=== PATIENT | female | born 1960 | race Caucasian/White ===

== ENCOUNTER → 2017-09-29 12:50 | Outpatient (CLI) | payer OTHER, SELFPAY ==
--- NOTE | 2017-09-29 12:57 | VDLE_ITS ---
Reason For Study: LEG SWELLING RIGHT LEFT GSV is normal. CFV is compressible, spontaneous, phasic, CFV is compressible, spontaneous, phasic, competent, and demonstrates normal competent and demonstrates normal augmentation. augmentation. FV is compressible, spontaneous, phasic, competent and demonstrates normal augmentation. POP V is compressible, spontaneous, phasic, competent and demonstrates normal augmentation. T/P Trunk is compressible. PTV is compressible. RT PerV is compressible. Procedure Exam performed in department. A preliminary report was called and/or faxed to Dr. Tavares. Interpretation Summary Deep veins of the right lower extremity are patent and compressible segmentally. There is no evidence of right lower extremity deep vein thrombosis. Valvular competence appears intact within the proximal deep venous system on the right . The right greater saphenous vein appears patent and compressible segmentally. Ordering Physician: Amish Tavares Referring Physician: Amish Tavares Performed By: Toña Curry RVT
== END ==
PROVIDERS: Family Provider Family Medicine; PCP Family Medicine; Visit Provider Family Medicine
DX: M79.89 Other specified soft tissue disorders (principal)
CPT/HCPCS: 93971

== ENCOUNTER 2017-12-13 11:35 | Emergency (ER) | payer OTHER, SELFPAY ==
[2017-12-13 11:36] VITALS: BP 159/93; PULSE 96; RESP 14; TEMP 36.6; O2SAT 100; BMI 26.1
[2017-12-13 11:39] VITALS: PULSE 88
--- NOTE | 2017-12-13 11:46 | EKG12_ITS ---
Test Reason : CP Blood Pressure : / mmHG Vent. Rate : 088 BPM Atrial Rate : 088 BPM P-R Int : 166 ms QRS Dur : 068 ms QT Int : 360 ms P-R-T Axes : 041 033 063 degrees QTc Int : 435 ms Normal sinus rhythm Septal infarct , age undetermined Abnormal ECG Confirmed by MARTHA MANN, GENEVA ([id number]), subeditor NIMCO العراقي ([id number]) on 12/15/2017 9:24:24 AM Referred By: Confirmed By:GENEVA THOMAS MD
--- NOTE | 2017-12-13 11:46 | RAD_ITS ---
STUDY: X-RAY CHEST REASON FOR EXAM: Female, 57 years old. Left-sided chest pain. TECHNIQUE: Single AP portable view of the chest. COMPARISON: None. FINDINGS: EKG electrodes are seen. Hyperinflation. The lungs are clear. There is no demonstrated pleural abnormality. Normal size heart. Normal mediastinum and chela. Normal visualized pulmonary arteries. Normal visualized aortic arch and descending thoracic aorta. Normal visualized thoracic spine. Normal visualized ribs, clavicles, and shoulders. There is no demonstrated abnormality of the visualized soft tissue structures of the upper abdomen. RAD/Chest 1 View (Portable) IMPRESSION: Hyperinflation. Electronically Signed: Tomas Navarro MD at 12:40 EDT Tel [phone], Service support ,
[2017-12-13] MEDS: Aspirin 81 MG TAB.CHEW 324 MG PO (11:51)
[2017-12-13 12:21] LABS: Absolute Lymphocyte Count 1.68 X10^3/ul (0.83-4.51); Absolute Neutrophil Count 5.3 X10^3/uL (2.0-7.7); Basophil# 0.04 X10^3/uL; Basophil% 0.5 % (0-1); Eosinophil# 0.17 X10^3/uL; Eosinophils% 2.2 % (0-5); Hemoglobin 13.8 g/dl (12.0-15.0); Lymphocyte # 1.68 X10^3/ul (4.0); Lymphocyte % 21.4 % (19-41); Mean Corp Hgb Conc 32.9 g/gl (32-36); Mean Corpuscular Hgb 29.5 pg (27.0-32.0); Mean Corpuscular Volume 89.7 fL (81-99); Monocyte# 0.66 X10^3/uL; Monocyte% 8.4 % (0-10); Neutrophil # 5.28 X10^3/uL (2.7-7.7); Neutrophil % 67.4 % (47-70); Platelet Count 222 K/mm3 (150-450); RBC Distribution Width CV 12.8 % (11.6-14.6); RBC Distribution Width SD 41.6 fl (35.1-43.9); Red Blood Count 4.68 M/mm3 (4.2-5.4); White Blood Count 7.8 K/mm3 (4.4-11.0)
[2017-12-13 12:23] LABS: POSITIVE COUNT NO; POSITIVE DIFFERENTIAL NO; POSITIVE MORPHOLOGY NO
[2017-12-13 12:30] LABS: D-Dimer Quantitative (DVT/PE) 0.41 FEU/ug/m (0.27-0.49)
[2017-12-13] MEDS: 0.9% Normal Saline 1,000 ML 1000 ML IV (12:39)
[2017-12-13 12:44] LABS: Anion Gap 4 (5-15); BUN 18 mg/dL (7-18); BUN/Creat Ratio 20.6 RATIO (10-20); Calcium,Total 9.4 mg/dL (8.5-10.1); Chloride 104 mmol/L (98-107); Creatinine, Serum 0.87 mg/dL (0.55-1.02); EST Glomerular Filtration Rate 71 mL/min (>60); Est Glom Filt Rate - Afr Amer 86 mL/min (>60); Estimated Creatinine Clearance 85.94 ml/min; Glucose 112 mg/dL (74-106); Potassium 4.8 mmol/L (3.5-5.1); Sodium Level 138 mmol/L (136-145)
--- NOTE | 2017-12-13 13:07 | EKG12_ITS ---
Test Reason : REPEAT CP Blood Pressure : / mmHG Vent. Rate : 074 BPM Atrial Rate : 074 BPM P-R Int : 198 ms QRS Dur : 066 ms QT Int : 400 ms P-R-T Axes : 066 046 062 degrees QTc Int : 444 ms Normal sinus rhythm Septal infarct , age undetermined Abnormal ECG Confirmed by MARTHA MANN, GENEVA ([id number]), graphic editor NIMCO العراقي ([id number]) on 12/15/2017 9:24:37 AM Referred By: TIERRA Confirmed By:GENEVA THOMAS MD
[2017-12-13] MEDS: Ketorolac 30 MG/ML Syringe IV (13:39)
[2017-12-13 13:49] VITALS: BP 136/87; PULSE 66; RESP 14; O2SAT 100
[2017-12-13 15:00] VITALS: BP 126/70; PULSE 59; RESP 16
--- NOTE | 2017-12-13 15:39 | ED.DCSUM_ITS ---
- ER Visit Summary Date of Service: 12/13/17 Chief Complaint: Chest pain History of Present Illness: The patient is a [address] Amish Patel. She proceeded approximately 1 hour ago she bent over a bathtub to clean it and the onset of a left-sided chest pain. It is a continuous sharp pain that is 2 out of 10 constantly and 10 out of 10 if she breathes or coughs. It is relieved by nothing. Is made her nauseated. No vomiting, diaphoresis, or shortness of breath with this. Patient denies any chest pain or change in dyspnea exertion in the past month. Physical Examination: Vitals: Stable. Afebrile. General: Well-nourished and well-developed. Head: Normocephalic atraumatic. Neck: Supple, no lymphadenopathy. No JVD. Nontender. Cardiovascular: Regular rate and rhythm. No murmurs. Respiratory: No respiratory distress. Clear to auscultation bilaterally. Chest is nontender. Abdominal: Soft, nontender, nondistended, normal bowel sounds. No guarding, rebound, or peritoneal signs. Back: Nontender. Extremities: Nontender, no edema. Skin: Normal color, no rash. Neurologic: Alert and oriented ?3. Cranial nerves II through XII are intact. Normal strength and sensation. Psych: Normal affect. Test Results: EKG is sinus at 88 and unchanged from 2014. Repeat EKG is unchanged. Cardiac enzymes are negative. Repeat enzymes are negative. D- dimer is negative. Chem-7 is more for glucose of 112. CBC is normal. Chest x- ray shows no acute disease. Emergency Department Course and Treatment: Patient had an IV placed. She was given Toradol IV and is resting comfortably. Treatment Plan: At this time I do not have an explanation for the patient's pain. It is pleuritic in nature. I do not believe this is cardiac in etiology. She will be discharged naproxen. Instructed to follow-up with Dr. Amish Patel in 3-5 days if not improving. Return to the emergency department for any worsening symptoms. Disposition: To home in improved and stable condition. Impression: 1. Pleuritic chest pain. This note was generated with Access Medi[employer] software. It may contain incorrect words, spelling, and punctuation that were not noted in review of the chart prior to signing ED Disposition - Plan for ED Patient: Disposition: Home or Assisted Living Chief Complaint: Chest Pain Instructions: ED Chest Pain Atypical Unkn Cause Prescriptions: Naproxen [Naprosyn] 500 mg PO BID #14 tablet Referrals: Amish Tavares MD [Primary Care Provider] - 3-5 Days if not improving
[2017-12-13 15:40] VITALS: BP 126/70; PULSE 72; RESP 16; O2SAT 98
== END 2017-12-13 15:47 | disposition home or self-care (01) ==
PROVIDERS: Emergency Provider Emergency Medicine; Family Provider Family Medicine; PCP Family Medicine
DX: R07.81 Pleurodynia (principal); R11.0 Nausea
CPT/HCPCS: 71045; 80048; 84484; 85025; 85379; 93005; 96361; 96374; 99285; J7030; A4216

== ENCOUNTER → 2018-01-06 11:47 | Outpatient (CLI) | payer OTHER, SELFPAY ==
--- NOTE | 2018-01-06 11:52 | RAD_ITS ---
STUDY: X-RAY - RIGHT KNEE REASON FOR EXAM: Female, 57 years old. Pain x2 months TECHNIQUE: Or view(s) of the knee. # of Images: 4 COMPARISON: 01/18/2017 FINDINGS: Normal visualized distal femur. Normal visualized proximal tibia and fibula. Normal proximal tibiofibular articulation. There is mild degenerative arthrosis of the medial femorotibial compartment. Normal lateral femorotibial compartment. There is mild degenerative arthrosis of the patellofemoral articulation. The soft tissue structures are unremarkable. RAD/Knee 4 or More Views IMPRESSION: Mild arthrosis, no demonstrated fracture or suspicious osseous lesion. Electronically Signed: Valentin Coto MD at 14:03 EDT , Service support ,
== END ==
PROVIDERS: Family Provider Family Medicine; PCP Family Medicine; Referring Provider Anesthesiology Pain Medicine; Visit Provider Anesthesiology Pain Medicine
DX: M25.561 Pain in right knee (principal)
CPT/HCPCS: 73564

== ENCOUNTER → 2018-01-17 07:42 | Outpatient (CLI) | payer OTHER, SELFPAY ==
--- NOTE | 2018-01-17 07:45 | BI_ITS ---
MAMMOGRAPHY - BILATERAL SCREENING REASON FOR EXAM: Female, 57 years old. Routine annual screening examination. PERTINENT HISTORY: Aunt with breast cancer. TECHNIQUE: Digital bilateral breast rimma (3D mammographic acquisition) in the CC and MLO projections. 2-D mediolateral oblique (MLO) and craniocaudad (CC) views of both breasts were obtained. CAD: Full Field Digital Mammography with Computer Added Detection was performed. COMPARISON: Comparison is made with prior examination dated November 12, 2016 and November 12, 2015. FINDINGS: Breast Composition: The breasts are heterogeneously dense, which may obscure small masses. There are no dominant masses or suspicious calcifications. Stable small bilateral axillary lymph nodes. No other significant abnormalities are identified. There has been no significant change since the prior study. BI/SCREENING MAMM (CAD), BILAT IMPRESSION: Stable bilateral screening mammogram. Yearly follow-up mammogram recommended. (A) ASSESSMENT CATEGORY: BIRADS Category 2: Benign. A letter regarding these results will be sent to the patient by the facility within 30 days. Approximately 10% of breast cancers are not detected by mammography. A normal mammogram should not delay biopsy of a clinically suspicious abnormality. [id number] Electronically Signed: Tomas Navarro MD at 9:07 EDT Tel [phone], Service support ,
== END ==
PROVIDERS: Family Provider Family Medicine; PCP Family Medicine; Visit Provider Family Medicine
DX: Z12.31 Encounter for screening mammogram for malignant neoplasm of breast (principal)
CPT/HCPCS: 77063; 77067

== ENCOUNTER → 2018-02-01 20:56 | Outpatient (CLI) | payer OTHER, SELFPAY | PROVIDERS: Family Provider Family Medicine; PCP Family Medicine; Visit Provider Family Medicine | DX: G47.10 Hypersomnia, unspecified (principal); G47.30 Sleep apnea, unspecified | CPT/HCPCS: 95810 ==

== ENCOUNTER 2018-02-25 15:30 | Outpatient (RCR) | payer OTHER, SELFPAY ==
--- NOTE | 2018-03-16 08:48 | HP.PTEVAL_ITS ---
Patient's Visit Information MAIA VALENCIA is a 57 year old F referred to Physical Therapy by Amish Tavares MD with a diagnosis of R knee pain, need for orthotics. Date of Evaluation: 01/20/18 Physical Therapist: Sam Arias DPT - Visit Plan Frequency: 1x/Week Duration: 2 Weeks Plan: Pt. to be fit for orthotics to create a better alignment of foot/knee in order to reduce R knee stress with all ambulation and work related activities. - Subjective Findings: Pt. is here today for her initial evaluation with diagnosis of R knee and pes planus with need for orthotics. Pt. reports wearing orthotics over the years, but her recent once has worn down resulting in increased pes planus positioning. 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 Pt. reports increased knee and foot pain as she stand and walks for longer periods of time. Pt. reports no pain at rest. Pt. has pain upto 3/10 in R knee with these activities. Pt. is hopeful to be fit for orthotics in order to have better positioning of her foot in order to reduce knee pain. - Pain B feet Pain Intensity (Out of 10): 2 Pain Intensity Range: 0, 3 R knee Pain Intensity (Out of 10): 2 Pain Intensity Range: 1, 4 - Objective POSTURE: Pt. has increase pes planus in stance bilaterally. Increased R knee valgus during stance phase, worse without shoes on. PALPATION: Pt. has increased pain at longitudinal arches and R medial knee. No pain on R knee. NEURO: normal sensation and DTR bilaterally. Pt. is able to rise on heels and toes without issues. ROM: Pt. has normal ROM of B feet and ankles, slight reduced R knee ext lacking 3 deg. Normal hip ROM bilat. MMT: Pt. has 5/5 strength thruoghout bilateral LEs. Pt. has slight reduction in B foot intrinsic strength. GAIT: pt. has increased bilateral pes planus with over prontation during stance phase. Pt. has increased R knee valgus during stance phase. All deviations exagerated with out shoes on. STAIRS: inncreased R knee valgus with descending. - Goals Goal 1:: Pt. to be fit for orthotics. Goal Time Frame: 2-4 Weeks Goal 2:: Pt. to have proper fitting of orthotics and be edcated in proper wearing progression. Goal Time Frame: 2-4 Weeks - Rehabilitation Potential Physical Therapy Diagnosis: Pt. has signs and symptoms consistent with R knee pain and B foot pain with signs of pes planus and over pronation. I think this puts a greater stress on her R knee, greater valgus postioning as she has had a menisectomy on this knee as well in past. I agree orthotics for better foot positioning would help stabilize her B feet apply less stress to her R knee with all walking and daily activities. Rehabilitation Potential: Excellent - Anticipated Interventions Patient/Client Instruction: Educate patient on: Condition, Plan of Care, Risk Factors, Benefits of Fitness Program For the Purpose of:: To facilitate caregiver knowledge, To improve self management, To prevent re-injury, To improve ability to perform tasks related to life management, To improve tolerance to ADL's Orthotics: Shoe insert For the Purpose of:: To decrease pain, To increase ROM, To improve nutrient delivery to tissue Thank you for the opportunity to evaluate your patient. For Medicare and Medicare HMO plans, please review the plan of care and approve it. It will need to be FAXED BACK to us at [phone] for Medicare purposes. For Medicare only, by signing this I certify the plan of care. Please let me know if there are questions or concerns regarding this plan of care. Physician Signature: Date:
--- NOTE | 2018-03-16 08:54 | HP.PTDCSUM ---
HP - PT D/C Summary It has been my pleasure to treat MAIA VALENCIA under orders from Amish Tavares MD, for the diagnosis of R knee pain, need for orthotics for a total of 7 visit(s). Discharge Date: 02/25/18 Please see the following information for a summary of their discharge status. - Subjective Subjective: Pt. reprots no change in symptoms currently. Pt. reports continued knee pain and looking forward to new orthotics. - Pain B feet Pain Intensity (Out of 10): 2 R knee Pain Intensity (Out of 10): 2 - Overall Improvement % Improvement: 25 - Objective Objective/Function: Pt. to wear in progression of x1 hour daily. Pt. consents. Pt. reports good fit with walking and tolerance. - Goals Goal 1:: Pt. to be fit for orthotics. Goal Progress: Goal Met Goal 2:: Pt. to have proper fitting of orthotics and be edcated in proper wearing progression. Goal Progress: Goal Met - Plan Plan: Pt. to be fit for orthotics to create a better alignment of foot/knee in order to reduce R knee stress with all ambulation and work related activities. - D/C Information Discharge Comments: Pt. was fit for orthotics and educated in proper wearing progression. Pt. is to contact PT if having any issues. I am hopeful that by having better foot placment we can reduce R knee valgus with all walking, standing and job activities. Pt. will be DC from PT at this point in time. If there are questions or concerns regarding this patient's physical therapy, please feel free to call me at [phone]. Thank you for the referral of this patient. Sincerely, Sam Arias DPT
== END 2018-02-25 19:00 | disposition home or self-care (01) ==
LOC: PT 15:30
PROVIDERS: Family Provider Family Medicine; PCP Family Medicine; Referring Provider Family Medicine; Visit Provider Family Medicine
DX: M25.561 Pain in right knee (principal)
CPT/HCPCS: 97161; 97760; 97763

== ENCOUNTER → 2018-05-09 09:56 | Outpatient (CLI) | payer OTHER, SELFPAY ==
[2018-05-09 21:41] LABS: Chlamydia Trachomatis by PCR Negative (Negative); Neisserai gonorrhoeae by PCR Negative (Negative); Probe Check PASS; Sample Adequacy Control PASS; Specimen Processing Control PASS; Trichomonas Vag DNA by PCR Negative (Negative)
[2018-05-13 12:43] LABS: HPV APTIMA, High Risk Negative (Negative)
== END ==
PROVIDERS: Family Provider Family Medicine; PCP Family Medicine; Visit Provider Obstetrics & Gynecology
DX: Z12.4 Encounter for screening for malignant neoplasm of cervix (principal); Z01.419 Encounter for gynecological examination (general) (routine) without abnormal findings; Z11.3 Encounter for screening for infections with a predominantly sexual mode of transmission
CPT/HCPCS: 87491; 87591; 87624; 87661; 88175; G0145

== ENCOUNTER → 2018-07-13 10:12 | Outpatient (CLI) | payer OTHER, SELFPAY ==
[2018-05-26 08:30] VITALS: BMI 24.4
--- NOTE | 2018-07-13 10:17 | MRI_ITS ---
STUDY: MRI RIGHT KNEE REASON FOR EXAM: Mechanical pain at the lateral and anterior aspects of the right knee, surgery in December 2009. TECHNIQUE: Standardized fat and water weighted pulse sequences were obtained in all 3 orthogonal planes. COMPARISON: MRI images 09/17/2010 and radiographs 01/06/2018. FINDINGS: Normal medial meniscus. Normal hyaline cartilage of the medial femorotibial compartment. Normal medial collateral ligamentous complex (MCL). Normal distal semimembranosus, gracilis and semitendinosus tendons. There is a partial lateral meniscectomy with a meniscal flap of the posterior horn of the lateral meniscal remnant (T2 sagittal image 6; T2 sagittal image 11), a suspected recurrent lateral meniscal tear. There is arthrosis of the lateral femorotibial compartment with marginal osteophytes and chondral loss (T2 sagittal image 8) and slight subchondral bone edema. Normal proximal tibiofibular articulation. Normal lateral collateral (fibular) ligament. Normal popliteus tendon. Normal biceps femoris tendon. Normal anterior cruciate ligament (ACL). Normal posterior cruciate ligament (PCL). Normal congruent patellofemoral articulation. There is arthrosis of the patellofemoral compartment with partial-thickness chondral loss (T2 sagittal image 16). Normal medial and lateral patellar retinaculum. Normal visualized quadriceps tendon. Normal patellar tendon. There is postoperative scarring in Hoffa's fat pad. There is a small joint effusion. The soft tissues are unremarkable. There is bone edema/cystic change in the proximal tibia at the insertion sites of the cruciate ligaments and mild bone edema in the medial femoral condyle near the intercondylar notch. MRI/Lower Ext Joint Only (Routine) IMPRESSION: Partial lateral meniscectomy with suspected recurrent lateral meniscal tear. Arthrosis of the lateral femorotibial and patellofemoral compartments. Small joint effusion. Electronically Signed: Shashank Chicas MD at 11:39 EDT Tel , Service support ,
== END ==
PROVIDERS: Family Provider Family Medicine; PCP Family Medicine; Referring Provider Orthopaedic Surgery; Visit Provider Orthopaedic Surgery
DX: M17.11 Unilateral primary osteoarthritis, right knee (principal); M25.561 Pain in right knee
CPT/HCPCS: 73721

== ENCOUNTER 2018-07-27 10:30 | Outpatient (RCR) | payer OTHER, SELFPAY ==
[2018-05-26 08:30] VITALS: BMI 24.4
--- NOTE | 2018-06-16 09:57 | HP.PTEVAL ---
Patient's Visit Information MAIA VALENCIA is a 57 year old F referred to Physical Therapy by Nnamdi Morales DO with a diagnosis of Biceps femoris tendonitis, medial knee OA. Date of Evaluation: 06/09/18 Physical Therapist: Sam Arias DPT - Visit Plan Frequency: 1-2x /Week Duration: 4-6 Weeks Plan: Start with stretching/PROM of R knee into extension. DFM/DN/graston to HS muscle belly and distal insertion. Progress HEP as tolerated. - Subjective Findings: Pt. is there today for her initial evaluation with diagnosis of R knee quadriceps femoris tendonitis, medial knee OA. Pt. reports having pain for a number of years and has had a previous menisectomy. Pt. reports doing okay for a bit after surgery, but was never fully better. Pt. has had injections without positive effects. She reports having increased pain with all Wbing positions, but not consistently. 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 Pt. reports increased pain with all of these activities. Pt. never did regain of all her extension in her knee after her last surgery. Pt. reprots pain at medial aspect of knee, lateral aspect of her knee and medial popliteal fossa. Pt. denies N/T, but always has some symptoms. Pt. is hopeful to reduce her symptoms in order to get back to work and skiing without limitations or pain. - Pain R knee Pain Intensity (Out of 10): 2 Pain Intensity Range: 1, 5 - Objective POSTURE: Pt. has increased vlagus positoning and slight lack of TKE in stance. Pt. has normal wt. shift in stance. Normal hip positoning. PALPATION: Pt. has increased pain with palpation at medial and lateral joint line. Greatest pain at lateral aspect of knee and popliteal region both medial and laterally. NEURO: Pt. has normal sensation throughout bilateral LEs. Pt. has normal DTR of bilateral LEs. Pt. is able to rise on heels and toes without issues. ROM: L knee- 0-0-128deg. R knee 0-5-126deg increased pain with end range extension. MMT: Pt. has full strength throughout bilateral LEs, except 4/5 hip abduction. Pt. did have increased pain at biceps femoris insertion and distal tendon with HS contraction. GAIT: Pt. lacks TKE on RLE during stance phase. Pt. has decreased wt. shift to R side with reports of increased pain. STAIRS: acending without much increase in symptoms. Pt. increased pain with controlled eccentric lowering on R side. - Special Tests R Knee Disco Test - Meniscus: Negative R Knee Anterior Drawer - ACL: Negative R Knee Valgus - MCL: Negative R Knee Varus - LCL: Negative - Goals Goal 1:: Pt. to be I with HEP. Goal Time Frame: 4-6 Weeks Goal 2:: Pt. to have increased ROM to full extension of R knee allowing for normal gait mechanics. Goal Time Frame: 4-6 Weeks Goal 3:: Pt. to to complete all work and recreational activities without increase in symptoms. Goal Time Frame: 4-6 Weeks Goal 4:: Pt. to to have decreased R knee pain to 0-2/10 with all resting and walking. Goal Time Frame: 4-6 Weeks - Rehabilitation Potential Physical Therapy Diagnosis: Pt. has signs and symptoms consistent with bicep femoris tendonitis and medial knee OA. Pt. is lacking TKE and is very tender along distal biceps femoris insertion. Pt. would benefit from PT to increase ROM, decrease pain and improve functional mobility in order to get back to all recreational activities without limitations. Rehabilitation Potential: Fair - Anticipated Interventions Patient/Client Instruction: Educate patient on: Condition, Plan of Care, Risk Factors, Benefits of Fitness Program For the Purpose of:: To foster healthy habits, To improve decision making, To facilitate caregiver knowledge, To improve self management, To prevent re-injury, To improve ability to perform tasks related to life management, To improve tolerance to ADL's Therapeutic Exercise to Include: Strength training, Power training, Flexibilty training, Passive ROM, Active ROM For the Purpose of:: To decrease pain, To decrease swelling/inflammation, To increase ROM, To improve muscle performance and motor function, To improve health of tissue, To decrease soft tissue restriction, To increase flexibility/ROM Manual Therapy Techniques to Include: Mobilization, Passive ROM, Functional dry needling, Soft tissue mobilization For the Purpose of:: To decrease pain, To decrease swelling/inflammation, To increase ROM, To improve nutrient delivery to tissue Cryotherapy (ice pack, ice massage): Yes Thermo therapy (hot pack): Yes For the Purpose of:: To decrease pain, To decrease swelling/inflammation, To increase ROM Thank you for the opportunity to evaluate your patient. For Medicare and Medicare HMO plans, please review the plan of care and approve it. It will need to be FAXED BACK to us at [phone] for Medicare purposes. For Medicare only, by signing this I certify the plan of care. Please let me know if there are questions or concerns regarding this plan of care. Physician Signature: Date:
--- NOTE | 2018-11-23 10:15 | HP.PTDCNRP_ITS ---
HP - Discharge Summary (1) - Patient Information MAIA DAVIES was seen in my office for initial evaluation on 06/09/18. The following Plan of Care was established for this patient: Initial Frequency: 1-2x /Week Initial Duration: 4-6 Weeks - Anticipated Interventions Patient/Client Instruction: Educate patient on: Condition, Plan of Care, Risk Factors, Benefits of Fitness Program For the Purpose of:: To foster healthy habits, To improve decision making, To facilitate caregiver knowledge, To improve self management, To prevent re- injury, To improve ability to perform tasks related to life management, To imp rove tolerance to ADL's Therapeutic Exercise to Include: Strength training, Power training, Flexibilty training, Passive ROM, Active ROM For the Purpose of:: To decrease pain, To decrease swelling/inflammation, To increase ROM, To improve muscle performance and motor function, To improve health of tissue, To decrease soft tissue restriction, To increase flexibility/ROM Manual Therapy Techniques to Include: Mobilization, Passive ROM, Functional dry needling, Soft tissue mobilization For the Purpose of:: To decrease pain, To decrease swelling/inflammation, To increase ROM, To improve nutrient delivery to tissue Cryotherapy (ice pack, ice massage): Yes Thermo therapy (hot pack): Yes For the Purpose of:: To decrease pain, To decrease swelling/inflammation, To increase ROM This patient was last seen in our office 07/27/18. Pertinent comments regarding their Physical therapy will appear below: Pt. was seen for her biceps femoris tendonitis. Pt. was seen for 5 visits, but did not attend her last visit. Pt. has not been seen in several months and will be DC from PT at this point intime. At this point I will be discontinuing this patient from physical therapy. I would be happy to see this patient again in the future if found appropriate by the physician. Thank you! Sam Arias, GISELA
== END 2018-07-27 19:00 | disposition home or self-care (01) ==
LOC: PT 10:30
PROVIDERS: Family Provider Family Medicine; PCP Family Medicine; Referring Provider Orthopaedic Surgery; Visit Provider Orthopaedic Surgery
DX: S76.312D Strain of muscle, fascia and tendon of the posterior muscle group at thigh level, left thigh, subsequent encounter (principal); M17.11 Unilateral primary osteoarthritis, right knee
CPT/HCPCS: 97110; 97161; 97760

== ENCOUNTER 2018-11-24 03:10 | Emergency (ER) | payer OTHER, SELFPAY ==
[2018-05-26 08:30] VITALS: BMI 24.4
[2018-11-24 03:11] VITALS: BP 115/75; PULSE 66; RESP 14; TEMP 36.5; O2SAT 99; BMI 23.7
--- NOTE | 2018-11-24 03:20 | ED.VIS.GEN ---
History of Present Illness Chief Complaint: Laceration Narrative: Patient is a 58-year-old female who presents with an abrasion. 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 She scraped her left forearm against a toilet paper ang. As this occurred at work she was told by the charge nurse that she needed to be checked because it was bleeding. Past Medical History - Allergies and Home Meds Allergies/Adverse Reactions: Allergies magnesium Allergy (Verified 11/24/18 03:11) Other Primary Care Physician: Amish Tavares MD [Primary Care Provider] - Past Medical History: - - Denies Smoking Status: Never smoker Review of Systems All systems negative except as indicated Physical Exam Vital Signs/Narrative: Vital Signs Temp Pulse Resp BP Pulse Ox 11/24/18 03:11 97.7 F L 66 14 115/75 99 Inital Vital Signs reviewed: Yes General: Well nourished ENT: Moist mucous membranes Cardiovascular: Regular rate Respiratory: No distress Extremities: - - Patient has a small abrasion on the left forearm Neurological: Alert Psychological: Normal affect Diagnostic/Tx/Re-eval - Medical Decision Making The patient was cleansed with water and a Band-Aid placed. Patient discharged ED Disposition - Plan for ED Patient: Disposition: Home or Assisted Living Diagnosis: Abrasion Instructions: Abrasion Referrals: Amish Tavares MD [Primary Care Provider] -
[2018-11-24 03:45] VITALS: RESP 14
== END 2018-11-24 03:46 | disposition home or self-care (01) ==
LOC: ED 03:29
PROVIDERS: Emergency Provider Emergency Medicine; Family Provider Family Medicine; PCP Family Medicine
DX: S50.812A Abrasion of left forearm, initial encounter (principal); X58.XXXA Exposure to other specified factors, initial encounter; Y93.89 Activity, other specified; Y92.239 Unspecified place in hospital as the place of occurrence of the external cause; Y99.0 Civilian activity done for income or pay
CPT/HCPCS: 99282

== ENCOUNTER 2019-03-09 10:15 | Outpatient (RCR) | payer OTHER, SELFPAY ==
[2018-05-26 08:30] VITALS: BMI 24.4
--- NOTE | 2019-02-08 15:44 | MASS.EVAL ---
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 She was seen for a massotherapy evaluation with a diagnosis of arthritic pain. She presents today with mostly neck pain radiating into arms. She further explains that she hurts all over most of the time. On a pain scale of 1-10 she states her pain in a 6-7 today. She does not list any medications. She states that her health is very good with no limits in daily activities. Her goals of treatment are to feel better. OBJECTIVE: Upon examination and palpation I found she had point tenderness throughout her suboccipitals. Her head, neck and shoulders were tight. Her levators,scalenes were right and ropey left greater than right. There was some tenderness over her right arm extensors at the elbow. Her gastroc/soleus muscles were tight as well as the right peroneals were tight and tender. Stephanie's first treatment consisted of MFR, muscle stripping, and a heat pack to loosen muscles. ASSESSMENT: Using various techniques I was able to achieve moderate releases overall. The patient tolerated deep pressure well and relaxed easily PLAN: I plan to see this patient on an as-needed basis for a total of 10 visits in the year 2019. Elida Wilkins LMT
--- NOTE | 2019-03-09 13:00 | MASS.DISCH ---
Massage Therapy Discharge Summary: Discharge Date: 03/09/2019 Stephanie was seen for a massotherapy evaluation on 12/23/2018 with the diagnosis of arthritic pain. She was treated with four sessions of massage therapy consisting of moderate to deep pressure soft tissue techniques, myofascial release and trigger point compression to her cervical, thoracic, lower back, upper extremities, hips and lower extremities. Stephanie responded well to the therapy by reporting decreased tension and pain throughout her head, neck, shoulders, lower back and hips. Her goals for therapy were met throughout the treatment sessions. At this time this patient is being discharged from our care at [facility] [place] facility.
== END 2019-03-09 19:00 | disposition home or self-care (01) ==
LOC: MASS 10:15
PROVIDERS: Family Provider Family Medicine; PCP Family Medicine; Referring Provider Family Medicine; Visit Provider Family Medicine
DX: M25.50 Pain in unspecified joint (principal)
CPT/HCPCS: 97124

== ENCOUNTER → 2019-04-07 08:42 | Outpatient (CLI) | payer OTHER, SELFPAY ==
--- NOTE | 2019-04-07 08:57 | BI_ITS ---
MAMMOGRAPHY - BILATERAL DIAGNOSTIC REASON FOR EXAM: Female, 58 years old. Left lateral breast pain. PERTINENT HISTORY: Aunt with breast cancer. TECHNIQUE: Digital bilateral breast rimma (3D mammographic acquisition) in the CC and MLO projections. 2-D mediolateral oblique (MLO) and craniocaudad (CC) views of both breasts were obtained. CAD: Full Field Digital Mammography with Computer Added Detection was performed. COMPARISON: Comparison is made with prior study dated January 17, 2018 and November 12, 2016. FINDINGS: Breast Composition: The breasts are heterogeneously dense, which may obscure small masses. There are no dominant masses or suspicious calcifications. No other significant abnormalities are identified. There has been no significant change since the prior study. BI/DIAG MAMM W/CAD, BILAT IMPRESSION: Stable bilateral diagnostic mammogram. With the patient''s history of left lateral breast pain, correlation with ultrasound is recommended. ASSESSMENT CATEGORY: BIRADS Category 0: Incomplete. Need additional imaging evaluation. A letter regarding these results will be sent to the patient by the facility within 30 days. Approximately 10% of breast cancers are not detected by mammography. A normal mammogram should not delay biopsy of a clinically suspicious abnormality. Electronically Signed: Tomas Navarro, at 10:22 EST , Service support ,
--- NOTE | 2019-04-07 08:57 | US_ITS ---
STUDY: ULTRASOUND BREAST - LEFT REASON FOR EXAM: Female, 58 years old. Pain in the left breast. TECHNIQUE: Axial and longitudinal images of the LEFT breast were performed with a high resolution ultrasound transducer. # OF IMAGES: 62 COMPARISON: Comparison is made with prior mammogram dated April 07, 2019. FINDINGS: LEFT Breast: The lateral half of the left breast was examined by ultrasound. There is homogeneous fibroglandular tissue. No solid or cystic mass lesion. US/Breast Complete Unilateral IMPRESSION: Unremarkable sonographic examination. ASSESSMENT CATEGORY: BIRADS Category 1: Negative. A letter regarding these results will be sent to the patient by the facility within 30 days. Electronically Signed: Tomas Navarro, at 8:57 EST , Service support ,
== END ==
PROVIDERS: Family Provider Family Medicine; PCP Family Medicine; Referring Provider Obstetrics & Gynecology; Visit Provider Obstetrics & Gynecology
DX: Z12.31 Encounter for screening mammogram for malignant neoplasm of breast (principal); N64.4 Mastodynia
CPT/HCPCS: 76641; 77063; 77066

== ENCOUNTER 2020-01-24 08:15 | Outpatient (RCR) | payer OTHER, SELFPAY ==
--- NOTE | 2020-02-29 09:08 | MASS.DISCH ---
Massage Therapy Discharge Summary: Initial Evaluation Date: 01/24/2020 Diagnosis: CERVICALGIA No. of Visits: ONE Date of last visit: 01/24/2020 This patient is being discharged from our care at the [facility] Facility. Thank you, Linda Hernández LMT
== END 2020-01-24 19:00 | disposition home or self-care (01) ==
LOC: MASS 08:15
PROVIDERS: PCP Family Medicine; Referring Provider Family Medicine; Visit Provider Family Medicine
DX: M54.2 Cervicalgia (principal)
CPT/HCPCS: 97124

== ENCOUNTER → 2020-01-31 09:10 | Outpatient (CLI) | payer OTHER, SELFPAY ==
[2020-01-31 09:04] VITALS: BMI 24.6
--- NOTE | 2020-01-31 09:12 | RAD_ITS ---
STUDY: X-RAY - RIGHT KNEE REASON FOR EXAM: Female, 59 years old. Pain in right knee TECHNIQUE: 4 view(s) of the knee. COMPARISON: Comparison is made with prior examination dated 01/07/2008. FINDINGS: Normal visualized distal femur. Normal visualized proximal tibia and fibula. Normal proximal tibiofibular articulation. Normal medial femorotibial compartment. There is moderate degenerative arthrosis of the lateral femorotibial compartment with moderate joint space narrowing. Normal patellofemoral articulation. The soft tissue structures are unremarkable. RAD/Knee 4 or More Views IMPRESSION: Degenerative arthrosis. This has progressed as compared to prior study. Electronically Signed: Tomas Navarro, at 15:51 EST , Service support ,
== END ==
PROVIDERS: PCP Family Medicine; Referring Provider Orthopaedic Surgery; Visit Provider Orthopaedic Surgery
DX: M25.561 Pain in right knee (principal)
CPT/HCPCS: 73564

== ENCOUNTER 2020-02-19 10:55 | Outpatient (RCR) | payer OTHER, SELFPAY ==
[2020-01-31 09:04] VITALS: BMI 24.6
== END 2020-02-19 23:59 ==
LOC: EMPH 10:55
PROVIDERS: PCP Family Medicine; Visit Provider Family Medicine Geriatric Medicine
DX: Z03.818 Encounter for observation for suspected exposure to other biological agents ruled out (principal)
CPT/HCPCS: 87426

== ENCOUNTER → 2020-02-19 16:55 | Outpatient (CLI) | payer OTHER, SELFPAY ==
[2020-01-31 09:04] VITALS: BMI 24.6
--- NOTE | 2020-02-19 17:40 | CT_ITS ---
STUDY: RIGHT LOWER EXTREMITY CT SCAN REASON FOR EXAM: Female, 59 years old. RT FAROOQ KNEE. HAVING RIGHT KNEE REPLACMENT MAR 05 RADIATION DOSAGE (If Supplied By Facility): CTDIvol = ( 18.76 ) mGy, DLP = ( 1199.65 ) mGycm. Individualized dose optimization techniques were used for this CT.? TECHNIQUE: Axial multidetector CT scan of the right lower extremity. Coronal and sagittal reformatted images. FAROOQ technique. COMPARISON: X-ray dated 01/31/2020. FINDINGS: No acute fracture line. No acute dislocation. No acute bone destruction. Mild right hip osteoarthritis. Mild right knee medial compartment joint space narrowing. Moderate right knee lateral compartment joint space narrowing. Mild right knee patellofemoral joint space narrowing. Mild right ankle talonavicular joint arthrosis. Tubal ligation clips. Remainder of the visualized intra-abdominal/pelvic contents within normal limits. No focal muscle atrophy. Moderate volume right knee joint effusion. Mild soft tissue swelling at the right knee. CT/Extremity Lower without Contra IMPRESSION: Moderate right knee osteoarthritis predominantly laterally Mild right hip and ankle osteoarthritis Moderate volume right knee joint effusion with mild soft tissue swelling Electronically Signed: Jass Rodriguez DO at 11:22 EST Tel , Service support ,
== END ==
PROVIDERS: PCP Family Medicine; Referring Provider Orthopaedic Surgery; Visit Provider Orthopaedic Surgery
DX: M17.11 Unilateral primary osteoarthritis, right knee (principal)
CPT/HCPCS: 73700

== ENCOUNTER 2020-03-05 09:33 | Observation (INO) | payer OTHER, SELFPAY ==
[2020-01-31 09:04] VITALS: BMI 24.6
--- NOTE | 2020-02-23 11:14 | EKG12_ITS ---
Test Reason : PREOP Blood Pressure : / mmHG Vent. Rate : 072 BPM Atrial Rate : 072 BPM P-R Int : 184 ms QRS Dur : 074 ms QT Int : 384 ms P-R-T Axes : 071 065 070 degrees QTc Int : 420 ms Normal sinus rhythm Low voltage QRS Setal MS, age undetermined, cannot be excluded Borderline ECG Confirmed by JACKSON MANN, CLIFFORD ([id number]), primer expeditor and drier NIMCO العراقي ([id number]) on 02/27/2020 4:18:27 PM Referred By: Nnamdi Morales Confirmed By:CLIFFORD PAZ MD
[2020-02-23 12:36] LABS: Absolute Neutrophil Count 3.5 X10^3/uL (2.0-7.7); Basophil# 0.06 X10^3/uL; Eosinophil# 0.17 X10^3/uL; Eosinophils% 2.9 % (0-5); Hematocrit 43.5 % (37-47); Hemoglobin 14.4 g/dL (12.0-15.0); Mean Corp Hgb Conc 33.1 g/dL (32-36); Mean Corpuscular Hgb 30.6 pg (27.0-32.0); Mean Corpuscular Volume 92.4 fL (81-99); Mean Platelet Vol. 8.8 fl (6.2-12.0); Monocyte# 0.55 X10^3/uL; Monocyte% 9.5 % (0-10); NRBC Flagged by Analyzer 0 % (0-5); Neutrophil # 3.48 X10^3/uL (2.7-7.7); Neutrophil % 60.4 % (47-70); Platelet Count 267 K/mm3 (150-450); RBC Distribution Width CV 12.4 % (11.6-14.6); RBC Distribution Width SD 42.2 fl (35.1-43.9); Red Blood Count 4.71 M/mm3 (4.2-5.4); White Blood Count 5.8 K/mm3 (4.4-11.0)
[2020-02-23 12:57] LABS: Anion Gap 2 (5-15); BUN 15 mg/dL (7-18); BUN/Creat Ratio 16.9 RATIO (10-20); Calcium,Total 9.2 mg/dL (8.5-10.1); Chloride 108 mmol/L (98-107); Creatinine, Serum 0.88 mg/dL (0.55-1.02); EST Glomerular Filtration Rate 70 mL/min (>60); Est Glom Filt Rate - Afr Amer 84 mL/min (>60); Glucose 72 mg/dL (74-106); Sodium Level 142 mmol/L (136-145)
[2020-02-23 12:59] LABS: Magnesium 2.3 mg/dL (1.6-2.6)
[2020-02-23 13:09] LABS: International Normalized Ratio 1.1; Partial Thromboplast Time 28.8 Seconds (24.1-36.2); Prothrombin Time (Protime)PT. 13.2 SECONDS (11.7-14.9)
[2020-03-05] VITALS (12 sets, daily range): BP systolic 111–126; BP diastolic 65–89; PULSE 54–108; RESP 14–20; TEMP 36.2–37.3; O2SAT 96–100; BMI 24.7
[2020-03-05] MEDS: Scopolamine 1mg/72hr Patch 1 PATCH TD (06:15)
[2020-03-05] MEDS: Gabapentin 600 MG Tablet PO (06:15)
[2020-03-05] MEDS: Acetaminophen 500 MG Tablet 1000 MG PO ×3 (06:15→20:52)
[2020-03-05] MEDS: Lactated Ringers 1,000 ML 999 ML IV (06:23)
[2020-03-05 06:25] LABS: Bedside Glucose 82 mg/dL (70-110)
--- NOTE | 2020-03-05 07:07 | PCM.HP.BLA ---
History and Physical Date of Admission: 03/05/20 Intake Intake Visit Reasons: right knee Is patient in pain?: Yes Allergies magnesium Allergy (Verified 02/20/20 14:04) Other celecoxib [From Celebrex] Adverse Reaction (Verified 02/20/20 14:14) Shortness of breath Medications Calcium Carbonate/Vitamin D3 [Calcium 600 + Vit D Caplet] 1 ea PO DAILY 02/20/20 [History Confirmed 02/23/20] Is last menstrual period known: No Post menopausal: Yes Patient : No PFSH Medical History (Updated 01/31/20 @ 09:36 by Essie Kc) Hx of ovarian cyst (Acute) Raynauds syndrome (Acute) Surgical History (Updated 01/31/20 @ 09:06 by Essie Kc) Hx of arthroscopy of right knee (Acute) Hx of section (Acute) Social History (Updated 02/23/20 @ 16:43 by Esa CEE, PA) Smoking Status: Never smoker HPI right knee: Details: Parts of this documentation were recorded by a scribe, this documentation accurately reflects the service provided and the decisions made by Esa friedman PA 02/23/20 1308. MAIA DAVIES is a 59 year old F here today for right knee IOVERA treatment. Patient is scheduled to undergo a right TKA on 03/05/2020. She continues to have right knee pain and pain with her daily activities like hiking and kayaking. Denies numbness, tingling or other associated symptoms. ROS Musc Reports joint pain, Reports joint swelling, Reports limited joint movement, Denies numbness, Denies stiffness Skin/Breast Denies redness, Denies lesions, Denies itching, Denies rash, Denies skin pain Neuro No numbness Ortho Exam Right Knee Skin/Wound: No erythema, No ecchymosis, Yes swelling Homans Sign: No Knee ROM: No ROM-Extension -20 to 0 (lacking 15), No ROM-Flexion 0-140 (120) Examination: Yes Med jt line tenderness, Yes Lat jt line tenderness, No Pain with flexion, Yes Pain with extention Patella Grind: Yes KNEE: Inspection of the right knee shows no acute abnormalities. She has no ecchymosis/bruising, erythema, or other skin changes to indicate acute infections/inflammation. She does have some minor swelling compared to the left side. She does lack some extension today and does have an evident valgus deformity. She does have some pain with extension today. pain with extension Office Procedures Iovera Details:: Preoperative diagnosis : right knee pain Postoperative diagnosis: Same Procedure: Cryotherapy with Iovera device to anterior femoral cutaneous nerve and 2 branches of the infrapatellar saphenous nerve III nerves in total Description of procedure: Patient was brought back to the procedure room the operative extremity was identified by both patient and physician. The PIP flexion crease was measured to the midpoint of the patella and this distance was divided in 3 resulting in 13.5 cm location proximal to the midpoint of the patella. This line was extended medial and lateral to the extent of the edges of the patella. This was our treatment line for the anterior femoral cutaneous nerve. A second treatment line was made 5 cm medial to the inferior pole of the patella and 5 cm distally. The leg was prepped with alcohol and Betadine. Lidocaine with epi was used along the treatment lines. Using the Iovera device treatment lines were treated with 1 minute cycles. Reproduction of paresthesias was monitored in the area of nerve distribution. Once all 3 nerves were treated across the 2 treatment lines patient was cleaned and a light dressing with 4 x 4 and Tony wrap was applied. Patient tolerated the procedure without complication. Assessment & Plan Problems 1. Chronic pain of right knee M25.561; G89.29 Plan Patient presents the office today to proceed with Iovera treatment of the right knee preoperatively prior to right total knee arthroplasty. We did discuss the procedure in detail as well as the risks and benefits. All her questions were answered to her satisfaction and consent was signed in office today. Follow up 2 weeks post op or sooner if pain, swelling, numbness or associated symptoms, or concerns develop. All questions answered. Patient in agreement of plan. 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 There are no clinical changes since date of exam
[2020-03-05] MEDS: Cefazolin 2 GM in 0.9% Normal Saline 100 ML IV (07:40)
[2020-03-05] MEDS: Lactated Ringers 1,000 ML 125 ML IV ×2 (07:45→15:45)
[2020-03-05] MEDS: dexAMETHasone 10 MG/ML Vial IV (08:13)
[2020-03-05] MEDS: Epinephrine (1 mg/ml) 1 MG/ML VIAL (08:59)
[2020-03-05] MEDS: Betamethasone/Betamethasone 30 MG/5 ML Vial (08:59)
[2020-03-05] MEDS: Bupivacaine 0.5% PF 10 ML VIAL (08:59)
[2020-03-05] MEDS: 0.9% Normal Saline (Pres. free 10 ML Vial (08:59)
--- NOTE | 2020-03-05 09:37 | OP.PCM_ITS ---
Report of Operation Date of Procedure: 03/05/20 Description of Surgical Findings:: Preoperative diagnosis: Right knee DJD Postoperative diagnosis: Same Procedure: Right total knee arthroplasty CT guided Robotic Assisted Implant: Patricio triathlon press fit femoral component size5, press-fit tibial baseplate size 5, press fit asymmetric patella size 35, polyethylene X3 size 9 CS Anesthesia: Spinal with adductor canal block Tourniquet time: 29 minutes at 300 mmHg Complications: None Condition: Stable to PACU Estimated blood loss: 125 cc Indication for procedure: This is a 59-year-old female with long standing degenerative joint disease of the knee who has failed conservative treatment and wished to proceed with elective total knee arthroplasty. Risk benefits and alternatives were reviewed including; risk of bleeding, infection, nerve artery and tissue damage, continued pain, postoperative stiffness, venous thromboembolism, need for postoperative rehabilitation, mechanical feel to the knee, and expected postoperative course. The operative CT and templating was performed with component sizing Procedure: The patient was met in the preoperative holding area. The operative extremity was identified by both patient and physician and was marked. Patient was met by anesthesia. An adductor canal block was placed by anesthesia postoperatively the patient was brought back to the operating room on a wheeled cart and transferred to the operating table in the supine position. Anesthesia was started. A well-padded tourniquet was placed on the operative extremity. The patient was prepped and draped in the usual sterile fashion. A timeout was called to ensure the proper patient procedure and extremity were being contemplated. An Esmarch was used to exsanguinate the extremity. The tourniquet was inflated. A 10 blade scalpel was used to make a midline incision down through the skin and subcutaneous tissue. Skin retractors placed. Bovie was used to perform meticulous hemostasis. full-thickness flaps were elevated medial and lateral along the joint capsule. A deep blade scalpel was used to perform a medial parapatellar arthrotomy. The knee was brought to full extension. A Bovie was used to release the soft tissues off the most proximal aspect of the medial tibial plateau, a three-quarter inch curved osteotome was also used for this process. The infrapatellar fat pad was excised. The superior fat pad was excised partially anteriorolateraly and portion the anterioromedial pad was elevated from the femur. At this point our intra- articular femoral array was placed of a 45 degree angle proximal and posterior to the medial epicondyle. Our tibial array was placed greater than 1 hands breath below the incision at a 20 degree angle stab incisions were used for this case were attached and checked with the robotic software. Tourniquet was let down. At this point registration alvarez were taken throughout the knee as well as checkpoints placed in the femur and tibia once the knee was registered then tensioned the medial and lateral ligaments in extension and 90 degrees of flexion. We then used these numbers to adjust our components within parameters to balance the knee in both flexion and extension once this was done on our monitor we then proceeded with using the robotic arm to make our tibial plateau cut and anterior posterior and chamfer cuts and distal on the femur we then trialed and achieved the desired plan with a well-balanced knee. Lug holes were drilled in the femur the tibia preparation was completed with a fin punch and the patella was prepared by first using a caliper to ensure sufficient bone stock and a patellar reamer to remove the desired amount of bone locals were drilled for an asymmetric poly-. We then brought the knee through range of motion with excellent patellar tracking. We thoroughly irrigated the knee with a trial components were removed a posterior capsular injection with her standard cocktail was performed the aqua Mantis was also used to aid in hemostasis. Betadine rinse was allowed to sit and washed out components were press-fit into place. Aricept rinse was then used followed by several more rate liters of irrigation after it was allowed to sit. Joint capsule was closed with #1 Ethibond [id number]'s followed by Vicryl in the subcutaneous tissues staple in the skin arrays and checkpoints were removed prior to closure all counts were correct stab incisions were closed with a stable standard dressing in the form of Mepilex for the main incision Xeroform 4 x 4 and Tegaderm over pin site holes. Thigh-high SHAHIDA hose applied over top of dressing. Patient tolerated the procedure well and was directed to PACU in stable condition no intraoperative complications
--- NOTE | 2020-03-05 09:50 | RAD_ITS ---
STUDY: X-RAY - RIGHT KNEE REASON FOR EXAM: Female, 59 years old. POST OP TECHNIQUE: 2 view(s) of the knee. COMPARISON: Comparison is made with prior study dated 01/31/2020. FINDINGS: The patient is status post total knee replacement. There is good alignment. Postoperative soft tissue changes. RAD/Knee 1 or 2 Views IMPRESSION: Status post total knee replacement. There is good alignment. Postoperative soft tissue changes. Electronically Signed: Tomas Navarro, at 11:06 EST , Service support ,
[2020-03-05] MEDS: Cefazolin 1 GM/50 ML BAG IV ×2 (10:29→19:44)
[2020-03-05] MEDS: HYDROmorphone 0.5 MG/0.5 ML SYRINGE IV (12:10)
[2020-03-05] MEDS: NIFEdipine 30 MG Tablet PO (13:47)
[2020-03-05] MEDS: oxyCODONE 5 MG Tablet PO ×3 (15:44→23:45)
[2020-03-05] MEDS: Senna/Docusate Sodium 1 Tablet 2 TABLET PO (20:52)
[2020-03-06 01:49] VITALS: BP 122/67; PULSE 96; RESP 18; TEMP 37.1; O2SAT 98
[2020-03-06] MEDS: 0.9% Saline Lock 10 ML Syringe IV ×2 (01:52→03:58)
[2020-03-06] MEDS: HYDROmorphone 0.5 MG/0.5 ML SYRINGE IV (01:52)
[2020-03-06] MEDS: Cefazolin 1 GM/50 ML BAG IV (02:16)
[2020-03-06] MEDS: oxyCODONE 5 MG Tablet PO (03:57)
[2020-03-06] MEDS: Acetaminophen 500 MG Tablet 1000 MG PO ×3 (05:36→22:16)
[2020-03-06] MEDS: APIXABAN 2.5 MG TABLET PO ×2 (06:33→22:16)
[2020-03-06 06:34] VITALS: BP 130/53; PULSE 103; RESP 18; TEMP 37.3; O2SAT 97
--- NOTE | 2020-03-06 08:12 | PCM.DC.ORTHO ---
Discharge Diet: No Restrictions Weight Bearing Status: Weight bearing as tolerated Call your doctor if you observe: Shortness of breath, Chest pain Additional Instructions: Ice and elevate one week while not ambulating. Ambulation is encouraged. Weightbearing as tolerated. Use assistive devise for stability. Encourage FULL knee extension and flexion 1 time EVERY time you get up and down and MULTIPLE times per day. No showering 72 hours after surgery. Begin showering postop day #3. Remove the dressing prior to shower and gently wash with warm water and antibacterial soap then pat dry and place abdominal pad (or plain gauze) and SHAHIDA hose over top. This is to be done daily. Do not submerge for 3 weeks. If not showering daily after the initial 72 hours then you must clean incision and change dressing daily. Do not allow animals near the incision area. Keep clean. Follow anticoagulation recommendations as prescribed. Do not take any NSAIDs while on blood thinner. Do not take any additional narcotic pain medication other than what was prescribed on you surgery day without discussing with physician. Start physical therapy. If you are not currently scheduled for physical therapy or you are unsure of appointment time please call office JOSE to arrange. Call Dr. Morales with any concerns. Allergies/Adverse Reactions: Allergies celecoxib [From Celebrex] Allergy (Intermediate, Verified 03/05/20 06:05) Shortness of breath magnesium Allergy (Verified 03/05/20 06:05) Other Medications to take at Discharge Calcium Carbonate/Vitamin D3 [Calcium 600 + Vit D Caplet] 1 ea PO DAILY 02/20/20 Nifedipine [Procardia Xl] 30 mg PO DAILY 03/05/20 Acetaminophen [Tylenol Extra Strength] 1,000 mg PO Q6H PRN #100 tab 03/06/20 Apixaban [Eliquis] 2.5 mg PO BID #30 tab 03/06/20 Oxycodone [Oxyir] 5 mg PO Q4H PRN PRN #60 tablet 03/06/20 The following prescriptions were given: Apixaban [Eliquis] 2.5 mg PO BID #30 tab Transmission Status: Pending to [facility] Oxycodone [Oxyir] 5 mg PO Q4H PRN PRN #60 tablet PRN Reason: Pain Score 6-10 Transmission Status: Sent to [facility] Acetaminophen [Tylenol Extra Strength] 1,000 mg PO Q6H PRN #100 tab Transmission Status: Pending to [facility] Primary Care Physician: Amish Tavares MD [Primary Care Provider] - Test Results: Test results from this visit will be discussed in further detail at your follow-up appointment, if applicable. Please Follow Up With: Nnamdi Morales DO When: 2 weeks
--- NOTE | 2020-03-06 08:13 | PN.ORTHO_ITS ---
Subjective: Seen this morning in recliner. Patient complains of pain overnight. Feels she needs increased pain medication. Denies any other concern fevers chills nausea vomiting - Physical Exam Vitals/I&O's: Vital Signs Temp Pulse Resp BP Pulse Ox 99.2 F H 103 H 18 130/53 H 97 03/06/20 06:34 03/06/20 06:34 03/06/20 06:34 03/06/20 06:34 03/06/20 06:34 Oxygen Flow Rate (L/min) 6 Oxygen Delivery Method Room Air Weight: 187 lb 2.759 oz Body Mass Index (BMI) 24.7 Intake and Output for Last 24 Hours 03/04/20 03/05/20 03/06/20 23:59 23:59 23:59 Intake Total 3775.83 / 3775.83 504.17 / 504.17 Balance 3775.83 / 3775.83 504.17 / 504.17 General: Alert, Oriented x3, Cooperative, No apparent distress Extremities: - - Incision dressings are clean and dry compartments are soft neurovascular intact Microbiology Past 72 Hours 03/04/20 09:00 Interface Orders SARS-CoV-2 Antigen (Rapid) - Final Current Medications Acetaminophen (Acetaminophen 500 Mg Tablet) 1,000 mg PO Q8 [facility] Last Admin: 03/06/20 05:36 Dose: 1,000 mg Documented by: Apixaban (Apixaban 2.5 Mg Tablet) 2.5 mg PO BID [facility] Last Admin: 03/06/20 06:33 Dose: 2.5 mg Documented by: Hydromorphone HCl (Hydromorphone 0.5 Mg/0.5 Ml Syringe) 0.5 mg IV Q2H PRN PRN PRN Reason: Pain Score 6-10 Last Admin: 03/06/20 01:52 Dose: 0.5 mg Documented by: Nifedipine (Nifedipine 30 Mg Tablet) 30 mg PO DAILY [facility] Last Admin: 03/05/20 13:47 Dose: 30 mg Documented by: Ondansetron HCl (Ondansetron 4 Mg/2 Ml Vial) 4 mg IV Q6H PRN PRN PRN Reason: NAUSEA Oxycodone HCl (Oxycodone 5 Mg Tablet) 5 - 10 mg PO Q4H PRN PRN PRN Reason: Pain Score 4-10 Last Admin: 03/06/20 03:57 Dose: 10 mg Documented by: Oxycodone HCl (Oxycodone 5 Mg Tablet) 15 mg PO Q4H PRN PRN PRN Reason: Pain Score 6-10 Senna/Docusate Sodium (Senna/Docusate Sodium 1 Tablet) 2 tablet PO BID [facility]IN Last Admin: 03/05/20 20:52 Dose: 2 tablet Documented by: Sodium Chloride (0.9% Saline Lock 10 Ml Syringe) 10 - 40 ml IV UD PRN PRN Reason: SALINE FLUSH Last Admin: 03/06/20 03:58 Dose: 10 ml Documented by: Medical Necessity - Tobacco Use Smoking Status: Never smoker Tobacco Use: Non-smoker Assessment/Plan Postop day #1 status post right total knee arthroplasty. DVT prophylaxis SCDs SHAHIDA hose Eliquis 2.5 mg twice daily for 2 weeks Increase pain medication up to 3 tabs of oxycodone 5 mg every 4 hours Physical therapy this a.m. to work on stairs then [place] home follow-up 2 weeks
[2020-03-06 08:38] VITALS: BP 117/65; PULSE 103; RESP 16; TEMP 37; O2SAT 98
[2020-03-06] MEDS: oxyCODONE 5 MG Tablet 15 MG PO ×4 (08:57→22:15)
[2020-03-06] MEDS: NIFEdipine 30 MG Tablet PO (08:58)
[2020-03-06] MEDS: Senna/Docusate Sodium 1 Tablet 2 TABLET PO ×2 (08:59→22:16)
--- NOTE | 2020-03-06 10:19 | NURSING ---
RN CM Assessment Introduced role of RN CM to patient.? Patient is alert, oriented and able?to participate in RN CM Assessment. ?Care providers, pharmacy, and demographics verified. Admit Dx: Rt Total Knee Replacement Barriers/Issues: Patient has nine steps to enter into home with handrail on one side. Patient states concerns with going up and down steps. Already set up with outpatient PT [facility], first appointment this . Patient aware that [facility] has transportation as well as this abstract writer provided her with [facility] transportation information. Patient Dtr and gnddtr living on upper fl of home. States both her dtr and son work. Plans on having friend pick her up on DC and taking her to Outpt PT. This abstract writer provided patient with [facility] card. PCP: Amish Tavares Specialists: Ortho- Dario Beyer- [place] Preferred Pharmacy: [facility] Insurance: [facility] Rx Benefit: Yes? ?LNOK: Farhad Alcantar LW/HPOA: States has both completed and aware not on file at [facility]. HPOA- farhad Alcantar Living Arrangements:?Lives in a 2SH, bedroom on upper level with approx 15-16 steps up. 9 steps to enter home. Dtr and gnddtr are staying with patient. ADL?s: Patient ambulates independently and independent with ADLs prior. Transportation: Patient drives, plans on friends assisting during healing period. DME: Has FWW from Dr Larson's office, BSC, Shower Chair. Denies any other additional need for equipment. HHC: None SNF: None Goal: Home with outpatient PT. Is going to call [facility] to inquire about any additional set up appointments other than this . Denies any other issues, concerns, or DC planning needs at this time. Aware RNCM remains available for any emerging needs. DC PLAN: Plan to DC home today with outpatient PT-[facility] already set up. No additional needs identified at this time. Patient being Dc'd on Home Eliquis x2 weeks. Called [facility] retail pharmacy, s/w Mar and states that she already applied Eliquis coupon and rx is free. SHEILA Deng
[2020-03-06 13:29] VITALS: BP 126/73; PULSE 114; RESP 16; TEMP 37.3; O2SAT 96
[2020-03-06 22:18] VITALS: BP 146/92; PULSE 90; RESP 18; TEMP 36.8; O2SAT 100
[2020-03-07 02:34] VITALS: BP 120/74; PULSE 90; RESP 18; TEMP 37.2; O2SAT 98
[2020-03-07] MEDS: oxyCODONE 5 MG Tablet 15 MG PO ×3 (02:36→10:47)
[2020-03-07] MEDS: Acetaminophen 500 MG Tablet 1000 MG PO (06:43)
[2020-03-07 07:51] VITALS: BP 98/73; PULSE 97; RESP 18; TEMP 37; O2SAT 98
[2020-03-07 10:00] VITALS: RESP 18
[2020-03-07] MEDS: NIFEdipine 30 MG Tablet PO (10:48)
[2020-03-07] MEDS: Senna/Docusate Sodium 1 Tablet 2 TABLET PO (10:48)
[2020-03-07] MEDS: APIXABAN 2.5 MG TABLET PO (10:48)
[2020-03-07 11:00] VITALS: BP 121/69; PULSE 87; RESP 18; TEMP 36.8; O2SAT 98
== END 2020-03-07 11:22 | disposition home or self-care (01) ==
LOC: SDC 09:44 → MS3 09:44
PROVIDERS: Anesthesiology; Admitting Provider Orthopaedic Surgery; PCP Family Medicine; Referring Provider Orthopaedic Surgery; Visit Provider Orthopaedic Surgery
PROC: 0SRC0JZ Replacement of Right Knee Joint with Synthetic Substitute, Open Approach (ICD-10-PCS; CPT 27447; principal; 2020-03-05 07:15)
DX: M17.11 Unilateral primary osteoarthritis, right knee (principal); Z20.828 Contact with and (suspected) exposure to other viral communicable diseases; Z79.899 Other long term (current) drug therapy; I73.00 Raynaud's syndrome without gangrene; G25.81 Restless legs syndrome
CPT/HCPCS: 01400; 27447; 64447; S2900; 36415; 73560; 80048; 82962; 83735; 85025; 85610; 85730; 86850; 86900; 86901; 87081; 87426; 93005; 96361; 96365; 96366; 96375; 96376; 97110; 97116; 97162; 97166; 97530; 97535; 99218; 99251; C1776; C9803; J7120; A4216; G0378; G0379; G0463; J0702; J2405; J3490

== ENCOUNTER → 2020-04-15 10:47 | Outpatient (CLI) | payer OTHER, SELFPAY ==
--- NOTE | 2020-04-15 10:48 | RAD_ITS ---
STUDY: X-RAY - RIGHT KNEE REASON FOR EXAM: Female, 59 years old. Total knee replacement last month. Follow-up. TECHNIQUE: 4 view(s) of the knee. COMPARISON: None. FINDINGS: Generalized osteopenia. 3. Component total knee arthroplasty in anatomic alignment without complications. Small joint effusion. RAD/Knee 4 or More Views IMPRESSION: Uncomplicated 3 component total knee arthroplasty with small knee effusion. No acute finding. Electronically Signed: John Trujillo MD at 11:25 EST , Service support ,
== END ==
LOC: MTLAB 10:48 → MTRAD 10:49
PROVIDERS: PCP Family Medicine; Referring Provider Orthopaedic Surgery; Visit Provider Orthopaedic Surgery
DX: M25.561 Pain in right knee (principal)
CPT/HCPCS: 73564

== ENCOUNTER 2020-05-16 08:00 | Outpatient (RCR) | payer OTHER, SELFPAY ==
[2020-01-31 09:04] VITALS: BMI 24.6
[2020-03-05 11:50] VITALS: BMI 24.7
--- NOTE | 2020-03-18 12:00 | HP.PTEVAL_ITS ---
Patient's Visit Information MAIA DAVIES is a 59 year old F referred to Physical Therapy by Dr. Nnamdi Morales DO with a diagnosis of R TKA. Date of Evaluation: 03/07/20 Physical Therapist: Sam Arias DPT - Visit Plan Frequency: 3x /Week Duration: 4-6 Weeks Plan: Start with R knee ROM, focus on TKE and progressing knee flexion. May use vaso + for edema. Add in gait progression. Once symptoms have started to reduce and ROM and progressing close to full add in strengthening. - Subjective Pt. is here today for her initial evaluaton with diagnosis of R TKA. DOS 03/05/20. Pt. reports continued to pain, but is walking well with walker. Pt. got out of hospital today. Pt. reports 10/10 pain this date. Pt. does live by her self, but is having some family to come in and help out. Pt. reports no N/T. 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 Pt. is hopeful to get back full mobility in order to get back to all recreational activities witout limitations. - Pain R knee Pain Intensity (Out of 10): 7 Pain Intensity Range: 4, 10 - Objective POSTURE: Pt. has good posture in stance. Lacks TKE in stance. PALPATION: Pt. mejía s edema throughout R knee, but non pitting. Bandaged, but no signs of infection. Negative Homans sign. NEURO: normal throughout BLEs. ROM: R Knee 0-10-70deg. Pt. has tightness in HS, Pt. ROM limited secondary to pain. MMT knee ext 0#, flexion 10#, hip abd 8#, hip ext 3#, hip flexion 0#. GAIT: Pt. ambulates with FWW with step to pattern, increasd pain during R stance phase. Lacks TKE during stance phase and has decreaed knee flexion during swing. - Goals Goal 1:: LTG: Pt. to be I with HEP. Goal Time Frame: 4-6 Weeks Goal 2:: STG: pt. to have increased R knee ext to 0deg. Goal Time Frame: 2-4 Weeks Goal 3:: LTG: Pt. to have atleast 0-0-120deg of R knee ROM. Goal Time Frame: 4-6 Weeks Goal 4:: STG: Pt. to complete SLR x10 with RLE with minimal extensor lag. Goal Time Frame: 2-4 Weeks Goal 5:: LTG: Pt. to have increased R knee strength to 4+/5 throughout. Goal Time Frame: 4-6 Weeks Goal 6:: LTG: Pt. to walk unlimited distnaces without AD without increase in symptoms. Goal Time Frame: 4-6 Weeks - Rehabilitation Potential Physical Therapy Diagnosis: PT. has signs and symptoms consistent with R TKA, with subsequent increased pain, increased edema, difficutly walking and LE weakness. Pt. would benefit from PT to address above limitations progressing back to all work related activities. Rehabilitation Potential: Excellent - Anticipated Interventions Patient/Client Instruction: Educate patient on: Condition, Plan of Care, Risk Factors, Benefits of Fitness Program For the Purpose of:: To facilitate caregiver knowledge, To improve self man agement, To prevent re-injury, To improve ability to perform tasks related to life management, To improve tolerance to ADL's Therapeutic Exercise to Include: Strength training, Power training, Endurance training, Balance training, Agility training, Body mechanics, Postural training, Flexibilty training, Gait and locomotor training, Passive ROM, Active ROM For the Purpose of:: To decrease pain, To decrease swelling/inflammation, To increase ROM, To improve nutrient delivery to tissue, To increase oxygenation perfusion, To improve muscle performance and motor function, To increase tolerance to activity/condition/position, To improve performance and independence with ADL's, To improve ability of physical actions for home/community/work/leisure, To improve gait and locomotor functions, To improve health of tissue, To decrease soft tissue restriction, To increase flexibility/ROM IF ES: Yes Cryotherapy (ice pack, ice massage): Yes Vasopneumatic device: Yes For the Purpose of:: To decrease pain, To decrease swelling/inflammation, To increase ROM, To improve nutrient delivery to tissue, To increase oxygenation perfusion, To improve muscle performance and motor function, To improve ability to perform ADL's Thank you for the opportunity to evaluate your patient. For Medicare and Medicare HMO plans, please review the plan of care and approve it. It will need to be FAXED BACK to us at [phone] for Medicare purposes. For Medicare only, by signing this I certify the plan of care. Please let me know if there are questions or concerns regarding this plan of care. Physician Signature: Date:
--- NOTE | 2020-04-08 13:02 | HP.PTREVAL ---
Dr. Nnamdi Morales, DO, It has been my pleasure to treat MAIA DAVIES over the last 13 visits for R TKA. Please see the progress note below for an update on the physical therapy plan of care! Subjective: pt. reprots I am a little bit more sore today. Pt. reports 5/10 pain coming in today. Pt. reports working really hard at home, doing stairs x5 times per day, end range stretching and walking x5 times per day. She has been working on REIL due to R hip and raidiating low RLE pain as well. Objective/Function: ROM: 0-0-128deg. AROM. MMT 4+/5 throughout; except knee ext 4/5, HS 4/5. hip flexion 4/5. GAIT: Pt. ambulates with SPC with good pattern. Pt. has good knee flexion during swing phase and good knee exte during stance phase. STAIRS: pt. is able to complete wih reciprocal pattern, but does have increased R medial knee pain during loading of her RLE. Plan Plan: Overall she is doing well. I recommended to her to continue riding bike at home for ROM and to not over doing with end range stretching, She has great ROM, but I feel like she is irritating her knee by doing too much too soon. Pt. to cut back a slight amount. She is otherwise doing well. Goals Goal 1:: LTG: Pt. to be I with HEP. Goal Time Frame: 4-6 Weeks Goal Progress: Progressing Goal 2:: STG: pt. to have increased R knee ext to 0deg. Goal Time Frame: 2-4 Weeks Goal Progress: Goal Met Goal 3:: LTG: Pt. to have atleast 0-0-120deg of R knee ROM. Goal Time Frame: 4-6 Weeks Goal Progress: Goal Met Goal 4:: STG: Pt. to complete SLR x10 with RLE with minimal extensor lag. Goal Time Frame: 2-4 Weeks Goal Progress: Goal Met Goal 5:: LTG: Pt. to have increased R knee strength to 4+/5 throughout. Goal Time Frame: 4-6 Weeks Goal Progress: Progressing Goal 6:: LTG: Pt. to walk unlimited distnaces without AD without increase in symptoms. Goal Time Frame: 4-6 Weeks Goal Progress: Progressing Anticipated Interventions Patient/Client Instruction: Educate patient on: Condition, Plan of Care, Risk Factors, Benefits of Fitness Program For the Purpose of:: To facilitate caregiver knowledge, To improve self management, To prevent re-injury, To improve ability to perform tasks related to life management, To improve tolerance to ADL's Therapeutic Exercise to Include: Strength training, Power training, Endurance training, Balance training, Agility training, Body mechanics, Postural training, Flexibilty training, Gait and locomotor training, Passive ROM, Active ROM For the Purpose of:: To decrease pain, To decrease swelling/inflammation, To increase ROM, To improve nutrient delivery to tissue, To increase oxygenation perfusion, To improve muscle performance and motor function, To increase tolerance to activity/condition/position, To improve performance and independence with ADL's, To improve ability of physical actions for home/community/work/leisure, To improve gait and locomotor functions, To improve health of tissue, To decrease soft tissue restriction, To increase flexibility/ROM IF ES: Yes Cryotherapy (ice pack, ice massage): Yes Vasopneumatic device: Yes For the Purpose of:: To decrease pain, To decrease swelling/inflammation, To increase ROM, To improve nutrient delivery to tissue, To increase oxygenation perfusion, To improve muscle performance and motor function, To improve ability to perform ADL's Please do not hesitate to contact me at [phone] by phone or if you have questions or concerns regarding this new plan of care! Sincerely, Sam Arias DPT
--- NOTE | 2020-05-16 09:41 | HP.PTDCSUM ---
It has been my pleasure to treat MAIA DAVIES referred by Dr. Nnamdi Morales DO, with the diagnosis of R TKA for a total of 20 visit(s). Discharge Date: 05/16/20 Please see the following information for a summary of their discharge status. Subjective: Pt. reports overall doing well. She has some lateral knee pain with stair negotaition, reduces with stretching. Pt. reports beign 90% better overall. Her only compliant is some lateral knee pain that does reduce wtih stretching. She still has some stiffness after prolonged flexion or extensino, but alleviates with stretching/ROM. R knee Pain Intensity (Out of 10): 1 R hip, posterior thigh Pain Intensity (Out of 10): 0 % Improvement: 90 Objective/Function: ROM 0-0-125deg. MMT 5/5 throughout ankle, knee, hip. GAIT: pt. ambulates well without AD, normal gait pattern noted. STAIRS: reciprocal patttern noted with 1 HR. Initially sore with descending, improved with stretching. TU.3sec without AD. LUMBAR SPINE:pt. had good ROM, slightly tight with extension but has improved. Did help some of her slight leg pain today. Pt. is overall doing well. She is ready to be DC from PT at this point in time. She is independent with HEP withotu issues. SHe is to continue to progress walking routine and work on quad/glute strengthening as well as HS and hip flexor stretching. Goal 1:: LTG: Pt. to be I with HEP. Goal Progress: Goal Met Goal 2:: STG: pt. to have increased R knee ext to 0deg. Goal Progress: Goal Met Goal 3:: LTG: Pt. to have atleast 0-0-120deg of R knee ROM. Goal Progress: Goal Met Goal 4:: STG: Pt. to complete SLR x10 with RLE with minimal extensor lag. Goal Progress: Goal Met Goal 5:: LTG: Pt. to have increased R knee strength to 4+/5 throughout. Goal Progress: Goal Met Goal 6:: LTG: Pt. to walk unlimited distnaces without AD without increase in symptoms. Goal Progress: Goal Met Plan: DC to HEP at this point in time. Discharge Comments: Pt. did well with therapy for her R TKA. She has good ROM and strength and good functional mobility. She did have some radiating LBP which has all but resolved with extension progression. PT. will be DC to HEP as this point in time. If there are questions or concerns regarding this patient's physical therapy, please feel free to call me at [phone]. Thank you for the referral of this patient. Sincerely, YAMINI SanabriaT
== END 2020-05-16 10:37 | disposition home or self-care (01) ==
LOC: PT 08:00
PROVIDERS: PCP Family Medicine; Referring Provider Orthopaedic Surgery; Visit Provider Orthopaedic Surgery
DX: Z47.1 Aftercare following joint replacement surgery (principal); Z96.651 Presence of right artificial knee joint
CPT/HCPCS: 97016; 97110; 97161; 97164

== ENCOUNTER → 2020-06-26 08:39 | Outpatient (CLI) | payer OTHER, SELFPAY ==
--- NOTE | 2020-06-26 08:42 | BI_ITS ---
MAMMOGRAPHY - BILATERAL SCREENING REASON FOR EXAM: Female, 59 years old. Routine annual screening examination. PERTINENT HISTORY: Aunt with breast cancer. TECHNIQUE: Digital bilateral breast gina (3D mammographic acquisition) in the CC and MLO projections. 2-D mediolateral oblique (MLO) and craniocaudad (CC) views of both breasts were obtained. CAD: Full Field Digital Mammography with Computer Added Detection was performed. COMPARISON: Comparison is made with prior examination dated 01/17/2018 and 04/07/2019. FINDINGS: Breast Composition: The breasts are heterogeneously dense, which may obscure small masses. There are no dominant masses or suspicious calcifications. No other significant abnormalities are identified. There has been no significant change since the prior study. BI/SCRN MAMM (CAD)W/GINA BILAT IMPRESSION: Stable bilateral screening mammogram. Yearly follow-up mammogram recommended. (A) ASSESSMENT CATEGORY: BIRADS Category 1: Negative. A letter regarding these results will be sent to the patient by the facility within 30 days. Approximately 10% of breast cancers are not detected by mammography. A normal mammogram should not delay biopsy of a clinically suspicious abnormality. [id number] Electronically Signed: Tomas Navarro MD at 13:48 EDT , Service support ,
== END ==
PROVIDERS: PCP Family Medicine; Referring Provider Obstetrics & Gynecology; Visit Provider Obstetrics & Gynecology
DX: Z12.31 Encounter for screening mammogram for malignant neoplasm of breast (principal)
CPT/HCPCS: 77063; 77067

== ENCOUNTER → 2020-07-29 13:43 | Outpatient (CLI) | payer OTHER, SELFPAY ==
[2020-07-29 13:24] VITALS: BMI 24.7
--- NOTE | 2020-07-29 13:45 | RAD_ITS ---
STUDY: X-RAY - RIGHT KNEE REASON FOR EXAM: Female, 59 years old. pain TECHNIQUE: 4 view(s) of the knee. COMPARISON: 04/15/2020 FINDINGS: Normal visualized distal femur. Normal visualized proximal tibia and fibula. Normal proximal tibiofibular articulation. Knee replacement is in stable alignment. Small joint effusion is stable. The soft tissue structures are unremarkable. RAD/Knee 4 or More Views IMPRESSION: Stable knee replacement. Stable small joint effusion. Electronically Signed: Chandra Valles MD ([place]) at 14:28 EDT , Service support ,
--- NOTE | 2020-07-29 13:45 | RAD_ITS ---
STUDY: X-RAY - PELVIS AND RIGHT HIP REASON FOR EXAM: Female, 59 years old. Pain TECHNIQUE: 3 views of the pelvis and hip. COMPARISON: None. FINDINGS: There is a non-specific bowel gas pattern. Normal visualized soft tissue structures. Moderate bilateral hip joint space narrowing without acute fracture or dislocation. Visualized bony pelvis is intact. Moderate stool burden. Surgical clips in the pelvis. RAD/HIP, UNI W/ Pelvis 2-3 Views IMPRESSION: Normal x-ray examination of the pelvis and hip. Electronically Signed: Trever Centeno MD at 12:35 EDT Tel , Service support ,
== END ==
PROVIDERS: PCP Family Medicine; Referring Provider Orthopaedic Surgery; Visit Provider Orthopaedic Surgery
DX: M25.561 Pain in right knee (principal); M25.551 Pain in right hip
CPT/HCPCS: 73502; 73564

== ENCOUNTER 2020-10-22 13:00 | Outpatient (RCR) | payer OTHER, SELFPAY ==
[2020-07-29 13:24] VITALS: BMI 24.7
--- NOTE | 2020-09-09 08:53 | HP.PTEVAL_ITS ---
Patient's Visit Information MAIA DAVIES is a 59 year old F referred to Physical Therapy by COLEMAN Romo with a diagnosis of Right hip pain and history of right TKA. Date of Evaluation: 08/29/20 Physical Therapist: Sam Arias DPT - Visit Plan Frequency: 1-2x /Week Duration: 4-6 Weeks Plan: Hip abduction and hip extension strengthening, as well as general knee and core strengthening. Modalities for pain relief. - Subjective The pt. is here today for right hip pain that has been occurring since earlier this year. The pt. had a right knee replacement in February 2020, which has also started to cause her pain and discomfort in the lateral aspect of her knee. The pt. reports that she does not take pain medications or ice her knee for pain relief. Her pain gets worse in her knee as she lays down on either of her sides and after she has been sitting for a long period of time. The pt. states that her knee feels that it is . She has been trying to sleep on her back most of the time. The pt. states that if she drives for longer than 20 minutes her right leg feels completely numb and tingly, but goes away after she walks some and stretches it out. The N/T does not go into her right foot. The pts. symptoms are both in the anterior hip and in the lateral aspect of the knee. Stairs and walking do not aggravate her symptoms. She states that her pain is a 6/10 most of the time, but is a 0/10 sitting her today. 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 - Pain R knee Pain Intensity (Out of 10): 3 Pain Intensity Range: 6 Comment: lateral aspect (IT band insertion??) Anterior R hip Pain Intensity (Out of 10): 0 Pain Intensity Range: 6 - Objective Posture: No noticeable rounded shoulders or forward head. Noticeable knee valgus while performing a squat and shifting over to the pts. left side. Pt. favored left side while ambulating as well. The pt. was able to perform a SL stance with both LE for greater than 10seconds. She did not have pain with this. The pt. did have minimal swelling in both the medial and lateral compartments of her right knee. ROM: hip flexion bilat WNL, knee flexion bilat WNL, knee extension bilat WNL, hip IR and ER was very limited due to severe pain she had in her knee. MMT: hip flexor 4/5 R with pain in hip, L 4+/5, hip abduction bilat 3+/5 and painful on R, hip extension 3+/5 bilat, knee flexion 4/5 R and painful, 4+/5 L, knee extension 4/5 R and painful, L 4+/5, dorsiflexion/inversion 5/5 bilat, eversion 5/5 bilat. Sensation: LE all WNL. Palpation: TTP on Gerdys tubercle, R lateral joint line, and IT band insertion. Pt. was also TTP just inferior to the R ASIS and along the R hip flexor. No tenderness noted on R medial joint line, patella, pes anserine, or posterior to the knee. Special Tests: +R femoral nerve tension, L negative, - SLR bilat, -DIOGENES bilat, but caused R knee pain, -FADIR bilat, but caused R knee pain, - Manpreet compression test, - patella apprehension, - John test bilat, -Liz's test bilat - Goals Goal 1:: LTG: The pt. will be independent and compliant with her HEP. Goal Time Frame: 2-4 Weeks Goal 2:: LTG: The pt. will increase both her hip and knee strength bilaterally by 1-2 muscle grades so she can ascend/descend the stairs without limitations. Goal Time Frame: 4-6 Weeks Goal 3:: LTG: The pt. will be able to drive for 30+ minutes without having an increase in knee or hip symptoms. Goal Time Frame: 4-6 Weeks Goal 4:: LTG: The pt. will be able to lay on her right side with pain less than a 2/10. Goal Time Frame: 4-6 Weeks - Rehabilitation Potential Physical Therapy Diagnosis: The pt. is a 59 yo female who presents to the clinic today with anterior right hip pain and reoccurring lateral knee pain. The pt. is exhibiting weakness in both her hip and knee musculature as well as decreased activity due to pain and apprehension to movement. The pt. reports having numbness and tingling into the right LE, but did not show signs of this today. She is needing PT to address her decreased strength and pain, so the pt. can perform all ADL's, sleep, and work without having an increase in her symptoms or pain. Rehabilitation Potential: Good - Anticipated Interventions Patient/Client Instruction: Educate patient on: Condition, Plan of Care For the Purpose of:: To decrease pain, To increase ROM, To improve muscle performance and motor function, To improve ability to perform ADL's, To increase tolerance to activity/condition/position, To improve performance and indepen dence with ADL's, To increase flexibility/ROM, To improve endurance, To improve tolerance to ADL's Therapeutic Exercise to Include: Strength training, Endurance training, Balance training, Flexibilty training, Gait and locomotor training, Passive ROM, Active ROM For the Purpose of:: To decrease pain, To increase ROM, To improve muscle performance and motor function, To improve ability to perform ADL's, To increase tolerance to activity/condition/position, To improve performance and independence with ADL's, To increase flexibility/ROM, To improve endurance, To improve balance, To improve tolerance to ADL's Manual Therapy Techniques to Include: Trigger point massage, Mobilization, Passive ROM, Functional dry needling, Soft tissue mobilization For the Purpose of:: To decrease pain, To increase ROM, To improve muscle performance and motor function, To increase tolerance to activity/condition /position, To improve health of tissue, To increase flexibility/ROM, To improve tolerance to ADL's Functional electric stimulation: Yes TENS: Yes Cryotherapy (ice pack, ice massage): Yes Thermo therapy (hot pack): Yes For the Purpose of:: To decrease pain, To decrease swelling/inflammation, To increase ROM, To increase tolerance to activity/condition/position, To improve health of tissue, To increase flexibility/ROM, To improve tolerance to ADL's Thank you for the opportunity to evaluate your patient. For Medicare and Medicare HMO plans, please review the plan of care and approve it. It will need to be FAXED BACK to us at [phone] for Medicare purposes. For Medicare only, by signing this I certify the plan of care. Please let me know if there are questions or concerns regarding this plan of care. Physician Signature: Date:
--- NOTE | 2021-02-21 14:39 | HP.PT.NRP ---
MAIA DAVIES was seen in my office for initial evaluation on 08/29/20. The following Plan of Care was established for this patient: Initial Frequency: 1-2x /Week Initial Duration: 4-6 Weeks Patient/Client Instruction: Educate patient on: Condition, Plan of Care For the Purpose of:: To decrease pain, To increase ROM, To improve muscle performance and motor function, To improve ability to perform ADL's, To increase tolerance to activity/condition/position, To improve performance and independence with ADL's, To increase flexibility/ROM, To improve endurance, To improve tolerance to ADL's Therapeutic Exercise to Include: Strength training, Endurance training, Balance training, Flexibilty training, Gait and locomotor training, Passive ROM, Active ROM For the Purpose of:: To decrease pain, To increase ROM, To improve muscle performance and motor function, To improve ability to perform ADL's, To increase tolerance to activity/condition/position, To improve performance and independence with ADL's, To increase flexibility/ROM, To improve endurance, To improve balance, To improve tolerance to ADL's Manual Therapy Techniques to Include: Trigger point massage, Mobilization, Passive ROM, Functional dry needling, Soft tissue mobilization For the Purpose of:: To decrease pain, To increase ROM, To improve muscle performance and motor function, To increase tolerance to activity/condition/position, To improve health of tissue, To increase flexibility/ROM, To improve tolerance to ADL's Functional electric stimulation: Yes TENS: Yes Cryotherapy (ice pack, ice massage): Yes Thermo therapy (hot pack): Yes For the Purpose of:: To decrease pain, To decrease swelling/inflammation, To increase ROM, To increase tolerance to activity/condition/position, To improve health of tissue, To increase flexibility/ROM, To improve tolerance to ADL's This patient was last seen in our office 10/22/20. Pertinent comments regarding their Physical therapy will appear below: Pt. has seen for her R hip and IT band pain. She has not been seen in several months and will be DC from PT at this point in time. At this point I will be discontinuing this patient from physical therapy. I would be happy to see this patient again in the future if found appropriate by the physician. Thank you! Sam Arias, DPT Balance/Gait/Functional tests - Balance/Special Test Scores Lower Extremity Functional Score: 42
== END 2020-10-22 19:00 | disposition home or self-care (01) ==
LOC: PT 13:00
PROVIDERS: PCP Family Medicine; Referring Provider Physician Assistant; Visit Provider Physician Assistant
DX: Z47.1 Aftercare following joint replacement surgery (principal); Z96.641 Presence of right artificial hip joint
CPT/HCPCS: 97035; 97110; 97161

== ENCOUNTER 2021-02-18 09:54 | Outpatient (RCR) | payer OTHER, SELFPAY | END 2021-02-18 19:00 | disposition home or self-care (01) | LOC: MASS 09:54 | PROVIDERS: PCP Family Medicine; Referring Provider Family Medicine; Visit Provider Family Medicine | DX: M54.2 Cervicalgia (principal) | CPT/HCPCS: 97124 ==

== ENCOUNTER → 2021-02-26 18:19 | Outpatient (CLI) | payer OTHER, SELFPAY | PROVIDERS: PCP Family Medicine; Referring Provider Family Medicine; Visit Provider Family Medicine | DX: J06.9 Acute upper respiratory infection, unspecified (principal) | CPT/HCPCS: 87633; 87635; U0005; U0003 ==

== ENCOUNTER 2021-05-16 09:51 | Outpatient (CLI) | payer OTHER, SELFPAY ==
--- NOTE | 2021-05-16 09:56 | US_ITS ---
STUDY: ABDOMINAL ULTRASOUND - RIGHT UPPER QUADRANT REASON FOR VISIT: Female, 60 years old RUQ ABD PAIN TECHNIQUE: Ultrasound evaluation of the right upper quadrant was performed with real-time and static almeida-scale imaging. TECHNICAL QUALITY: Adequate. COMPARISON: None. FINDINGS: Liver: The liver measures 14.3 cm. There is normal echogenicity of the liver. The bile ducts are within normal limits. There is hepatic color flow. The direction of portal flow is hepatopetal. There is no demonstrated mass lesion. Gallbladder: Normal distended gallbladder. The gallbladder wall measures 1.6 mm. There is a negative sonographic Sandhu''s sign. There is no pericholecystic fluid. There are no gallstones. Common Bile Duct (C.B.D.): The common bile duct measures 3.6 mm. Pancreas: Normal size of the head, body and tail of the pancreas. There is normal echogenicity of the pancreas. There is no demonstrated pancreatic mass or cyst. Right Kidney: Normal size of the right kidney. The right kidney measures 10.6 cm x 5.6 cm x 3.5 cm. Normal renal cortex. The right cortex measures 1.2 cm. There is no demonstrated renal mass or cyst. There is no right hydronephrosis. US/Abdomen Limited IMPRESSION: Normal right upper quadrant ultrasound examination. Electronically Signed: Tomas Navarro MD at 11:08 EST ,
== END 2021-05-16 23:59 | disposition home or self-care (01) ==
LOC: US 09:53
PROVIDERS: PCP Family Medicine; Referring Provider Family Medicine; Visit Provider Family Medicine
DX: R10.11 Right upper quadrant pain (principal)
CPT/HCPCS: 76705

== ENCOUNTER 2021-06-20 09:28 | Outpatient (CLI) | payer OTHER, SELFPAY ==
--- NOTE | 2021-06-20 09:31 | NM_ITS ---
CLINICAL: 60-year-old female with reported history of right upper quadrant abdominal pain. RADIONUCLIDE HEPATOBILIARY SCINTIGRAPHY COMPARISON: Abdominal ultrasound report 05/16/2021 FINDINGS: Following the intravenous administration of 5.3 mCi of 99m Tc Mebrofenin, hepatobiliary images reveal: 1. Relatively prompt and homogeneous radiopharmaceutical concentration is noted by a normal sized liver. No parenchymal defects are identified. 2. Gallbladder activity is identified at 10 minutes post radiopharmaceutical administration. 3. Small intestinal tract is observed at 45 minutes following tracer injection. 4. Washout of the radiopharmaceutical by the hepatic parenchyma appears qualitatively normal. The patient was administered a fatty meal (8 ounces BOOST-30 grams fat). The post fatty meal consumption gallbladder ejection fraction calculated at 30 minutes was noted to be 49.0 % (normal greater than 30%). FL/Hepatobilliary Img w/Pharm Int IMPRESSION: 1. NORMAL 99m Tc Mebrofenin hepatobiliary imaging examination with fatty meal ingestion. A. A gallbladder ejection fraction calculated to be greater than 30% following the administration of a consumed fatty meal makes the probability of functional hepatobiliary disease (gallbladder and/or sphincter of Oddi dyskinesia) and/or organic hepatobiliary disease (chronic acalculous cholecystitis and/or cystic duct syndrome) to be low. (Jose and Alfredo, J Nucl Med 43: 1603, 2002). Electronically Signed: Moe Linares DO at 7:51 EDT ,
== END 2021-06-20 23:59 | disposition home or self-care (01) ==
LOC: NM 09:29
PROVIDERS: PCP Family Medicine; Referring Provider Family Medicine; Visit Provider Family Medicine
DX: R10.11 Right upper quadrant pain (principal)
CPT/HCPCS: 78227; A9537

== ENCOUNTER 2021-07-04 08:29 | Outpatient (CLI) | payer OTHER, SELFPAY ==
--- NOTE | 2021-07-04 08:32 | BI_ITS ---
MAMMOGRAPHY - BILATERAL SCREENING REASON FOR EXAM: Female, 60 years old. Routine annual screening examination. PERTINENT HISTORY: Aunt with breast cancer. TECHNIQUE: Digital bilateral breast gina (3D mammographic acquisition) in the CC and MLO projections. 2-D mediolateral oblique (MLO) and craniocaudad (CC) views of both breasts were obtained. CAD: Full Field Digital Mammography with Computer Added Detection was performed. COMPARISON: Comparison is made with prior study of 06/26/2020 and 04/07/2019. FINDINGS: Breast Composition: The breasts are heterogeneously dense, which may obscure small masses. There are no dominant masses or suspicious calcifications. No other significant abnormalities are identified. There has been no significant change since the prior study. BI/SCRN MAMM (CAD)W/GINA BILAT IMPRESSION: Stable bilateral screening mammogram. Yearly follow-up mammogram recommended. (A) ASSESSMENT CATEGORY: BIRADS Category 1: Negative. A letter regarding these results will be sent to the patient by the facility within 30 days. Approximately 10% of breast cancers are not detected by mammography. A normal mammogram should not delay biopsy of a clinically suspicious abnormality. [id number] Electronically Signed: Tomas Navarro MD at 10:38 EDT ,
== END 2021-07-04 23:59 | disposition home or self-care (01) ==
LOC: OPBI 08:30
PROVIDERS: PCP Family Medicine; Referring Provider Obstetrics & Gynecology; Visit Provider Obstetrics & Gynecology
DX: Z12.31 Encounter for screening mammogram for malignant neoplasm of breast (principal)
CPT/HCPCS: 77063; 77067

== ENCOUNTER → 2021-08-06 | Outpatient (CLI) | payer OTHER, SELFPAY ==
[2021-08-06 08:59] LABS: Erythrocyte Sedimentation Rate 17 mm/hr (0-30)
[2021-08-06 09:00] LABS: Absolute Lymphocyte Count 1.78 X10^3/uL (0.83-4.51); Absolute Neutrophil Count 5.2 X10^3/uL (2.0-7.7); Basophil# 0.06 X10^3/uL; Basophil% 0.8 % (0-1); Eosinophil# 0.23 X10^3/uL; Eosinophils% 2.9 % (0-5); Hematocrit 41.1 % (37-47); Hemoglobin 13.4 g/dL (12.0-15.0); Lymphocyte # 1.78 X10^3/ul (0.83-4.51); Lymphocyte % 22.3 % (19-41); Mean Corp Hgb Conc 32.6 g/dL (32-36); Mean Corpuscular Hgb 29.7 pg (27.0-32.0); Mean Corpuscular Volume 91.1 fL (81-99); Monocyte# 0.71 X10^3/uL; Monocyte% 8.9 % (0-10); NRBC Flagged by Analyzer 0 % (0-5); Neutrophil # 5.16 X10^3/uL (2.7-7.7); Neutrophil % 64.7 % (47-70); Platelet Count 283 K/mm3 (150-450); RBC Distribution Width CV 12.6 % (11.6-14.6); RBC Distribution Width SD 41.7 fl (35.1-43.9); Red Blood Count 4.51 M/mm3 (4.2-5.4)
[2021-08-06 09:01] LABS: ALB/GLOB Ratio 0.9 RATIO (0.9-2.4); AST(SGOT) 21 U/L (15-37); Alanine Aminotransfer ALT/SGPT 23 U/L (13-56); Albumin, Serum 3.7 g/dL (3.2-5.0); Alkaline Phosphatase 58 U/L (45-117); Anion Gap 4 (5-15); BUN 19 mg/dL (7-18); BUN/Creat Ratio 22.2 RATIO (10-20); CRP 6.91 mg/L (0.0-3.0); Calcium,Total 9.5 mg/dL (8.5-10.1); Chloride 103 mmol/L (98-107); Creatinine, Serum 0.86 mg/dL (0.55-1.02); EST Glomerular Filtration Rate 72 mL/min (>60); Est Glom Filt Rate - Afr Amer 87 mL/min (>60); Globulin 4.3 g/dL (2.2-4.2); Glucose 101 mg/dL (74-106); Sodium Level 138 mmol/L (136-145)
[2021-08-07 16:09] LABS: Endomysial Antibody IgA Negative (Negative)
[2021-08-07 17:16] LABS: Immunoglobulin A 283 mg/dL (87-352); t-Transglutaminase IgA 3 U/mL (0-3)
== END | disposition home or self-care (01) ==
LOC: LAB 07:38
PROVIDERS: PCP Family Medicine; Referring Provider Nurse Practitioner Adult Health; Visit Provider Nurse Practitioner Adult Health
DX: R10.9 Unspecified abdominal pain (principal); K21.9 Gastro-esophageal reflux disease without esophagitis; R68.81 Early satiety
CPT/HCPCS: 36415; 80053; 82784; 83516; 85025; 85652; 86140; 86255

== ENCOUNTER → 2021-08-08 | Outpatient (CLI) | payer OTHER, SELFPAY ==
--- NOTE | 2021-08-08 07:21 | CT_ITS ---
STUDY: CT ABDOMEN AND PELVIS WITH CONTRAST REASON FOR EXAM: Female, 60 years old. abd pain, nausea, reflux -- oral and IV RADIATION DOSAGE (If Supplied By Facility): CTDIvol = ( 14.46 ) mGy, DLP = ( 871.46 ) mGycm TECHNIQUE: Transaxial images were obtained from the dome of the diaphragm to the symphysis pubis with oral contrast. Oral and amp; IV Readi-CAT and amp; 100mL Isovue-300 was administered. Sagittal and coronal images were reconstructed. Individualized dose optimization techniques were used for this CT. COMPARISON: None. FINDINGS: The visualized lung bases are unremarkable. The visualized portions of the heart are within normal limits. Normal liver. Normal gallbladder and extrahepatic biliary system. Normal spleen. Normal pancreas. Normal bilateral adrenal glands. Normal right kidney. Normal left kidney. Normal visualized stomach. Normal small intestine. Normal colon. The appendix is visualized and appears normal. Normal abdominal aorta. Normal inferior vena cava. Normal retroperitoneum. Normal urinary bladder. Status post bilateral tubal ligation. Normal abdominal wall. Normal osseous structures. CT/Abdomen/Pelvis WITH Contrast IMPRESSION: Normal enhanced CT of the abdomen and pelvis. Electronically Signed: Moe Bernard MD at 14:05 EDT ,
== END | disposition home or self-care (01) ==
LOC: CT 07:19
PROVIDERS: PCP Family Medicine; Visit Provider Nurse Practitioner Adult Health
DX: R10.9 Unspecified abdominal pain (principal); K21.9 Gastro-esophageal reflux disease without esophagitis; R68.81 Early satiety
CPT/HCPCS: 74177; Q9967

== ENCOUNTER 2021-11-06 08:25 | Day surgery (SDC) | payer OTHER, SELFPAY ==
[2021-11-06] VITALS (7 sets, daily range): BP systolic 96–108; BP diastolic 68–81; PULSE 65–94; RESP 16; TEMP 36–36.6; O2SAT 95–100; BMI 24.7
--- NOTE | 2021-11-06 | IMM_PTH ---
PATIENT: MAIA DAVIES LOC: EN U#:[id number] AGE/SX: 61/F ROOM: RE11/06/[address]: Dr. Yaakov Ambriz DO : 1960 BED: DIS: 11/06/2021 SPEC #: [id number] RECD: 11/07/21 11:32 STATUS: JAJA REQ #: [id number] GERMANIA: 11/06/21 00:[address]: Yaakov Ambriz DEPT: IMMUNOHISTOCHEMISTRY RECD BY: Niru Chang ENTERED: 11/07/21 11:33 SP TYPE: IMMUNO OTHR DR: Dr. Amish Tavares MD Tissues: Gastrointestinal mucous membrane, NOS Procedures: CD138 (add) CD20 (add) CD45 (add) CD5 (add) CD79A (add) CD3 (initial) Comments: @ Specimen number changed from [id number] to [id number] @ on 11/07/21 at 1138 by SANGITA. PHYSICIAN & [address] [address] SPECIMEN INFORMATION: Tissue Source: B. Distal esophagus Clinical Info: Abdominal pain, acid reflux, early satiety, chronic constipation, dysphagia Specimen Number: [id number] CPT code: 60785, 58355 x5 METHODOLOGY: Deparaffinized sections of prefer/formalin-fixed tissue or PAP/DQ stained slides are incubated with monoclonal/polyclonal antibodies/oligonucleotide probes. Localization is made via biotin free immunoperoxidase method. Appropriate controls are performed and reacted as expected. Results on target cell population are indicated in the following table: RESULTS: ANTIBODY / CLONE RESULT Block B CD3 (PS1) positive CD5 (SP10) positive CD45 (RP2/18) positive CD79a (11E3) positive CD20 (L26) positive CD138 (B-A38) negative These tests were developed and their performance characteristics determined by [facility]. They may not have been cleared or approved by the U.S. Food and Drug Administration. The FDA has determined that such clearance or approval is not necessary. The above immunohistochemical/dualISH markers are ordered and reviewed by the Pathologist. INTERPRETATION: Distal esophagus, biopsy: Benign (polytypic) lymphoid aggregate. AM:vicente 11/10/2021
--- NOTE | 2021-11-06 08:45 | PCM.HP.BLA ---
History and Physical Date of Admission: 11/06/21 MAIA DAVIES, is a 60 F who presents to the office today for GI symptoms that began in March 2021. She reported intermittent pain RUQ, got US and HIDA which were normal. Then pain moved to LUQ. Treated herself for constipation when she had LUQ pain, that helped a lot. Reports lifelong constipation. Has BM approx every 3 days. Small hard pieces of stool, doesn't strain. No melena or hematochezia. Doesn't use anything regularly to manage constipation. Never diarrhea. Nausea when lies down, feels liquid or food refluxing. Sometimes has to pause because it feels like food is stuck in esophagus. No vomiting or emesis. Doesn't get heartburn. Early satiety. Stomach feels bloated. Hx of lots of burping. No weight change. Appetite normal. 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 She has 3 children and grandchildren. Her 13 yrs ago. She had colonoscopy age 51. No prior EGD. Very healthy in general. Comorbidities: vitamin B deficiency, OA ROS Const Constitutional: No fatigue, fever(s), headache(s), weight change, sleep problems, abnormal sleep pattern or change in appetite ENT ENT: No headache(s), difficulty swallowing, hoarseness or sore throat Resp Respiratory: No cough, hemoptysis or shortness of breath Cardio Cardiology: No chest pain at rest or generalized swelling Gastro GI: No abdominal pain, belching, bloating, change in bowel habits, change in stool character, coffee ground emesis, constipation, cramping, diarrhea, heartburn, difficulty swallowing, feeling full early, excessive flatus, incontinent of stools, Vomiting blood/hematemesis, Blood in stool, loose stools, Black,tarry stools, nausea/dyspepsia, pain with swallowing or vomiting Musc Musculoskeletal: Positive for joint pain; No back pain, joint swelling, numbness or tingling Skin Skin: No itchy eyes or rash Neuro Neurology: No behavioral changes, confusion, headache(s), numbness or tingling Psych Psychiatric: No abnormal sleep pattern, No anxiety, No behavioral changes, No change in appetite, No confusion and No depression Endo Endocrine: No cold intolerance, fatigue, heat intolerance, increased thirst/drinking or weight change Aller/Imm Allergy/Immunologic: No food intolerance or itchy eyes Oscar/Lymp Hematologic/Lymphatic: No easy bleeding, easy bruising or enlarged lymph nodes Exam Const General: cooperative, healthy appearing, well developed and well groomed Eyes General: appearance normal, both eyes and all related structures Conjunctivae: conjunctivae normal Sclera: sclerae normal Neck Neck: normal visual inspection Resp Effort & Inspection: normal respiratory effort GI Inspection: normal to inspection Palpation: soft, no hepatosplenomegaly, no guarding, no masses and tender in the RLQ, in the RUQ and periumbilically Skin General: no rashes or lesions noted Neuro Gait: normal gait Extrem General: no pedal edema Psych Mood: anxious mood (slightly) Affect: normal affect Quality Reporting Tobacco Screening ([facility] 138) Smoking Status: Never smoker Assessment and Plan Assessment and Plan (1) Abdominal pain: ?Status:?Acute (2) Acid reflux: ?Status:?Acute (3) Early satiety: ?Status:?Acute (4) Chronic constipation: ?Status:?Chronic (5) Dysphagia: ?Status:?Inactive ? ? ? Orders:?Orders: ? Abdomen/Pelvis WITH Contrast Today R10.9, K21.9, R68.81 ? ? Gastric Emptying Study Today R10.9, K21.9, R68.81 ? ? Comprehensive Metabolic Profil Today R10.9, K21.9, R68.81 ? ? CRP Today R10.9, K21.9, R68.81 ? ? CBC W/Diff, Automated Today R10.9, K21.9, R68.81 ? ? Erythrocyte Sed Rate Today R10.9, K21.9, R68.81 ? ? Celiac Disease Profile Today R10.9, K21.9, R68.81 ?Plan: 60 yr old female with chronic constipation and new GI symptoms of early satiety, acid reflux/regurgitation, bloating, abdominal pain. For early dysphagia/satiety/reflux/bloating the DDx includes esophageal stricture, esophagitis, Blount's, gastritis, peptic ulcer, malignancy, gastroparesis. For abdominal pain/bloating the DDx includes gas pains due to constipation, SIBO, SCAD. CT abd pel w/ oral and IV contrast Gastric emptying study Labs today Start pantoprazole 40 mg daily Miralax daily plus kiwi supplement for the chronic constipation EsoGuard August 20 F/u 6 wks EGD and Colonoscopy Nov 06/u with Dr Ambriz 2 wks after to review biopsy results. Consider adding Mc pH to EGD. Plan Details Other Medications: ?New: ? pantoprazole 40 mg? PO DAILY 30 tabs 2RF ? ? I have re-examined the patient. There are no clinical changes since date of exam.
[2021-11-06] MEDS: Lactated Ringers 1,000 ML 15 ML IV (09:00)
--- NOTE | 2021-11-06 09:30 | EGD_PTH ---
PATIENT: MAIA DAVIES LOC: EN U#:[id number] AGE/SX: 61/F ROOM: RE11/06/[address]: Dr. Yaakov Ambriz DO : 1960 BED: DIS: 11/06/2021 SPEC #: [id number] RECD: 11/06/21 10:25 STATUS: JAJA SHIRA #: [id number] GERMANIA: 11/06/21 09:[address]: Yaakov Ambriz DEPT: SURGICAL PATHOLOGY RECD BY: Kaity Smith ENTERED: 11/06/21 12:09 SP TYPE: EGD BIOPSY OT DR: Dr. Amish Tavares MD Tissues: A - Duodenum, NOS B - Esophagus, NOS C - Sigmoid colon biopsy Procedures: Special Stain Group II Surgery Specimen Level IV Alcian Blue/PAS (control) HEADER OPERATION: Colonoscopy, EGD [place] [place] with biopsies PRE-OP DIAGNOSIS: Abdominal pain, acid reflux, early satiety, chronic constipation, dysphagia TISSUE SUBMITTED: A. Duodenum biopsy, B. Distal esophagus, C. Sigmoid polyp MICROSCOPIC DIAGNOSIS A. Duodenum, biopsy: No pathologic change. B. Distal esophagus, biopsy: Benign lymphoid aggregate. Gastro-esophageal junctional mucosa with focal goblet cell metaplasia. No evidence of dysplasia. Focal change of reflux See Comment. C. Sigmoid polyp, biopsy: Fragments of benign colonic mucosa. AM 11/10/2021 AM:vicente 11/20/2021 COMMENT B. Alcian blue/PAS stain with matched control is used in the evaluation of the specimen. Immunohistochemistry ([id number]) supports the diagnosis. MICROSCOPIC DESCRIPTION Slides are reviewed. GROSS DESCRIPTION A. Received is one container labeled with the patient name and designated duodenum. The specimen consists of two irregular fragments of light cedeño soft tissue that in aggregate measure 0.6 x 0.3 x 0.1 cm. The specimen is totally submitted in one cassette. B. Received is one container labeled with the patient name and designated distal esophagus. The specimen consists of multiple irregular fragments of light cedeño soft tissue that in aggregate measure 1.0 x 0.3 x 0.1 cm. The specimen is totally submitted in one cassette. C. Received is one container labeled with the patient name and designated sigmoid. The specimen consists of one fragment of cedeño soft tissue the measures 0.5 x 0.3 x 0.1 cm. The specimen is totally submitted in one cassette. /JEAN:cc 11/06/21 TC:3 CPT: 12532m5, 63005
--- NOTE | 2021-11-06 09:30 | EGD_PTH ---
PATIENT: MAIA DAVIES LOC: EN U#:[id number] AGE/SX: 61/F ROOM: RE11/06/[address]: Dr. Yaakov Ambriz DO : 1960 BED: DIS: 11/06/2021 SPEC #: [id number] RECD: 11/06/21 10:25 STATUS: JAJA REJatin #: [id number] GERMANIA: 11/06/21 09:[address]: Yaakov Ambriz DEPT: SURGICAL PATHOLOGY RECD BY: Kaity Smith ENTERED: 11/06/21 12:09 SP TYPE: EGD BIOPSY OT DR: Dr. Amish Tavares MD Tissues: A - Duodenum, NOS B - Esophagus, NOS C - Sigmoid colon biopsy Procedures: Surgery Specimen Level IV HEADER OPERATION: Colonoscopy, EGD ([facility] [place]) with biopsies PRE-OP DIAGNOSIS: Abdominal pain, acid reflux, early satiety, chronic constipation, dysphagia TISSUE SUBMITTED: A. Duodenum biopsy, B. Distal esophagus, C. Sigmoid polyp MICROSCOPIC DIAGNOSIS A. Duodenum, biopsy: No pathologic change. B. Distal esophagus, biopsy: Benign lymphoid aggregate. Gastro-esophageal junctional mucosa with focal goblet cell metaplasia. No evidence of dysplasia. Focal change of reflux See Comment. C. Sigmoid polyp, biopsy: COMMENT B. Alcian blue/PAS stain with matched control is used in the evaluation of the specimen. Immunohistochemistry ([id number]) supports the diagnosis. MICROSCOPIC DESCRIPTION Slides are reviewed. GROSS DESCRIPTION A. Received is one container labeled with the patient name and designated duodenum. The specimen consists of two irregular fragments of light cedeño soft tissue that in aggregate measure 0.6 x 0.3 x 0.1 cm. The specimen is totally submitted in one cassette. B. Received is one container labeled with the patient name and designated distal esohagus. The specimen consists of multiple irregular fragments of light cedeño soft tissue that in aggregate measure 1.0 x 0.3 x 0.1 cm. The specimen is totally submitted in one cassette. C. Received is one container labeled with the patient name and designated sigmoid. The specimen consists of one fragment of cedeño soft tissue the measures 0.5 x 0.3 x 0.1 cm. The specimen is totally submitted in one cassette. /JEAN:renetta 11/06/21 TC:3 CPT: 39379m6, 98609
--- NOTE | 2021-11-06 10:16 | OP.EGD_ITS ---
Patient Name: Stephanie Alcantar Procedure Date: 11/06/2021 9:38 AM Date of : 1960 Age: 61 Procedure: Upper GI endoscopy Indications: Epigastric abdominal pain, Functional Dyspepsia, Heartburn, Suspected esophageal reflux Providers: Yaakov Ambriz DO Medicines: Monitored Anesthesia Care Patient Profile: This is a 61 year old female. Refer to note in patient chart for documentation of history and physical. Patient has symptoms of chronic epigastric abdominal pain, chronic dyspepsia, chronic heartburn and chronic nausea. Complications: No immediate complications. Procedure: Pre-Anesthesia Assessment: - Prior to the procedure, a History and Physical was performed, and patient medications and allergies were reviewed. The risks and benefits of the procedure and the sedation options and risks were discussed with the patient. All questions were answered and informed consent was obtained. Patient identification and proposed procedure were verified by the physician in the pre-procedure area. Mental Status Examination: alert and oriented. Airway Examination: normal oropharyngeal airway and neck mobility. Respiratory Examination: clear to auscultation. CV Examination: normal. Prophylactic Antibiotics: The patient does not require prophylactic antibiotics. Prior Anticoagulants: The patient has taken no previous anticoagulant or antiplatelet agents. ASA Grade Assessment: II - A patient with mild systemic disease. After reviewing the risks and benefits, the patient was deemed in satisfactory condition to undergo the procedure. The anesthesia plan was to use moderate sedation / analgesia (conscious sedation). Immediately prior to administration of medications, the patient was re-assessed for adequacy to receive sedatives. The heart rate, respiratory rate, oxygen saturations, blood pressure, adequacy of pulmonary ventilation, and response to care were monitored throughout the procedure. The physical status of the patient was re-assessed after the procedure. After obtaining informed consent, the endoscope was passed under direct vision. Throughout the procedure, the patient's blood pressure, pulse, and oxygen saturations were monitored continuously. The pediatric colonoscope was introduced through the mouth, and advanced to the second part of duodenum. The upper GI endoscopy was accomplished without difficulty. The patient tolerated the procedure well. Scope In: 9:44:10 AM Scope Out: 9:49:28 AM Total Procedure Duration Time 0 hours 5 minutes 18 seconds Findings: A mild Schatzki ring was found in the lower third of the esophagus. The Z-line was irregular and was found 39 cm from the incisors. Biopsies were taken with a cold forceps for histology. Verification of patient identification for the specimen was done. Estimated blood loss was minimal. A medium-sized hiatal hernia was present. No gross lesions were noted in the second portion of the duodenum. Biopsies were taken with a cold forceps for histology. Verification of patient identification for the specimen was done. Estimated blood loss was minimal. Impression: - Mild Schatzki ring. - Z-line irregular, 39 cm from the incisors. Biopsied. - Medium-sized hiatal hernia. - No gross lesions in the second portion of the duodenum. Biopsied. Recommendation: - Discharge patient to home. - Resume previous diet. - Continue present medications. - Await pathology results. Procedure Code(s): --- Professional --- 30411, Esophagogastroduodenoscopy, flexible, transoral; with biopsy, single or multiple CPT copyright 2017 [employer]. All rights reserved. The codes documented in this report are preliminary and upon cnc lathe programmer review may be revised to meet current compliance requirements. Yaakov Ambriz DO 11/06/2021 10:15:59 AM This report has been signed electronically. Number of Addenda: 1 Note Initiated On: 11/06/2021 9:38 AM Addendum Number: 1 Addendum Date: 12/25/2021 6:13:02 AM MAC was used as sedation for this procedure. Yaakov Ambriz DO 12/25/2021 6:13:06 AM This report has been signed electronically.
--- NOTE | 2021-11-06 10:17 | OP.CCLET_ITS ---
12/25/2021 Amish Tavares MD [address] [id number] Re : Upper GI endoscopy procedure for Stephanie Alcantar Dear Dr. Tavares This procedure was performed on October. My impressions and recommendations are as follows: Impressions : - Mild Schatzki ring. - Z-line irregular, 39 cm from the incisors. Biopsied. - Medium-sized hiatal hernia. - No gross lesions in the second portion of the duodenum. Biopsied. Recommendations : - Discharge patient to home. - Resume previous diet. - Continue present medications. - Await pathology results. My findings are described in the full procedure note, which is enclosed. If I can be of further assistance, please feel free to contact me at . Sincerely, Yaakov Ambriz, 11/06/2021 10:15:59 AM This report has been signed electronically.
--- NOTE | 2021-11-06 10:22 | OP.COLON_ITS ---
Patient Name: Stephanie Alcantar Procedure Date: 11/06/2021 9:49 AM Date of : 1960 Age: 61 Procedure: Colonoscopy Indications: Screening for colorectal malignant neoplasm Providers: Yaakov Ambriz DO Medicines: Monitored Anesthesia Care Patient Profile: This is a 61 year old female. Refer to note in patient chart for documentation of history and physical. Patient has symptoms of chronic epigastric abdominal pain, chronic dyspepsia, chronic heartburn and chronic nausea. Last Colonoscopy: more than 3 years ago. Complications: No immediate complications. Procedure: Pre-Anesthesia Assessment: - Prior to the procedure, a History and Physical was performed, and patient medications and allergies were reviewed. The risks and benefits of the procedure and the sedation options and risks were discussed with the patient. All questions were answered and informed consent was obtained. Patient identification and proposed procedure were verified by the physician in the pre-procedure area. Mental Status Examination: alert and oriented. Airway Examination: normal oropharyngeal airway and neck mobility. Respiratory Examination: clear to auscultation. CV Examination: normal. Prophylactic Antibiotics: The patient does not require prophylactic antibiotics. Prior Anticoagulants: The patient has taken no previous anticoagulant or antiplatelet agents. ASA Grade Assessment: II - A patient with mild systemic disease. After reviewing the risks and benefits, the patient was deemed in satisfactory condition to undergo the procedure. The anesthesia plan was to use moderate sedation / analgesia (conscious sedation). Immediately prior to administration of medications, the patient was re-assessed for adequacy to receive sedatives. The heart rate, respiratory rate, oxygen saturations, blood pressure, adequacy of pulmonary ventilation, and response to care were monitored throughout the procedure. The physical status of the patient was re-assessed after the procedure. After I obtained informed consent, the scope was passed under direct vision. Throughout the procedure, the patient's blood pressure, pulse, and oxygen saturations were monitored continuously. The adult colonoscope was introduced through the anus and advanced to the terminal ileum. The colonoscopy was performed without difficulty. The patient tolerated the procedure well. The quality of the bowel preparation was good. Moderate Sedation: Moderate (conscious) sedation was personally administered by an anesthesia professional. The following parameters were monitored: oxygen saturation, heart rate, blood pressure, and response to care. Scope In: 9:51:41 AM Scope Withdrawal Time 0 hours 10 minutes 4 seconds Scope Out: 10:09:02 AM Total Procedure Duration Time 0 hours 17 minutes 21 seconds Findings: The perianal and digital rectal examinations were normal. An area of mildly congested mucosa was found in the sigmoid colon. Biopsies were taken with a cold forceps for histology. Verification of patient identification for the specimen was done. Estimated blood loss was minimal. A few medium-mouthed diverticula were found in the sigmoid colon and descending colon. The terminal ileum appeared normal. Impression: - Congested mucosa in the sigmoid colon. Biopsied. - Diverticulosis in the sigmoid colon and in the descending colon. - The examined portion of the ileum was normal. Recommendation: - Discharge patient to home. - Resume previous diet. - Continue present medications. - Await pathology results. - Repeat colonoscopy in 5 years for surveillance. - Return to GI office in 1 week. Procedure Code(s): --- Professional --- 41064, Colonoscopy, flexible; with biopsy, single or multiple CPT copyright 2017 [employer]. All rights reserved. The codes documented in this report are preliminary and upon needle loom operator helper review may be revised to meet current compliance requirements. Yaakov Ambriz DO 11/06/2021 10:21:54 AM This report has been signed electronically. Number of Addenda: 1 Note Initiated On: 11/06/2021 9:49 AM Addendum Number: 1 Addendum Date: 12/25/2021 6:13:13 AM MAC was used as sedation for this procedure. Yaakov Ambriz DO 12/25/2021 6:13:19 AM This report has been signed electronically.
--- NOTE | 2021-11-06 10:23 | OP.CCLET_ITS ---
12/25/2021 Amish Tavares MD [address] [id number] Re : Colonoscopy procedure for Stephanie Alcantar Dear Dr. Tavares This procedure was performed on October. My impressions and recommendations are as follows: Impressions : - Congested mucosa in the sigmoid colon. Biopsied. - Diverticulosis in the sigmoid colon and in the descending colon. - The examined portion of the ileum was normal. Recommendations : - Discharge patient to home. - Resume previous diet. - Continue present medications. - Await pathology results. - Repeat colonoscopy in 5 years for surveillance. - Return to GI office in 1 week. My findings are described in the full procedure note, which is enclosed. If I can be of further assistance, please feel free to contact me at . Sincerely, Yaakov Ambriz, 11/06/2021 10:21:54 AM This report has been signed electronically.
== END 2021-11-06 11:48 | disposition home or self-care (01) ==
LOC: EN 08:27 → AC 08:36
PROVIDERS: PCP Family Medicine; Referring Provider Family Medicine; Visit Provider Internal Medicine Gastroenterology
PROC: 0DJD8ZZ Inspection of Lower Intestinal Tract, Via Natural or Artificial Opening Endoscopic (ICD-10-PCS; CPT 45378; principal; 2021-11-06 09:25)
DX: Z12.11 Encounter for screening for malignant neoplasm of colon (principal); K57.30 Diverticulosis of large intestine without perforation or abscess without bleeding; K59.09 Other constipation; K22.2 Esophageal obstruction; K44.9 Diaphragmatic hernia without obstruction or gangrene; K21.9 Gastro-esophageal reflux disease without esophagitis; K30 Functional dyspepsia; R68.81 Early satiety
CPT/HCPCS: 45380; 43239; 88305; 88313; 88341; 88342; J7120; J2405

== ENCOUNTER → 2021-11-11 | Outpatient (CLI) | payer OTHER, SELFPAY ==
--- NOTE | 2021-11-11 12:33 | NM_ITS ---
CLINICAL: 61-year-old female with history of early satiety, abdominal bloating and gastroesophageal reflux. SEMI-SOLID PHASE 99m Tc SULFUR COLLOID GASTRIC EMPTYING STUDY COMPARISON: CT of the abdomen-pelvis report 08/08/2021 FINDINGS: The patient was administered 1.0 mCi of 99m Tc sulfur colloid mixed with oatmeal and consumed per os. Image acquisitions in the anterior and posterior projections were obtained for 60 minutes. There is prompt visualization of the stomach. There is no gastroesophageal reflux identified. The T ? emptying was calculated to be 49.08 minutes, (Normal: 12-56 minutes). NM/Gastric Emptying Study IMPRESSION: 1. NORMAL 99m Tc sulfur colloid semi-solid phase (oatmeal) gastric emptying imaging examination. A. There is normal and preserved semi-solid phase gastric emptying compared to normal controls. (Ebonie et al, J Nucl Med Tech 38: 186, 2010). Electronically Signed: Moe Linares, at 14:52 EDT ,
== END | disposition home or self-care (01) ==
LOC: NM 12:32
PROVIDERS: PCP Family Medicine; Referring Provider Nurse Practitioner Adult Health; Visit Provider Nurse Practitioner Adult Health
DX: R68.81 Early satiety (principal); R10.9 Unspecified abdominal pain; K21.9 Gastro-esophageal reflux disease without esophagitis
CPT/HCPCS: 78264; A9541

== ENCOUNTER 2022-03-02 10:00 | Outpatient (RCR) | payer OTHER, SELFPAY ==
--- NOTE | 2022-02-02 08:51 | HP.PTEVAL_ITS ---
Patient's Visit Information MAIA DAVIES is a 61 year old F referred to Physical Therapy by COLEMAN Dowd with a diagnosis of acute lumbar myofascial strain. Date of Evaluation: 01/30/22 Physical Therapist: Sam Arias DPT - Visit Plan Frequency: 3x /Week Duration: 4 Weeks Plan: Start with modalities, IFC and US in prone to calm symptoms. Progress extension as tolerated. Focus on slowly increase in ROM as tolerated. Reinforce no bending/twist/lifting. Also focus on how this will get better. - Subjective Pt. is here today for her initial evaluation with diagnosis of acute lumbar myofascial strain. Pt. reports hurting her back while at work. 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 Pt. was working with an individual who was heavier and felt her back hurt after assisting with transfers and bed mobility. Injury o ccurred on 01/28/22. Pt. denies pain going down her leg, but has intense pain in the middle of her back. She denies N/T in either LE and no sudden weakness in either LE. Pt. has not been able to do much since her injury. She can only sit for short periods of time, she can not stand up straight due to intense pain as well. No xrays at this point in time. Pt. is taking muscle relaxers with some relief. She has been put on 4 hour light duty at this point in time. Pt. can only lie on L side, but has a lot of pain with attempting to get up and down. Pt. enjoys kayaking, and other recreational sports as well outside of work. Pt. is hopeful to reduce symptoms in order to get back to all work and recreational activities without limitations. - Pain Lumbar spine Pain Intensity (Out of 10): 9 Pain Intensity Range: 6, 10 - Objective POSTURE: Pt. has flexed posture in stance, unable to get full upright posture due to pain., No lateral shift noted. PALPATION: Pt. has tenderness along lumbar spine. Very tight B erector spinae, muscle spasm noted bilaterally. NEURO: Pt. has normal sensation in BLEs, patient has normal DTR of B Achilles and Patellar. Pt. is able to rise on heels and toes without issues. ROM: LUMBAR SPINE: flexion: max loss increase NW, ext: max loss increase NW, SB max loss increase NW bilat, rotation max loss bilat increase NW. No cause in radicular symptoms. MMT: No myotomal weakness noted in BLEs. did not test hip or core fully due to inability to get into position. GAIT: Pt. has very guarded posture, no arm swing, slight flexed posture. Pt. has decreased step length bilat. - Special Tests L/S Slump test left side: Negative L/S Slump test right side: Negative Lumbar Standing: Flexion - Mechanical Response: No effect Lumbar Standing: Flexion - Symptoms During Testing: Increases Lumbar Standing: Flexion - Symptoms After Testing: Worse Lumbar Standing: Extension - Mechanical Response: No effect Lumbar Standing: Extension - Symptoms During Testing: Increases Lumbar Standing: Extension - Symptoms After Testing: Worse Lumbar Standing: Right Side Glides - Mechanical Response: No effect Lumbar Standing: Right Side Eckerman - Symptoms During Testing: Increases Lumbar Standing: Right Side Eckerman - Symptoms After Testing: Worse Lumbar Standing: Left Side Eckerman - Mechanical Response: No effect Lumbar Standing: Left Side Eckerman - Symptoms During Testing: Increases Lumbar Standing: Left Side Eckerman - Symptoms After Testing: Worse Comments:: unable to lie prone Lumbar Static: Slouched Sit - Mechanical Response: No effect Lumbar Static: Slouched Sit - Symptoms During Testing: Increases Lumbar Static: Slouched Sit - Symptoms After Testing: Worse Lumbar Static: Sitting Erect - Mechanical Response: No effect Lumbar Static: Sitting Erect - Symptoms During Testing: Increases Lumbar Static: Sitting Erect - Symptoms After Testing: Worse Comments:: Pt. unable to lie prone - Balance/Special Test Scores Oswestry Low Back Score: 39 - Goals Goal 1:: LTG: Pt. to be I with HEP for stretching and lumbar ROM. Goal Time Frame: 4-6 Weeks Goal 2:: STG: Pt. to be able to sleep throughout the night without increase in symptoms. Goal Time Frame: 2 Weeks Goal 3:: STG: Pt. to have restored lumbar ROM to at least 50% of motion without increase in symptoms. Goal Time Frame: 2 Weeks Goal 4:: LTG: Pt. to have full ROM of lumbar spine without increase in symptoms. Goal Time Frame: 4-6 Weeks Goal 5:: LTG: pt. to be able to complete all work duties without increase in symptoms. Goal Time Frame: 4-6 Weeks Goal 6:: LTG: Pt. to walk without increase in symptoms. Goal Time Frame: 4-6 Weeks - Rehabilitation Potential Physical Therapy Diagnosis: Pt. has signs and symptoms consistent with acute lumbar myofascial strain. Pt. most likely has a disc derangement due to lifting in awkward position. She did not have any radicular symptoms today, but has in a high amount of pain. She would benefit from PT to work on slowly extending in order to apply pressure to her disc to reduce pressure and calm her symptoms, progressing back to work activities. Rehabilitation Potential: Excellent - Anticipated Interventions Patient/Client Instruction: Educate patient on: Condition, Plan of Care, Risk Factors, Benefits of Fitness Program For the Purpose of:: To improve decision making, To facilitate caregiver knowledge, To improve self management, To prevent re-injury, To improve ability to perform tasks related to life management, To improve tolerance to ADL's Therapeutic Exercise to Include: Strength training, Passive ROM, Active ROM, Dynamic Lumbar Stabilization, Berny Exercises For the Purpose of:: To decrease pain, To decrease swelling/inflammation, To increase ROM, To improve nutrient delivery to tissue, To increase oxygenation perfusion, To improve muscle performance and motor function, To improve health of tissue, To decrease soft tissue restriction, To increase flexibility/ROM Manual Therapy Techniques to Include: Mobilization, Passive ROM For the Purpose of:: To decrease pain, To decrease swelling/inflammation, To increase ROM, To improve nutrient delivery to tissue IF ES: Yes Thermo therapy (hot pack): Yes Ultrasound (thermal/non thermal): Yes For the Purpose of:: To decrease pain, To decrease swelling/inflammation, To increase ROM, To improve nutrient delivery to tissue, To increase oxygenation perfusion Thank you for the opportunity to evaluate your patient. For Medicare and Medicare HMO plans, please review the plan of care and approve it. It will need to be FAXED BACK to us at [phone] for Medicare purposes. For Medicare only, by signing this I certify the plan of care. Please let me know if there are questions or concerns regarding this plan of care. Physician Signature: Date:
--- NOTE | 2022-02-04 12:38 | HP.PTREVAL_ITS ---
COLEMAN Dowd, It has been my pleasure to treat MAIA DAVIES over the last 3 visits for acute lumbar myofascial strain. Please see the progress note below for an update on the physical therapy plan of care! Subjective: Pt. reports I am improving, I am walking better, but still having pain with any lifting, reaching and bending. Pt. reports being HEP compliant. Objective/Function: Pt. did well with PT this date. She is progressing with extension and her overall tolerance to mobility is improving. She still has a very guarded posture and guarded mobility. She still has pain with any lifting. Overall improvement, but would continue to benefit from PT to work on reduction of symptoms. She is doing her extension x5 times per day. She tolerated increased manual mobs this date as well. Plan Plan: Start with modalities, IFC and US in prone to calm symptoms. Progress exte nsion as tolerated. Focus on slowly increase in ROM as tolerated. Reinforce no bending/twist/lifting. Also focus on how this will get better. Balance/Gait/Functional tests - Balance/Special Test Scores Oswestry Low Back Score: 39 Goals Goal 1:: LTG: Pt. to be I with HEP for stretching and lumbar ROM. Goal Time Frame: 4-6 Weeks Goal 2:: STG: Pt. to be able to sleep throughout the night without increase in symptoms. Goal Time Frame: 2 Weeks Goal 3:: STG: Pt. to have restored lumbar ROM to at least 50% of motion without increase in symptoms. Goal Time Frame: 2 Weeks Goal 4:: LTG: Pt. to have full ROM of lumbar spine without increase in symptoms. Goal Time Frame: 4-6 Weeks Goal 5:: LTG: pt. to be able to complete all work duties without increase in symptoms. Goal Time Frame: 4-6 Weeks Goal 6:: LTG: Pt. to walk without increase in symptoms. Goal Time Frame: 4-6 Weeks Anticipated Interventions Patient/Client Instruction: Educate patient on: Condition, Plan of Care, Risk Factors, Benefits of Fitness Program For the Purpose of:: To improve decision making, To facilitate caregiver knowledge, To improve self management, To prevent re-injury, To improve ability to perform tasks related to life management, To improve tolerance to ADL's Therapeutic Exercise to Include: Strength training, Passive ROM, Active ROM, Dynamic Lumbar Stabilization, Berny Exercises For the Purpose of:: To decrease pain, To decrease swelling/inflammation, To increase ROM, To improve nutrient delivery to tissue, To increase oxygenation perfusion, To improve muscle performance and motor function, To improve health of tissue, To decrease soft tissue restriction, To increase flexibility/ROM Manual Therapy Techniques to Include: Mobilization, Passive ROM For the Purpose of:: To decrease pain, To decrease swelling/inflammation, To increase ROM, To improve nutrient delivery to tissue IF ES: Yes Thermo therapy (hot pack): Yes Ultrasound (thermal/non thermal): Yes For the Purpose of:: To decrease pain, To decrease swelling/inflammation, To increase ROM, To improve nutrient delivery to tissue, To increase oxygenation perfusion Please do not hesitate to contact me at [phone] by phone or if you have questions or concerns regarding this new plan of care! Sincerely, YAMINI SanabriaT
--- NOTE | 2022-03-02 10:31 | HP.PTREVAL ---
COLEMAN Dowd, It has been my pleasure to treat MAIA DAVIES over the last 12 visits for acute lumbar myofascial strain. Please see the progress note below for an update on the physical therapy plan of care! Subjective: Pt. reports overall doing well. Pt. reports being back to work and being fully released at this point in time. Objective/Function: ROM: full ROM without increase in symptoms. MMT: Pt. has full strength of BLEs. She does have marked weakness with her lower abdominals which I have educated her to work on this to stabilize with all her work and recreational activities. She has been trained in body mechanics, but also core stability exercises. Pt. is set to resume all work activities tonight. Pt. is to trial work out and call me if she does not continue to progress as expected. I do expect her to continue to progress with her core stability and tolerance to all work activities. Plan Plan: Pt. to go back to work. Resume all work activities. I will leave her case open just in case the week does not go well with work, if I do not hear from her I will DC back to physician. Balance/Gait/Functional tests - Balance/Special Test Scores Oswestry Low Back Score: 8 Goals Goal 1:: LTG: Pt. to be I with HEP for stretching and lumbar ROM. Goal Time Frame: 4-6 Weeks Goal Progress: Goal Met Goal 2:: STG: Pt. to be able to sleep throughout the night without increase in symptoms. Goal Time Frame: 2 Weeks Goal Progress: Goal Met Goal 3:: STG: Pt. to have restored lumbar ROM to at least 50% of motion without increase in symptoms. Goal Time Frame: 2 Weeks Goal 4:: LTG: Pt. to have full ROM of lumbar spine without increase in symptoms. Goal Time Frame: 4-6 Weeks Goal Progress: Goal Met Goal 5:: LTG: pt. to be able to complete all work duties without increase in symptoms. Goal Time Frame: 4-6 Weeks Goal Progress: Progressing Goal 6:: LTG: Pt. to walk without increase in symptoms. Goal Time Frame: 4-6 Weeks Goal Progress: Goal Met Anticipated Interventions Patient/Client Instruction: Educate patient on: Condition, Plan of Care, Risk Factors, Benefits of Fitness Program For the Purpose of:: To improve decision making, To facilitate caregiver knowledge, To improve self management, To prevent re-injury, To improve ability to perform tasks related to life management, To improve tolerance to ADL's Therapeutic Exercise to Include: Strength training, Passive ROM, Active ROM, Dynamic Lumbar Stabilization, Berny Exercises For the Purpose of:: To decrease pain, To decrease swelling/inflammation, To increase ROM, To improve nutrient delivery to tissue, To increase oxygenation perfusion, To improve muscle performance and motor function, To improve health of tissue, To decrease soft tissue restriction, To increase flexibility/ROM Manual Therapy Techniques to Include: Mobilization, Passive ROM For the Purpose of:: To decrease pain, To decrease swelling/inflammation, To increase ROM, To improve nutrient delivery to tissue IF ES: Yes Thermo therapy (hot pack): Yes Ultrasound (thermal/non thermal): Yes For the Purpose of:: To decrease pain, To decrease swelling/inflammation, To increase ROM, To improve nutrient delivery to tissue, To increase oxygenation perfusion Please do not hesitate to contact me at [phone] by phone or if you have questions or concerns regarding this new plan of care! Sincerely, Sam Arias DPT
== END 2022-03-02 19:00 | disposition home or self-care (01) ==
LOC: PT 10:00
PROVIDERS: PCP Family Medicine; Referring Provider Physician Assistant; Visit Provider Physician Assistant
DX: S39.012D Strain of muscle, fascia and tendon of lower back, subsequent encounter (principal)
CPT/HCPCS: 97014; 97110; 97161; 97164; G0283

== ENCOUNTER → 2022-07-06 | Outpatient (CLI) | payer OTHER, SELFPAY ==
--- NOTE | 2022-07-06 09:19 | BI_ITS ---
MAMMOGRAPHY - BILATERAL SCREENING REASON FOR EXAM: Female, 61 years old. Routine annual screening examination. PERTINENT HISTORY: Mother with breast cancer. Aunt with breast cancer. TECHNIQUE: Digital bilateral breast gina (3D mammographic acquisition) in the CC and MLO projections. 2-D mediolateral oblique (MLO) and craniocaudad (CC) views of both breasts were obtained. CAD: Full Field Digital Mammography with Computer Added Detection was performed. COMPARISON: Comparison is made with prior examination dated July 04, 2021 and June 26, 2020. FINDINGS: Breast Composition: The breasts are heterogeneously dense, which may obscure small masses. There are no dominant masses or suspicious calcifications. No other significant abnormalities are identified. There has been no significant change since the prior study. BI/SCRN MAMM (CAD)W/GINA BILAT IMPRESSION: Stable bilateral screening mammogram. Yearly follow-up mammogram recommended. (A) ASSESSMENT CATEGORY: BIRADS Category 1: Negative. A letter regarding these results will be sent to the patient by the facility within 30 days. Approximately 10% of breast cancers are not detected by mammography. A normal mammogram should not delay biopsy of a clinically suspicious abnormality. [id number] Electronically Signed: Tomas Navarro MD at 10:11 EDT ,
== END | disposition home or self-care (01) ==
LOC: OPBI 09:16
PROVIDERS: PCP Family Medicine; Visit Provider Family Medicine
DX: Z12.31 Encounter for screening mammogram for malignant neoplasm of breast (principal); Z80.3 Family history of malignant neoplasm of breast
CPT/HCPCS: 77063; 77067

== ENCOUNTER → 2022-09-07 | Outpatient (CLI) | payer OTHER, SELFPAY ==
--- NOTE | 2022-09-07 14:59 | RAD_ITS ---
ACR Level 3 findings have been noted. An addendum which confirms receipt of the report will follow. INDICATION: back pain EXAMINATION/TECHNIQUE: X-RAY - XR Spine Lumbar Min 4 Views COMPARISON: July 07, 2016 FINDINGS: VERTEBRAE: There is an age-indeterminate compression deformity of the L3 vertebral body. Otherwise preserved vertebral body height. No fracture. No spondylolisthesis. Preservation of the normal lumbar lordosis. No significant facet arthropathy. DISCS: Disc spaces are maintained. INCLUDED ABDOMEN: Included bowel gas pattern is non-obstructive. RAD/L/S Spine Min 4 Views IMPRESSION: Age-indeterminate compression deformity of the L3 vertebral body, not present on the previous study. Electronically Signed: Jose Dodson, at 7:47 EDT ,
== END | disposition home or self-care (01) ==
LOC: MTLAB 14:58 → MTRAD 15:02
PROVIDERS: PCP Family Medicine; Referring Provider Chiropractor; Visit Provider Chiropractor
DX: M54.16 Radiculopathy, lumbar region (principal); M99.03 Segmental and somatic dysfunction of lumbar region
CPT/HCPCS: 72110

== ENCOUNTER → 2022-09-16 | Outpatient (CLI) | payer OTHER, SELFPAY ==
--- NOTE | 2022-09-16 09:15 | MRI_ITS ---
STUDY: MRI LUMBAR SPINE WITHOUT CONTRAST REASON FOR EXAM: Female, 61 years old. Low back pain. TECHNIQUE: Standardized fat and water weighted pulse sequences were obtained in the sagittal and axial planes. COMPARISON: Lumbar spine radiographs 09/07/2022. CT abdomen and pelvis with contrast 08/08/2021. FINDINGS: T11-T12: (Sagittal only). Normal endplates. Normal disc height and morphology. Normal central canal and bilateral intervertebral neural foramina. T12-L1: (Sagittal only). Normal endplates. Normal disc height, hydration and morphology. Normal central canal and bilateral intervertebral neural foramina. Normal lumbar lordosis. There is no substantial scoliosis. Normal conus medullaris that terminates at the T12-L1 disc space level. L1-2: Normal L1 inferior endplate. Mild to moderate central compression fracture with bone marrow edema underneath the L1 superior endplate due to recent fracture. This fracture extends more towards the left side. This accounts for the increased central disc space height. Minimal ventral extradural defect is small posterior bulging annulus. Normal facet joints. Capacious central canal and bilateral lateral recesses. Normal bilateral intervertebral neural foramina. L2-3: Moderate recent compression fracture across the upper L3 vertebral body. Normal L2 endplate. Increased central disc space height due to central compression fracture of the upper L3 vertebral body. Mild ventral extradural defect due to small posterior bulging annulus. Normal facet joints. Normal central canal and bilateral lateral recesses. Normal bilateral intervertebral neural foramina. L3-4: Normal endplates. Normal disc height. Mild ventral extradural defect due to small posterior bulging annulus, greater towards the right side. No significant facet arthropathy. Normal central canal and bilateral lateral recesses. Normal bilateral intervertebral neural foramina. L4-5: Normal endplates. Normal disc height. Mild ventral extradural defect due to posterior bulging annulus. Normal facet joints. Normal central canal and bilateral lateral recesses. Normal bilateral intervertebral neural foramina. L5-S1: Minimal Modic type I degenerative vertebral marrow edema underneath the vertebral endplates. Mild disc space height narrowing. Small posterior bulging annulus with very minimal ventral extradural defect due to presence of ventral epidural fat. Normal facet joints. Normal central canal and bilateral lateral recesses. Mild stenosis of the left intervertebral neural foramen. Normal right intervertebral neural foramen. Normal visualized sacral ala. Normal visualized paraspinous soft tissue structures. MRI/Spine Lumbar (Routine) IMPRESSION: 1. Moderate recent compression fracture across the upper L3 vertebral body and small L2-L3 posterior bulging annulus. This is feasible for kyphoplasty if patient has debilitating back pain. 2. Mild to moderate recent central compression fracture underneath the L1 superior endplate, greater towards the left side. This is feasible for kyphoplasty if patient has debilitating back pain. 3. No MRI evidence of lumbar extruded disc fragment. 4. Minimal L5-S1 intervertebral osteochondritis (Modic type I), small posterior bulging annulus and mild stenosis of the left intervertebral neural foramen. Electronically Signed: Jaylen Oleary MD at 9:49 EDT ,
== END | disposition home or self-care (01) ==
PROVIDERS: PCP Family Medicine; Referring Provider Physician Assistant; Visit Provider Physician Assistant
DX: M54.50 Low back pain, unspecified (principal)
CPT/HCPCS: 72148

== ENCOUNTER → 2022-09-29 | Outpatient (CLI) | payer OTHER, SELFPAY ==
--- NOTE | 2022-09-29 08:41 | BD_ITS ---
STUDY: DUAL ENERGY X-RAY ABSORPTIOMETRY / DXA REASON FOR EXAM: Female, 61 years old. V76.12ScreeningBONE DENSITY REASON FOR EXAM TECHNIQUE: Bone Mineral Density (BMD) measurements of lumbar spine and bilateral hips were obtained. COMPARISON: Comparison is made with prior study dated November 12, 2015. FINDINGS: Lumbar Spine (L1-L4): g/cm2 (0.655) / T-score (-3.5) / Z-score (-2.0) Findings are suggestive of osteoporosis with a high fracture risk. Left Femur Total: g/cm2 (0.702) / T-score (-2.0) / Z-score (-1.0) Left Femoral Neck: g/cm2 (0.648) / T-score (-1.8) / Z-score (-0.5) Right Femur Total: g/cm2 (0.603) / T-score (-2.8) / Z-score (-1.8) Right Femoral Neck: g/cm2 (0.512) / T-score (-3.0) / Z-score (-1.7) The T-Scores on the most recent prior examination were: Lumbar Spine (L1-L4): There has been worsening of bone density since the previous examination. Left Femur Total: which represents an improvement of 2.4%. Right Femur Total: which represents a worsening of 2.9%. BD/Dexa Bone Density Study IMPRESSION: The patient is considered osteoporotic as outlined below according to World [employer] Organization (WHO) criteria with a high fracture risk. There has been worsening of bone density since the previous examination. Reference Information: The T-score is the number of standard deviations above or below the standard which is normal for young adults at their peak bone mineral density. The World Health Organization (WHO) interprets the T-scores as follows: Above -1 Normal bone density Between -1 and -2.5 Osteopenia Equal to / or below -2.5 Osteoporosis As a practical clinical guideline, osteopenia may be graded as follows: Mild -1 through -1.5 Moderate -1.6 through -2.0 Severe -2.1 through -2.4 The Z-score is the number of standard deviations above or below age-matched controls. A Z-score of less than -1.5 would be considered abnormal. References: 1. NIH Osteoporosis and Related Bone Diseases www osteo.org 2. International Society for Clinical Densitometry www iscd.org 3. National Osteoporosis Foundation www nof.org Electronically Signed: Tomas Navarro MD at 14:37 EDT ,
== END | disposition home or self-care (01) ==
LOC: OPBD 08:28
PROVIDERS: PCP Family Medicine; Referring Provider Family Medicine; Visit Provider Family Medicine
DX: N95.9 Unspecified menopausal and perimenopausal disorder (principal)
CPT/HCPCS: 77080

== ENCOUNTER → 2022-10-12 | Outpatient (CLI) | payer OTHER, SELFPAY ==
--- NOTE | 2022-10-12 13:40 | RAD_ITS ---
INDICATION: BACK PAIN EXAMINATION/TECHNIQUE: X-RAY - XR Spine Lumbar: 5V lumbar spine COMPARISON: September 07, 2022. Lumbar spine radiograph FINDINGS: VERTEBRAE: 5 nonrib-bearing lumbar type vertebra with normal general morphology. There has been interval vertebroplasty of L3 vertebral body with chronic appearing anterior vertebral height loss. No fracture or acute vertebral height loss. Mild diffuse endplate degenerative change of the upper to mid lumbar spine. No evidence of pars defect. Cement material extends cephalad from the L3 vertebral body along the L2-3 disc space. DISCS: Disc spaces are maintained. INCLUDED ABDOMEN: Included bowel gas pattern is non-obstructive. Moderate to large colonic stool burden. Nonspecific hyperattenuation layering in the anterior midabdomen, appearing to conform to colon on lateral view. Tubal ligation clips are noted. RAD/L/S Spine Min 4 Views IMPRESSION: Mild lumbar spondylosis. Chronic L3 compression deformity with interval vertebroplasty change. Mild extension of cement cephalad into L2-L3 disc space of unknown significance, commonly seen external to vertebral body in asymptomatic patients. Moderate to large colonic stool burden with nonspecific layering hyperdensity in the soft tissues conforming to bowel, of uncertain etiology Electronically Signed: Esa Aiken MD at 4:23 EDT Reading Location ID and State: formerly [facility] / [place] Tel , Service support ,
== END | disposition home or self-care (01) ==
PROVIDERS: PCP Family Medicine; Referring Provider Family Medicine; Visit Provider Family Medicine
DX: M54.9 Dorsalgia, unspecified (principal)
CPT/HCPCS: 72110

== ENCOUNTER 2022-10-20 13:00 | Outpatient (RCR) | payer OTHER, SELFPAY ==
--- NOTE | 2022-12-11 15:10 | HP.PT.NRP ---
Patient Information Patient Information: MAIA DAVIES was seen in my office for initial evaluation on 08/13/22. The following Plan of Care was established for this patient: POC Established Initial Frequency: 4-5x /Week Anticipated Interventions Patient/Client Instruction: Educate patient on: Condition and Plan of Care For the Purpose of:: To decrease pain, To decrease swelling/inflammation, To increase ROM and To assume or resume ADL's Therapeutic Exercise to Include: Strength training, Body mechanics and Postural training For the Purpose of:: To decrease pain, To decrease swelling/inflammation, To increase ROM and To assume or resume ADL's Last Seen Last Seen: This patient was last seen in our office 09/09/22. Pertinent comments regarding their Physical therapy will appear below: Pt. will be DC from PT at this point in time. She was to follow back up with physician. Pt. has not been seen in PT in several months and will be DC at this point in time. At this point I will be discontinuing this patient from physical therapy. I would be happy to see this patient again in the future if found appropriate by the physician. Thank you! Sam Arias, DPT Balance/Gait/Functional tests Balance/Special Test Scores Oswestry Low Back Score: 29
== END 2022-10-20 19:00 | disposition home or self-care (01) ==
LOC: PT 13:00
PROVIDERS: PCP Family Medicine; Referring Provider Family Medicine; Visit Provider Family Medicine
DX: M54.9 Dorsalgia, unspecified (principal)
CPT/HCPCS: 97012; 97035; 97110; 97140; 97162; 97530

== ENCOUNTER → 2022-10-23 | Outpatient (CLI) | payer OTHER, SELFPAY ==
--- NOTE | 2022-10-23 14:35 | RAD_ITS ---
HISTORY: compression fx. TECHNIQUE: XR Spine Lumbar 2 or 3 Views. COMPARISON: 10/12/2022. FINDINGS: VERTEBRAE: Unchanged height of mild L3 compression fracture with cement material in the vertebral body extending to the L2-3 intervertebral disc space. Chronic minimal compression fracture of L4. Degenerative changes of the posterior elements. ALIGNMENT: No significant anterior or posterior subluxation. INTERVERTEBRAL DISCS: Mild intervertebral disc space narrowing of L5-S1. SOFT TISSUES: Density in the left L4 paraspinal abdominal soft tissues no longer seen. RAD/Lumbar Spine 2 or 3 Views IMPRESSION: Unchanged appearance of L3 compression fracture with vertebroplasty. Degenerative change. Electronically Signed: Laurel Mckeon MD at 13:21 EDT ,
== END | disposition home or self-care (01) ==
LOC: MTRAD 14:29
PROVIDERS: PCP Family Medicine; Referring Provider Orthopaedic Surgery; Visit Provider Orthopaedic Surgery
DX: S32.030A Wedge compression fracture of third lumbar vertebra, initial encounter for closed fracture (principal)
CPT/HCPCS: 72100

== ENCOUNTER → 2022-11-04 | Outpatient (CLI) | payer OTHER, SELFPAY ==
--- NOTE | 2022-11-04 07:45 | MRI_ITS ---
ACR Level 3 findings have been noted. An addendum which confirms receipt of the report will follow. EXAM: MR LUMBAR SPINE WITHOUT INTRAVENOUS CONTRAST CLINICAL INDICATION: LOW BACK PAIN TIFFANY R LEG TECHNIQUE: Multiplanar and multisequence MR images of the lumbar spine without intravenous contrast. COMPARISON: September 16, 2022 MRI and radiographs of the lumbar spine October 23, 2022 with vertebroplasty material in L3. L2 and L3 vertebral body edema compression fractures on recent MRI. FINDINGS: VERTEBRAE: Unremarkable. Vertebral body heights are preserved. Normal vertebral bodies and posterior elements. Normal alignment. No spondylolisthesis. There is preservation of the normal lumbar lordosis. SPINAL CORD: Unremarkable. Normal position and signal intensity of the conus medullaris. SOFT TISSUES: Unremarkable. DISCS/SPINAL CANAL/NEURAL FORAMINA: L1-L2: Mild decreased T2 signal intensity of the disc and slight annular disc bulge. Normal disc height and morphology. Normal spinal canal and lateral recesses. Normal neuroforamina. L2-L3: Decreased bone marrow edema in the upper body of L2, stable height with stable mild decreased height of upper left endplate. Normal disc height, mild decreased T2 signal intensity. Stable mild annular disc bulge and mild neural foraminal stenosis, mild flattening of the ventral thecal sac without erica spinal stenosis is similar. L3-L4: Low signal vertebroplasty material noted in L3. Moderate annular disc bulge. The body of L3 is 2.5 cm in height anteriorly, stable, mildly decreased.. No erica retropulsion. Mild narrowing of the ventral thecal sac. The AP diameter of the midline canal is roughly 1.2 cm. Mild-moderate bilateral neural foraminal stenosis, mildly greater on the right. L4-L5: New compression fracture of the upper body just inferior to the endplate with bone marrow edema and small serpiginous horizontal fracture line. The AP diameter of the body is 2.8 cm compared to 3.2 cm on prior exam. Normal disc height, decreased T2 signal intensity. Mild annular disc bulge, and slight posterior increased T2 signal intensity consistent with annular fissure. Mild right neural foraminal stenosis. No erica spinal stenosis. L5-S1: Normal disc height. Mild annular disc bulge and slight left lateral disc protrusion. Slight increased T2 signal intensity and posterior bulging discs consistent with annular fissure. Mild narrowing of the ventral thecal sac and slight flattening of the left lateral recess. Mild narrowing of the left neural foramen. MRI/Spine Lumbar (Routine) IMPRESSION: New horizontal fracture of the upper L4 body compared to recent prior exam with mild decreased anterior body height. No retropulsed fragment. Postprocedural changes at L3. Degenerative changes as described. No erica spinal stenosis. Multilevel neural foraminal stenosis. Electronically Signed: Dulce Vargas MD at 22:49 EDT ,
== END | disposition home or self-care (01) ==
LOC: MRI 07:33
PROVIDERS: PCP Family Medicine; Referring Provider Orthopaedic Surgery; Visit Provider Orthopaedic Surgery
DX: M54.50 Low back pain, unspecified (principal)
CPT/HCPCS: 72148

== ENCOUNTER → 2022-11-06 | Outpatient (CLI) | payer OTHER, SELFPAY ==
--- NOTE | 2022-11-06 14:17 | RAD_ITS ---
STUDY: X-RAY - RIGHT KNEE REASON FOR EXAM: Female, 62 years old. KNEE PAIN TECHNIQUE: 4 view(s) of the knee. COMPARISON: 07/30/2019 FINDINGS: Normal visualized distal femur. Normal visualized proximal tibia and fibula. Normal proximal tibiofibular articulation. Status post total knee arthroplasty. The prosthesis appears located. No ostial lysis to suggest loosening.. The soft tissue structures are unremarkable. RAD/Knee 4 or More Views IMPRESSION: Normal x-ray examination of the knee after total knee arthroplasty.. Electronically Signed: Moe Bernard MD at 18:46 EDT ,
== END | disposition home or self-care (01) ==
LOC: MTRAD 14:15
PROVIDERS: PCP Family Medicine; Referring Provider Family Medicine; Visit Provider Family Medicine
DX: M25.561 Pain in right knee (principal)
CPT/HCPCS: 73564

== ENCOUNTER → 2022-11-13 | Outpatient (CLI) | payer OTHER, SELFPAY ==
[2022-11-13 09:33] LABS: Absolute Lymphocyte Count 1.53 X10^3/uL (0.83-4.51); Absolute Neutrophil Count 5.8 X10^3/uL (2.0-7.7); Basophil% 1.2 % (0-1); Eosinophil# 0.33 X10^3/uL; Eosinophils% 3.8 % (0-5); Hematocrit 39.1 % (37-47); Hemoglobin 12.3 g/dL (12.0-15.0); Lymphocyte # 1.53 X10^3/ul (0.83-4.51); Lymphocyte % 17.8 % (19-41); Mean Corp Hgb Conc 31.5 g/dL (32-36); Mean Corpuscular Volume 92.2 fL (81-99); Mean Platelet Vol. 8.2 fl (6.2-12.0); Monocyte# 0.84 X10^3/uL; Monocyte% 9.8 % (0-10); NRBC Flagged by Analyzer 0 % (0-5); Neutrophil # 5.77 X10^3/uL (2.7-7.7); Neutrophil % 66.9 % (47-70); Platelet Count 373 K/mm3 (150-450); RBC Distribution Width CV 12.3 % (11.6-14.6); RBC Distribution Width SD 41.8 fl (35.1-43.9); Red Blood Count 4.24 M/mm3 (4.2-5.4); White Blood Count 8.6 K/mm3 (4.4-11.0)
[2022-11-13 09:46] LABS: Erythrocyte Sedimentation Rate 43 mm/hr (0-30)
[2022-11-13 09:54] LABS: Uric Acid 4.3 mg/dL (2.6-6.0)
[2022-11-13 09:57] LABS: Pathologist Comment May follow
[2022-11-13 09:58] LABS: Lactic Acid 0.7 mmol/L (0.4-1.9)
[2022-11-13 10:19] LABS: Synovial Fld Mononuclear WBC # 2.672 10^3/ul
[2022-11-13 10:27] LABS: RBC /Synovial Fluid 0.004 10^6/uL (0)
[2022-11-13 10:28] LABS: AUTO B FLUID DILUENT BKGD CT WBC <0.1 RBC <0.01 (W<.1,R<.01)
[2022-11-13 10:29] LABS: Appearance /Synovial Fluid Turbid (CLEAR); CRYSTALS, BODY FLUID NO CRYSTALS SEEN; Color / Synovial Fluid Yellow (Pale Yellow); Source / Synovial Fluid RT KNEE; Source- Body Fluid SYNOVIAL; Viscosity / Synovial Fluid Mod. Viscous (HIGH)
[2022-11-13 11:10] LABS: Lymph 2 %; Neutrophil 98 % (0-25)
[2022-11-13 11:12] LABS: Body Fluid QC Type(s) BF1Q,BF2Q
[2022-11-14 12:08] LABS: GLUCOSE, SYNOVIAL FLUID 10 mg/dL (.); PROTEIN, SYNOVIAL FLUID 5.2 g/dL (.)
[2022-11-16 08:37] LABS: Pathologist Review Reviewed
== END | disposition home or self-care (01) ==
LOC: MTLAB 08:48 → LAB 09:10
PROVIDERS: PCP Family Medicine; Referring Provider Orthopaedic Surgery; Visit Provider Orthopaedic Surgery
DX: M25.40 Effusion, unspecified joint (principal); Z96.651 Presence of right artificial knee joint
CPT/HCPCS: 36415; 82945; 83605; 84157; 84550; 85025; 85652; 86140; 87070; 87075; 87205; 89050; 89051; 89060

== ENCOUNTER → 2022-12-02 | Outpatient (CLI) | payer OTHER, SELFPAY ==
[2022-12-02 13:00] LABS: Anion Gap 1 (5-15); BUN 18 mg/dL (7-18); BUN/Creat Ratio 20.5 RATIO (10-20); Calcium,Total 9.5 mg/dL (8.5-10.1); Chloride 107 mmol/L (98-107); Cholesterol 124 mg/dL (200); Creatinine, Serum 0.88 mg/dL (0.55-1.02); EST Glomerular Filtration Rate 70 mL/min (>60); Est Glom Filt Rate - Afr Amer 84 mL/min (>60); Glucose 80 mg/dL (74-106); High Density Lipoprotein 51 mg/dL; Potassium 4.4 mmol/L (3.5-5.1); Sodium Level 140 mmol/L (136-145); Triglycerides 50 mg/dL; Very Low Density Lipoprotein 10 mg/dL (5-40)
[2022-12-02 13:01] LABS: Erythrocyte Sedimentation Rate 25 mm/hr (0-30)
[2022-12-03 12:09] LABS: ANTINUCLEAR ANTIBODIES DIRECT Negative (Negative); Anti-dsDNA Ab 1 IU/mL (0-9)
== END | disposition home or self-care (01) ==
PROVIDERS: PCP Family Medicine; Referring Provider Family Medicine; Visit Provider Family Medicine
DX: Z00.00 Encounter for general adult medical examination without abnormal findings (principal); M13.169 Monoarthritis, not elsewhere classified, unspecified knee
CPT/HCPCS: 36415; 80048; 80061; 85652; 86038; 86225; 86431

== ENCOUNTER 2023-01-05 13:02 | Day surgery (SDC) | payer OTHER, SELFPAY ==
--- NOTE | 2023-01-05 | IMM_PTH ---
PATIENT: MAIA DAVIES LOC: EN U#:[id number] AGE/SX: 62/F ROOM: RE01/05/[address]: Dr. Yaakov Ambriz DO : 1960 BED: DIS: 01/05/2023 SPEC #: [id number] RECD: 01/07/23 13:24 STATUS: JAJA REQ #: [id number] GERMANIA: 01/05/23 00:[address]: Yaakov Ambriz DEPT: IMMUNOHISTOCHEMISTRY RECD BY: Cecilia Cook ENTERED: 01/07/23 13:25 SP TYPE: IMMUNO OTHR DR: Dr. Amish Tavares MD Tissues: Esophagus, NOS Procedures: P53 (initial) KI-67 (add) PHYSICIAN & INSTITUTION [place] [id number] SPECIMEN INFORMATION: Tissue Source: Distal esophagus Clinical Info: Blount's esophagus, chronic constipation, acid reflux Specimen Number: [id number] CPT code: 87263, 82943 METHODOLOGY: Deparaffinized sections of prefer/formalin-fixed tissue or PAP/DQ stained slides are incubated with monoclonal/polyclonal antibodies/oligonucleotide probes. Localization is made via biotin free immunoperoxidase method. Appropriate controls are performed and reacted as expected. Results on target cell population are indicated in the following table: RESULTS: ANTIBODY / CLONE RESULT P53 (DO-7) negative (null pattern) Ki-67 (30-9) positive, very low These tests were developed and their performance characteristics determined by [facility]. They may not have been cleared or approved by the U.S. Food and Drug Administration. The FDA has determined that such clearance or approval is not necessary. The above immunohistochemical/dualISH markers are ordered and reviewed by the Pathologist. INTERPRETATION: Distal esophagus, biopsy: Negative for dysplasia. JEAN:vicente 01/08/2023
--- NOTE | 2023-01-05 | ESO_PTH ---
PATIENT: MAIA DAVIES LOC: EN U#:[id number] AGE/SX: 62/F ROOM: RE01/05/[address]: Dr. Yaakov Ambriz DO : 1960 BED: DIS: 01/05/2023 SPEC #: [id number] RECD: 01/05/23 18:13 STATUS: JAJA REJatin #: [id number] GERMANIA: 01/05/23 00:[address]: Yaakov Ambriz DEPT: SURGICAL PATHOLOGY RECD BY: Isaiah Jimenez ENTERED: 01/06/23 09:20 SP TYPE: KISHOR PATEL DR: Dr. Amish Tavares MD Tissues: Esophagus, NOS Procedures: Special Stain Group II Surgery Specimen Level IV Alcian Blue/PAS (control) HEADER OPERATION: EGD, biopsy PRE-OP DIAGNOSIS: Blount's esophagus, chronic constipation, acid reflux TISSUE SUBMITTED: Distal esophagus biopsy MICROSCOPIC DIAGNOSIS Distal esophagus, biopsy: Fragments of gastroesophageal mucosa with focal intestinal metaplasia (goblet cell metaplasia), consistent with Blount's esophagus. Chronic inflammation. Negative for dysplasia. See comment. JEAN:vicente 01/07/2023 COMMENT Alcian blue/PAS stain with matched control is used in the evaluation of the specimen. Immunohistochemistry ([id number]) for P53 and Ki-67 will be performed and results will be reported separately. MICROSCOPIC DESCRIPTION Slides are reviewed. GROSS DESCRIPTION Received in fixative is one container labeled with the patient's name and designated distal esophagus biopsy. The specimen consists of multiple irregular fragments of light cedeño soft tissue that in aggregate measure 1.5 x 0.5 x 0.1 cm. The specimen is totally submitted in one cassette. / JEAN:vicente 01/06/2023 TC:3 CPT: 56611, 11252
[2023-01-05 13:22] VITALS: BP 104/80; PULSE 99; RESP 16; TEMP 37.1; O2SAT 100; BMI 23.8
[2023-01-05] MEDS: Lactated Ringers 1,000 ML 15 ML IV (13:24)
--- NOTE | 2023-01-05 14:09 | HP.PCM_ITS ---
History and Physical Date of Admission: 01/05/23 61 F who presents to the office today for 3 month f/u constipation, GERD, Blount's. She had EGD and colonoscopy in 10/2021. She is doing very well since then on pantoprazole 40 mg bid; used to wake up with acid refluxing to mouth, now her acid reflux is controlled. No longer has nausea. She was discovered to have Blount's esophagus on upper endoscopy. Constipation is now managed with kiwi supplement and dried apricots. Having daily BM without difficulty. Hasn't needed miralax. Only rarely has bloating. No longer has abdominal pain, used to have LUQ pain. Work-up included CT abdomen and pelvis which was normal, gastric emptying study which was normal. US and HIDA were normal. ROS Const Constitutional: No fatigue ENT ENT: Positive for difficulty swallowing Gastro GI: Positive for bloating, heartburn, difficulty swallowing and excessive flatus; No abdominal pain, belching, change in bowel habits, change in stool character, coffee ground emesis, constipation, cramping, diarrhea, feeling full early, incontinent of stools, Vomiting blood/hematemesis, Blood in stool, loose stools, Black,tarry stools, nausea/dyspepsia, pain with swallowing, vomiting or other Musc Musculoskeletal: Positive for back pain; No joint pain Skin Skin: No yellowing of the eye or itchy eyes Psych Psychiatric: No anxiety and No depression Endo Endocrine: No fatigue Aller/Imm Allergy/Immunologic: No itchy eyes Oscar/Lymp Hematologic/Lymphatic: No easy bleeding or easy bruising Exam Const General: cooperative, healthy appearing and comfortable Nutritional Appearance: average body habitus Orientation: alert, awake and oriented x3 Quality Reporting Tobacco Screening ([facility] 138) Smoking Status: Never smoker Assessment and Plan Assessment and Plan (1) Barretts esophagus: Status: Acute Plan: Continue PPI therapy. Can decrease pantoprazole from 40 mg bid to QAM. Repeat EGD in 10/2021. No longer has nausea, acid reflux. (2) Chronic constipation: Status: Chronic Plan: Continue with kiwi supplement and dried apricots. No longer has abd pain, bloating. (3) Acid reflux: Status: Acute Plan: as above Medications: Changed (4) Blount's esophagus - she will undergo an upper endoscopy to evaluate her Blount's esophagus. She was explained alternatives, risk, benefits including not withstanding bleeding, infection, sepsis, perforation, need for emergent surgery . She have an ASA of 2. I have examined the patient and the H&P has been reviewed. There are no clinical changes since date of exam. From pantoprazole 40 mg PO BID 180 tabs 0RF To pantoprazole 40 mg PO QAM 90 tabs 3RF
[2023-01-05 14:30] VITALS: BP 104/80; BP 114/88; PULSE 88; RESP 16; TEMP 36.1; O2SAT 99
--- NOTE | 2023-01-05 14:30 | OP.CCLET_ITS ---
01/05/2023 Amish Tavares MD [address] [id number] Re : Upper GI endoscopy procedure for Stephanie Alcantar Dear Dr. Tavares This procedure was performed on Thursday, January 05, 2023. My impressions and recommendations are as follows: Impressions : - Esophageal mucosal changes secondary to established Blount's disease. Biopsied. - Medium-sized hiatal hernia. - Normal first portion of the duodenum. Recommendations : - Discharge patient to home. - Resume previous diet. - Continue present medications. - Await pathology results. - Repeat upper endoscopy in 1.5 years for surveillance. My findings are described in the full procedure note, which is enclosed. If I can be of further assistance, please feel free to contact me at . Sincerely, Yaakov Ambriz, 01/05/2023 2:29:31 PM This report has been signed electronically.
--- NOTE | 2023-01-05 14:30 | OP.EGD_ITS ---
Patient Name: Stephanie Alcantar Procedure Date: 01/05/2023 2:12 PM Date of : 1960 Age: 62 Procedure: Upper GI endoscopy Indications: Follow-up of Blount's esophagus Providers: Yaakov Ambriz DO Referring MD: Amish Tavares MD Medicines: Monitored Anesthesia Care Patient Profile: This is a 62 year old female. Refer to note in patient chart for documentation of history and physical. Patient has symptoms of chronic heartburn. Complications: No immediate complications. Procedure: Pre-Anesthesia Assessment: - Prior to the procedure, a History and Physical was performed, and patient medications and allergies were reviewed. The patient is competent. The risks and benefits of the procedure and the sedation options and risks were discussed with the patient. All questions were answered and informed consent was obtained. Patient identification and proposed procedure were verified by the physician in the pre-procedure area. Mental Status Examination: alert and oriented. Airway Examination: normal oropharyngeal airway and neck mobility. Respiratory Examination: clear to auscultation. CV Examination: normal. Prophylactic Antibiotics: The patient does not require prophylactic antibiotics. Prior Anticoagulants: The patient has taken no anticoagulant or antiplatelet agents. ASA Grade Assessment: II - A patient with mild systemic disease. After reviewing the risks and benefits, the patient was deemed in satisfactory condition to undergo the procedure. The anesthesia plan was to use monitored anesthesia care (MAC). Immediately prior to administration of medications, the patient was re-assessed for adequacy to receive sedatives. The heart rate, respiratory rate, oxygen saturations, blood pressure, adequacy of pulmonary ventilation, and response to care were monitored throughout the procedure. The physical status of the patient was re-assessed after the procedure. After obtaining informed consent, the endoscope was passed under direct vision. Throughout the procedure, the patient's blood pressure, pulse, and oxygen saturations were monitored continuously. The Endoscope was introduced through the mouth, and advanced to the fourth part of duodenum. The upper GI endoscopy was accomplished without difficulty. The patient tolerated the procedure well. Scope In: 2:20:30 PM Scope Out: 2:24:16 PM Total Procedure Duration Time 0 hours 3 minutes 46 seconds Findings: There were esophageal mucosal changes secondary to established Blount's disease present in the lower third of the esophagus. The maximum longitudinal extent of these mucosal changes was 2 cm in length. Mucosa was biopsied with a cold forceps for histology in a targeted manner at intervals of 1 cm in the lower third of the esophagus. One specimen bottle was sent to pathology. Verification of patient identification for the specimen was done. Estimated blood loss was minimal. A medium-sized hiatal hernia was present. No other significant abnormalities were identified in a careful examination of the stomach. The first portion of the duodenum was normal. Impression: - Esophageal mucosal changes secondary to established Blount's disease. Biopsied. - Medium-sized hiatal hernia. - Normal first portion of the duodenum. Recommendation: - Discharge patient to home. - Resume previous diet. - Continue present medications. - Await pathology results. - Repeat upper endoscopy in 1.5 years for surveillance. Procedure Code(s): --- Professional --- 46042, Esophagogastroduodenoscopy, flexible, transoral; with biopsy, single or multiple CPT copyright 2021 [employer]. All rights reserved. The codes documented in this report are preliminary and upon resident inspector review may be revised to meet current compliance requirements. Yaakov Ambriz DO 01/05/2023 2:29:31 PM This report has been signed electronically. Number of Addenda: 0 Note Initiated On: 01/05/2023 2:12 PM
[2023-01-05 14:35] VITALS: BP 104/80; BP 119/79; PULSE 79; RESP 16; O2SAT 98
[2023-01-05 14:40] VITALS: BP 104/80; BP 126/77; PULSE 85; RESP 16; O2SAT 100
[2023-01-05 14:45] VITALS: BP 104/80; BP 111/76; PULSE 85; RESP 16; TEMP 36.4; O2SAT 100
[2023-01-05 15:15] VITALS: BP 104/80
== END 2023-01-05 15:35 | disposition home or self-care (01) ==
LOC: EN 13:02 → AC 13:06
PROVIDERS: PCP Family Medicine; Referring Provider Family Medicine; Visit Provider Internal Medicine Gastroenterology
PROC: 0DJ08ZZ Inspection of Upper Intestinal Tract, Via Natural or Artificial Opening Endoscopic (ICD-10-PCS; CPT 43235; principal; 2023-01-05 13:55)
DX: K22.70 Barrett's esophagus without dysplasia (principal); K44.9 Diaphragmatic hernia without obstruction or gangrene; K59.09 Other constipation; Z79.899 Other long term (current) drug therapy
CPT/HCPCS: 43239; 88305; 88313; 88341; 88342; J2405

== ENCOUNTER → 2023-01-22 | Outpatient (CLI) | payer OTHER, SELFPAY ==
[2023-01-22 15:41] LABS: Absolute Lymphocyte Count 1.88 X10^3/uL (0.83-4.51); Absolute Neutrophil Count 5.8 X10^3/uL (2.0-7.7); Basophil# 0.09 X10^3/uL; Eosinophil# 0.16 X10^3/uL; Eosinophils% 1.9 % (0-5); Hemoglobin 13.3 g/dL (12.0-15.0); Lymphocyte # 1.88 X10^3/ul (0.83-4.51); Lymphocyte % 21.8 % (19-41); Mean Corp Hgb Conc 31.7 g/dL (32-36); Mean Corpuscular Hgb 28.4 pg (27.0-32.0); Mean Corpuscular Volume 89.6 fL (81-99); Mean Platelet Vol. 8.4 fl (6.2-12.0); Monocyte# 0.74 X10^3/uL; Monocyte% 8.6 % (0-10); NRBC Flagged by Analyzer 0 % (0-5); Neutrophil # 5.75 X10^3/uL (2.7-7.7); Neutrophil % 66.6 % (47-70); Platelet Count 322 K/mm3 (150-450); RBC Distribution Width CV 13.5 % (11.6-14.6); RBC Distribution Width SD 44.3 fl (35.1-43.9); Red Blood Count 4.69 M/mm3 (4.2-5.4); White Blood Count 8.6 K/mm3 (4.4-11.0)
[2023-01-22 16:13] LABS: Anisocytosis 8.6; Erythrocyte Sedimentation Rate 34 mm/hr (0-30)
[2023-01-22 16:18] LABS: ALB/GLOB Ratio 0.8 RATIO (0.9-2.4); AST(SGOT) 22 U/L (15-37); Alanine Aminotransfer ALT/SGPT 19 U/L (13-56); Albumin, Serum 3.4 g/dL (3.2-5.0); Alkaline Phosphatase 57 U/L (45-117); Anion Gap 3 (5-15); BUN 21 mg/dL (7-18); BUN/Creat Ratio 24.9 RATIO (10-20); Calcium,Total 9.2 mg/dL (8.5-10.1); Chloride 107 mmol/L (98-107); Creatinine, Serum 0.84 mg/dL (0.55-1.02); EST Glomerular Filtration Rate 73 mL/min (>60); Est Glom Filt Rate - Afr Amer 88 mL/min (>60); Globulin 4.5 g/dL (2.2-4.2); Glucose 103 mg/dL (74-106); Potassium 3.8 mmol/L (3.5-5.1); Protein, Total 7.9 g/dL (6.4-8.2); Sodium Level 141 mmol/L (136-145)
[2023-01-22 17:25] LABS: Hepatitis B Surface Antibody Reactive; Hepatitis B Surface Antigen Non-Reactive (Nonreactive); Hepatitis C Antibody Non-Reactive (Nonreactive)
[2023-01-25 12:08] LABS: CCP IgG Antibodies 21 units (0-19)
== END | disposition home or self-care (01) ==
LOC: LAB 14:47
PROVIDERS: PCP Family Medicine; Visit Provider Internal Medicine Rheumatology
DX: M05.79 Rheumatoid arthritis with rheumatoid factor of multiple sites without organ or systems involvement (principal); M47.897 Other spondylosis, lumbosacral region; M81.0 Age-related osteoporosis without current pathological fracture; K22.70 Barrett's esophagus without dysplasia; K21.9 Gastro-esophageal reflux disease without esophagitis; Z98.890 Other specified postprocedural states
CPT/HCPCS: 36415; 80053; 85025; 85652; 86140; 86200; 86431; 86706; 86803; 87340

== ENCOUNTER → 2023-02-19 | Outpatient (CLI) | payer OTHER, SELFPAY ==
[2023-02-19 11:25] LABS: PTHIN 27.5 pg/mL (18.4-80.1)
[2023-02-19 11:34] LABS: Thyroid Stim Hormone (TSH) 2.96 uIU/mL (0.358-3.74)
[2023-02-19 11:37] LABS: Vitamin D,25 Hydroxy 85.7 ng/mL
== END | disposition home or self-care (01) ==
LOC: LAB 10:36
PROVIDERS: PCP Family Medicine; Referring Provider Internal Medicine Endocrinology, Diabetes & Metabolism; Visit Provider Internal Medicine Endocrinology, Diabetes & Metabolism
DX: M81.0 Age-related osteoporosis without current pathological fracture (principal); E55.9 Vitamin D deficiency, unspecified
CPT/HCPCS: 36415; 82306; 83970; 84443

== ENCOUNTER 2023-03-11 14:00 | Outpatient (RCR) | payer OTHER, SELFPAY ==
--- NOTE | 2023-02-16 09:35 | HP.PTEVAL ---
Patient's Visit Information Visit Information Visit Information: MAIA DAVIES is a 62 year old F referred to Physical Therapy by Dr. Kannan Cortez MD with a diagnosis of Frequent falls. Date of Evaluation: 02/12/23 Physical Therapist: Sam Arias DPT Visit Plan Frequency: 2x /Week Duration: 6 Weeks Plan: Start with aquatic program focused on balance, core and BLEs strengthening. Progress as tolerated. Add in cardiovascular exercises and HS, hip flexor stretching. Subjective Subjective: Pt. is here today for her initial evaluation with diagnosis of frequent falls. Pt. reports falling 7 times in the last 6 months. She does not report a pattern, but feels overall weak. After questioning she is tripping on her R foot more often with her falls. PMH: RA, osteoporosis, multiple vertebral fractures, R TKA. Pt. was recently referred to rheumatology with suspected RA, this was confirmed. Pt. does not use a AD. Pt. has had a lot happen over the past 6 months with multiple vertebral fractures, and new RA. She does have marked R knee joint effusion, most likely due to her RA. Pt. is overall still doing, but on a very reduced scale compared to what she was previously used to. She reports that her falls might be due to her foot catching, but also might be more accidents, pt. unsure. Pt. denies N/T, feels weaker in her legs, but not 1 more than the other. She did have 2 kyphoplasty in the last few months as well. Pt. is hopeful to increase her stability and overall strength in order to get back to all recreational and work activities. Pain R knee: Pain Intensity (Out of 10): 2 Pain Intensity Range: 0 and 5 B shoulders: Pain Intensity (Out of 10): 1 Pain Intensity Range: 0 and 2 Lumbar spine: Pain Intensity (Out of 10): 2 Pain Intensity Range: 0 and 4 Objective Objective: POSTURE: Pt. has decent posture in stance. No marked wt. shift. Good lumbar positioning as well. PALPATION: Pt. has some mild tenderness in her R knee. Marked joint effusion compared to opposite side. NEURO: sensation symmetrical. Pt. is able to rise on heels and toes without issues. ROM: Pt. has good ROM throughout BLEs. Pt. does have some limited lumbar ROM into flexion and extension secondary to soreness. Tight HS and hip flexors noted. MMT: RLE: 5/5 throughout, except 4+/5 DF, hip flexion, hip abd. LLE: 5/5 throughout, except hip flexion and hip abd 4/5. Core strength: poor. GAIT: Pt. has fairly normal gait pattern without marked deviation or LOB. Pt. is able to maintain good stability throughout. She did not catch her R foot, had proper clearance throughout. STAIRS: Normal with use of 1 HR with mild increase in R knee pain. Pt. did catch her R foot x1 with ascending. Balance/Special Test Scores Functional Gait Assessment Score: 24 % Disability: 20.0000 Lower Extremity Functional Score: 38 TUG Test Time Seconds: 12 30 Second Chair Rise Test Seconds: 8 Goals Goal 1:: LTG: Pt. to be I with HEP for land and aquatics with focus on balance and resistive training. Goal Time Frame: 4-6 Weeks Goal 2:: LTG: Pt. to have improvement with TUG to time less than 8 seconds indicating increased stability with functional mobility. Goal Time Frame: 4-6 Weeks Goal 3:: LTG: pt. to report no falls and no occurrences of lack of R foot clearance with all gait. Goal Time Frame: 4-6 Weeks Goal 4:: LTG: Pt. to have increased FGA to greater than 28/30 indicating proper stability with all functional mobility. Goal Time Frame: 4-6 Weeks Goal 5:: LTG: Pt. to be consistent with daily walking progressive walking program. Goal Time Frame: 4-6 Weeks Goal 6:: LTG: Pt. to have symmetrical strength between bilateral LEs with increased peak force of 10# throughout. Goal Time Frame: 4-6 Weeks Rehabilitation Potential Physical Therapy Diagnosis: Pt. has signs and symptoms consistent with frequent falls and weakness. Pt. has marked weakness with decreased activity over the past few months. Pt. has reduced her overall activity since having 2 vertebral fractures then being diagnosed with RA. I would like her to start in aquatic setting to increase her tolerance to exercise with eventual progression to land for increased resistance and balance training. Rehabilitation Potential: Excellent Anticipated Interventions Patient/Client Instruction: Educate patient on: Condition, Plan of Care and Risk Factors For the Purpose of:: To foster healthy habits, To improve decision making, To facilitate caregiver knowledge, To improve self management, To prevent re-injury and To improve ability to perform tasks related to life management Therapeutic Exercise to Include: Strength training, Power training, Balance training, Postural training, Flexibilty training, In an aquatic setting and Dynamic Lumbar Stabilization For the Purpose of:: To decrease pain, To increase ROM, To improve nutrient delivery to tissue, To increase oxygenation perfusion, To improve muscle performance and motor function, To improve ability to perform ADL's, To improve ability of physical actions for home/community/work/leisure, To improve gait and locomotor functions, To improve health of tissue, To decrease soft tissue restriction and To increase flexibility/ROM Text: Thank you for the opportunity to evaluate your patient. For Medicare and Medicare HMO plans, please review the plan of care and approve it. It will need to be FAXED BACK to us at [phone] for Medicare purposes. For Medicare only, by signing this I certify the plan of care. Please let me know if there are questions or concerns regarding this plan of care. Physician Signature: Date:
--- NOTE | 2023-06-28 09:31 | HP.PTDCNRP_ITS ---
Patient Information Patient Information: MAIA DAVIES was seen in my office for initial evaluation on 02/12/23. The following Plan of Care was established for this patient: POC Established Initial Frequency: 2x /Week Initial Duration: 6 Weeks Anticipated Interventions Patient/Client Instruction: Educate patient on: Condition, Plan of Care and Risk Factors For the Purpose of:: To foster healthy habits, To improve decision making, To facilitate caregiver knowledge, To improve self management, To prevent re-injury and To improve ability to perform tasks related to life management Therapeutic Exercise to Include: Strength training, Power training, Balance training, Postural training, Flexibilty training, In an aquatic setting and Dynamic Lumbar Stabilization For the Purpose of:: To decrease pain, To increase ROM, To improve nutrient delivery to tissue, To increase oxygenation perfusion, To improve muscle p erformance and motor function, To improve ability to perform ADL's, To improve ability of physical actions for home/community/work/leisure, To improve gait and locomotor functions, To improve health of tissue, To decrease soft tissue restriction and To increase flexibility/ROM Last Seen Last Seen: This patient was last seen in our office 03/08/23. Pertinent comments regarding their Physical therapy will appear below: Pt. was seen in Pt in aquatic setting for her back and B knee pain. She was doing better and felt comfortable to starting doing her exercises on her own at her last visit. Pt. was to follow up with PT if needed. She has not been back in several months and will be DC from PT at this point in time. At this point I will be discontinuing this patient from physical therapy. I would be happy to see this patient again in the future if found appropriate by the physician. Thank you! Sam Arias, DPT Balance/Gait/Functional tests Balance/Special Test Scores Functional Gait Assessment Score: 24 % Disability: 20.0000 Lower Extremity Functional Score: 38 TUG Test Time Seconds: 12 Tug Test: <20 sec.=mostly independent 30 Second Chair Rise Test Seconds: 8
== END 2023-03-11 19:00 | disposition home or self-care (01) ==
LOC: PT 14:00
PROVIDERS: PCP Family Medicine; Referring Provider Anesthesiology Pain Medicine; Visit Provider Anesthesiology Pain Medicine
DX: R29.6 Repeated falls (principal)
CPT/HCPCS: 97113; 97161

== ENCOUNTER → 2023-03-26 | Outpatient (CLI) | payer OTHER, SELFPAY ==
[2023-03-26 10:56] LABS: Absolute Lymphocyte Count 1.77 X10^3/uL (0.83-4.51); Absolute Neutrophil Count 4.8 X10^3/uL (2.0-7.7); Basophil# 0.08 X10^3/uL; Eosinophil# 0.21 X10^3/uL; Eosinophils% 2.7 % (0-5); Hematocrit 41.4 % (37-47); Lymphocyte # 1.77 X10^3/ul (0.83-4.51); Mean Corp Hgb Conc 31.4 g/dL (32-36); Mean Corpuscular Hgb 28.6 pg (27.0-32.0); Mean Platelet Vol. 8.4 fl (6.2-12.0); Monocyte# 0.76 X10^3/uL; Monocyte% 9.9 % (0-10); NRBC Flagged by Analyzer 0 % (0-5); Neutrophil # 4.83 X10^3/uL (2.7-7.7); Neutrophil % 62.9 % (47-70); Platelet Count 306 K/mm3 (150-450); RBC Distribution Width CV 14.5 % (11.6-14.6); RBC Distribution Width SD 47.7 fl (35.1-43.9); Red Blood Count 4.55 M/mm3 (4.2-5.4); White Blood Count 7.7 K/mm3 (4.4-11.0)
--- OUTSIDE RECORDS SUMMARY | 2023-03-26 10:57 | XMS RPT_ITS | CCD ---
Author Name Unknown Address [facility] [address] [place] [id number] Organization [facility] Care Team Providers Care Tuckpointer Name Role Phone Rashmi Templeton DC Unavailable Debora Curry Unavailable Unavailable Debora Curry Unavailable Unavailable Rashmi Templeton DC Unavailable Problems Active Problems Problem Classification Problem Date Documented Da te Episodic/Chronic Spondylosis; intervertebral disc disorders; other back problems (7 sources) Cervical radiculopathy; Translations: [Radiculopathy, cervical region] Onset: 08-13-2016 08-13-2016 Chronic Past or Other Problems Problem Classification Problem Date Documented Da te Episodic/Chronic Other bone disease and musculoskeletal deformities (14 sources) Segmental and somatic dysfunction; Translations: [Segmental and somatic dysfunction of thoracic region] Onset: 08-13-2016 08-13-2016 Episodic Results Test Name Value Interpretation Reference Range Facil ity Vital Signs Date Time Vital Sign Value Performing Clinician Facility 08-13-2016 10:35-0400 BMI (Body Mass Index) 11.48 kg/m2 Rashmi Templeton DC [facility] Work Phone: 08-13-2016 10:35-0400 Body weight 39.46 kg Rashmi Templeton DC [facility] Work Phone: 08-13-2016 10:35-0400 BP Diastolic 74 mm[Hg] Rashmi Templeton DC [facility] Work Phone: 08-13-2016 10:35-0400 BP Systolic 112 mm[Hg] Rashmi Templeton DC [facility] Work Phone: 08-13-2016 10:35-8113 Height 185.42 cm Rashmi Templeton DC [facility] Work Phone: 08-13-2016 10:35-7555 Weight 39.46 kg Rashmi Templeton RODOLFO [facility] Work Phone: Procedures Date Procedure Procedure Detail Performing Clinician Start: 08-26-2016 End: 08-26-2016 Chiropract manj 1-2 regions Rashmi Jasmina Samreen i DC Work Phone: Start: 08-26-2016 End: 08-26-2016 Ultrasound therapy Rashmi Freedman Dossi DC Work Phone: Start: 08-24-2016 End: 08-24-2016 Chiropract manj 1-2 regions Rashmi Jasmina Samreen i DC Work Phone: Start: 08-20-2016 End: 08-20-2016 Documentation of current medications Rashmi Templeton RODOLFO Start: 08-20-2016 End: 08-20-2016 Chiropract manj 1-2 regions Rashmi Freedman Samreen i DC Work Phone: Start: 08-20-2016 End: 08-20-2016 Electric stimulation therapy Rashmi Freedman Dossi DC Work Phone: Start: 08-13-2016 End: 08-13-2016 Chiropract manj 1-2 regions Rashmi Freedman Samreen i DC Work Phone: Start: 08-13-2016 End: 08-13-2016 Electric stimulation therapy Rashmi Freedman Dossi DC Work Phone: Plan of Treatment Date Care Activity Detail Author Start: 08-26-2016 End: 08-26-2016 Appointment Appointment [facility] Work Phone: Start: 08-26-2016 End: 08-26-2016 Appointment Appointment [facility] Work Phone: Start: 08-26-2016 End: 08-26-2016 Follow up Appt 2x/week Follow up Appt 2x/week [facility] Work Phone: Start: 08-24-2016 End: 08-24-2016 Appointment Appointment [facility] Work Phone: Start: 08-24-2016 End: 08-24-2016 Appointment Appointment [facility] Work Phone: Start: 08-24-2016 End: 08-24-2016 Follow up Appt 2x/week Follow up Appt 2x/week [facility] Work Phone: Start: 08-20-2016 End: 08-20-2016 Appointment Appointment [facility] Work Phone: Start: 08-20-2016 End: 08-20-2016 Appointment Appointment [facility] Work Phone: Start: 08-20-2016 End: 08-20-2016 Follow up Appt 2x/week Follow up Appt 2x/week [facility] Work Phone: Start: 08-13-2016 End: 08-13-2016 Appointment Appointment [facility] Work Phone: Start: 08-13-2016 End: 08-13-2016 Follow up Appt 1x/week Follow up Appt 1x/week [facility] Work Phone: Summary Purpose Family History No Family History Records Found Advance Directives No Advanced Directives Records Found Additional Source Comments INFORMATION SOURCE (unrecogn ized section and content) FOR RECORDS PERTAINING TO PATIENTS WHO ARE OR HAVE BEEN ENROLLED IN A CHEMICAL DEPENDENCY/SUBSTANCEABUSE PROGRAM, SOME INFORMATION MAY BE OMITTED. This clinical summary was aggregated from multiple sources. Caution should be exercised in using it in the provision of clinical care. This summary normalizes information from multiple sources, and as a consequence, information in this document may materially change the coding, format and clinical context of patient data. In addition, data may be omitted in some cases. CLINICAL DECISIONS SHOULD BE BASED ON THE PRIMARY CLINICAL RECORDS. [employer] provides no warranty or guarantee of the accuracy or completeness of information in this document.
[2023-03-26 11:30] LABS: ALB/GLOB Ratio 0.7 RATIO (0.9-2.4); AST(SGOT) 23 U/L (15-37); Alanine Aminotransfer ALT/SGPT 27 U/L (13-56); Alkaline Phosphatase 58 U/L (45-117); Anion Gap 2 (5-15); BUN 17 mg/dL (7-18); BUN/Creat Ratio 22.2 RATIO (10-20); Calcium,Total 9.1 mg/dL (8.5-10.1); Chloride 107 mmol/L (98-107); Creatinine, Serum 0.76 mg/dL (0.55-1.02); EST Glomerular Filtration Rate 82 mL/min (>60); Est Glom Filt Rate - Afr Amer 99 mL/min (>60); Globulin 4.6 g/dL (2.2-4.2); Glucose 74 mg/dL (74-106); Potassium 4.3 mmol/L (3.5-5.1); Protein, Total 7.6 g/dL (6.4-8.2); Sodium Level 139 mmol/L (136-145)
== END | disposition home or self-care (01) ==
LOC: LAB 09:59
PROVIDERS: PCP Family Medicine; Referring Provider Internal Medicine Rheumatology; Visit Provider Internal Medicine Rheumatology
DX: M05.79 Rheumatoid arthritis with rheumatoid factor of multiple sites without organ or systems involvement (principal); Z79.899 Other long term (current) drug therapy
CPT/HCPCS: 36415; 80053; 85025

== ENCOUNTER → 2023-04-19 | Outpatient (CLI) | payer OTHER, SELFPAY ==
--- NOTE | 2023-04-19 09:58 | RAD_ITS ---
EXAM: XR LUMBOSACRAL SPINE COMPLETE WITH FLEXION/EXTENSION, 6 OR MORE VIEWS CLINICAL INDICATION: Other intervertebral disc degeneration, lumbosacral region TECHNIQUE: Lateral, frontal, oblique and lateral flexion/extension views of the lumbar spine and sacrum. COMPARISON: 10/23/2022 FINDINGS: VERTEBRAE: There is orthopedic cement seen within the L3 and L4 vertebral bodies on today''s exam. There is no change in alignment with flexion or extension views. Preserved vertebral body height. No fracture. No spondylolisthesis. Preservation of the normal lumbar lordosis. No significant facet arthropathy. No instability. DISC SPACES: No acute findings. Disc spaces are maintained. GASTROINTESTINAL TRACT: Unremarkable as visualized. Included bowel gas pattern is non-obstructive. RAD/L/S Spine Comp/w Bending Views IMPRESSION: Orthopedic cement in L3 and L4. There are no acute abnormalities. Electronically Signed: Mekhi Yates MD at 23:54 EST ,
== END | disposition home or self-care (01) ==
PROVIDERS: PCP Family Medicine; Referring Provider Anesthesiology Pain Medicine; Visit Provider Anesthesiology Pain Medicine
DX: M51.37 Other intervertebral disc degeneration, lumbosacral region (principal)
CPT/HCPCS: 72114

== ENCOUNTER 2023-05-10 10:08 | Day surgery (SDC) | payer OTHER, SELFPAY ==
--- OUTSIDE RECORDS SUMMARY | 2023-05-10 10:29 | XMS RPT_ITS | CCD ---
Author Name Unknown Address [facility] [address] [place] [id number] Organization [facility] Care Team Providers Care Reporting Lead Name Role Phone Rashmi Templeton DC Unavailable [...] Mass Index) 11.48 kg/m2 Rashmi Templeton DC [facility] Work Phone: 08-13-2016 10:35-0400 Body weight 39.46 kg Rashmi Templeton DC [facility] Work Phone: 08-13-2016 10:35-0400 BP Diastolic 74 mm[Hg] Rashmi Templeton DC [facility] Work Phone: 08-13-2016 10:35-0400 BP Systolic 112 mm[Hg] Rashmi Templeton DC [facility] Work Phone: 08-13-2016 10:35-8910 Height 185.42 cm Rashmi Templeton DC [facility] Work Phone: 08-13-2016 10:35-4631 Weight 39.46 kg Rashmi Templeton RODOLFO [facility] Work Phone: Procedures Date Procedure Procedure Detail Performing Clinician Start: 08-26-2016 End: 08-26-2016 Chiropract manj 1-2 regions Rashmi Jasmina Samreen i DC Work Phone: Start: 08-26-2016 End: 08-26-2016 Ultrasound therapy Rsahmi Freedman Dossi DC Work Phone: Start: 08-24-2016 End: 08-24-2016 Chiropract manj 1-2 regions Rashmi Jasmina Samreen i DC Work Phone: Start: 08-20-2016 End: 08-20-2016 Documentation of current medications Rashmi Tepmleton RODOLFO Start: 08-20-2016 End: 08-20-2016 Chiropract manj [...] Author Start: 08-26-2016 End: 08-26-2016 Appointment Appointment [facility] Work Phone: Start: 08-26-2016 End: 08-26-2016 Appointment Appointment [facility] Work Phone: Start: 08-26-2016 End: 08-26-2016 Follow up Appt 2x/week Follow up Appt 2x/week [facility] Work Phone: Start: 08-24-2016 End: 08-24-2016 Appointment Appointment [facility] Work Phone: Start: 08-24-2016 End: 08-24-2016 Appointment Appointment [facility] Work Phone: Start: 08-24-2016 End: 08-24-2016 Follow up Appt 2x/week Follow up Appt 2x/week [facility] Work Phone: Start: 08-20-2016 [...] BE BASED ON THE PRIMARY CLINICAL RECORDS. [employer] provides no warranty or guarantee of the accuracy or completeness of information in this document.
[2023-05-10 11:04] VITALS: BP 98/71; PULSE 78; RESP 16; TEMP 37.2; O2SAT 100; BMI 25.0
[2023-05-10] MEDS: Lactated Ringers 1,000 ML 15 ML IV (11:10)
--- NOTE | 2023-05-10 11:41 | RAD_ITS ---
PROCEDURE: Caudal epidural steroid injection. DATE OF EXAMINATION: May 10, 2023. INDICATION: Female, 62 years old. Low back pain. FLUOROSCOPY TIME (if supplied): (5 seconds) minutes/seconds. 3.42 mGy. 2 spot images were obtained. RAD/Fluor Guidance for Spine Inj IMPRESSION: Intraoperative fluoroscopic services provided for epidural caudal steroid injection. Electronically Signed: Tomas Navarro MD at 13:00 EST ,
[2023-05-10] MEDS: 0.9% Normal Saline (Pres. free 10 ML Vial (11:51)
[2023-05-10] MEDS: MethylPREDNISolone Acetate 80 MG/ML Vial (11:51)
[2023-05-10] MEDS: Lidocaine 1% (5 ml sdv) 5 ML Vial (11:52)
--- NOTE | 2023-05-10 11:55 | OP.PCM_ITS ---
Report of Operation Date of Procedure: 05/10/23 Pre-Operative Diagnosis: Lumbosacral radiculopathy, lumbosacral degenerative di sc disease, lumbosacral spinal stenosis Post-Operative Diagnosis: Lumbosacral radiculopathy, lumbosacral degenerative disc disease, lumbosacral spinal stenosis Surgery/Procedure Performed:: Diagnostic/therapeutic caudal epidural steroid injection under fluoroscopic guidance Type of Anesthesia: MAC Estimated Blood Loss (mL): Minimal Description of Procedure: DESCRIPTION OF PROCEDURE: History and physical of today was reviewed. Risks and benefits of the procedure were explained. The patient understood and agreed to proceed. Informed consent was obtained. IV inserted per routine protocol. The patient was taken to the operating room and placed in the prone position with a pillow positioned underneath the abdomen. The lower back and tailbone area was prepped and draped in a sterile fashion using iodine x3. Under fluoroscopy guidance on a lateral view, the caudal space was identified. The skin and subcutaneous tissue was anesthetized with approximately 3 mL of 1% lidocaine using a 25-gauge regular needle. Under direct visualization with fluoroscopy, using a 22-gauge 3-1/2-inch spinal needle, the needle was advanced via the skin through the sacral hiatus. The tip of the needle was passed through the sacrococcygeal ligament and advanced to approximately S4 area. After negative aspiration of blood or CSF, a total of 3 mL of contrast was injected to confirm correct placement of the needle as well as cephalad spread. The spread was followed to approximately L5 area. After confirmation on AP as well as lateral view and repeated negative aspiration, a total of 15 mL of preservative-free 0.125% Marcaine with 80 mg of Depo-Medrol was injected easily. The needle was then removed intact. The patient experienced no sign or symptoms of intrathecal or intravascular injection. The patient experienced no paresthesia. The procedure was completed without any apparent difficulty or any complications. The patient appeared to tolerate it well. ASSESSMENT AND PLAN: This is a 62-year-old female with lumbosacral radiculopathy, lumbosacral degenerative disc disease, lumbosacral spinal stenosis status post diagnostic/therapeutic caudal epidural steroid injection, patient will continue her current medications, patient will follow up in approximately 2 weeks for reevaluation. Complications None
[2023-05-10 12:03] VITALS: BP 100/60; BP 98/71; PULSE 71; RESP 16; TEMP 36.5; O2SAT 100
[2023-05-10 12:05] VITALS: BP 121/73; BP 98/71; PULSE 72; RESP 16; O2SAT 100
[2023-05-10 12:10] VITALS: BP 116/75; BP 98/71; PULSE 74; RESP 16; O2SAT 100
[2023-05-10 12:14] VITALS: BP 123/70; BP 98/71; PULSE 73; RESP 16; TEMP 36.8; O2SAT 100
[2023-05-10 12:32] VITALS: BP 98/71
== END 2023-05-10 12:38 | disposition home or self-care (01) ==
LOC: SDC 10:08 → AC 10:17
PROVIDERS: PCP Family Medicine; Referring Provider Family Medicine; Visit Provider Anesthesiology Pain Medicine
PROC: 3E0S3BZ Introduction of Anesthetic Agent into Epidural Space, Percutaneous Approach (ICD-10-PCS; CPT 62282; principal; 2023-05-10 11:45)
DX: M51.17 Intervertebral disc disorders with radiculopathy, lumbosacral region (principal); M46.96 Unspecified inflammatory spondylopathy, lumbar region; M48.07 Spinal stenosis, lumbosacral region; K21.9 Gastro-esophageal reflux disease without esophagitis; Z79.899 Other long term (current) drug therapy
CPT/HCPCS: 62323; 01992; 64483; 77003; J7120; J3490

== ENCOUNTER → 2023-05-19 | Outpatient (CLI) | payer OTHER, SELFPAY ==
[2023-05-19 15:35] LABS: Absolute Lymphocyte Count 1.95 X10^3/uL (0.83-4.51); Absolute Neutrophil Count 7.9 X10^3/uL (2.0-7.7); Basophil# 0.11 X10^3/uL; Eosinophil# 0.12 X10^3/uL; Eosinophils% 1.1 % (0-5); Hematocrit 44.2 % (37-47); Hemoglobin 14.1 g/dL (12.0-15.0); Lymphocyte # 1.95 X10^3/ul (0.83-4.51); Lymphocyte % 17.5 % (19-41); Mean Corp Hgb Conc 31.9 g/dL (32-36); Mean Corpuscular Hgb 30.2 pg (27.0-32.0); Mean Corpuscular Volume 94.6 fL (81-99); Mean Platelet Vol. 8.9 fl (6.2-12.0); Monocyte# 0.98 X10^3/uL; Monocyte% 8.8 % (0-10); NRBC Flagged by Analyzer 0 % (0-5); Neutrophil # 7.91 X10^3/uL (2.7-7.7); Neutrophil % 71.2 % (47-70); Platelet Count 344 K/mm3 (150-450); RBC Distribution Width CV 14.6 % (11.6-14.6); RBC Distribution Width SD 49.7 fl (35.1-43.9); Red Blood Count 4.67 M/mm3 (4.2-5.4); White Blood Count 11.1 K/mm3 (4.4-11.0)
[2023-05-19 16:39] LABS: ALB/GLOB Ratio 0.9 RATIO (0.9-2.4); AST(SGOT) 19 U/L (15-37); Alanine Aminotransfer ALT/SGPT 25 U/L (13-56); Albumin, Serum 3.8 g/dL (3.2-5.0); Alkaline Phosphatase 63 U/L (45-117); Anion Gap 4 (5-15); BUN 16 mg/dL (7-18); BUN/Creat Ratio 17.9 RATIO (10-20); Calcium,Total 9.8 mg/dL (8.5-10.1); Chloride 106 mmol/L (98-107); Creatinine, Serum 0.89 mg/dL (0.55-1.02); EST Glomerular Filtration Rate 68 mL/min (>60); Est Glom Filt Rate - Afr Amer 82 mL/min (>60); Globulin 4.2 g/dL (2.2-4.2); Glucose 109 mg/dL (74-106); Potassium 4.7 mmol/L (3.5-5.1); Sodium Level 139 mmol/L (136-145)
--- OUTSIDE RECORDS SUMMARY | 2023-05-19 22:48 | XMS RPT_ITS | CCD ---
Author Name Unknown Address [facility] [address] [place] [id number] Organization [facility] Care Team Providers Care Bench Grinder Name Role Phone Rashmi Templeton DC Unavailable [...] Mass Index) 11.48 kg/m2 Rashmi Templeton DC [facility] Work Phone: 08-13-2016 10:35-0400 Body weight 39.46 kg Rashmi Templeton DC [facility] Work Phone: 08-13-2016 10:35-0400 BP Diastolic 74 mm[Hg] Rashmi Templeton DC [facility] Work Phone: 08-13-2016 10:35-0400 BP Systolic 112 mm[Hg] Rashmi Templeton DC [facility] Work Phone: 08-13-2016 10:35-1757 Height 185.42 cm Rashmi Templeton DC [facility] Work Phone: 08-13-2016 10:35-3416 Weight 39.46 kg Rashmi Templeton R[facility] [...] Author Start: 08-26-2016 End: 08-26-2016 Appointment Appointment [facility] Work Phone: Start: 08-26-2016 End: 08-26-2016 Appointment Appointment [facility] Work Phone: Start: 08-26-2016 End: 08-26-2016 Follow up Appt 2x/week Follow up Appt 2x/week [facility] Work Phone: Start: 08-24-2016 End: 08-24-2016 Appointment Appointment [facility] Work Phone: Start: 08-24-2016 End: 08-24-2016 Appointment Appointment [facility] Work Phone: Start: 08-24-2016 End: 08-24-2016 Follow up Appt 2x/week Follow up Appt 2x/week [facility] Work Phone: Start: 08-20-2016 [...] BE BASED ON THE PRIMARY CLINICAL RECORDS. [employer] provides no warranty or guarantee of the accuracy or completeness of information in this document.
== END | disposition home or self-care (01) ==
PROVIDERS: PCP Family Medicine; Referring Provider Internal Medicine Rheumatology; Visit Provider Internal Medicine Rheumatology
DX: M05.79 Rheumatoid arthritis with rheumatoid factor of multiple sites without organ or systems involvement (principal); Z79.899 Other long term (current) drug therapy
CPT/HCPCS: 36415; 80053; 85025

== ENCOUNTER → 2023-07-06 | Outpatient (CLI) | payer OTHER, SELFPAY ==
[2023-07-09 15:08] LABS: HPV APTIMA, High Risk Negative (Negative)
== END | disposition home or self-care (01) ==
LOC: PAVLAB 13:47
PROVIDERS: PCP Family Medicine; Referring Provider Obstetrics & Gynecology; Visit Provider Obstetrics & Gynecology
DX: Z12.4 Encounter for screening for malignant neoplasm of cervix (principal)
CPT/HCPCS: 87624; 88175; G0145

== ENCOUNTER → 2023-07-16 | Outpatient (CLI) | payer OTHER, SELFPAY ==
--- NOTE | 2023-07-16 07:54 | BI_ITS ---
MAMMOGRAPHY - BILATERAL SCREENING REASON FOR EXAM: Female, 62 years old. Routine annual screening examination. PERTINENT HISTORY: Mother with breast cancer. Aunt with breast cancer. TECHNIQUE: Digital bilateral breast gina (3D mammographic acquisition) in the CC and MLO projections. 2-D mediolateral oblique (MLO) and craniocaudad (CC) views of both breasts were obtained. CAD: Full Field Digital Mammography with Computer Added Detection was performed. COMPARISON: Comparison is made with prior study dated July 06, 2022 and July 04, 2021. FINDINGS: Breast Composition: The breasts are heterogeneously dense, which may obscure small masses. There are no dominant masses or suspicious calcifications. No other significant abnormalities are identified. There has been no significant change since the prior study. BI/SCRN MAMM (CAD)W/GINA BILAT IMPRESSION: Stable bilateral screening mammogram. Yearly follow-up mammogram recommended. (A) ASSESSMENT CATEGORY: BIRADS Category 1: Negative. A letter regarding these results will be sent to the patient by the facility within 30 days. Approximately 10% of breast cancers are not detected by mammography. A normal mammogram should not delay biopsy of a clinically suspicious abnormality. [id number] Electronically Signed: Tomas Navarro MD at 9:41 EDT ,
--- NOTE | 2023-07-16 07:54 | US_ITS ---
STUDY: ULTRASOUND OF THE FEMALE PELVIS - COMPLETE REASON FOR EXAM: Female, 62 years old. Pelvic pain-RIGHT WITH COMPRESSION LMP: Patient is postmenopausal. TECHNIQUE: Transvaginal TECHNICAL QUALITY: Adequate. COMPARISON: None. FINDINGS: The uterus is anteverted and is in a midline position. The uterus measures 6.6 cm x 4.6 x 2.3 cm. Normal uterine cervix. The endometrium measures 3 mm in thickness, and is hyperechoic. There is no demonstrated endometrial mass. Heterogeneous echotexture of uterus although no distinct fibroid is seen. I.U.D. - The patient does not have an I.U.D. The right ovary is visualized. The right ovary measures 1.7 cm x 2 cm x 1.2 cm. There is no right ovarian cyst or ovarian mass. There is no visualized right adnexal mass or complex lesion. There is normal arterial and normal venous vascularity. The left ovary is non-visualized. There is no fluid in the cul-de-sac. The pre void volume of the bladder was 253 ml. US/Pelvic (Non ) IMPRESSION: Heterogeneous echotexture of the myometrium although no focal fibroid is seen Electronically Signed: Tomas Navarro MD at 10:25 EDT ,
== END | disposition home or self-care (01) ==
LOC: OPUS 07:53
PROVIDERS: PCP Family Medicine; Referring Provider Obstetrics & Gynecology; Visit Provider Obstetrics & Gynecology
DX: Z12.31 Encounter for screening mammogram for malignant neoplasm of breast (principal); R10.2 Pelvic and perineal pain
CPT/HCPCS: 76830; 76856; 77063; 77067

== ENCOUNTER → 2023-07-19 | Outpatient (CLI) | payer OTHER, SELFPAY ==
[2023-07-19 10:26] LABS: Absolute Lymphocyte Count 1.46 X10^3/uL (0.83-4.51); Absolute Neutrophil Count 4.8 X10^3/uL (2.0-7.7); Basophil# 0.07 X10^3/uL; Eosinophil# 0.29 X10^3/uL; Hematocrit 40.7 % (37-47); Hemoglobin 13.3 g/dL (12.0-15.0); Lymphocyte # 1.46 X10^3/ul (0.83-4.51); Mean Corp Hgb Conc 32.7 g/dL (32-36); Mean Corpuscular Hgb 30.1 pg (27.0-32.0); Mean Corpuscular Volume 92.1 fL (81-99); Mean Platelet Vol. 8.3 fl (6.2-12.0); Monocyte% 9.6 % (0-10); NRBC Flagged by Analyzer 0 % (0-5); Neutrophil # 4.77 X10^3/uL (2.7-7.7); Neutrophil % 65.1 % (47-70); Platelet Count 298 K/mm3 (150-450); RBC Distribution Width CV 13.7 % (11.6-14.6); RBC Distribution Width SD 45.2 fl (35.1-43.9); Red Blood Count 4.42 M/mm3 (4.2-5.4); White Blood Count 7.3 K/mm3 (4.4-11.0)
[2023-07-19 10:49] LABS: ALB/GLOB Ratio 0.8 RATIO (0.9-2.4); AST(SGOT) 32 U/L (15-37); Alanine Aminotransfer ALT/SGPT 32 U/L (13-56); Albumin, Serum 3.4 g/dL (3.2-5.0); Alkaline Phosphatase 55 U/L (45-117); Anion Gap 6 (5-15); BUN 17 mg/dL (7-18); BUN/Creat Ratio 17.6 RATIO (10-20); Calcium,Total 9.6 mg/dL (8.5-10.1); Chloride 105 mmol/L (98-107); Creatinine, Serum 0.96 mg/dL (0.55-1.02); EST Glomerular Filtration Rate 62 mL/min (>60); Est Glom Filt Rate - Afr Amer 75 mL/min (>60); Globulin 4.5 g/dL (2.2-4.2); Glucose 86 mg/dL (74-106); Potassium 4.1 mmol/L (3.5-5.1); Protein, Total 7.9 g/dL (6.4-8.2); Sodium Level 142 mmol/L (136-145)
== END | disposition home or self-care (01) ==
LOC: PAVLAB 10:13
PROVIDERS: PCP Family Medicine; Referring Provider Internal Medicine Rheumatology; Visit Provider Internal Medicine Rheumatology
DX: M05.79 Rheumatoid arthritis with rheumatoid factor of multiple sites without organ or systems involvement (principal); Z79.899 Other long term (current) drug therapy
CPT/HCPCS: 36415; 80053; 85025

== ENCOUNTER → 2023-09-15 | Outpatient (CLI) | payer OTHER, SELFPAY ==
--- NOTE | 2023-09-15 15:10 | RAD_ITS ---
STUDY: X-RAY - PELVIS AND RIGHT HIP REASON FOR EXAM: Female, 62 years old. Right hip pain. TECHNIQUE: 3 views of the pelvis and right hip. COMPARISON: Pelvis and right hip radiographs dated 07/29/2020. FINDINGS: There is a non-specific bowel gas pattern. There are persistent surgical clips overlying the pelvis. Normal bilateral iliac wings, sacroiliac joints and visualized sacrum. Normal bilateral superior and inferior pubic rami. Normal pubic symphysis. Normal bilateral ischial tuberosities. Normal visualized femoral head. Normal acetabulum. Normal hip joint. There is no demonstrated acute fracture. There is new kyphoplasty cement at the L3 and L4 vertebral bodies. RAD/HIP, UNI W/ Pelvis 2-3 Views IMPRESSION: New kyphoplasty cement at the L3 and L4 vertebral bodies. No demonstrated acute fracture. Electronically Signed: Qasim Bills MD at 16:04 EDT ,
[2023-09-15 17:45] LABS: Absolute Lymphocyte Count 1.56 X10^3/uL (0.83-4.51); Absolute Neutrophil Count 5.4 X10^3/uL (2.0-7.7); Basophil# 0.08 X10^3/uL; Eosinophil# 0.23 X10^3/uL; Eosinophils% 2.9 % (0-5); Hematocrit 40.5 % (37-47); Lymphocyte # 1.56 X10^3/ul (0.83-4.51); Lymphocyte % 19.6 % (19-41); Mean Corp Hgb Conc 32.1 g/dL (32-36); Mean Corpuscular Hgb 30.2 pg (27.0-32.0); Mean Corpuscular Volume 94.2 fL (81-99); Mean Platelet Vol. 8.8 fl (6.2-12.0); Monocyte# 0.71 X10^3/uL; Monocyte% 8.9 % (0-10); NRBC Flagged by Analyzer 0 % (0-5); Neutrophil # 5.35 X10^3/uL (2.7-7.7); Neutrophil % 67.3 % (47-70); Platelet Count 325 K/mm3 (150-450); RBC Distribution Width CV 13.6 % (11.6-14.6); RBC Distribution Width SD 46.6 fl (35.1-43.9)
[2023-09-15 17:49] LABS: Vitamin B12 546 pg/mL (211-911)
[2023-09-15 17:52] LABS: ALB/GLOB Ratio 0.8 RATIO (0.9-2.4); AST(SGOT) 33 U/L (15-37); Alanine Aminotransfer ALT/SGPT 30 U/L (13-56); Albumin, Serum 3.5 g/dL (3.2-5.0); Alkaline Phosphatase 61 U/L (45-117); Anion Gap 7 (5-15); BUN 16 mg/dL (7-18); BUN/Creat Ratio 17.1 RATIO (10-20); Calcium,Total 9.7 mg/dL (8.5-10.1); Chloride 102 mmol/L (98-107); Creatinine, Serum 0.94 mg/dL (0.55-1.02); EST Glomerular Filtration Rate 64 mL/min (>60); Est Glom Filt Rate - Afr Amer 78 mL/min (>60); Globulin 4.4 g/dL (2.2-4.2); Glucose 88 mg/dL (74-106); Potassium 3.6 mmol/L (3.5-5.1); Protein, Total 7.9 g/dL (6.4-8.2); Sodium Level 139 mmol/L (136-145)
[2023-09-15 18:36] LABS: Folates, (Folic Acid) > 100.00 ng/mL (3.1-55.4)
[2023-09-20 11:07] LABS: Free Kappa Light Chains 26.4 mg/L (3.3-19.4); Free Lambda Light Chains 23.5 mg/L (5.7-26.3); Vitamin B1, Thiamine 138.9 nmol/L (66.5-200.0)
== END | disposition home or self-care (01) ==
PROVIDERS: Internal Medicine Rheumatology; PCP Family Medicine; Referring Provider Psychiatry & Neurology Neurology; Visit Provider Psychiatry & Neurology Neurology
DX: M05.79 Rheumatoid arthritis with rheumatoid factor of multiple sites without organ or systems involvement (principal); M47.897 Other spondylosis, lumbosacral region; M81.0 Age-related osteoporosis without current pathological fracture; K22.70 Barrett's esophagus without dysplasia; K21.9 Gastro-esophageal reflux disease without esophagitis; M21.41 Flat foot [pes planus] (acquired), right foot; Z87.898 Personal history of other specified conditions; Z98.890 Other specified postprocedural states; Z79.899 Other long term (current) drug therapy
CPT/HCPCS: 36415; 73502; 80053; 82607; 82746; 83036; 83883; 84425; 84443; 85025

== ENCOUNTER → 2023-09-27 | Outpatient (CLI) | payer OTHER, SELFPAY ==
--- NOTE | 2023-09-27 12:34 | MRI_ITS ---
STUDY: MRI BRAIN WITH AND WITHOUT CONTRAST (ATTENTION INTERNAL AUDITORY CANALS - I.A.C.''s) REASON FOR EXAM: Female, 62 years old. dysequilibruim; Hx vertigo; gait disorder -- with attention to the IACs TECHNIQUE: Standardized multiplanar fat and water weighted pulse sequences were obtained. 16CC CLARISCAN was administered for the contrast portion of the examination. COMPARISON: None. FINDINGS: Mild bilateral mastoiditis. Normal bilateral internal auditory canals. There is no demonstrated intracanalicular or cisternal vestibular schwannoma (acoustic neuroma). There is no enhancement of the bilateral VIIth or VIIIth cranial nerves. Normal bilateral cochlea, vestibules and semicircular canals. Normal size of the ventricles and extra-axial spaces for the patient''s age. Normal white matter tracts of the supratentorial brain. There is no evidence for recent intracranial ischemia or other cause of cytotoxic edema on diffusion weighted imaging (DWI). Normal bilateral basal ganglia. Normal thalami. Normal flow voids within the major intracranial circulation suggesting patency by spin echo criteria. Normal venous enhancement. There is no enhancing intra-axial or extra-axial abnormality. There is no extra-axial fluid accumulation. Normal sella turcica, pituitary gland, infundibular stalk, optic chiasm and hypothalamus. Normal tectal plate and pineal gland. Normal midbrain, lamar and medulla. Normal cerebellum. Normal basal cisterns. No demonstrated orbital abnormality, within the constraints of a routine brain study. Normal visualized paranasal sinuses. Normal calvarium and skull base. Normal visualized soft tissue structures. Normal visualized upper cervical spine. MRI/Brain W/WO Contrast IMPRESSION: Normal unenhanced and enhanced MRI of the bilateral internal auditory canals (I.A.C''s). Mild bilateral mastoiditis. Electronically Signed: Moe Bernard MD at 15:59 EDT ,
--- NOTE | 2023-09-27 12:34 | MRI_ITS ---
HISTORY: Low back pain, history of lumbar fracture, gait disorder. TECHNIQUE: Multiplanar and multisequence MR images of the lumbar spine were obtained before and after the intravenous administration of 16 mL Clariscan. 207 images. COMPARISON: CR 04/19/2023, MR 11/04/2022. FINDINGS: VERTEBRAE: Unchanged height of chronic mild L2 compression fracture. Mild L3 and L4 compression fractures with cement material identified. Mild degenerative endplate changes at multiple levels. ALIGNMENT: No anterior or posterior subluxation. SPINAL CANAL: Normal morphology and position of the conus medullaris at L1. No epidural collection or enhancing intradural extramedullary mass. INTERVERTEBRAL DISCS: T11-12: Mild posterior disc protrusion without significant central canal stenosis or foraminal narrowing based on the sagittal images. T12-L1: No significant posterior disc protrusion, central canal stenosis, or foraminal narrowing based on the sagittal images. L1-2: Mild disc bulge and facet arthropathy resulting in minimal narrowing of the thecal sac and bilateral foramina, similar to prior. L2-3: Mild posterior disc bulge osteophyte complex with facet arthropathy resulting in mild central canal stenosis and bilateral foraminal narrowing, mildly increased from prior. L3-4: Mild posterior disc osteophyte complex with facet arthropathy resulting in mild central canal stenosis and bilateral foraminal narrowing, similar to prior. L4-5: Mild disc bulge with annular fissure and facet arthropathy resulting in mild central canal stenosis and bilateral foraminal narrowing, mildly increased from prior. L5-S1: Mild disc bulge eccentric to the left with facet arthropathy resulting in minimal narrowing of the thecal sac and mild bilateral foraminal narrowing, similar to prior SOFT TISSUES: No paraspinal fluid collection. MRI/Spine Lumbar W/WO Contrast IMPRESSION: Mild multilevel degenerative disc disease as above. Chronic mild L2 compression fracture. Chronic mild L3 and L4 compression fractures with vertebroplasty. Electronically Signed: Laurel Mckeon MD at 12:48 EDT ,
== END | disposition home or self-care (01) ==
LOC: MRI 12:32
PROVIDERS: PCP Family Medicine; Referring Provider Psychiatry & Neurology Neurology; Visit Provider Psychiatry & Neurology Neurology
DX: R26.9 Unspecified abnormalities of gait and mobility (principal); S32.000A Wedge compression fracture of unspecified lumbar vertebra, initial encounter for closed fracture; R29.898 Other symptoms and signs involving the musculoskeletal system; M54.50 Low back pain, unspecified
CPT/HCPCS: 70553; 72158; A9575

== ENCOUNTER 2023-09-29 14:30 | Outpatient (RCR) | payer OTHER, SELFPAY ==
--- NOTE | 2023-09-15 15:08 | HP.PTEVAL ---
Patient's Visit Information Visit Information Visit Information: MAIA DAVIES is a 62 year old F referred to Physical Therapy by Dr. Evert Alaniz MD with a diagnosis of dizzyness, poly neuropathy. Date of Evaluation: 09/15/23 Physical Therapist: Jass Rosario, DPT, OCS, CSCS Visit Plan Frequency: 1-2x /Week Duration: 4-6 Weeks Plan: 1-2x/week for positional , vestibular as needed adn balance as needed. IE did R ramon and instruct balance safety. Next session check positional and balance, oculomotor as needed. HD vs balance ex, vs adaptation Wants to do as much as she can at home Subjective Subjective: I was falling a bunch b/c I was getting dizzy. Can get motion sick and dizzy if kids jumping on bed. Had vertigo 2 yrs ago but not sure why but got meclizine at the time and it helped. Has been falling since last year and has happened 10 x sometimes due to spinning dizzyness but also having other tests for neuropathy. Will have NCT. Many of them were due to spinning. Also may drag feet. Gets spinning with moving on the ground with grandkids or stretching and only lasts a minute or so. Can happen if turns in bed. Sleeping Ok. with meltonin. 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 Hobbie: grandkids, sold snowboard, no rollerblading or ice skating, no kayaks this year. Rides bike and scooter. has to be cautious. basic ADLs all I. Steps are not a problem except knee pain. Objective Objective: wobbly with ec. otherwise walks well adn I. Trasnfers no UE I. Steps with one rail I. cervical and UE AROM WFL and no pain. LE AROM WFL adn without pain. coordination to reciprocal toe tap is mild deficts. Sensation testing to gross lgiht touch in WNL B LE. Able to heel raise and toe raise today. Strength is 4/5 ankles, 4/5 knees and 4- in hip testing B without myotomal problems. - L HD + R HD for quick dizzyness and up torsional nystagmus of 4 seconds. Treated with R modified Ramon adn then - test. Balance/Special Test Scores Functional Gait Assessment Score: 24 % Disability: 20.0000 CATSIB Score (Max score 120 seconds): 120 Dizziness Score: 28 Goals Goal 1:: abolish dizzyness and sickness with rolling in bed and on floor with grandkids. Goal Time Frame: 4-6 Weeks Goal 2:: FGA Goal Time Frame: 4-6 Weeks Goal 3:: Pt feel balance and steadiness 75% improved overall. Goal Time Frame: 4-6 Weeks Goal 4:: DHI score 10 or less. Goal Time Frame: 4-6 Weeks Rehabilitation Potential Physical Therapy Diagnosis: dizzyness and imbalance effecting quality of life Rehabilitation Potential: Fair Anticipated Interventions Patient/Client Instruction: Educate patient on: Condition For the Purpose of:: To improve muscle performance and motor function, To increase tolerance to activity/condition/position, To improve ability of physical actions for home/community/work/leisure and To improve gait and locomotor functions Therapeutic Exercise to Include: Balance training Comment: positional, vestibular For the Purpose of:: To increase tolerance to activity/condition/position, To improve ability of physical actions for home/community/work/leisure, To improve gait and locomotor functions and To improve safety Text: Thank you for the opportunity to evaluate your patient. For Medicare and Medicare HMO plans, please review the plan of care and approve it. It will need to be FAXED BACK to us at [phone] for Medicare purposes. For Medicare only, by signing this I certify the plan of care. Please let me know if there are questions or concerns regarding this plan of care. Physician Signature: Date:
--- NOTE | 2023-12-13 10:15 | HP.PT.NRP ---
Patient Information Patient Information: MAIA DAVIES was seen in my office for initial evaluation on 09/15/23. The following Plan of Care was established for this patient: POC Established Initial Frequency: 1-2x /Week Initial Duration: 4-6 Weeks Anticipated Interventions Patient/Client Instruction: Educate patient on: Condition For the Purpose of:: To improve muscle performance and motor function, To increase tolerance to activity/condition/position, To improve ability of physical actions for home/community/work/leisure and To improve gait and locomotor functions Therapeutic Exercise to Include: Balance training For the Purpose of:: To increase tolerance to activity/condition/position, To improve ability of physical actions for home/community/work/leisure, To improve gait and locomotor functions and To improve safety Last Seen Last Seen: This patient was last seen in our office 09/29/23. Pertinent comments regarding their Physical therapy will appear below: Pt seen 3 visits of POC and was not improving. She was to f/u one more time prior to being sent back to doctor but did not schedule and appears in her chart as if she has returned to doctor. I will disconinute her from my care. At this point I will be discontinuing this patient from physical therapy. I would be happy to see this patient again in the future if found appropriate by the physician. Thank you! Jass Rosario, DPT, OCS, CSCS Balance/Gait/Functional tests Balance/Special Test Scores Functional Gait Assessment Score: 26 % Disability: 13.3400 CATSIB Score (Max score 120 seconds): 120 Dizziness Score: 28
== END 2023-09-29 19:00 | disposition home or self-care (01) ==
LOC: PT 14:30
PROVIDERS: PCP Family Medicine; Referring Provider Psychiatry & Neurology Neurology; Visit Provider Psychiatry & Neurology Neurology
DX: R42 Dizziness and giddiness (principal); G62.9 Polyneuropathy, unspecified; R26.9 Unspecified abnormalities of gait and mobility; Z87.898 Personal history of other specified conditions
CPT/HCPCS: 97161; 97530

== ENCOUNTER → 2023-09-29 | Outpatient (CLI) | payer OTHER, SELFPAY ==
--- NOTE | 2023-09-29 12:20 | NEURO ---
NCS and/or EMG Patient Report Ordering Doctor: Evert Alaniz DATE OF SERVICE: 09/29/23 Stephanie presents with numbness and tingling in her feet. She also reports weakness in the right leg and ongoing lower back pain. Electrodiagnostic findings: The right peroneal motor nerve demonstrates normal distal latency and amplitude with reduced conduction velocity. Left peroneal motor nerve demonstrates normal distal latency and amplitude with reduced conduction velocity. Tibial motor response demonstrates decreased amplitude on the right side. Normal left tibial motor response. H-reflex is prolonged bilaterally. Prolonged tibial and peroneal F?waves. Sensory responses are within normal limits. Needle EMG testing was performed in the lower limbs. All muscles tested showed no evidence of denervation with normal motor unit action potentials. Electrodiagnostic impression: This is an abnormal study in the lower limbs 1. Electrodiagnostic findings suggestive of peripheral polyneuropathy, motor greater than sensory, with mixed demyelinating and axonal features. 2. No electrodiagnostic evidence for lumbosacral radiculopathy. Multi Select Codes Neurology Neurology Interp Codes: 86335-46 Musc test done w/n test comp (interp) (2) and 30567-74 Nrv cndj test 9-10 studies (interp)
== END | disposition home or self-care (01) ==
LOC: PSN 08:51
PROVIDERS: PCP Family Medicine; Referring Provider Psychiatry & Neurology Neurology; Visit Provider Psychiatry & Neurology Neurology
DX: G62.9 Polyneuropathy, unspecified (principal); R26.9 Unspecified abnormalities of gait and mobility; R29.898 Other symptoms and signs involving the musculoskeletal system; M54.50 Low back pain, unspecified
CPT/HCPCS: 95886; 95911

== ENCOUNTER → 2023-10-04 | Outpatient (CLI) | payer OTHER, SELFPAY ==
--- NOTE | 2023-10-04 12:47 | RAD_ITS ---
STUDY: X-RAY - RIGHT KNEE REASON FOR EXAM: Female, 62 years old. Pain TECHNIQUE: 3 view(s) of the knee. COMPARISON: 11/06/2022 FINDINGS: Normal visualized distal femur. Normal visualized proximal tibia and fibula. Normal proximal tibiofibular articulation. Status post total knee arthroplasty. The prosthesis appears located. No ostial lysis to suggest loosening.. The soft tissue structures are unremarkable. RAD/Knee 3 Views IMPRESSION: Normal x-ray examination of the knee after total knee arthroplasty. Electronically Signed: Moe Bernard MD at 18:16 EDT ,
[2023-10-04 14:48] LABS: Pathologist Comment May follow
[2023-10-04 18:05] LABS: AUTO B FLUID DILUENT BKGD CT WBC <0.1 RBC <0.01 (W<.1,R<.01); CRYSTALS, BODY FLUID See PATH REV
[2023-10-04 18:06] LABS: Source- Body Fluid SYNOVIAL
[2023-10-04 18:12] LABS: Color / Synovial Fluid Yellow (Pale Yellow); Source / Synovial Fluid RT.KNEE
[2023-10-04 18:13] LABS: Appearance /Synovial Fluid Cloudy (CLEAR)
[2023-10-04 18:16] LABS: RBC /Synovial Fluid 13 /mm3 (0)
[2023-10-04 18:33] LABS: Synovial Fld Mononuclear WBC # 2.131 10^3/ul; Synovial Fld Polynuclear WBC # 28.585 10^3/uL
[2023-10-04 18:34] LABS: Neutrophil 94 % (0-25)
[2023-10-04 18:35] LABS: Body Fluid QC Type(s) BF2Q,BF3Q; Monocyte /Synovial Fluid 6 %
[2023-10-05 11:44] LABS: Pathologist Review Reviewed
== END | disposition home or self-care (01) ==
PROVIDERS: PCP Family Medicine; Referring Provider Orthopaedic Surgery; Visit Provider Orthopaedic Surgery
DX: Z96.651 Presence of right artificial knee joint (principal)
CPT/HCPCS: 73562; 87015; 87070; 87075; 87102; 87116; 87205; 87206; 89050; 89051; 89060

== ENCOUNTER 2023-11-08 06:48 | Day surgery (SDC) | payer OTHER, SELFPAY ==
[2023-11-08] VITALS (7 sets, daily range): BP systolic 92–107; BP diastolic 59–66; PULSE 72–88; RESP 16–18; TEMP 36.1–36.6; O2SAT 99–100; BMI 24.8
[2023-11-08] MEDS: Lactated Ringers 1,000 ML 15 ML IV (07:15)
--- NOTE | 2023-11-08 07:25 | PCM.PRE.AN2 ---
ASA Classification* ASA Classification ASA Classification: 2 Assessment & Plan Anesthesia* Anesthesia Assessment Anesthesia Assessment: Discussed sedation and/or anesthesia options, risks, benefits, and alternatives with patient/parents/legal guardian/POA. Questions invited. The patient/parents/legal guardian/POA seems to understand and agrees to proceed with anesthesia plan. Reviewed the physical assessment, medical history, allergy history and patient home medications list prior to surgery/procedure/anesthetic and documented any changes. Performed airway and anesthesia risk assessments. Anesthesia Type Anesthesia Type: MAC (see written pre anesthesia record for full assessment) Anesthesia Focused Assessment* Temperature: 97.9 F Pulse Rate: 88 Blood Pressure: 107/59 Respiratory Rate: 18 Pulse Ox: 100 Airway Assessment Mouth opens: >3 cm Mallampati Score: II Focused Labs Anesthesia Preop lab: CBC WBC 8.0 K/mm3 (4.4-11.0) 09/15/23 15:12 RBC 4.30 M/mm3 (4.2-5.4) 09/15/23 15:12 Hgb 13.0 g/dL (12.0-15.0) 09/15/23 15:12 Hct 40.5 % (37-47) 09/15/23 15:12 Plt Count 325 K/mm3 (150-450) 09/15/23 15:12 CHEMISTRY Potassium 3.6 mmol/L (3.5-5.1) 09/15/23 15:12 Sodium 139 mmol/L (136-145) 09/15/23 15:12 Magnesium 2.3 mg/dL (1.6-2.6) 02/23/20 11:28 Phosphorus 2.3 mg/dL (2.5-4.9) L 11/04/22 08:20 BUN 16 mg/dL (7-18) 09/15/23 15:12 Creatinine 0.94 mg/dL (0.55-1.02) 09/15/23 15:12 Glucose 88 mg/dL (74-106) 09/15/23 15:12 POC Glucose 82 mg/dL (70-110) 03/05/20 05:51 TSH 2.50 uIU/mL (0.358-3.74) 09/15/23 15:11 COAG PT 13.2 SECONDS (11.7-14.9) 02/23/20 11:29 Pre-Assessment Diagnosis/Proposed Procedure Planned Operative Procedure(s): ginicular block Anesthesia History Anesthesia History - commissioned security officer: Anesthesia History - commissioned security officer Hx Hospitalization No 05/07/23 13:19 Any Problems With Anesthesia No 05/07/23 13:19 Cholinesterase deficiency No 05/07/23 13:19 You/Your Family Experience No 05/07/23 13:19 fever (hyperthermia) with Relationship Recent Exposure to Contagious No 11/08/23 07:16 Disease Does patient have nerve No 05/07/23 13:19 stimulator Patient instructed to have device shut off --Does patient have Pacemaker No 11/08/23 07:16 or ICD? When Was Last Pacemaker Check QUESTION #4 FULL TEXT: You/Your Family Experience fever (hyperthermia) with Anesthesia Last Oral Intake Last Oral intake: Last Oral Intake NPO since 00:00 11/08/23 07:16 Meds taken in AM with sips of No 11/08/23 07:16 water? Meds patient instructed to take am of surgery PONV PONV - commissioned security officer: PONV - commissioned security officer Female HX of Motion Sickness HX of N/V After Surgery Non-Smoker Duration of Surgery greater than 60 minutes Number of Risk Factors PONV Score Height & Weight Height & Weight: Anesthesia: Height & Weight Height 6 ft 1 in 11/08/23 07:16 Weight: 85.366 kg 11/08/23 07:16 Body Mass Index (BMI) 24.8 11/08/23 07:16 Respiratory Assessment Respiratory Assessment - commissioned security officer: Respiratory Tract Infection Hx - commissioned security officer Hx Respiratory Tract Infection No 05/07/23 13:19 STOP Sleep Apnea STOP Sleep Apnea - commissioned security officer: STOP Sleep Apnea - commissioned security officer Hx Hypertension No 09/15/23 14:20 Hx Sleep Apnea No 05/10/23 12:14 CPAP No 05/07/23 13:19 BIPAP No 05/07/23 13:19 Do you snore loudly (louder than talking or can be heard Do you often feel tired/ fatigued/ sleepy during daytime? Has anyone observed you stop breathing during sleep? STOP Results QUESTION #5 FULL TEXT : Do you snore loudly (louder than talking or can be heard through closed doors)? Tobacco Use History Tobacco Use History - commissioned security officer: Tobacco Use History - commissioned security officer Tobacco Use Smoking Status Never smoker 07/06/23 13:27 Hx Tobacco Use No 05/07/23 13:19 Years Smoking Packs Smoked per Day Smoking Cessation Date was within the last 15 years Hx Smoking Cessation Date Hx Smoking Cessation Counseling Hematologic Medial History Hematologic Hx - commissioned security officer: Hematologic Medical Hx - civil laboratory technician Hx of Blood Transfusion Hx of Transfusion in last 3 Months Date of Last Transfusion (if within last 3 months) Ever experience any problems with transfusion(s)? Specify any problems Hx of Preganancy in last 3 Months Nurse Filling Out Transfusion & Questions: Date: Time: Patient unable to answer at this time (ie. confused, unrespo /Reproduction History /Reproductive History - commissioned security officer: /Reproductive Hx- commissioned security officer Hx Now Gestational Age (in weeks): EDC: Hx Hx Para Hx Section SAB No 07/06/23 13:28 Active Medications Active Medications: Current Medications Generic Name Dose Route Start Last Admin Trade Name Freq PRN Reason Stop Dose Admin Lactated Ringer's 1,000 mls @ 15 mls/hr 11/08/23 07:00 11/08/23 07:15 IV 15 mls/hr .Q48H JUAQUIN Administration PFSH Medical History Low back pain Genetic testing of female Barretts esophagus History of echocardiogram Vasovagal episode Fall Vertigo Restless legs History of hiatal hernia History of edema Acute lumbar myofascial strain Wears glasses Post-menopausal Cancer Back pain Seizures Gastric reflux Non-smoker History of stress test Dysphagia Chronic constipation Early satiety Acid reflux Abdominal pain Arthritis History of seizure Acute sinusitis Head congestion Raynauds syndrome Hx of ovarian cyst Home Medications ?Medication ?Instructions ?Recorded ?Last Taken ?Type mecobalamin (vitamin B12) 2,500 mcg PO 07/06/23 11/07/23 History mcg chewable tablet methotrexate sodium 2.5 mg tablet 17.5 mg PO QWEEK 07/06/23 11/02/23 History calcium 600 mg capsule 600 mg PO .weekly 09/07/23 11/07/23 History cholecalciferol (vitamin D3) 50 50 mcg PO .qod 09/07/23 11/07/23 History mcg (2,000 unit) capsule Tymlos (abaloparatide) 80 mcg (0.04 mL) subcut DAILY 09/20/23 11/08/23 Rx #4.68 mL prednisone 10 mg tablet 10 mg PO QDAY 10/04/23 Unknown History cephalexin 500 mg capsule 2,000 mg (4 x 500 mg) PO ONCE #4 10/22/23 Unknown Rx caps cephalexin 500 mg capsule 2,000 mg (4 x 500 mg) PO ONCE #4 11/05/23 Unknown Rx caps Allergy/AdvReac Type Severity Reaction Status Date / Time magnesium Allergy Severe Other Verified 11/08/23 07:10 celecoxib (From Celebrex) Allergy Intermediate Shortness Verified 11/08/23 07:10 of breath Family History Sister Ovarian cancer Aunt No problems noted. Mother Breast cancer Father CVA (cerebral vascular accident) Surgical History Hx of esophagogastroduodenoscopy Hx of kyphoplasty Hx of colonoscopy History of ovarian cystectomy History of total knee replacement (TKR) Hx of arthroscopy of right knee Hx of section Social History Smoking Status: Never smoker alcohol intake: current alcohol intake frequency: holidays/special occasions only caffeine: Yes what type of physical activity do you participate in: none seatbelt use: always do you feel safe at home: Yes additional social history: Review of Systems (Anesthesia) ROS Narrative System reviewed and no additional complaints, except as documented.
--- NOTE | 2023-11-08 08:22 | RAD_ITS ---
PROCEDURE: Right genicular nerve block. DATE OF EXAMINATION: November 08, 2023 INDICATION: Female, 63 years old. Chronic pain. FLUOROSCOPY TIME (if supplied): (7 seconds) minutes/seconds. 0.44 mGy. 3 images were submitted. RAD/Fluoro Guided Needle Placement IMPRESSION: Intraoperative imaging provided for right genicular nerve block. Electronically Signed: Tomas Navarro MD at 11:05 EDT ,
[2023-11-08] MEDS: Lidocaine 1% (5 ml sdv) 5 ML Vial (08:29)
[2023-11-08] MEDS: MethylPREDNISolone Acetate 80 MG/ML Vial (08:29)
[2023-11-08] MEDS: Bupivacaine 0.25% 30 ML Vial (08:29)
--- NOTE | 2023-11-08 08:31 | PCM.OPRPT ---
Report of Operation Date of Procedure: 11/08/23 Description of Surgical Findings:: PREOPERATIVE DIAGNOSIS: Osteoarthritis of the right knee, chronic postoperative knee pain POSTOPERATIVE DIAGNOSIS: Osteoarthritis of the right knee, chronic postoperative knee pain PROCEDURE PERFORMED: Right knee superomedial, superolateral, and inferomedial genicular nerves steroid injection under fluoroscopy guidance. ANESTHESIA: MAC. BLOOD LOSS: Minimal. COMPLICATIONS: None. DESCRIPTION OF PROCEDURE: History and physical of today was reviewed. Risks and benefits of the procedure were explained. The patient understood and agreed to proceed. Informed consent was obtained. IV inserted per routine protocol. The patient was taken to the operating room and placed in the supine position. The right knee was prepped and draped in a sterile fashion using iodine x3. Under fluoroscopy guidance on AP view, the right knee was visualized. The skin and subcutaneous tissue was anesthetized with approximately 5 mL of 1% lidocaine using a 25-gauge regular needle at the vicinity of the superomedial, superolateral, and inferomedial genicular nerves. Under direct visualization of fluoroscopy on AP view as well as lateral view, starting on the right superomedial, ending on the right inferomedial, passing through the right superolateral genicular nerves, the needle was passed through the skin. The tip of the needle was maneuvered and directed towards the diaphyseal junction of each corresponding nerve. Once tip of the needle was in the vicinity of the diaphysis and in contact with the bone, after confirmation on AP as well as lateral view and repeated negative aspiration for blood, a total of 12 mL of preservative-free 0.25% Marcaine with 80 mg of Depo-Medrol was injected in divided doses between those three levels. The needles were then removed intact. The patient experienced no sign or symptoms of intravascular injection. The patient experienced no paresthesia. The procedure was completed without any apparent difficulty or any complications. The patient appeared to tolerate it well. ASSESSMENT AND PLAN: This is a 63-year-old female with osteoarthritis of the right knee, chronic postoperative knee pain status post right knee superior medial, superior lateral, inferior medial genicular nerve steroid injection under fluoroscopic guidance, patient will continue her current medications, patient will follow in approximately 2 weeks for reevaluation.
--- NOTE | 2023-11-08 08:38 | PCM.POST.ANE ---
Anesthesia: Postop Eval I Current Vital Signs Temperature: 97 F Pulse Rate: 74 Blood Pressure: 94/62 Respiratory Rate: 16 Pulse Ox: 100 Oxygen Delivery Method: Room Air Assessment Airway patent: Yes Spontaneous unlabored respirations: Yes Mental status: Asleep nausea: No Vomiting: No Anesthesia Complication: No Fluid Hydration Crystalloid volume administer (ml): 200 Total IV fluid infused: 200 Progress Note Anesthesia document: Postop Eval 1 completed: Yes
--- NOTE | 2023-11-08 08:50 | PCM.POSTANE2 ---
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.MG Spontaneous unlabored Yes 11/08/23 08:38 HYDRAULIC OIL TOOL OPERATORNUZHAT respirations Mental status Asleep 11/08/23 08:38 HYDRAULIC OIL TOOL OPERATOR.MG nausea No 11/08/23 08:38 HYDRAULIC OIL TOOL OPERATOR.MG Vomiting No 11/08/23 08:38 HYDRAULIC OIL TOOL OPERATORNUZHAT Anesthesia Postop Eval I: Fluid Summary Crystalloid volume administer 200 11/08/23 08:38 RAVI (ml) Colloids volume administered ( ml) Blood Product volume administered (ml) Total IV fluid infused 200 11/08/23 08:38 RAVI Anesthesia Postop Eval I: Summary Notes Anesthesia Complication No 11/08/23 08:38 RAVI Anesthesia Complication Comment: Post-operative progress note Anesthesia: Postop Eval II Evaluation Mental status: Awake Pain Level: 0 nausea: No Vomiting: No
== END 2023-11-08 09:30 | disposition home or self-care (01) ==
LOC: SDC 06:48 → AC 06:50
PROVIDERS: PCP Family Medicine; Referring Provider Anesthesiology Pain Medicine; Visit Provider Anesthesiology Pain Medicine
PROC: 3E0U3GC Introduction of Other Therapeutic Substance into Joints, Percutaneous Approach (ICD-10-PCS; CPT 20610; principal; 2023-11-08 08:15)
DX: M17.11 Unilateral primary osteoarthritis, right knee (principal); K21.9 Gastro-esophageal reflux disease without esophagitis; Z79.899 Other long term (current) drug therapy
CPT/HCPCS: 64454; 01991; 76000; 77002; J7120

== ENCOUNTER → 2023-12-10 | Outpatient (CLI) | payer OTHER, SELFPAY ==
[2023-12-10 17:44] LABS: Absolute Lymphocyte Count 1.74 X10^3/uL (0.83-4.51); Absolute Neutrophil Count 6.2 X10^3/uL (2.0-7.7); Basophil# 0.08 X10^3/uL; Basophil% 0.9 % (0-1); Eosinophils% 1.1 % (0-5); Hematocrit 40.4 % (37-47); Hemoglobin 12.7 g/dL (12.0-15.0); Lymphocyte # 1.74 X10^3/ul (0.83-4.51); Mean Corp Hgb Conc 31.4 g/dL (32-36); Mean Corpuscular Hgb 29.4 pg (27.0-32.0); Mean Corpuscular Volume 93.5 fL (81-99); Mean Platelet Vol. 8.6 fl (6.2-12.0); Monocyte# 0.97 X10^3/uL; Monocyte% 10.6 % (0-10); NRBC Flagged by Analyzer 0 % (0-5); Neutrophil # 6.23 X10^3/uL (2.7-7.7); Platelet Count 398 K/mm3 (150-450); RBC Distribution Width CV 13.9 % (11.6-14.6); RBC Distribution Width SD 46.8 fl (35.1-43.9); Red Blood Count 4.32 M/mm3 (4.2-5.4); White Blood Count 9.2 K/mm3 (4.4-11.0)
[2023-12-10 17:53] LABS: ALB/GLOB Ratio 0.7 RATIO (0.9-2.4); AST(SGOT) 25 U/L (15-37); Alanine Aminotransfer ALT/SGPT 27 U/L (13-56); Albumin, Serum 3.3 g/dL (3.2-5.0); Alkaline Phosphatase 63 U/L (45-117); Anion Gap 6 (5-15); BUN 16 mg/dL (7-18); BUN/Creat Ratio 19.2 RATIO (10-20); Chloride 102 mmol/L (98-107); Creatinine, Serum 0.83 mg/dL (0.55-1.02); EST Glomerular Filtration Rate 74 mL/min (>60); Est Glom Filt Rate - Afr Amer 89 mL/min (>60); Globulin 4.8 g/dL (2.2-4.2); Glucose 101 mg/dL (74-106); Potassium 4.1 mmol/L (3.5-5.1); Protein, Total 8.1 g/dL (6.4-8.2); Sodium Level 137 mmol/L (136-145)
== END | disposition home or self-care (01) ==
LOC: MTLAB 14:45
PROVIDERS: PCP Family Medicine; Referring Provider Internal Medicine Rheumatology; Visit Provider Internal Medicine Rheumatology
DX: M05.79 Rheumatoid arthritis with rheumatoid factor of multiple sites without organ or systems involvement (principal); Z79.899 Other long term (current) drug therapy
CPT/HCPCS: 36415; 80053; 85025

== ENCOUNTER → 2023-12-29 | Outpatient (CLI) | payer OTHER, SELFPAY | END | disposition home or self-care (01) | PROVIDERS: PCP Family Medicine; Referring Provider Orthopaedic Surgery; Visit Provider Orthopaedic Surgery | DX: M25.461 Effusion, right knee (principal) | CPT/HCPCS: 87070; 87075; 87205 ==

== ENCOUNTER → 2024-02-28 | Outpatient (CLI) | payer OTHER, SELFPAY ==
[2024-02-28 09:51] LABS: ALB/GLOB Ratio 0.7 RATIO (0.9-2.4); AST(SGOT) 20 U/L (15-37); Alanine Aminotransfer ALT/SGPT 24 U/L (13-56); Albumin, Serum 3.1 g/dL (3.2-5.0); Alkaline Phosphatase 57 U/L (45-117); Anion Gap 4 (5-15); BUN 16 mg/dL (7-18); BUN/Creat Ratio 15.2 RATIO (10-20); Calcium,Total 9.5 mg/dL (8.5-10.1); Chloride 106 mmol/L (98-107); Creatinine, Serum 1.05 mg/dL (0.55-1.02); EST Glomerular Filtration Rate 56 mL/min (>60); Est Glom Filt Rate - Afr Amer 68 mL/min (>60); Globulin 4.4 g/dL (2.2-4.2); Glucose 76 mg/dL (74-106); Potassium 4.2 mmol/L (3.5-5.1); Protein, Total 7.5 g/dL (6.4-8.2); Sodium Level 142 mmol/L (136-145)
== END | disposition home or self-care (01) ==
LOC: LAB 08:46
PROVIDERS: PCP Family Medicine; Referring Provider Internal Medicine Endocrinology, Diabetes & Metabolism; Visit Provider Internal Medicine Endocrinology, Diabetes & Metabolism
DX: E55.9 Vitamin D deficiency, unspecified (principal); M80.00XA Age-related osteoporosis with current pathological fracture, unspecified site, initial encounter for fracture
CPT/HCPCS: 36415; 80053; 82306

== ENCOUNTER → 2024-03-24 | Outpatient (CLI) | payer OTHER, SELFPAY ==
[2024-03-24 17:26] LABS: Absolute Lymphocyte Count 2.25 X10^3/uL (0.83-4.51); Absolute Neutrophil Count 5.3 X10^3/uL (2.0-7.7); Basophil# 0.08 X10^3/uL; Basophil% 0.9 % (0-1); Eosinophil# 0.19 X10^3/uL; Eosinophils% 2.2 % (0-5); Hematocrit 41.1 % (37-47); Hemoglobin 13.1 g/dL (12.0-15.0); Lymphocyte # 2.25 X10^3/ul (0.83-4.51); Lymphocyte % 26.3 % (19-41); Mean Corp Hgb Conc 31.9 g/dL (32-36); Mean Corpuscular Hgb 29.8 pg (27.0-32.0); Mean Corpuscular Volume 93.4 fL (81-99); Mean Platelet Vol. 8.7 fl (6.2-12.0); Monocyte# 0.67 X10^3/uL; Monocyte% 7.8 % (0-10); NRBC Flagged by Analyzer 0 % (0-5); Neutrophil # 5.33 X10^3/uL (2.7-7.7); Neutrophil % 62.3 % (47-70); Platelet Count 348 K/mm3 (150-450); RBC Distribution Width CV 14.1 % (11.6-14.6); White Blood Count 8.6 K/mm3 (4.4-11.0)
[2024-03-24 17:53] LABS: ALB/GLOB Ratio 0.7 RATIO (0.9-2.4); AST(SGOT) 41 U/L (15-37); Alanine Aminotransfer ALT/SGPT 39 U/L (13-56); Albumin, Serum 3.3 g/dL (3.2-5.0); Alkaline Phosphatase 65 U/L (45-117); Anion Gap 6 (5-15); BUN 15 mg/dL (7-18); BUN/Creat Ratio 17.6 RATIO (10-20); Calcium,Total 10.1 mg/dL (8.5-10.1); Chloride 105 mmol/L (98-107); Creatinine, Serum 0.85 mg/dL (0.55-1.02); EST Glomerular Filtration Rate 72 mL/min (>60); Est Glom Filt Rate - Afr Amer 87 mL/min (>60); Globulin 4.5 g/dL (2.2-4.2); Glucose 80 mg/dL (74-106); Potassium 4.4 mmol/L (3.5-5.1); Protein, Total 7.8 g/dL (6.4-8.2); Sodium Level 139 mmol/L (136-145)
== END | disposition home or self-care (01) ==
LOC: MTLAB 14:22
PROVIDERS: PCP Family Medicine; Referring Provider Internal Medicine Rheumatology; Visit Provider Internal Medicine Rheumatology
DX: M05.79 Rheumatoid arthritis with rheumatoid factor of multiple sites without organ or systems involvement (principal); Z79.899 Other long term (current) drug therapy
CPT/HCPCS: 36415; 80053; 85025

== ENCOUNTER → 2024-04-05 | Outpatient (CLI) | payer OTHER, SELFPAY ==
--- NOTE | 2024-04-05 10:43 | US_ITS ---
INDICATION: ELEVATED LIVER ENZYMES EXAMINATION: Ultrasound US Abdomen RUQ (limited) TECHNIQUE: Javier scale and color doppler imaging was performed of the right upper quadrant. COMPARISON: Right upper quadrant abdominal ultrasound 05/16/2021. FINDINGS: LIVER: 12.9 cm length. Increased echogenicity. Main portal vein patent. GALLBLADDER Size: Distended. Stones: None. Wall thickness: Not thickened. 1 mm. Pericholecystic fluid: None. Sonographic Sandhu sign: Negative. EXTRAHEPATIC BILE DUCTS: Common bile duct 4 mm not dilated. PANCREAS: Unremarkable. RIGHT KIDNEY: No hydronephrosis. ASCITES: None. US/Liver IMPRESSION: Fatty infiltration liver. Electronically Signed: Khushboo Torres MD at 22:31 EST ,
[2024-04-07 17:07] LABS: Albumin 3.7 g/dL (2.9-4.4); Alpha-1-Globulins 0.3 g/dL (0.0-0.4); Alpha-2-Globulins 0.8 g/dL (0.4-1.0); Gamma Globulin 1.4 g/dL (0.4-1.8); Immunoglobulin A 300 mg/dL (87-352); Immunoglobulin G 1583 mg/dL (586-1602); Immunoglobulin M 105 mg/dL (26-217); PROEL- TOTAL PROTEIN 7.1 g/dL (6.0-8.5)
== END | disposition home or self-care (01) ==
LOC: US 10:30
PROVIDERS: Psychiatry & Neurology Neurology; PCP Family Medicine; Referring Provider Internal Medicine Rheumatology; Visit Provider Internal Medicine Rheumatology
DX: M05.79 Rheumatoid arthritis with rheumatoid factor of multiple sites without organ or systems involvement (principal); Z79.899 Other long term (current) drug therapy

== ENCOUNTER → 2024-04-21 | Outpatient (CLI) | payer OTHER, SELFPAY ==
[2024-04-21 14:09] LABS: ALB/GLOB Ratio 0.8 RATIO (0.9-2.4); AST(SGOT) 28 U/L (15-37); Alanine Aminotransfer ALT/SGPT 30 U/L (13-56); Albumin, Serum 3.3 g/dL (3.2-5.0); Alkaline Phosphatase 58 U/L (45-117); Anion Gap 6 (5-15); BUN 15 mg/dL (7-18); BUN/Creat Ratio 17.3 RATIO (10-20); Calcium,Total 9.4 mg/dL (8.5-10.1); Chloride 106 mmol/L (98-107); Creatinine, Serum 0.87 mg/dL (0.55-1.02); EST Glomerular Filtration Rate 70 mL/min (>60); Est Glom Filt Rate - Afr Amer 85 mL/min (>60); Globulin 4.2 g/dL (2.2-4.2); Glucose 85 mg/dL (74-106); Potassium 4.2 mmol/L (3.5-5.1); Protein, Total 7.5 g/dL (6.4-8.2); Sodium Level 141 mmol/L (136-145)
== END | disposition home or self-care (01) ==
LOC: MTLAB 10:47
PROVIDERS: PCP Family Medicine; Referring Provider Internal Medicine Rheumatology; Visit Provider Internal Medicine Rheumatology
DX: M05.79 Rheumatoid arthritis with rheumatoid factor of multiple sites without organ or systems involvement (principal); Z79.899 Other long term (current) drug therapy
CPT/HCPCS: 36415; 80053

== ENCOUNTER → 2024-05-05 | Outpatient (CLI) | payer OTHER, SELFPAY ==
--- NOTE | 2024-05-05 08:25 | MRI_ITS ---
PROCEDURE: MRA HEAD ONLY WITHOUT CONTRAST REASON FOR EXAM: Disequilibrium COMPARISON: 09/27/2023 TECHNIQUE: 3D Time of Flight MRA of the head without intravenous contrast. 3D reformatted images. FINDINGS: Anatomy: [place] anatomy is within normal limits. Fenestration of the basilar artery noted, a normal variant. Anterior Circulation: Distal internal carotid anterior, middle cerebral arteries and proximal anterior cerebral arteries appear patent without stenosis. No aneurysms are identified. Posterior Circulation: Distal vertebral arteries the basilar artery and the posterior cerebral arteries appear patent without stenosis. No aneurysms are identified. MRI/MRA Head ONLY without Contrast IMPRESSION: No arterial abnormality of the brain. Reading Location: [facility]
== END | disposition home or self-care (01) ==
LOC: MRI 08:01
PROVIDERS: PCP Family Medicine; Referring Provider Psychiatry & Neurology Neurology; Visit Provider Psychiatry & Neurology Neurology
DX: R42 Dizziness and giddiness (principal)
CPT/HCPCS: 70544

== ENCOUNTER 2024-05-24 05:21 | Day surgery (SDC) | payer OTHER, SELFPAY ==
[2024-05-24] VITALS (9 sets, daily range): BP systolic 100–112; BP diastolic 68–78; PULSE 77–85; RESP 12–82; TEMP 36.2–36.6; O2SAT 94–99; BMI 25.0
--- NOTE | 2024-05-24 06:30 | EGD_PTH ---
PATIENT: MAIA DAVIES LOC: EN U#:[id number] AGE/SX: 63/F ROOM: RE05/24/[address]: Dr. Yaakov Ambriz DO : 1960 BED: DIS: 05/24/2024 SPEC #: [id number] RECD: 05/24/24 09:17 STATUS: JAJA REJatin #: [id number] GERMANIA: 05/24/24 06:[address]: Yaakov Ambriz DEPT: SURGICAL PATHOLOGY RECD BY: Niru Chang ENTERED: 05/24/24 09:56 SP TYPE: EGD BIOPSY AMANDA DR: Dr. Amish Tavares MD Tissues: Esophagus, NOS Procedures: Special Stain Group I Surgery Specimen Level IV GMS Stain (control) HEADER OPERATION: EGD and biopsy and dilatation PRE-OP DIAGNOSIS: Reflux, abdominal pain, Blount's esophagus TISSUE SUBMITTED: Distal esophagus biopsy MICROSCOPIC DIAGNOSIS Distal esophagus, biopsy: * Squamous mucosa with reactive changes and acute inflammation. * Cardio-oxyntic (columnar) mucosa with active chronic inflammation, negative for goblet cell metaplasia. * A PASD stain is negative for fungal organisms. * IHC for H pylori is PENDING and will be reported in an addendum. MICROSCOPIC DESCRIPTION Slides are reviewed. These tests were developed and their performance characteristics determined by [facility]. They may not have been cleared or approved by the U.S. Food and Drug Administration. The FDA has determined that such clearance or approval is not necessary. The above immunohistochemical/dualISH markers are ordered and reviewed by the Pathologist. GROSS DESCRIPTION Received in fixative is one container labeled with the patient's name and designated Distal esophagus biopsy. The specimen consists of multiple irregular fragments of light cedeño soft tissue that in aggregate measure 1.5 x 1 x 0.2 cm. The specimen is totally submitted in one cassette. 05/24/2024 CPT:18296,54083,40746 ADDENDUM ADDENDUM ADDENDUM ADDENDUM ADDENDUM ADDENDUM 06/02/2024 09:27 ADDENDUM 06/02/2024 09:27 ADDENDUM 06/02/2024 09:27 ADDENDUM 06/02/2024 09:27 ADDENDUM 06/02/2024 09:27 This addendum is to report the results for the IHC. The IHC is negative for H pylori organisms. Matched controls reacted appropriately.
--- NOTE | 2024-05-24 06:39 | PRE.ANES_ITS ---
ASA Classification* ASA Classification ASA Classification: 2 Assessment & Plan Anesthesia* Anesthesia Assessment Anesthesia Assessment: Discussed sedation and/or anesthesia options, risks, benefits, and alternatives with patient/parents/legal guardian/POA. Questions invited. The patient/parents/legal guardian/POA seems to understand and agrees to proceed with anesthesia plan. Reviewed the physical assessment, medical history, allergy history and patient home medications list prior to surgery/procedure/anesthetic and documented any changes. Performed airway and anesthesia risk assessments. Anesthesia Type Anesthesia Type: MAC Anesthesia Focused Assessment* Temperature: 97.8 F Pulse Rate: 85 Blood Pressure: 109/77 Respiratory Rate: 16 Pulse Ox: 97 Airway Assessment Mouth opens: >3 cm Mallampati Score: II Focused Labs Anesthesia Preop lab: CBC WBC 8.6 K/mm3 (4.4-11.0) 03/24/24 14:30 03/24/24 RBC 4.40 M/mm3 (4.2-5.4) 03/24/24 14:30 03/24/24 Hgb 13.1 g/dL (12.0-15.0) 03/24/24 14:30 03/24/24 Hct 41.1 % (37-47) 03/24/24 14:30 03/24/24 Plt Count 348 K/mm3 (150-450) 03/24/24 14:30 03/24/24 CHEMISTRY Potassium 4.2 mmol/L (3.5-5.1) 04/21/24 10:57 04/21/24 Sodium 141 mmol/L (136-145) 04/21/24 10:57 04/21/24 Magnesium 2.3 mg/dL (1.6-2.6) 02/23/20 11:28 02/23/20 Phosphorus 3.0 mg/dL (2.5-4.9) 12/08/23 10:11 12/08/23 BUN 15 mg/dL (7-18) 04/21/24 10:57 04/21/24 Creatinine 0.87 mg/dL (0.55-1.02) 04/21/24 10:57 04/21/24 Glucose 85 mg/dL (74-106) 04/21/24 10:57 04/21/24 POC Glucose 82 mg/dL (70-110) 03/05/20 05:51 03/05/20 TSH 2.50 uIU/mL (0.358-3.74) 09/15/23 15:11 COAG PT 13.2 SECONDS (11.7-14.9) 02/23/20 11:29 Pre-Assessment Diagnosis/Proposed Procedure Planned Operative Procedure(s): EGD Anesthesia History 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 When Was Last Pacemaker Check QUESTION #4 FULL TEXT: You/Your Family Experience fever (hyperthermia) with Anesthesia Last Oral Intake Last Oral intake: Last Oral Intake NPO since 20:00 05/24/24 05:46 Meds taken in AM with sips of No 05/24/24 05:46 water? Meds patient instructed to take am of surgery PONV PONV - airline operations agent: PONV - airline operations agent Female Yes 05/22/24 08:30 HX of Motion Sickness Yes 05/22/24 08:30 HX of N/V After Surgery Yes 05/22/24 08:30 Non-Smoker Yes 05/22/24 08:30 Duration of Surgery greater No 05/22/24 08:30 than 60 minutes Number of Risk Factors 4 05/22/24 08:30 PONV Score Severe Risk 05/22/24 08:30 Height & Weight Height & Weight: Anesthesia: Height & Weight Height 6 ft 1 in 05/24/24 05:46 Weight: 86 kg 05/24/24 05:46 Body Mass Index (BMI) 25.0 05/24/24 05:46 Respiratory Assessment Respiratory Assessment - airline operations agent: Respiratory Tract Infection Hx - airline operations agent Hx Respiratory Tract Infection No 05/22/24 08:30 STOP Sleep Apnea STOP Sleep Apnea - airline operations agent: STOP Sleep Apnea - airline operations agent Hx Hypertension No 05/22/24 08:30 Hx Sleep Apnea No 05/22/24 08:30 CPAP No 05/07/23 13:19 BIPAP No 05/07/23 13:19 Do you snore loudly (louder No 05/22/24 08:30 than talking or can be heard Do you often feel tired/ No 05/22/24 08:30 fatigued/ sleepy during daytime? Has anyone observed you stop No 05/22/24 08:30 breathing during sleep? STOP Results Negative 05/22/24 08:30 QUESTION #5 FULL TEXT : Do you snore loudly (louder than talking or can be heard through closed doors)? Tobacco Use History Tobacco Use History - airline operations agent: Tobacco Use History - airline operations agent Tobacco Use Smoking Status Never smoker 05/22/24 08:30 Hx Tobacco Use No 05/22/24 08:30 Years Smoking Packs Smoked per Day Smoking Cessation Date was within the last 15 years Hx Smoking Cessation Date Hx Smoking Cessation Counseling Hematologic Medial History Hematologic Hx - airline operations agent: Hematologic Medical Hx - clinical trial leader Hx of Blood Transfusion No 05/22/24 08:30 Hx of Transfusion in last 3 No 05/22/24 08:30 Months Date of Last Transfusion (if within last 3 months) Ever experience any problems No 05/22/24 08:30 with transfusion(s)? Specify any problems Hx of Preganancy in last 3 No 05/22/24 08:30 Months Nurse Filling Out Transfusion VLEHLEHIGH 05/22/24 08:30 & Questions: Date: 05/22/24 05/22/24 08:30 Time: 08:37 05/22/24 08:30 Patient unable to answer at this time (ie. confused, unrespo /Reproduction History /Reproductive History - airline operations agent: /Reproductive Hx- airline operations agent Hx Now No 05/22/24 08:30 Gestational Age (in weeks): EDC: Hx Hx Para Hx Section SAB No 07/06/23 13:28 PFSH Medical History History of steroid therapy Fatty liver Vitamin D deficiency Acute bronchitis, unspecified Genetic testing of female Barretts esophagus History of echocardiogram Vasovagal episode Fall Vertigo Restless legs History of hiatal hernia History of edema Low back pain Acute lumbar myofascial strain Wears glasses Post-menopausal Cancer Back pain Seizures Gastric reflux Non-smoker History of stress test Dysphagia Chronic constipation Early satiety Acid reflux Abdominal pain Arthritis History of seizure Acute sinusitis Head congestion Raynauds syndrome Hx of ovarian cyst Home Medications ?Medication ?Instructions ?Recorded ?Last Taken ?Type mecobalamin (vitamin B12) 2,500 2,500 mcg PO DAILY 05/23/24 History mcg chewable tablet calcium 600 mg capsule 600 mg PO WE 09/07/23 History cholecalciferol (vitamin D3) 50 50 mcg PO .QOD 4 11/07/23 History mcg (2,000 unit) capsule methotrexate sodium 2.5 mg tablet 20 mg PO TU 12/29/23 05/23/24 History folic acid 20 mg capsule 20 mg PO DAILY Rheumatoid ar thritis 01/26/24 05/23/24 History Tymlos (abaloparatide) 80 mcg (0.04 mL) subcut KATHY Y 02/28/24 05/23/24 Rx #4.68 mL flurbiprofen 100 mg tablet 100 mg PO TID PRN pain #90 tabs 04/18/24 05/22/24 Rx loratadine 10 mg tablet 10 mg PO DAILY PRN dizziness #30 04/18/24 Unknown Rx tabs pantoprazole 40 mg tablet,delayed 40 mg PO QDAY #90 ta bs 04/20/24 05/23/24 Rx release Allergy/AdvReac Type Severity Reaction Status Date / Time magnesium Allergy Severe Other Verified 05/24/24 05:44 celecoxib (From Celebrex) Allergy Intermediate Shortness Verified 05/24/24 05:44 of breath Family History Sister Ovarian cancer Aunt Breast cancer Mother Breast cancer Father CVA (cerebral vascular accident) Surgical History Hx of esophagogastroduodenoscopy Hx of kyphoplasty Hx of colonoscopy History of ovarian cystectomy History of total knee replacement (TKR) Hx of arthroscopy of right knee Hx of section Social History Smoking Status: Never smoker alcohol intake: current alcohol intake frequency: holidays/special occasions only caffeine: Yes what type of physical activity do you participate in: none seatbelt use: always do you feel safe at home: Yes additional social history: Review of Systems (Anesthesia) ROS Narrative System reviewed and no additional complaints, except as documented.
--- NOTE | 2024-05-24 06:42 | PCM.HP.STD ---
HPI - General General Date of Admission: 05/24/24 Date of Service: 05/24/24 Chief Complaint: abdominal pain and dysphagia HPI Narrative MAIA DAVIES, is a 63 F who presents for the evaluation of abdominal pain and dysphagia Prior workup: ? US 05.16.21 without acute/chronic finding ? HIDA 06.20.21 EF 49% *BGI established 08.04.21 with symptoms of intermittent RUQ pain since which later moved to [facility] and began self-treatment for life-long constipation (BM Q3D with small hard stool). Intermittent food sticking sensation. ? CT abd/pel 08.08.21 without acute/chronic finding ? EGD and colonoscopy 11.06.21 EGD mild Schatzki ring, irregular Zline, metaplasia/lymphoid +; medium hiatal hernia ? Colonoscopy diverticulosis; congested mucosa. No path changes ? GET 11.11.21 49.08 minutes (12-56) OV 11.20.21 increase PPI to BID; start MiraLAX/kiwi/dried apricots. OV 02.18.22 doing well, continue PPI ? EGD 01.05.23 Blount?s, metaplasia +; medium hiatal hernia. Lymphoid aggregate resolved. Contact 02.17.23 she is starting methotrexate and has concern regarding PPI interaction. Advised she needs to talk to methotrexate prescriber as she has not been seen in clinic in a year. EGD results discussed. OV 03.18.23 Methotrexate prescriber instructed her to stop PPI use. With stop of PPI she has been having frequent, daily heartburn. Without use of fiber/MiraLAX she will not have BM for several days; with this she has a BM each day. Over the summer she fell with fracture of three vertebra; underwent bone density scan showing severe osteoporosis and was then diagnosed with rheumatoid arthritis. OV 04.20.24 pt reports a bm once every 3-4 days. Pt reports constant burning in her stomach. Reports some difficulty swallowing food. PFSH Medical History (Updated 05/24/24 @ 06:[address] Nuno Friend, DO) Dysphagia History of steroid therapy Fatty liver Vitamin D deficiency Acute bronchitis, unspecified Genetic testing of female Barretts esophagus History of echocardiogram Vasovagal episode Fall Vertigo Restless legs History of hiatal hernia History of edema Low back pain Acute lumbar myofascial strain Wears glasses Post-menopausal Cancer Back pain Seizures Gastric reflux Non-smoker History of stress test Chronic constipation Early satiety Acid reflux Abdominal pain Arthritis History of seizure Acute sinusitis Head congestion Raynauds syndrome Hx of ovarian cyst Home Medications ?Medication ?Instructions ?Recorded ?Last Taken ?Type mecobalamin (vitamin B12) 2,500 2,500 mcg PO DAILY 07/06/23 05/23/24 History mcg chewable tablet calcium 600 mg capsule 600 mg PO WE 09/07/23 11/07/23 History cholecalciferol (vitamin D3) 50 50 mcg PO .QOD 09/07/23 11/07/23 History mcg (2,000 unit) capsule methotrexate sodium 2.5 mg tablet 20 mg PO TU 12/29/23 05/23/24 History folic acid 20 mg capsule 20 mg PO DAILY Rheumatoid arthritis 01/26/24 05/23/24 History Tymlos (abaloparatide) 80 mcg (0.04 mL) subcut DAILY 02/28/24 05/23/24 Rx #4.68 mL flurbiprofen 100 mg tablet 100 mg PO TID PRN pain #90 tabs 04/18/24 05/22/24 Rx loratadine 10 mg tablet 10 mg PO DAILY PRN dizziness #30 04/18/24 Unknown Rx tabs pantoprazole 40 mg tablet,delayed 40 mg PO QDAY #90 tabs 04/20/24 05/23/24 Rx release Allergy/AdvReac Type Severity Reaction Status Date / Time magnesium Allergy Severe Other Verified 05/24/24 05:44 celecoxib (From Celebrex) Allergy Intermediate Shortness Verified 05/24/24 05:44 of breath Family History Sister Ovarian cancer Aunt Breast cancer Mother Breast cancer Father CVA (cerebral vascular accident) Surgical History Hx of esophagogastroduodenoscopy Hx of kyphoplasty Hx of colonoscopy History of ovarian cystectomy History of total knee replacement (TKR) Hx of arthroscopy of right knee Hx of section Social History Smoking Status: Never smoker alcohol intake: current alcohol intake frequency: holidays/special occasions only caffeine: Yes what type of physical activity do you participate in: none seatbelt use: always do you feel safe at home: Yes additional social history: ROS Constitutional Constitutional: Denies fatigue, fever(s), poor appetite, weight gain or weight loss Gastrointestinal Gastrointestinal: Denies belching, bloating, change in bowel habits, change in stool character, chewing difficulty, coffee ground emesis, constipation, cramping, diarrhea, dyspepsia, dysphagia, early satiety, excessive flatus, fecal incontinence, heartburn, hematemesis, hematochezia, hemorrhoids, loose stools, melena, nausea, odynophagia, rectal bleeding, tenesmus, vomiting or weight changes Vital Signs Vital Signs Vital Signs: 05/24/24 05:46 05/24/24 05:46 05/24/24 06:39 Temperature 97.8 F 97.8 F Temperature Source Temporal Pulse Rate 85 85 Respiratory Rate 16 16 Respiratory Pattern Normal Blood Pressure 109/77 109/77 Blood Pressure Mean 87 Blood Pressure Source Monitor Blood Pressure Position Semi-Fowlers Blood Pressure Location Left Arm Pulse Ox 97 97 Oxygen Delivery Method Room Air Weight Weight: 189 lb 9.561 oz Body Mass Index (BMI) 25.0 Physical Exam Const alert, oriented x3, no apparent distress and healthy appearing General Appearance: cooperative GI normal to inspection, nondistended, normoactive bowel sounds, soft to palpation, non-tender and non-distended Percussion: normal to percussion Rectal Exam: deferred Assessment & Plan Assessment/Plan (1) Dysphagia: (2) Barretts esophagus: QUALIFIERS: Blount's esophagus type: without dysplasia Qualified Code(s): K22.70 - Blount's esophagus without dysplasia PLAN: Judgment: judgment good Assessment and Plan Assessment and Plan (1) Barretts esophagus: Status: Chronic Qualifiers: Blount's esophagus type: without dysplasia Qualified Code(s): K22.70 - Blount's esophagus without dysplasia Plan: We discussed results from her EGD , discussed increased risk of esophageal cancer with Blount's diagnosis. It has been 2 years since her last upper endoscopy so we will perform a surveillance endoscopy for her Blount's esophagus. We will also put her back on pantoprazole 40 mg once a day. (2) Chronic constipation: Status: Chronic Plan: As above (3) Acid reflux: Status: Chronic Qualifiers: Esophagitis bleeding: without hemorrhage Esophagitis presence: with esophagitis Qualified Code(s): K21.00 - Gastro-esophageal reflux disease with esophagitis, without bleeding Plan: Improved on PPI therapy but she is on methotrexate. (4) Hiatal hernia: Status: Chronic (5) Abdominal pain: Status: Acute Plan: I believe her recurrent left upper quadrant pain is related to chronic constipation, she will try to use MiraLAX/kiwi/dried apricots daily to better control constipation Medications: New pantoprazole 40 mg PO QDAY 90 tabs 2RF (3) Abdominal pain:
--- NOTE | 2024-05-24 07:08 | PCM.POST.ANE ---
Anesthesia: Postop Eval I Current Vital Signs Temperature: 97.1 F Pulse Rate: 80 Blood Pressure: 103/68 Respiratory Rate: 16 Pulse Ox: 95 Oxygen Delivery Method: Room Air Assessment Airway patent: Yes Spontaneous unlabored respirations: Yes Mental status: Asleep nausea: No Vomiting: No Anesthesia Complication: No Fluid Hydration Crystalloid volume administer (ml): 30 Total IV fluid infused: 30 Progress Note Anesthesia document: Postop Eval 1 completed: Yes
--- NOTE | 2024-05-24 07:10 | OP.CCLET_ITS ---
05/24/2024 Amish Tavares MD [address] [id number] Re : Upper GI endoscopy procedure for Stephanie Alcantar Dear Dr. Tavares This procedure was performed on Friday, May 24, 2024. My impressions and recommendations are as follows: Impressions : - Esophageal mucosal changes secondary to established short-segment Blount's disease. Biopsied. - Moderate Schatzki ring. Dilated. - No gross lesions in the second portion of the duodenum. Recommendations : - Discharge patient to home. - Resume previous diet. - Continue present medications. - Await pathology results. - Repeat upper endoscopy in 1.5 years for surveillance. My findings are described in the full procedure note, which is enclosed. If I can be of further assistance, please feel free to contact me at . Sincerely, Yaakov Ambriz, 05/24/2024 7:09:40 AM This report has been signed electronically.
--- NOTE | 2024-05-24 07:10 | OP.EGD_ITS ---
Patient Name: Stephanie Alcantar Procedure Date: 05/24/2024 6:30 AM Date of : 1960 Age: 63 Procedure: Upper GI endoscopy Indications: Dysphagia, Follow-up of Blount's esophagus Providers: Yaakov Ambriz DO Medicines: Monitored Anesthesia Care Patient Profile: This is a 63 year old female. Refer to note in patient chart for documentation of history and physical. Patient has symptoms of chronic dysphagia, dysphagia with solids and chronic heartburn. Complications: No immediate complications. Procedure: Pre-Anesthesia Assessment: - Prior to the procedure, a History and Physical was performed, and patient medications and allergies were reviewed. The patient is competent. The risks and benefits of the procedure and the sedation options and risks were discussed with the patient. All questions were answered and informed consent was obtained. Patient identification and proposed procedure were verified by the physician in the pre-procedure area. Mental Status Examination: alert and oriented. Airway Examination: normal oropharyngeal airway and neck mobility. Respiratory Examination: clear to auscultation. CV Examination: normal. Prophylactic Antibiotics: The patient does not require prophylactic antibiotics. Prior Anticoagulants: The patient has taken no anticoagulant or antiplatelet agents except for NSAID medication. ASA Grade Assessment: II - A patient with mild systemic disease. After reviewing the risks and benefits, the patient was deemed in satisfactory condition to undergo the procedure. The anesthesia plan was to use monitored anesthesia care (MAC). Immediately prior to administration of medications, the patient was re-assessed for adequacy to receive sedatives. The heart rate, respiratory rate, oxygen saturations, blood pressure, adequacy of pulmonary ventilation, and response to care were monitored throughout the procedure. The physical status of the patient was re-assessed after the procedure. After obtaining informed consent, the endoscope was passed under direct vision. Throughout the procedure, the patient's blood pressure, pulse, and oxygen saturations were monitored continuously. The Endoscope was introduced through the mouth, and advanced to the second part of duodenum. The upper GI endoscopy was accomplished without difficulty. The patient tolerated the procedure well. Scope In: 6:53:59 AM Scope Out: 7:00:20 AM Total Procedure Duration Time 0 hours 6 minutes 21 seconds Findings: There were esophageal mucosal changes secondary to established short-segment Blount's disease present in the lower third of the esophagus. The maximum longitudinal extent of these mucosal changes was 2 cm in length. Imaging was performed using the Pentax i-Scan system to visualize the mucosa. This was biopsied with a cold forceps for histology. Verification of patient identification for the specimen was done. Estimated blood loss was minimal. A moderate Schatzki ring was found at the gastroesophageal junction. A guidewire was placed and the scope was withdrawn. Dilation was performed with a Savary dilator with no resistance at 60 Fr. The dilation site was examined and showed moderate mucosal disruption. No other significant abnormalities were identified in a careful examination of the stomach. No gross lesions were noted in the second portion of the duodenum. 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 Biopsied. - Moderate Schatzki ring. Dilated. - No gross lesions in the second portion of the duodenum. Recommendation: - Discharge patient to home. - Resume previous diet. - Continue present medications. - Await pathology results. - Repeat upper endoscopy in 1.5 years for surveillance. Procedure Code(s): --- Professional --- 49649, Esophagogastroduodenoscopy, flexible, transoral; with insertion of guide wire followed by passage of dilator(s) through esophagus over guide wire [id number], 59,51, Esophagogastroduodenoscopy, flexible, transoral; with biopsy, single or multiple CPT copyright 2021 [employer]. All rights reserved. The codes documented in this report are preliminary and upon tow mate review may be revised to meet current compliance requirements. Yaakov Ambriz DO 05/24/2024 7:09:40 AM This report has been signed electronically. Number of Addenda: 0 Note Initiated On: 05/24/2024 6:30 AM
[2024-05-24] MEDS: Pantoprazole Sodium 40 MG in 0.9% Normal Saline (100mL MB+) 100 ML 330 MG IV (07:34)
--- NOTE | 2024-05-24 07:39 | PCM.POSTANE2 ---
Anesthesia Postop Eval I Sum Postop Eval Completion status Anesthesia document: Postop Eval 1 completed: Yes Anesthesia Postop Eval I Summary Anesthesia Postop Eval I Summary: Anesthesia Postop Eval I: Assessment Summary Airway patent Yes 05/24/24 07:09 [email or web address] Spontaneous unlabored Yes 05/24/24 07:09 [email or web address] respirations Mental status Asleep 05/24/24 07:09 [email or web address] nausea No 05/24/24 07:09 [email or web address] Vomiting No 05/24/24 07:09 [email or web address] Anesthesia Postop Eval I: Fluid Summary Crystalloid volume administer 30 05/24/24 07:09 [email or web address] (ml) Colloids volume administered ( ml) Blood Product volume administered (ml) Total IV fluid infused 30 05/24/24 07:09 [email or web address] Anesthesia Postop Eval I: Summary Notes Anesthesia Complication No 05/24/24 07:09 [email or web address] Anesthesia Complication Comment: Post-operative progress note Anesthesia: Postop Eval II Evaluation Mental status: Awake Pain Level: 0 nausea: No Vomiting: No
== END 2024-05-24 08:16 | disposition home or self-care (01) ==
LOC: EN 05:23 → AC 05:23
PROVIDERS: PCP Family Medicine; Referring Provider Family Medicine; Visit Provider Internal Medicine Gastroenterology
PROC: 0DJ08ZZ Inspection of Upper Intestinal Tract, Via Natural or Artificial Opening Endoscopic (ICD-10-PCS; CPT 43235; principal; 2024-05-24 06:25)
DX: K21.00 Gastro-esophageal reflux disease with esophagitis, without bleeding (principal); K22.2 Esophageal obstruction; K44.9 Diaphragmatic hernia without obstruction or gangrene; K22.70 Barrett's esophagus without dysplasia; Z79.899 Other long term (current) drug therapy
CPT/HCPCS: 43239; 43248; 88305; 88312; A4216; C1769; J2405

== ENCOUNTER → 2024-06-05 | Outpatient (CLI) | payer OTHER, SELFPAY ==
[2024-06-05 18:09] LABS: ALB/GLOB Ratio 1.1 RATIO (0.9-2.4); AST(SGOT) 25 U/L (<=31); Absolute Lymphocyte Count 1.77 X10^3/uL (0.83-4.51); Absolute Neutrophil Count 5.8 X10^3/uL (2.0-7.7); Alanine Aminotransfer ALT/SGPT 16 U/L (<=34); Albumin, Serum 3.9 g/dL (3.4-4.8); Alkaline Phosphatase 60 U/L (35-104); Anion Gap 8 (5-15); BUN 14 mg/dL (4-19); BUN/Creat Ratio 17.2 RATIO (10-20); Basophil# 0.07 X10^3/uL; Basophil% 0.8 % (0-1); Carbon Dioxide 26.9 mmol/L (21.0-32.0); Chloride 105 mmol/L (98-108); Creatinine, Serum 0.83 mg/dL (0.70-1.20); EST Glomerular Filtration Rate 80 (>60); Eosinophils% 2.3 % (0-5); Globulin 3.5 g/dL (2.2-4.2); Glucose 87 mg/dL (70-99); Hematocrit 39.3 % (37-47); Hemoglobin 12.8 g/dL (12.0-15.0); Lymphocyte # 1.77 X10^3/ul (0.83-4.51); Lymphocyte % 20.3 % (19-41); Mean Corp Hgb Conc 32.6 g/dL (32-36); Mean Corpuscular Hgb 29.4 pg (27.0-32.0); Mean Corpuscular Volume 90.3 fL (81-99); Mean Platelet Vol. 8.7 fl (6.2-12.0); Monocyte# 0.82 X10^3/uL; Monocyte% 9.4 % (0-10); NRBC Flagged by Analyzer 0 % (0-5); Neutrophil # 5.84 X10^3/uL (2.7-7.7); Neutrophil % 66.7 % (47-70); Platelet Count 343 K/mm3 (150-450); Potassium 4.7 mmol/L (3.3-5.1); Protein, Total 7.4 g/dL (5.9-8.4); RBC Distribution Width CV 13.2 % (11.6-14.6); RBC Distribution Width SD 42.7 fl (35.1-43.9); Red Blood Count 4.35 M/mm3 (4.2-5.4); Sodium Level 140 mmol/L (133-145); Total Bilirubin 0.28 mg/dL (0.00-1.30); White Blood Count 8.7 K/mm3 (4.4-11.0)
== END | disposition home or self-care (01) ==
LOC: MTLAB 14:35
PROVIDERS: PCP Family Medicine; Referring Provider Internal Medicine Rheumatology; Visit Provider Internal Medicine Rheumatology
DX: M05.751 Rheumatoid arthritis with rheumatoid factor of right hip without organ or systems involvement (principal); Z79.899 Other long term (current) drug therapy
CPT/HCPCS: 36415; 80053; 85025

== ENCOUNTER → 2024-06-30 | Outpatient (CLI) | payer OTHER, SELFPAY ==
--- NOTE | 2024-06-30 10:57 | VDLE_ITS ---
Reason For Study Reason For Study: Swelling RIGHT LEFT GSV is normal. GSV is normal. CFV is compressible, spontaneous, phasic, competent CFV is compressible, spontaneous, phasic, competent, and demonstrates normal augmentation. and demonstrates normal augmentation. FV is compressible, spontaneous, phasic, competent FV is compressible, spontaneous, phasic, competent and demonstrates normal augmentation. and demonstrates normal augmentation. POP V is compressible, spontaneous, phasic, competent POP V is compressible, spontaneous, phasic, competent and demonstrates normal augmentation. and demonstrates normal augmentation. T/P Trunk is compressible. T/P Trunk is compressible. PTV is compressible. PTV is compressible. RT PerV is compressible. LT PerV is compressible. Procedure This is a venous duplex using B-mode, color flow and spectral Doppler. Exam performed in department. A preliminary report was called and/or faxed to Jatin Lopez DPM. VL/Venous Duplex US - Rob Extrem Interpretation Summary Deep veins of the bilateral lower extremities are patent and compressible segme ntally. There is no evidence of bilateral lower extremity deep vein thrombosis. The bilateral great saphenous veins appea r patent and compressible segmentally. Ordering Physician: Jatin Lopez Referring Physician: Amish Tavares Performed By: Lennie Gomez RVT
== END | disposition home or self-care (01) ==
LOC: CVS 10:53
PROVIDERS: PCP Family Medicine; Referring Provider Podiatrist; Visit Provider Podiatrist
DX: M79.89 Other specified soft tissue disorders (principal); M79.661 Pain in right lower leg; M79.662 Pain in left lower leg
CPT/HCPCS: 93970

== ENCOUNTER → 2024-07-05 | Outpatient (CLI) | payer OTHER, SELFPAY ==
[2024-07-05 11:44] LABS: Anion Gap 10 (5-15); BUN 14 mg/dL (4-19); BUN/Creat Ratio 16.7 RATIO (10-20); Calcium,Total 9.5 mg/dL (7.6-11.0); Carbon Dioxide 27.5 mmol/L (21.0-32.0); Chloride 104 mmol/L (98-108); Creatinine, Serum 0.83 mg/dL (0.70-1.20); EST Glomerular Filtration Rate 80 (>60); Glucose 97 mg/dL (70-99); Potassium 4.6 mmol/L (3.3-5.1); Sodium Level 141 mmol/L (133-145)
== END | disposition home or self-care (01) ==
LOC: MTLAB 08:57
PROVIDERS: PCP Family Medicine; Referring Provider Family Medicine; Visit Provider Family Medicine
DX: R79.89 Other specified abnormal findings of blood chemistry (principal)
CPT/HCPCS: 36415; 80048

== ENCOUNTER → 2024-07-17 | Outpatient (CLI) | payer OTHER, SELFPAY ==
--- NOTE | 2024-07-17 07:11 | BI_ITS ---
EXAM: SCRN MAMM (CAD)W/GINA BILAT DATE: 07/17/2024 CLINICAL HISTORY: F, Age 63 y/o , SCREENING BREAST CANCER RISK ASSESSMENT: Has not been calculated. TECHNIQUE: Bilateral screening digital breast tomosynthesis with 2D and 3D images. Computer aided detection. COMPARISON: Prior exam(s) dated 07/16/2023 and 07/06/2022. FINDINGS: TISSUE DENSITY: The breast tissue is heterogenously dense, which may obscure small masses. Bilateral Breast Mammographic Findings: No suspicious masses, suspicious cluster of microcalcifications, architectural distortion or secondary sign of malignancy is identified in either breast. Benign round calcifications are seen in both breasts. BI/SCRN MAMM (CAD)W/GINA BILAT IMPRESSION: OVERALL FINAL ASSESSMENT: BIRADS 2 BENIGN FINDING RECOMMENDATION: Routine annual follow-up in 1 Year A letter with findings and recommendations will be mailed to the patient. Reading Location: [id number]
== END | disposition home or self-care (01) ==
LOC: OPBI 07:10
PROVIDERS: PCP Family Medicine; Referring Provider Obstetrics & Gynecology; Visit Provider Obstetrics & Gynecology
DX: Z12.31 Encounter for screening mammogram for malignant neoplasm of breast (principal)
CPT/HCPCS: 77063; 77067

== ENCOUNTER 2024-07-27 14:30 | Outpatient (RCR) | payer OTHER, SELFPAY ==
--- NOTE | 2024-07-27 15:10 | HP.OTEVAL ---
Patient's Visit Information Visit Information Visit Information: MAIA DAVIES is a 63 year old F, referred to Occupational Therapy by Dr. Amish Tavares MD, with a diagnosis of swelling of right LE. Date of Evaluation: 07/12/24 Occupational Therapist: Patricia Ricardo, AMIRAH/Marcelina, CHT Subjective Subjective: This 63-year-old female was seen for OT eval with dx of lymphedema. Pt states she has had swelling in her right LE. states she suffered a fall at her mom's about a 1.5 years ago and had increase in right leg swelling. Pt states her ortho Dr did blood work and fond pt had RA. pt states she had doppler - this came back neg. pt did water pills and steroids and Ibuprofen and swelling went down to " almost Normal". pt states she does were compression socks, but they are knee high- right knee does swell her ortho has had to drain her knee a few times. pt would like to know what she can do to limit her swelling pt denies swelling of right leg as a child or pre-teen. pt states she is very active- likes to swim and walks almost 4 miles a day. Pain right leg: Current Pain Intensity: 1 Pain Intensity Range: 7 Lymphedema (Circumferential Measure) Mid-foot: right 24cm left 23cm Ankle: right 26.5cm left 26cm Lower calf: right 28cm left 27cm Largest calf: right 39cm left 38cm Below knee: right 38cm left 34cm Above knee: right 46cm left 42cm Lower Exremity Comments: knee right 45 left 40 Goals Goal: Patient will demonstrate a 20% reduction in edema by discharge: Yes Goal: Patient will demonstrate adequate knowledge of self-bandaging by the end of the first week.: Yes Goal: Patient will demonstrate adequate knowledge of self-massage by the end of the second week.: Yes Goal: Patient will demonstrate adequate knowledge of therapeutic exercises by discharge.: Yes Goal: Patient will select an appropriate compression garment and demonstrate adequate knowledge of correct donning technique, care and wearing schedule by discharge.: Yes Goal: Patient will voice understanding of need to replace compression garment every four to six months by discharge.: Yes Rehabilitation General Assessment: pt demo with swelling of right LE. pt states she struggles with swelling of her joints due to RA and has had swelling since her knee replacement. Pt states swelling has just continued to get worse. pt demo with lymphedema and would benefit from skilled OT services 2-4 visits to ed. pt on lifelong mtg of LE lymphedema. today therapist ed. pt on new compression socks 20-30 mmHg vs 10-15 mmHg. pt was receptive in getting new compression socks. therapist ed. pt on short stretch wrapping, lymphedema exercises and self manual lymph massage. pt was given handouts and demo understanding and agree to POC. Rehabilitation Potential: Good Anticipated Interventions Anticipated Interventions: Education re assistive Equipment, Education re Diagnosis, Manual Lymph Drainage, Education re Life-long lymphedema Management, Education re Self-Bandaging Techniques, Education re Skin Care and Precautions, Education re Self Massage Techniques, Education re Correct Donning Tech,Care&Wearing Sched Comp Garments and Home Program Visit Plan Frequency: Every Other Week Duration: 4 Weeks TEXT: Thank you for the opportunity to evaluate your patient. For Medicare and Medicare HMO plans, please review the plan of care and approve it. It will need to be FAXED BACK to us at [phone] for Medicare purposes. Please let me know if there are questions or concerns regarding this plan of care. Physician Signature: Date:
--- NOTE | 2024-12-06 13:13 | HP.OTDCNRP_ITS ---
Patient Information Patient Information: MAIA DAVIES was seen in my office for initial evaluation on 07/12/24. The following Plan of Care was established for this patient: POC Established Initial Frequency: Every Other Week Initial Duration: 4 Weeks Anticipated Interventions Anticipated Interventions: Education re assistive Equipment, Education re Diagnosis, Manual Lymph Drainage, Education re Life-long lymphedema Management, Education re Self-Bandaging Techniques, Education re Skin Care and Precautions, Education re Self Massage Techniques, Education re Correct Donning Tech,Care&We aring Sched Comp Garments and Home Program Last Seen Last Seen: This patient was last seen in our office 07/27/24. Pertinent comments regarding their Occupational therapy will appear below: No further apts have been scheduled, due to time lapse in service pt is d/c. At this point I will be discontinuing this patient from occupational therapy. I would be happy to see this patient again in the future if found appropriate by the physician. Thank you! Patricia Ricardo, OTR/L, CHT
== END 2024-07-27 19:00 | disposition home or self-care (01) ==
LOC: OT 14:30
PROVIDERS: PCP Family Medicine; Referring Provider Family Medicine; Visit Provider Family Medicine
DX: R60.9 Edema, unspecified (principal)
CPT/HCPCS: 97166; 97530

== ENCOUNTER → 2024-08-02 | Outpatient (CLI) | payer OTHER, SELFPAY ==
--- NOTE | 2024-08-02 06:59 | CT_ITS ---
PROCEDURE: ABDOMEN/PELVIS WITH CONTRAST 08/02/2024 REASON FOR EXAM: LUQ PAIN AND LYMPHADEMA TECHNIQUE: Abdomen and pelvis CT with intravenous contrast. Coronal and Sagittal reconstruction series were provided. PATIENT PREPARATION: Per protocol ORAL CONTRAST TYPE: None. CONTRAST: Isovue-300 VOLUME: 100 mL One or more dose reduction techniques were used (e.g., Automated exposure control, adjustment of the mA and/or kV according to patient size, use of iterative reconstruction technique. RADIATION DOSE SUMMARY: CTDlvol: 16.5 mGy DLP: 1009.87 mGycm COMPARISON: Prior study dated August 08, 2021. FINDINGS: Lung bases: Unremarkable Liver: Normal size. No mass. Gallbladder: Gallstones. Spleen: Normal size. Pancreas: Normal size without evidence of mass surrounding inflammation or ductal dilation. Adrenals: Unremarkable Kidneys: Normal renal sizes. No hydronephrosis. Bladder: Unremarkable Reproductive Organs: Normal uterine size and contour. Ovaries are unremarkable. Bowel: Unremarkable Appendix: Unremarkable Lymph nodes: Unremarkable. Vasculature: The abdominal aorta and IVC are normal. Peritoneum / Retroperitoneum: Unremarkable Bones: Prior vertebroplasty and loss of height of the L3 and L4 vertebrae. CT/Abdomen/Pelvis WITH Contrast IMPRESSION: Findings suggestive of cholelithiasis. Prior vertebroplasty of the L3 and L4 vertebrae. Reading Location: [id number]
== END | disposition home or self-care (01) ==
LOC: CT 06:59
PROVIDERS: PCP Family Medicine; Referring Provider Obstetrics & Gynecology; Visit Provider Obstetrics & Gynecology
DX: I89.0 Lymphedema, not elsewhere classified (principal); R10.12 Left upper quadrant pain
CPT/HCPCS: 74177; Q9967; A4216

== ENCOUNTER → 2024-08-04 | Outpatient (CLI) | payer OTHER, SELFPAY ==
[2024-08-04 12:34] LABS: Absolute Lymphocyte Count 1.97 X10^3/uL (0.83-4.51); Absolute Neutrophil Count 5.3 X10^3/uL (2.0-7.7); Basophil% 1.2 % (0-1); Eosinophils% 3.6 % (0-5); Hematocrit 39.8 % (37-47); Hemoglobin 12.8 g/dL (12.0-15.0); Lymphocyte # 1.97 X10^3/ul (0.83-4.51); Lymphocyte % 23.5 % (19-41); Mean Corp Hgb Conc 32.2 g/dL (32-36); Mean Corpuscular Hgb 29.4 pg (27.0-32.0); Mean Corpuscular Volume 91.5 fL (81-99); Mean Platelet Vol. 8.5 fl (6.2-12.0); Monocyte# 0.71 X10^3/uL; Monocyte% 8.5 % (0-10); NRBC Flagged by Analyzer 0 % (0-5); Neutrophil # 5.28 X10^3/uL (2.7-7.7); Neutrophil % 62.7 % (47-70); Platelet Count 325 K/mm3 (150-450); RBC Distribution Width SD 46.6 fl (35.1-43.9); Red Blood Count 4.35 M/mm3 (4.2-5.4); White Blood Count 8.4 K/mm3 (4.4-11.0)
[2024-08-04 12:47] LABS: ALB/GLOB Ratio 1.1 RATIO (0.9-2.4); AST(SGOT) 38 U/L (<=31); Alanine Aminotransfer ALT/SGPT 27 U/L (<=34); Albumin, Serum 3.9 g/dL (3.4-4.8); Alkaline Phosphatase 61 U/L (35-104); Anion Gap 8 (5-15); BUN 16 mg/dL (4-19); BUN/Creat Ratio 21.5 RATIO (10-20); Calcium,Total 9.8 mg/dL (7.6-11.0); Carbon Dioxide 28.4 mmol/L (21.0-32.0); Chloride 101 mmol/L (98-108); Creatinine, Serum 0.75 mg/dL (0.70-1.20); EST Glomerular Filtration Rate 90 (>60); Globulin 3.5 g/dL (2.2-4.2); Glucose 96 mg/dL (70-99); Protein, Total 7.4 g/dL (5.9-8.4); Sodium Level 138 mmol/L (133-145); Total Bilirubin 0.54 mg/dL (0.00-1.30)
== END | disposition home or self-care (01) ==
LOC: MTLAB 10:48
PROVIDERS: PCP Family Medicine; Referring Provider Internal Medicine Rheumatology; Visit Provider Internal Medicine Rheumatology
DX: M05.751 Rheumatoid arthritis with rheumatoid factor of right hip without organ or systems involvement (principal); Z79.899 Other long term (current) drug therapy
CPT/HCPCS: 36415; 80053; 85025

== ENCOUNTER → 2024-10-04 | Outpatient (CLI) | payer OTHER, SELFPAY ==
[2024-10-04 15:20] LABS: Hematocrit 42.3 % (37-47); Hemoglobin 13.9 g/dL (12.0-15.0); Immature Granulocytes Count 0.030 X10^3/uL (0.0-0.0); Mean Corp Hgb Conc 32.9 g/dL (32-36); Mean Corpuscular Volume 92.8 fL (81-99); Mean Platelet Vol. 8.5 fl (6.2-12.0); NRBC Flagged by Analyzer 0 % (0-5); Platelet Count 338 K/mm3 (150-450); RBC Distribution Width CV 14.5 % (11.6-14.6); RBC Distribution Width SD 48.9 fl (35.1-43.9); Red Blood Count 4.56 M/mm3 (4.2-5.4); White Blood Count 7.5 K/mm3 (4.4-11.0)
[2024-10-04 15:48] LABS: AST(SGOT) 27 U/L (<=31); Alanine Aminotransfer ALT/SGPT 15 U/L (<=34); Albumin, Serum 3.9 g/dL (3.4-4.8); Alkaline Phosphatase 68 U/L (35-104); Anion Gap 10 (5-15); BUN 14 mg/dL (4-19); BUN/Creat Ratio 17.7 RATIO (10-20); Calcium,Total 9.7 mg/dL (7.6-11.0); Carbon Dioxide 28.5 mmol/L (21.0-32.0); Chloride 104 mmol/L (98-108); Globulin 3.5 g/dL (2.2-4.2); Glucose 72 mg/dL (70-99); Potassium 4.1 mmol/L (3.3-5.1)
== END | disposition home or self-care (01) ==
LOC: MTLAB 10:58
PROVIDERS: PCP Family Medicine; Referring Provider Internal Medicine Rheumatology; Visit Provider Internal Medicine Rheumatology
DX: M05.751 Rheumatoid arthritis with rheumatoid factor of right hip without organ or systems involvement (principal); Z79.899 Other long term (current) drug therapy; K76.0 Fatty (change of) liver, not elsewhere classified
CPT/HCPCS: 36415; 80053; 85025

== ENCOUNTER → 2025-02-01 | Outpatient (CLI) | payer OTHER, SELFPAY ==
[2025-02-01 15:22] LABS: Hematocrit 40.2 % (37-47); Hemoglobin 13.0 g/dL (12.0-15.0); Immature Granulocytes Count 0.060 X10^3/uL (0.0-0.0); Mean Corp Hgb Conc 32.3 g/dL (32-36); Mean Corpuscular Volume 91.4 fL (81-99); Mean Platelet Vol. 8.7 fl (6.2-12.0); NRBC Flagged by Analyzer 0 % (0-5); Platelet Count 352 K/mm3 (150-450); RBC Distribution Width CV 13.9 % (11.6-14.6); RBC Distribution Width SD 46.0 fl (35.1-43.9); Red Blood Count 4.40 M/mm3 (4.2-5.4); White Blood Count 8.7 K/mm3 (4.4-11.0)
[2025-02-01 15:38] LABS: AST(SGOT) 24 U/L (<=31); Alanine Aminotransfer ALT/SGPT 16 U/L (<=34); Albumin, Serum 3.9 g/dL (3.4-4.8); Alkaline Phosphatase 63 U/L (35-104); Anion Gap 9 (5-15); BUN 15 mg/dL (4-19); BUN/Creat Ratio 19.5 RATIO (10-20); Calcium,Total 10.0 mg/dL (7.6-11.0); Carbon Dioxide 27.7 mmol/L (21.0-32.0); Chloride 103 mmol/L (98-108); Globulin 3.7 g/dL (2.2-4.2); Glucose 101 mg/dL (70-99); Potassium 4.1 mmol/L (3.3-5.1)
--- OUTSIDE RECORDS SUMMARY | 2025-02-01 18:42 | XMS RPT_ITS | CCD ---
Author Organization [facility] Care Team Providers Care Brake Adjuster Name Role Phone Rashmi Templeton DC Unavailable Debora Curry Unavailable Unavailable Debora Curry Unavailable Unavailable Rashmi Templeton DC Unavailable Dr. Amish Tavares Primary Care Provider Dr. Amish Tavares Referring Provider Dr. Sebastián Stratton Attending Provider Dr. Amish Tavares Primary Care Provider Dr. Amish Tavares Referring Provider Renan BURROWS, STORMY-C Angela Bunch Attending Provider [phone] Dr. Yaakov Ambriz Attending Provider [phone] Dr. Yaakov Ambriz Other Provider [phone] Amish Tavares Primary Care Provider Dr. Amish Tavares Referring Provider Roz CEE, PA Ajay Bunch Attending Provider Renan BURROWS, STORMY-[place] Bunch Attending Provider Dr. Amish Tavares Primary Care Provider Dr. Amish Tavares Referring Provider Dr. Rashmi Templeton Attending Provider [phone] Kavitha CEE, PA Esa Attending Provider [phone] Dr. Ashok Bazzi Attending Provider [phone] Dr. Nnamdi Morales Attending Provider [phone] Friend, Dr. Nuno Attending Provider [phone] Friend, Dr. Nuno Other Provider [phone] Chaitanya, Dr. Wellington Primary Care Provider Chaitanya, Dr. Wellington Referring Provider Dr. Ashok Bazzi Attending Provider [phone] Andrew, Dr. Coto Attending Provider [phone] Friend, Dr. Nuno Attending Provider [phone] Friend, Dr. Nuno Other Provider [phone] Bear Pryor Attending Provider Chaitanya, Dr. Wellington Primary Care Provider Chaitanya, Dr. Wellington Referring Provider Chaitanya, Dr. Wellington Primary Care Provider Chaitanya, Dr. Wellington Referring Provider Katina, Dr. Nuno Attending Provider [phone] Chaitanya, Dr. Wellington Primary Care Provider Chaitanya, Dr. Wellington Referring Provider Katina, Dr. Nuno Attending Provider [phone] Dr. Delicia Smith Attending Provider Chaitanya, Dr. Wellington Primary Care Provider Chaitanya, Dr. [place] Referring Provider Chaitanya MANN, Dr. Wellington Primary Care Provider Chaitanya MANN, Dr. [place] Referring Provider Joshua Goddard Attending Provider Ajay Thakkar Attending Provider King JOHNATHAN, Dr. Sifuentes Attending Provider King JOHNATHAN, Dr. Sifuentes Referring Provider Erendira MANN, Dr. Taylor Attending Provider Erendira MANN, Dr. Taylor Referring Provider Katty MANN, Dr. Loyd Attending Provider Katina MCCLOUD, Dr. Nuno Attending Provider Katty MANN, Dr. Loyd Referring Provider Katina MCCLOUD, Dr. Nuno Other Provider Chaitanya MANN, Dr. Wellington Primary Care Provider Chaitanya MANN, Dr. Wellington Referring Provider John DPM, Dr. Steiner Attending Provider John KCM, Dr. Steiner Referring Provider Cecelia MANN, Dr. Regan Attending Provider Chaitanya MANN, Dr. Wellington Attending Provider Sam Luo DO, Dr. Nesbitt Attending Provider Chaitanya MANN, Dr. Wellington Primary Care Provider Erendira MANN, Dr. Taylor Attending Provider Erendira MANN, Dr. Taylor Referring Provider Sam Lou DO, Dr. Nesbitt Referring Provider Assessment, Health Risk Attending Provider Unava ilable Assessment, Health Risk Referring Provider Unava ilable Chaitanya MANN, Dr. Wellington Primary Care Provider Chaitanya MANN, Dr. [place] Referring Provider Katty MANN, Dr. Loyd Attending Provider Erendira MANN, Dr. Taylor Attending Provider Erendira MANN, Dr. Taylor Referring Provider Nancy MANN, Dr. Ajay Pedro Attending Provider Chaitanya MANN, Dr. Wellington Primary Care Physician Chaitanya MANN, Dr. Wellington Referring Provider Nancy MANN, Dr. Ajay Pedro Attending Physician Erendira MANN, Dr. Taylor Attending Physician Erendira MANN, Dr. Taylor Referring Provider Amish Tavares Primary Care Unavailable Vellanki, Claudia Referring Unavailable Vellanki, Claudia Attending Unavailable Tavares, Amish Primary Care Unavailable Tavares, Amish Referring Unavailable Tavares, Amish Attending Unavailable Tavares, Amish Primary Care Unavailable FriendYaakov Attending Unavailable Tavares, Amish Referring Unavailable Tavares, Amish Referring Unavailable Tavares, Amish Primary Care Unavailable Tavares, Amish Attending Unavailable Delicia Smith Attending Unavailabl e Vande VelDelicia ceballos Referring Unavailabl e Tavares, Amish Primary Care Unavailable Vellanki, Claudia Referring Unavailable Vellanki, Claudia Attending Unavailable Tavares, Amish Primary Care Unavailable Friend, Yaakov Attending Unavailable Tavares, Amish Referring Unavailable Tavares, Amish Primary Care Unavailable Jatin Lopez Attending Unavailable Jatin Lopez Referring Unavailable Tavares, Amish Primary Care Unavailable Evert Alaniz Attending Unavailable Evert Alaniz Referring Unavailable Tavares, Maish Primary Care Unavailable Delicia Smith Attending Unavailabl e Vande VeldeDelicia Referring Unavailabl e Tavares, Amish Primary Care Unavailable Vellanki, Claudia Referring Unavailable Vellanki, Claudia Attending Unavailable Tavares, Amish Primary Care Unavailable Tavares, Amish Primary Care Unavailable Bear Pryor Attending Unavailable Bear Pryor Referring Unavailable Tavares, Amish Primary Care Unavailable Vellanki, Claudia Referring Unavailable Vellanki, Claudia Attending Unavailable Tavares, Amish Primary Care Unavailable Vellanki, Claudia Referring Unavailable Vellanki, Claudia Attending Unavailable Tavares, Amish Primary Care Unavailable Tavares, Amish Attending Unavailable Tavares, Amish Referring Unavailable Assessment, Health Risk Attending Unavaila ble Assessment, Health Risk Referring Unavaila ble Chaitanya, Amish Primary Care Unavailable Nnamdi Morales Attending Unavailable Nnamdi Morales Referring Unavailable Tavares, Amish Primary Care Unavailable Evert Alanzi Attending Unavailable Amish Tavares Referring Unavailable Tavares, Amish Primary Care Unavailable Tavares, Amish Primary Care Unavailable Bear Pryor Attending Unavailable Amish Tavares Referring Unavailable Joshua Goddard Attending Unavailable Tavares, Amish Primary Care Unavailable Tavares, Amish Referring Unavailable Tavares, Amish Primary Care Unavailable Evert Alaniz Attending Unavailable Chaitanya, Amish Referring Unavailable Vellanki, Claudia Referring Unavailable Vellanki, Claudia Attending Unavailable Tavares, Amish Primary Care Unavailable Baddour, Evert Attending Unavailable Tavares, Amish Primary Care Unavailable Friend, Yaakov Consulting Unavailable Friend, Yaakov Attending Unavailable Tavares, Amish Referring Unavailable Tavares, Amish Primary Care Unavailable Jass Rai Attending Unavailable Jatin Lopez Referring Unavailable Tavares, Amish Primary Care Unavailable Ajay Cruz Attending Unavailable Tavares, Amish Primary Care Unavailable Tavares, Amish Referring Unavailable Evert Alaniz Attending Unavailable Evert Alaniz Referring Unavailable Tavares, Amish Primary Care Unavailable Ajay Thakkar Attending Unavailable Tavares, Amish Primary Care Unavailable Tavares, Amish Referring Unavailable Nnamdi Morales Attending Unavailable Tavares, Amish Primary Care Unavailable Tavares, Amish Referring Unavailable Friend, Yaakov Attending Unavailable Tavares, Amish Referring Unavailable Tavares, Amish Primary Care Unavailable Delicia Smith Attending Unavailabl e Tavares, Amish Referring Unavailable Velpepe, Claudia Referring Unavailable Erendira, Claudia Attending Unavailable Tavares, Amish Primary Care Unavailable Allergies Allergy Classification Reported Allergen(s) Allergy Type Date of Onset Reaction(s) Facility (20 sources) celecoxib Drug Allergy 1 Shortness of breath [facility] (20 sources) Magnesium Drug Allergy 1 Other [facility] (1 source) celecoxib Drug Allergy 5 [facility] (1 source) Magnesium Drug Allergy 5 [facility] Medications Current Medications Medication Drug Class(es) Dates Sig (Normalized) Sig (Original) Calcium (20 sources) Phosphate Binder, Calcium Start: 09-07-2023 Start: 09-07-2023 Calcium 600 mg capsule Active 600 mg PO WE September 07, 2023 9:04am Start: 05-07-2023 End: 09-07-2023 take 1 capsule by mouth once daily Calcium 600 mg capsule Discontinued 600 mg PO DAILY May 07, 2023 1:00am September 07, 2023 9:05am Start: 05-07-2023 take 600 mg by mouth once destiny y Calcium Active 600 MG PO DAILY May 07, 2023 1:00am Start: 05-07-2023 take 600 mg by mouth once destiny y Calcium Active 600 MG PO DAILY May 07, 2023 12:00am cholecalciferol 0.05 mg oral capsule (20 sources) Vitamin D Start: 09-07-2023 take 1 capsule by [facility] every other day Start: 07-06-2023 End: 09-07-2023 take 1 capsule by mouth once daily Cholecalciferol (Vitamin D3) 50 mcg (2,000 unit) capsule Discontinued 50 ug PO DAILY July 06, 2023 12:00am September 07, 2023 9:05am Start: 11-13-2022 End: 07-06-2023 take 1 capsule by mouth once daily Cholecalciferol (Vitamin D3) 10 mcg (400 unit) capsule Discontinued 10 ug PO DAILY November 13, 2022 12:00am July 06, 2023 1:25pm clindamycin 300 mg oral capsule (6 sources) Lincosamide Antibacterial Start: 07-03-2024 take 2 tablets by mouth every hour flurbiprofen 100 mg oral tablet (18 sources) Nonsteroidal Anti-inflammatory Drug Start: 07-24-2024 take 1 tablet by mouth once daily as needed for pain Start: 01-03-2024 End: 07-24-2024 take 1 tablet by mouth three times daily as needed for pain Flurbiprofen 100 mg tablet Discontinued 100 mg PO THREE TIMES A DAY as needed for pain 90 6 April 18, 2024 3:32pm July 24, 2024 3:07pm folic acid 20 mg oral capsul e (20 sources) Start: 01-26-2024 take 1 capsule by [facility] once daily Start: 05-07-2023 End: 07-06-2023 take 2 tablets by mouth once daily Folic Acid 1 mg tablet Discontinued 2 mg PO DAILY May 07, 2023 1:00am July 06, 2023 1:24pm Start: 05-07-2023 End: 07-06-2023 take 2 mg by mouth once daily Folic Acid Discontinued 2 MG PO DAILY May 07, 2023 1:00am July 06, 2023 1:24pm furosemide 20 mg oral tablet (7 sources) Loop Diuretic Start: 07-24-2024 take 1 tablet [address] [facility] once daily as needed for edema Start: 02-19-2023 take 20 mg by mouth once daily Furosemide Active 20 MG PO DAILY February 19, 2023 12:00am Meclizine (2 sources) Antiemetic Start: 11-13-2022 Meclizine Acti ve MG PO November 13, 2022 12:00am Mecobalamin (Vitamin B12) (10 sources) Start: 07-06-2023 take 1 tablet by mouth once daily Start: 07-06-2023 take 1 tablet by hank th once daily Mecobalamin (Vitamin B12) 2,500 mcg tablet,chewable Active 2500 ug PO DAILY July 06, 2023 12:00am Start: 07-06-2023 Mecobalamin (V itamin B12) Active MCG PO July 06, 2023 12:00am methotrexate 2.5 mg oral tab let (20 sources) Folate Analog Metabolic Inhibitor Start: 12-29-2023 Start: 07-06-2023 End: 12-29-2023 Methotrexate Sodium 2.5 mg t ablet Discontinued 17.5 mg PO EVERY WEEK July 06, 2023 1:24pm December 29, 2023 8:56am Start: 07-06-2023 take 17.5 mg by mout h every week Methotrexate Sodium Active 17.5 MG PO EVERY WEEK July 06, 2023 1:24pm Start: 02-19-2023 End: 07-06-2023 Methotrexate Sodium 2.5 mg t ablet Discontinued 15 mg PO February 19, 2023 1:00am July 06, 2023 1:25pm Start: 02-19-2023 End: 07-06-2023 Methotrexate Sodium Disconti nued 15 MG PO February 19, 2023 1:00am July 06, 2023 1:25pm Start: 02-19-2023 take 10 mg by mouth every week Methotrexate Sodium Active 10 MG PO EVERY WEEK February 19, 2023 12:00am pantoprazole 40 mg delayed release oral tablet (20 sources) Proton Pump Inhibitor Start: 04-20-2024 take 1 tablet by mouth once daily Start: 02-18-2022 take 40 mg by mouth once daily in the morning Pantoprazole Active 40 MG PO EVERY MORNING February 18, 2022 8:14am Start: 11-20-2021 End: 02-18-2022 take 1 tablet by mouth twice daily Pantoprazole 40 mg tablet,delayed release (DR/EC) Discontinued 40 mg PO TWICE A DAY 180 0 November 20, 2021 10:14am February 18, 2022 9:15am Start: 08-04-2021 End: 11-20-2021 take 1 tablet by mouth once daily Pantoprazole 40 mg tablet,delayed release (DR/EC) Discontinued 40 mg PO DAILY 30 2 August 04, 2021 12:00am November 20, 2021 10:14am vitamin k1 5 mg oral tablet (6 sources) Warfarin Reversal Agent, Vitamin K Start: 11-13-2022 take 5 mg by mouth once daily Phytonadione (Vitamin K1) Active 5 MG PO DAILY November 12, 2022 11:00pm Completed/Discontinued Medications Medication Drug Class(es) Dates Sig (Normalized) Sig (Original) 1.56 ml abaloparatide 2 mg/ml pen injector (20 sources) Parathyroid Hormone-Related Peptide Analog Start: 02-19-2023 End: 09-25-2024 Abaloparatide (Tymlos) 80 mcg (3,120 mcg/1.56 mL) pen injector Discontinued 80 ug SC DAILY 1.56 6 August 24, 2024 3:36pm September 25, 2024 11:38am Osteoporosis inject into abdomen; do not inject within 2 inches of belly button/navel; rotate sites acetaminophen 500 mg oral tablet (20 sources) Start: 03-06-2020 End: 02-22-2021 take 2 tablets by mouth every six hours as needed Acetaminophen 500 MG tablet Discontinued 1000 mg PO EVERY 6 HOURS NEEDED 100 0 March 06, 2020 1:00am February 22, 2021 9:47am Start: 03-06-2020 End: 02-22-2021 take 1000 mg by mouth every six hours as needed Acetaminophen Discontinued 1000 MG PO EVERY 6 HOURS NEEDED 100 March 06, 2020 1:00am February 22, 2021 9:47am alendronic acid 70 mg oral tablet (20 sources) Bisphosphonate Start: 10-23-2022 End: 02-19-2023 take 1 tablet by mouth every week Alendronate 70 mg tablet Discontinued 70 mg PO EVERY WEEK October 23, 2022 12:00am February 19, 2023 11:32am amoxicillin 875 mg / clavulanate 125 mg oral tablet (20 sources) Penicillin-class Antibacterial Start: 02-22-2021 End: 08-04-2021 Amoxicillin-Pot Clavulanate (Augmentin) 875-125 mg tablet Discontinued 1 {tbl} PO Q12H 14 0 February 22, 2021 1:00am August 04, 2021 10:48am apixaban 2.5 mg oral tablet (20 sources) Factor Xa Inhibitor Start: 03-06-2020 End: 05-27-2020 take 1 tablet by mouth twice daily Apixaban 2.5 MG tablet Discontinued 2.5 mg PO TWICE A DAY 30 0 March 06, 2020 1:00am May 27, 2020 10:40am azithromycin 250 mg oral tablet (7 sources) Macrolide Antimicrobial Start: 02-22-2024 End: 02-28-2024 Azithromycin 250 mg tablet Discontinued 0 PO .COMPLEX 6 0 February 22, 2024 1:00am February 28, 2024 8:54am For 250 mg dose pack: take 500 mg today (day 1), then 250 mg for 4 days (days 2-5) PO calcium carbonate 1500 mg / cholecalciferol 0.01 mg oral tablet (20 sources) Vitamin D Start: 02-20-2020 End: 07-29-2020 Calcium Carbonate-Vitamin D3 1 EACH tablet Discontinued 1 NMA PO DAILY February 20, 2020 1:00am July 29, 2020 1:23pm Start: 02-20-2020 End: 07-29-2020 Calcium Carbonate-Vitamin D3 Discontinued 1 EACH PO DAILY February 20, 2020 1:00am July 29, 2020 1:23pm cephalexin 500 mg oral capsule (20 sources) Cephalosporin Antibacterial Start: 2023 End: 12-29-2023 take 4 tablets by mouth every hour Cephalexin 500 mg capsule Discontinued 2000 mg PO ONCE 4 2 November 05, 2023 8:00am December 29, 2023 8:55am take 4 tabs within 1 hr prior to dental procedure. cyclobenzaprine hydrochloride 10 mg oral tablet (20 sources) Muscle Relaxant Start: 01-29-2022 End: 11-13-2022 take 1 tablet by mouth three times daily as needed for muscle spasms Cyclobenzaprine 10 mg tablet Discontinued 10 mg PO THREE TIMES A DAY as needed for muscle spasm September 07, 2022 12:00am November 13, 2022 8:25am dexamethasone 6 mg oral tablet (7 sources) Corticosteroid Start: 02-18-2024 End: 02-28-2024 take 1 tablet by mouth once daily Dexamethasone 6 mg tablet Discontinued 6 mg PO DAILY 5 0 February 18, 2024 1:00am February 28, 2024 8:55am etodolac 500 mg oral tablet (20 sources) Nonsteroidal Anti-inflammatory Drug Start: 07-15-2018 End: 01-31-2020 take 1 tablet by mouth once Etodolac 500 mg tablet Discontinued 500 mg PO ONCE 60 2 July 15, 2018 12:00am January 31, 2020 10:05am do not take with other NSAIDs famotidine 40 mg oral tablet (15 sources) Histamine-2 Receptor Antagonist Start: 03-19-2023 End: 07-06-2023 take 1 tablet by mouth twice daily Famotidine 40 mg tablet Discontinued 40 mg PO TWICE A DAY 60 3 March 19, 2023 1:00am July 06, 2023 1:24pm 3 ml sodium hyaluronate 10 mg/ml prefilled syringe (20 sources) Start: 07-18-2018 End: 01-31-2020 Hyaluronate Sod, Cross-Linked (Gel-One) 30 mg/3 mL syringe Discontinued 30 mg INTRAARTIC ONCE 3 0 July 18, 2018 12:00am January 31, 2020 10:05am Intra-articular knee injection. Inject 3mL into the left knee one time only. hyaluronate sod, cross-linked 30 mg/3 mL intra-articular syringe (2 sources) Start: 08-01-2018 End: 08-01-2018 hyaluronate sod, cross-linked 30 mg/3 mL intra-articular syringe Discontinued 30 MG INTRAARTIC ONCE 3 August 01, 2018 1:10pm August 01, 2018 1:36pm hydroxychloroquine sulfate 200 mg oral tablet (7 sources) Antimalarial, Antirheumatic Agent Start: 12-29-2023 End: 01-26-2024 take 1 tablet by mouth once daily Hydroxychloroquine (Plaquenil) 200 mg tablet Discontinued 200 mg PO daily December 29, 2023 12:00am January 26, 2024 9:32am ibuprofen 600 mg oral tablet (20 sources) Nonsteroidal Anti-inflammatory Drug Start: 01-29-2022 End: 02-06-2022 take 1 tablet by mouth four times daily Ibuprofen 600 mg tablet Discontinued 600 mg PO .qid 30 0 January 29, 2022 1:00am February 06, 2022 3:49pm loratadine 10 mg oral tablet (18 sources) Start: 01-03-2024 End: 07-24-2024 take 1 tablet by mouth once daily as needed for dizziness Loratadine 10 mg tablet Discontinued 10 mg PO DAILY as needed for dizziness 18 09April 18, 2024 3:33pm July 24, 2024 4:37pm meloxicam 15 mg oral tablet (20 sources) Nonsteroidal Anti-inflammatory Drug Start: 10-23-2022 End: 02-19-2023 take 1 tablet by mouth once daily Meloxicam 15 mg tablet Discontinued 15 mg PO DAILY October 23, 2022 12:00am February 19, 2023 10:26am Start: 04-15-2020 End: 07-29-2020 take 1 tablet by mouth once daily Meloxicam (Mobic) 15 mg tablet Discontinued 15 mg PO DAILY 30 April 15, 2020 1:00am July 29, 2020 1:23pm Start: 05-26-2018 End: 01-31-2020 take 1 tablet by mouth once daily Meloxicam (Mobic) 15 mg tablet Discontinued 15 mg PO DAILY 30 May 26, 2018 1:00am January 31, 2020 10:05am do not take with other NSAIDs methylPREDNISolone 4 mg oral tablet (20 sources) Corticosteroid Start: 09-07-2022 End: 10-23-2022 take 1 tablet by mouth once daily Methylprednisolone (Medrol (Faheem)) 4 mg tablets,dose pack Discontinued 4 mg PO DAILY September 07, 2022 12:00am October 23, 2022 1:36pm Start: 05-26-2018 End: 05-26-2018 Depo-Medrol (methylprednisol one acetate) 40 mg/mL suspension for injection Discontinued 40 MG INTRAARTIC ONCE May 26, 2018 9:22am May 26, 2018 10:02am NIFEdipine 30 mg osmotic 24 hr extended release oral tablet (20 sources) Dihydropyridine Calcium Channel Jim Start: 03-05-2020 End: 07-29-2020 take 1 tablet by mouth once daily Nifedipine 30 MG tablet extended release 24hr Discontinued 30 mg PO DAILY March 05, 2020 1:00am July 29, 2020 1:23pm oxyCODONE hydrochloride 5 mg oral tablet (20 sources) Opioid Agonist Start: 03-06-2020 End: 05-27-2020 take 1-2 tablets by mouth every four hours as needed for pain and pain, then take 3 tablets by mouth every four hours as needed for pain and pain Oxycodone 5 mg tablet Discontinued 5 mg PO EVERY 4 HOURS NEEDED as needed for Pain Score 6-10 60 0 March 11, 2020 March 18, 2020 6:02pm Other acute postprocedural pain 1-2 or 3 tabs by mouth every 4 hrs as needed for pain polyethylene glycol 3350 58776 mg powder for oral solution (16 sources) Osmotic Laxative Start: 02-19-2023 End: 07-06-2023 Polyethylene Glycol 3350 (Miralax) 17 gram/dose powder Discontinued 4 g PO DAILY as needed for constipation February 19, 2023 1:00am July 06, 2023 1:25pm prednisoLONE 10 mg disintegrating oral tablet (16 sources) Corticosteroid Start: 02-19-2023 End: 07-06-2023 take 1 tablet by mouth once daily as needed for arthritis Prednisolone Sodium Phosphate 10 mg tablet,disintegrat ing Discontinued 10 mg PO DAILY as needed for ARTHRITIS February 19, 2023 1:00am July 06, 2023 1:25pm predniSONE 10 mg oral tablet (20 sources) Start: 10-04-2023 End: 02-28-2024 take 1 tablet by mouth once daily Prednisone 10 mg tablet Discontinued 10 mg PO daily October 04, 2023 12:00am February 28, 2024 8:56am Start: 02-06-2022 End: 09-07-2022 take 3 tablets by mouth once daily, then take 2 tablets by mouth once daily, then take 1 tablet by mouth once daily Prednisone 10 mg tablet Discontinued 10 mg PO DAILY 18 0 February 06, 2022 1:00am September 07, 2022 3:42pm 3 tablets daily for 3 days, the 2 tablets daily for 3 days, the 1 tablet daily for 3 days vitamin b12 0.25 mg oral tablet (20 sources) Vitamin B12 Start: 11-04-2021 End: 07-06-2023 take 1 tablet by mouth once daily Cyanocobalamin (Vitamin B-12) (Vitamin B-12) 250 mcg Tablet Discontinued 250 ug PO DAILY November 04, 2021 12:00am July 06, 2023 1:24pm Start: 08-04-2021 inject 53656 ug by i ntramuscular injection every month Cyanocobalamin (Vitamin B-12) Active 03760 MCG IM EVERY MONTH August 04, 2021 10:50am Problems Active Problems Problem Classification Problem Date Documented Da te Episodic/Chronic Abdominal hernia (20 sources) Hiatal hernia; Translations: [Diaphragmatic hernia without obstruction or gangrene] 03-18-2023 Episodic Diabetes mellitus without complication (7 sources) Hyperglycemia; Translations: [Hyperglycemia, unspecified] 09-07-2023 Episodic Esophageal disorders (20 sources) Gastroesophageal reflux disease; Translations: [Gastro-esophageal reflux disease without esophagitis] Onset: Chronic Nutritional deficiencies (9 sources) Vitamin D deficiency; Translations: [Vitamin D deficiency, unspecified] Onset: 5 02-28-2024 Chronic Osteoarthritis (20 sources) Arthritis; Translations: [Unspecified osteoarthritis, unspecified site] 08-04-2021 Chronic Osteoporosis (20 sources) Osteoporosis; Translations: [Age-related osteoporosis without current pathological fracture] 10-23-2022 Chronic Other bone disease and musculoskeletal deformities (20 sources) Segmental and somatic dysfunction; Translations: [Segmental and somatic dysfunction of lumbar region] Onset: 7 08-13-2016 Episodic Other bone disease and musculoskeletal deformities (20 sources) Segmental and somatic dysfunction of lumbar region; Translations: [Nonallopathic lesions, lumbar region] 09-07-2022 Episodic Other connective tissue disease (20 sources) History of total knee arthroplasty; Translations: [Presence of unspecified artificial knee joint] 11-04-2021 Chronic Comment on above: 03/05/2020 Other connective tissue disease (4 sources) Presence of right artificial knee joint; Translations: [Knee joint replacement] 11-13-2022 Chronic Other connective tissue disease (1 source) History of right total knee replacement; Translations: [Presence of right artificial knee joint] 11-13-2022 Chronic Other connective tissue disease (7 sources) Muscle pain; Translations: [Myalgia, unspecified site] 01-26-2024 Episodic Other connective tissue disease (6 sources) Monoparesis - leg; Translations: [Other symptoms and signs involving the musculoskeletal system] 09-07-2023 Episodic Other connective tissue disease (1 source) Other symptoms and signs involving the musculoskeletal system; Translations: [Weakness of right lower extremity] 09-07-2023 Episodic Other diseases of veins and lymphatics (9 sources) Lymphedema; Translations: [Lymphedema, not elsewhere classified] 07-06-2024 Chronic Other diseases of veins and lymphatics (1 source) Lymphedema, not elsewhere classified; Translations: [Lymphedema, not elsewhere classified] Onset: Chronic Other fractures (20 sources) Compression fracture ; Translations: [Compression fracture] 09-07-2022 Episodic Comment on above: possible at L3, conf irm with MRI Other fractures (20 sources) Fracture of third lumbar vertebra; Translations: [Wedge compression fracture of third lumbar vertebra, initial encounter for closed fracture] 10-23-2022 Episodic Other fractures (6 sources) Wedge compression fracture of third lumbar vertebra, initial encounter for closed fracture; Translations: [Closed fracture of lumbar vertebra without mention of spinal cord injury] 10-23-2022 Episodic Other fractures (20 sources) Closed fracture of fourth lumbar vertebra; Translations: [Unspecified fracture of fourth lumbar vertebra, initial encounter for closed fracture] 11-05-2022 Episodic Other fractures (6 sources) Unspecified fracture of fourth lumbar vertebra, initial encounter for closed fracture; Translations: [Closed fracture of lumbar vertebra without mention of spinal cord injury] 11-05-2022 Episodic Other fractures (7 sources) Compression fracture of lumbar spine; Translations: [Wedge compression fracture of unspecified lumbar vertebra, initial encounter for closed fracture] 09-07-2023 Episodic Other gastrointestinal disorders (20 sources) Chronic constipation; Translations: [Other constipation] 08-04-2021 Episodic Other gastrointestinal disorders (20 sources) Dysphagia; Translations: [Dysphagia, unspecified] 08-04-2021 Episodic Other gastrointestinal disorders (11 sources) Other constipation; Translations: [Constipation, unspecified] Episodic Other injuries and conditions due to external causes (20 sources) Abrasion; Translations: [Other injury of unspecified body region, initial encounter] 11-25-2018 Episodic Other nervous system disorders (15 sources) Polyneuropathy; Translations: [Polyneuropathy, unspecified] 09-07-2023 Chronic Other nervous system disorders (7 sources) Abnormal gait; Translations: [Unspecified abnormalities of gait and mobility] 09-07-2023 Episodic Other non-traumatic joint disorders (19 sources) Effusion of joint; Translations: [Effusion, unspecified joint] 11-13-2022 Episodic Other non-traumatic joint disorders (4 sources) Effusion, unspecified joint; Translations: [Effusion of joint, site unspecified] 11-13-2022 Episodic Other non-traumatic joint disorders (7 sources) Effusion of right knee joint; Translations: [Effusion, right knee] 10-04-2023 Episodic Other non-traumatic joint disorders (15 sources) Pain in right knee; Translations: [Right knee pain] 12-29-2023 Episodic Other non-traumatic joint disorders (7 sources) Hip pain; Translations: [Pain in right hip] 09-07-2023 Episodic Other upper respiratory disease (20 sources) Respiratory tract congestion; Translations: [Nasal congestion] 08-04-2021 Episodic Other upper respiratory infections (20 sources) Acute sinusitis; Translations: [Acute sinusitis, unspecified] 08-04-2021 Episodic Residual codes; unclassified (20 sources) History of clinical finding in subject; Translations: [Personal history of other specified conditions] 08-04-2021 Episodic Residual codes; unclassified (20 sources) Early satiety; Translations: [Early satiety] 08-04-2021 Episodic Residual codes; unclassified (4 sources) Early satiety; Translations: [Early satiety] Episodic Residual codes; unclassified (7 sources) H/O: vertigo; Translations: [Personal history of other specified conditions] 09-07-2023 Episodic Residual codes; unclassified (7 sources) Personal history of other specified conditions; Translations: [History of seizure] 08-04-2021 Episodic Residual codes; unclassified (7 sources) Edema; Translations: [Edema, unspecified] 07-24-2024 Episodic Rheumatoid arthritis and related disease (12 sources) Rheumatoid arthritis; Translations: [Rheumatoid arthritis, unspecified] Onset: 5 07-06-2023 Chronic Spondylosis; intervertebral disc disorders; other back problems (7 sources) Cervical radiculopathy; Translations: [Radiculopathy, cervical region] Onset: 7 08-13-2016 Chronic Spondylosis; intervertebral disc disorders; other back problems (20 sources) Low back pain; Translations: [Low back pain] 09-08-2022 Episodic Sprains and strains (20 sources) Lower back injury; Translations: [Strain of muscle, fascia and tendon of lower back, initial encounter] 01-29-2022 Episodic Unclassified (1 source) Low back pain, unspecified; Translations: [Low back pain, unspecified] Onset: Viral infection (8 sources) Disease caused by 2019-nCoV; Translations: [COVID-19] 02-18-2024 Episodic Past or Other Problems Problem Classification Problem Date Documented Da te Episodic/Chronic Abdominal pain (20 sources) Abdominal pain; Translations: [Unspecified abdominal pain] Onset: 06-06-2024 Episodic Acute bronchitis (9 sources) Acute bronchitis; Translations: [Acute bronchitis, unspecified] Onset: 02-22-2024 02-22-2024 Episodic Biliary tract disease (6 sources) Gallstone; Translations: [Calculus of gallbladder without cholecystitis without obstruction] Onset: 08-16-2024 08-07-2024 Episodic Conditions associated with dizziness or vertigo (16 sources) Loss of equilibrium; Translations: [Dizziness and giddiness] Onset: 05-19-2024 09-07-2023 Episodic Other connective tissue disease (1 source) Other specified soft tissue disorders; Translations: [Other specified soft tissue disorders] Onset: 07-04-2024 Episodic Other connective tissue disease (1 source) Myalgia, unspecified site; Translations: [Myalgia, unspecified site] Onset: 02-14-2024 Episodic Other fractures (1 source) Wedge compression fracture of fourth lumbar vertebra, initial encounter for closed fracture; Translations: [Wedge compression fracture of fourth lumbar vertebra, initial encounter for closed fracture] Onset: 02-22-2024 Episodic Other gastrointestinal disorders (1 source) Dysphagia, unspecified; Translations: [Dysphagia, unspecified] Onset: 06-06-2024 Episodic Other non-traumatic joint disorders (1 source) Effusion, right knee; Translations: [Effusion, right knee] Onset: 01-21-2024 Episodic Other screening for suspected conditions (not mental disorders or infectious disease) (11 sources) Patient encounter status; Translations: [Encounter for other screening for genetic and chromosomal anomalies] Onset: 07-08-2024 07-19-2023 Episodic Comment on above: Empower hereditary c ancer testing negative Pathological fracture (1 source) Age-related osteoporosis with current pathological fracture, unspecified site, initial encounter for fracture; Translations: [Age-related osteoporosis with current pathological fracture, unspecified site, initial encounter for fracture] Onset: 02-28-2024 Episodic Results Test Name Value Interpretation Reference Range Facility OT D/C of Non Returning Pton 12-06-2024 OT D/C of Non Returning Pt [facility] Occupational [facility] 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 Amish Tavares MD Status: REG RCR Eval Date: Discharge Date: Patient Information Patient Information: STEPHANIE ALCANTAR was seen in my office for initial evaluation on 07/12/24. The following Plan of Care was established for this patient: POC Established Initial Frequency: Every Other Week Initial Duration: 4 Weeks Anticipated Interventions Anticipated Interventions: Education re assistive Equipment, Education re Diagnosis, Manual Lymph Drainage, Education re Life-long lymphedema Management, Education re Self-Bandaging Techniques, Education re Skin Care and Precautions, Education re Self Massage Techniques, Education re Correct Donning Tech,Care Wearing Sched Comp Garments and Home Program Last Seen Last Seen: This patient was last seen in our office 07/27/24. Pertinent comments regarding their Occupational therapy will appear below: No further apts have been scheduled, due to time lapse in service pt is d/c. At this point I will be discontinuing this patient from occupational therapy. I would be happy to see this patient again in the future if found appropriate by the physician. Thank you! Patricia Ricardo, ROBELR/L, CHT 12/06/24 1313 CC: Dr. Amish Tavares MD MK Signed Normal [facility] Absolute lymphocyte countOrd ered By: Claudia Krishna on 10-04-2024 Lymphocytes Auto (Unsp spec) [#/Vol] 1.59 10*3/uL 0.83-4.51 [facility] Absolute neutrophil countOrd ered By: Claudia Krishna on 10-04-2024 Neutrophils (Bld) [#/Vol] 4.9 10*3/uL 2.0-7.7 [facility] Anion gap in Serum or Plasma Ordered By: Claudiatrena Krishna on 10-04-2024 Anion gap [Moles/Vol] 10 mmol/L 5-15 [facility] Automated lymphocyte count a s percentage of total leukocytesOrdered By: Claudia Krishna on 10-04-2024 Lymphocytes/100 WBC Auto (Unsp spec) 21.2 % 19-41 [facility] BUN/creatinine ratioOrdered By: [facility] Erendira on 10-04-2024 Urea nitrogen/Creatinine [Mass ratio] 17.7 mg/mg 10-20 [facility] Basophil percentageOrdered B y: Claudia Krishna on 10-04-2024 Basophils/100 WBC (Bld) 0.9 % 0-1 [facility] Bilirubin, totalOrdered By: Claudiatrena Krishna on 10-04-2024 Bilirubin [Mass/Vol] 0.53 mg/dL 0.00-1.30 [facility] CBC W/Diff, Automatedon 09-19 Absolute Lymph 1.59 X10 3/uL Normal 0.83-4.51 [facility] Comment on above: Performed By: #### L 100.0100, L500.4050 ####[facility] [address] [place], [address] Absolute Neut 4.9 X10 3/uL Normal 2.0-7.7 [facility] Comment on above: Performed By: #### L 100.0100, L500.4050 ####[facility] [address] [place], [address] Basophils/100 WBC (Bld) 0.9 % Normal 0-1 [facility] Comment on above: Performed By: #### L 100.0100, L500.4050 ####[facility] [address] [place], [address] Eosinophils/100 WBC (Bld) 3.6 % Normal 0-5 [facility] Comment on above: Performed By: #### L 100.0100, L500.4050 ####[facility] [address] [place], [address] Erythrocyte distribution width (RBC) [Ratio] 14.5 % Normal 11.6-14.6 [facility] Comment on above: Performed By: #### L 100.0100, L500.4050 ####[facility] [address] [place], [address] Hematocrit (Bld) [Volume fraction] 42.3 % Normal 37-47 [facility] Comment on above: Performed By: #### L 100.0100, L500.4050 ####[facility] [address] [place], [address] Hemoglobin (Bld) [Mass/Vol] 13.9 g/dL Normal 12.0-15.0 [facility] Comment on above: Performed By: #### L 100.0100, L500.4050 ####[facility] [address] [place], [address] IG% 0.400 Normal 0.0-0.9 [facility] Comment on above: Result Comment: IG% - Immature Granulocytes (promyelocytes, myelocytes and metamyelocytes) > 1% indicates that a LEFT SHIFT is Present. Performed By: #### L 100.0100, L500.4050 ####[facility] [address] [place], [address] Lymphocytes/100 WBC (Bld) 21.2 % Normal 19-41 [facility] Comment on above: Performed By: #### L 100.0100, L500.4050 ####[facility] [address] [place], [address] MCH (RBC) [Entitic mass] 30.5 pg Normal 27.0-32.0 [facility] Comment on above: Performed By: #### L 100.0100, L500.4050 ####[facility] [address] [place], [address] MCHC (RBC) [Mass/Vol] 32.9 g/dL Normal 32-36 [facility] Comment on above: Performed By: #### L 100.0100, L500.4050 ####[facility] [address] [place], [address] MCV (RBC) [Entitic vol] 92.8 fL Normal 81-99 [facility] Comment on above: Performed By: #### L 100.0100, L500.4050 ####[facility] [address] [place], [address] Monocytes/100 WBC (Bld) 9.2 % Normal 0-10 [facility] Comment on above: Performed By: #### L 100.0100, L500.4050 ####[facility] [address] [place], [address] Neutrophils/100 WBC (Bld) 64.7 % Normal 47-70 [facility] Comment on above: Performed By: #### L 100.0100, L500.4050 ####[facility] [address] [place], [address] Nucleated RBC (Bld) [#/Vol] 0 10*3/uL Normal 0-5 [facility] Comment on above: Performed By: #### L 100.0100, L500.4050 ####[facility] [address] [place], [address] Platelet mean volume (Bld) [Entitic vol] 8.5 fL Normal 6.2-12.0 [facility] Comment on above: Performed By: #### L 100.0100, L500.4050 ####[facility] [address] [place], [address] Platelets (Bld) [#/Vol] 338 10*3/uL Normal 150-450 [facility] Comment on above: Performed By: #### L 100.0100, L500.4050 ####[facility] [address] [place], [address] RBC (Bld) [#/Vol] 4.56 10*6/uL Normal 4.2-5.4 [facility] Comment on above: Performed By: #### L 100.0100, L500.4050 ####[facility] [address] [place], [address] RDW SD 48.9 fl High 35.1-43.9 [facility] Comment on above: Performed By: #### L 100.0100, L500.4050 ####[facility] [address] [place], [address] WBC (Bld) [#/Vol] 7.5 10*3/uL Normal 4.4-11.0 [facility] Comment on above: Performed By: #### L 100.0100, L500.4050 ####[facility] [address] [place], [address] Carbon dioxide, total [Moles /volume] in Central venous bloodOrdered By: Claudia Krsihna on 10-04-2024 CO2 [Moles/Vol] 28.5 mmol/L 21.0-32.0 [facility] Chloride assayOrdered By: Coleman Krishna on 10-04-2024 Chloride [Moles/Vol] 104 mmol/L 98-108 [facility] Comprehensive Metabolic Prof ilon 10-04-2024 Albumin [Mass/Vol] 3.9 g/dL Normal 3.4-4.8 [facility] Comment on above: Performed By: #### L 100.0100, L500.4050 ####[facility] [address] [place], [address] Albumin/Globulin [Mass ratio] 1.1 {ratio} Normal 0.9-2.4 [facility] Comment on above: Performed By: #### L 100.0100, L500.4050 ####[facility] [address] [place], [address] ALK PHOS 68 U/L Normal 35-104 [facility] Comment on above: Performed By: #### L 100.0100, L500.4050 ####[facility] [address] [place], [address] ALT [Catalytic activity/Vol] 15 U/L Normal <=34 [facility] Comment on above: Performed By: #### L 100.0100, L500.4050 ####[facility] [address] [place], [address] AST [Catalytic activity/Vol] 27 U/L Normal <=31 [facility] Comment on above: Performed By: #### L 100.0100, L500.4050 ####[facility] [address] [place], [address] Bilirubin [Mass/Vol] 0.53 mg/dL Normal 0.00-1.30 [facility] Comment on above: Performed By: #### L 100.0100, L500.4050 ####[facility] [address] [place], [address] BUN/CRE 17.7 RATIO Normal 10-20 [facility] Comment on above: Performed By: #### L 100.0100, L500.4050 ####[facility] [address] [place], [address] Calcium [Mass/Vol] 9.7 mg/dL Normal 7.6-11.0 [facility] Comment on above: Performed By: #### L 100.0100, L500.4050 ####[facility] [address] [place], [address] Chloride [Moles/Vol] 104 mmol/L Normal 98-108 [facility] Comment on above: Performed By: #### L 100.0100, L500.4050 ####[facility] [address] [place], [address] CO2 [Moles/Vol] 28.5 mmol/L Normal 21.0-32.0 [facility] Comment on above: Performed By: #### L 100.0100, L500.4050 ####[facility] [address] [place], [address] Creatinine [Mass/Vol] 0.81 mg/dL Normal 0.70-1.20 [facility] Comment on above: Performed By: #### L 100.0100, L500.4050 ####[facility] [address] [place], [address] GAP 10 Normal 5-15 [facility] Comment on above: Performed By: #### L 100.0100, L500.4050 ####[facility] [address] [place], [address] GFR/1.73 sq M.predicted among non-blacks MDRD (S/P/Bld) [Vol rate/Area] 82 mL/min/{1.73_m2} Normal >60 [facility] Comment on above: Result Comment: mL/m in/1.73m2 CKD-EPI Creatinine Equation (2020) Performed By: #### L 100.0100, L500.4050 ####[facility] [address] [place], [address] Globulin (S) [Mass/Vol] 3.5 g/dL Normal 2.2-4.2 [facility] Comment on above: Performed By: #### L 100.0100, L500.4050 ####[facility] [address] [place], [address] Glucose [Mass/Vol] 72 mg/dL Normal 70-99 [facility] Comment on above: Performed By: #### L 100.0100, L500.4050 ####[facility] [address] [place], [address] Potassium [Moles/Vol] 4.1 mmol/L Normal 3.3-5.1 [facility] Comment on above: Performed By: #### L 100.0100, L500.4050 ####[facility] [address] [place], [address] Sodium [Moles/Vol] 142 mmol/L Normal 133-145 [facility] Comment on above: Performed By: #### L 100.0100, L500.4050 ####[facility] [address] [place], [address] T PROT 7.5 g/dL Normal 5.9-8.4 [facility] Comment on above: Performed By: #### L 100.0100, L500.4050 ####[facility] [address] [place], [address] Urea nitrogen [Mass/Vol] 14 mg/dL Normal 4-19 [facility] Comment on above: Performed By: #### L 100.0100, L500.4050 ####[facility] [address] [place], [address] Eosinophil percentageOrdered By: Claudia Krishna on 10-04-2024 Eosinophils/100 WBC (Bld) 3.6 % 0-5 [facility] Erythrocyte distribution wid th ratioOrdered By: Claudia Krishna on 10-04-2024 Erythrocyte distribution width (RBC) [Ratio] 14.5 % 11.6-14.6 [facility] Erythrocyte distribution wid th standard deviationOrdered By: Claudia Krishna on 10-04-2024 Erythrocyte distribution width (RBC) [Ratio] 48.9 fl High 35.1-43.9 [facility] Glomerular filtration rate ( GFR) estimation/1.73 sq m using serum, plasma, or whole bOrdered By: Claudia Krishna on 10-04-2024 GFR/1.73 sq M.predicted among non-blacks MDRD (S/P/Bld) [Vol rate/Area] 82 mL/min/{1.73_m2} >60 [facility] Comment on above: mL/min/1.73m2 CKD-EP I Creatinine Equation (2020) Hematocrit Auto (Bld) [Volum e fraction]Ordered By: Claudia Krishna on 10-04-2024 Hematocrit (Bld) [Volume fraction] 42.3 % 37-47 [facility] Hemoglobin measurementOrdere d By: Claudia Krishna on 10-04-2024 Hemoglobin (Bld) [Mass/Vol] 13.9 g/dL 12.0-15.0 [facility] Immature granulocytes/100 WB C Auto (Bld)Ordered By: Claudia Krishna on 10-04-2024 Immature granulocytes/100 WBC (Bld) 0.400 % 0.0-0.9 [facility] Comment on above: IG% - Immature Granu locytes (promyelocytes, myelocytes and metamyelocytes) > 1% indicates that a LEFT SHIFT is Present. Laboratory - Chemistry and C hemistry - challengeOrdered By: Claudia Krishna on 10-04-2024 AST [Catalytic activity/Vol] 27 U/L <32 [facility] MCV (mean corpuscular volume ) determinationOrdered By: Claudia Krishna on 10-04-2024 MCV (RBC) [Entitic vol] 92.8 fL 81-99 [facility] Mean corpuscular hemoglobin (MCH) determinationOrdered By: Claudia Krishna on 10-04-2024 MCH (RBC) [Entitic mass] 30.5 pg 27.0-32.0 [facility] Mean corpuscular hemoglobin concentration (MCHC) determinationOrdered By: Claudia Krishna on 10-04-2024 MCHC (RBC) [Mass/Vol] 32.9 g/dL 32-36 [facility] Mean platelet volume determi nationOrdered By: Claudia Krishna on 10-04-2024 Platelet mean volume (Bld) [Entitic vol] 8.5 fL 6.2-12.0 [facility] Monocyte percentageOrdered B y: Claudia Krishna on 10-04-2024 Monocytes/100 WBC (Bld) 9.2 % 0-10 [facility] Neutrophil percentageOrdered By: Claudia Krishna on 10-04-2024 Neutrophils/100 WBC (Bld) 64.7 % 47-70 [facility] Nucleated red blood cell per centageOrdered By: Claudia Krishna on 10-04-2024 Nucleated RBC/100 WBC (Bld) [Ratio] 0 % 0-5 [facility] Platelet countOrdered By: Coleman Krishna on 10-04-2024 Platelets (Bld) [#/Vol] 338 10*3/uL 150-450 [facility] Potassium measurement (mass/ volume)Ordered By: Claudia Krishna on 10-04-2024 Potassium (Unsp spec) [Mass/Vol] 4.1 mmol/L 3.3-5.1 [facility] RBC Auto (Bld) [#/Vol]Ordere d By: Claudia Krishna on 10-04-2024 RBC (Bld) [#/Vol] 4.56 10*6/uL 4.2-5.4 [facility] Serum creatinine measurement (mass/volume)Ordered By: Claudia Krishna on 10-04-2024 Creatinine [Mass/Vol] 0.81 mg/dL 0.70-1.20 [facility] Serum globulin measurementOr dered By: Claudia Krishna on 10-04-2024 Globulin (S) [Mass/Vol] 3.5 g/dL 2.2-4.2 [facility] Serum glucose measurement (m ass/volume)Ordered By: Claudia Krishna on 10-04-2024 Glucose [Mass/Vol] 72 mg/dL 70-99 [facility] Serum or plasma alanine alexander otransferase (ALT) measurementOrdered By: Claudia Krishna on 10-04-2024 ALT [Catalytic activity/Vol] 15 U/L <35 [facility] Serum or plasma albumin sommer urement (mass/volume)Ordered By: Claudia Krishna on 10-04-2024 Albumin [Mass/Vol] 3.9 g/dL 3.4-4.8 [facility] Serum or plasma albumin/glob ulin mass ratioOrdered By: Claudia Krishna on 10-04-2024 Albumin/Globulin [Mass ratio] 1.1 {ratio} 0.9-2.4 [facility] Serum or plasma alkaline jesus sphatase measurementOrdered By: Claudia Krishna on 10-04-2024 ALP [Catalytic activity/Vol] 68 U/L 35-104 [facility] Serum or plasma calcium sommer urement (mass/volume)Ordered By: Claudia Krishna on 10-04-2024 Calcium [Mass/Vol] 9.7 mg/dL 7.6-11.0 [facility] Serum or plasma urea nitroge n measurement (mass/volume)Ordered By: Claudia Krishna on 10-04-2024 Urea nitrogen [Mass/Vol] 14 mg/dL 4-19 [facility] Sodium levelOrdered By: Irma Krishna on 10-04-2024 Sodium [Moles/Vol] 142 mmol/L 133-145 [facility] Total proteinOrdered By: Gina Krishna on 10-04-2024 Protein [Mass/Vol] 7.5 g/dL 5.9-8.4 [facility] White blood cell (WBC) count Ordered By: Claudia Krishna on 10-04-2024 WBC (Bld) [#/Vol] 7.5 10*3/uL 4.4-11.0 [facility] Surgery Visit Reporton 08-10 Surgery Visit Report [facility] [address] [place] [address] [address] [place] [address] OFFICE VISIT Date of Service: 08/10/24 MR#: [id number] Acct: [id number] Name: STEPHANIE ALCANTAR Rep #: [id number] : 1960 Provider: Dr. Ajay burkett MD Age/Sex: 63/F Location: [facility] Status: Signed Intake Vital Signs 07/24/24 14:35 08/10/24 08:50 Height 6 ft 1 in 6 ft 1 in Weight: 191 lb 194 lb 6 oz BMI 25.2 25.6 BP 107/58 L 106/73 Blood Pressure Location Lt brachial Rt brachial Position Sitting Sitting Respiration 16 18 Pulse 86 89 Pulse Source Monitor Monitor Temp 98.6 F 97.2 F L Temp Source Temporal Temporal Pulse Oximetry (%) 97 99 Oxygen Delivery Method room air room air Intake Visit Reasons: GALLBLADDER Chief Complaint: gallbladder Is patient in pain?: No Allergies magnesium Allergy (Severe, Verified 08/10/24 08:51) Other celecoxib (From Celebrex) Allergy (Intermediate, Verified 08/10/24 08:51) Shortness of breath Medications ???Medication ???Instructions ???Recorded ???Confirmed ???Type mecobalamin (vitamin B12) 2,500 2,500 mcg PO DAILY 07/06/23 History mcg chewable tablet calcium 600 mg capsule 600 mg PO WE 09/07/23 08/10/24 His tory cholecalciferol (vitamin D3) 50 50 mcg PO .QOD 09/07/23 08/10/24 H istory mcg (2,000 unit) capsule methotrexate sodium 2.5 mg tablet 20 mg PO TU 12/29/23 08/10/24 His tory folic acid 20 mg capsule 20 mg PO DAILY Rheumatoid arthriti s 01/26/24 08/10/24 History Tymlos (abaloparatide) 80 mcg (0.04 mL) subcut DAILY 120 12/1308/10/24 Rx #4.68 mL pantoprazole 40 mg tablet,delayed 40 mg PO QDAY #90 tabs 04/20/24 0 08/10/24 Rx release clindamycin HCl 300 mg capsule 600 mg (2 x 300 mg) PO ONCE #2 cap s 07/03/24 08/10/24 Rx flurbiprofen 100 mg tablet 100 mg PO DAILY PRN pain #30 tabs 07/24/24 08/10/24 Rx furosemide 20 mg tablet 20 mg PO DAILY PRN edema #10 tabs 07/24/24 08/10/24 Rx loratadine 10 mg tablet 10 mg PO DAILY PRN dizziness #30 0 07/24/24 08/10/24 Rx tabs PFSH Medical History Dysphagia History of steroid therapy Fatty liver Vitamin D deficiency Acute bronchitis, unspecified Genetic testing of female Barretts esophagus History of echocardiogram Vasovagal episode Fall Vertigo Restless legs History of hiatal hernia History of edema Low back pain Acute lumbar myofascial strain Wears glasses Post-menopausal Cancer Back pain Seizures Gastric reflux Non-smoker History of stress test Chronic constipation Early satiety Acid reflux Abdominal pain Arthritis History of seizure Acute sinusitis Head congestion Raynauds syndrome Hx of ovarian cyst Surgical History Hx of esophagogastroduodenosco py Hx of kyphoplasty Hx of colonoscopy History of ovarian cystectomy History of total knee replacement (TKR) Hx of arthroscopy of right knee Hx of section Family History Sister Ovarian cancer Aunt Breast cancer Mother Breast cancer Father CVA (cerebral vascular accident) Social History Smoking Status: Never smoker alcohol intake: current alcohol intake frequency: holidays/special occasions only caffeine: Yes what type of physical activity do you participate in: none seatbelt use: always do you feel safe at home: Yes additional social history: HPI HPI HPI: The patient is a 63-year-old female who presents today for evaluation of gallstones and abdominal discomfort. 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 She denies any fevers or chills. She underwent a recent CT scan that showed gallstones and no other acute findings to attribute her pain. She does admit to abdominal bloating and discomfort. It sounds as though she also has issues with heartburn and reflux. She states that she has undergone upper and lower GI scopes relatively recently. She denied any obvious postprandial right upper quadrant pain typical of biliary colic ROS General General: No weight change, appetite, fatigue, colon cancer, breast cancer or weakness HEENT HEENT: Yes difficulty swallowing; No eye injury, eye surgery, swollen glands or hoarseness Endo Endocrine: No thyroid disease, diabetes mellitus, thyroid cancer, Hair loss, heat intolerance or cold intolerance Skin Skin: No rash or changing moles Musc Musculoskeletal: Yes rheumatoid arthritis; No back problems, arthritis, gout or joint pain Cardio Cardiovascular: No murmur, pacemaker, heart disease, atrial fibrillation, high blood press (more content not included)... Normal [facility] Absolute lymphocyte countOrd ered By: Claudia Krishna on 08-04-2024 Lymphocytes Auto (Unsp spec) [#/Vol] 1.97 10*3/uL 0.83-4.51 [facility] Absolute neutrophil countOrd ered By: [facility] Erendira on 08-04-2024 Neutrophils (Bld) [#/Vol] 5.3 10*3/uL 2.0-7.7 [facility] Anion gap in Serum or Plasma Ordered By: Claudia Krishna on 08-04-2024 Anion gap [Moles/Vol] 8 mmol/L - [facility] Automated lymphocyte count a s percentage of total leukocytesOrdered By: Claudia Krishna on 08-04-2024 Lymphocytes/100 WBC Auto (Unsp spec) 23.5 % - [facility] BUN/creatinine ratioOrdered By: [facility] Erendira on 08-04-2024 Urea nitrogen/Creatinine [Mass ratio] 21.5 mg/mg High 10- [facility] Basophil percentageOrdered B y: Claudia Krishna on 08-04-2024 Basophils/100 WBC (Bld) 1.2 % High 0-1 [facility] Bilirubin, totalOrdered By: Claudia Krishna on 08-04-2024 Bilirubin [Mass/Vol] 0.54 mg/dL 0.00-1.30 [facility] CBC W/Diff, Automatedon 07-20 Absolute Lymph 1.97 X10 3/uL Normal 0.83-4.51 [facility] Comment on above: Performed By: #### L 100.0100, L500.4050 ####[facility] [address] [place], [address] Absolute Neut 5.3 X10 3/uL Normal 2.0-7.7 [facility] Comment on above: Performed By: #### L 100.0100, L500.4050 ####[facility] [address] [place], [address] Basophils/100 WBC (Bld) 1.2 % High 0-1 [facility] Comment on above: Performed By: #### L 100.0100, L500.4050 ####[facility] [address] [place], [address] Eosinophils/100 WBC (Bld) 3.6 % Normal 0-5 [facility] Comment on above: Performed By: #### L 100.0100, L500.4050 ####[facility] [address] [place], [address] Erythrocyte distribution width (RBC) [Ratio] 14.0 % Normal 11.6-14.6 [facility] Comment on above: Performed By: #### L 100.0100, L500.4050 ####[facility] [address] [place], [address] Hematocrit (Bld) [Volume fraction] 39.8 % Normal 37-47 [facility] Comment on above: Performed By: #### L 100.0100, L500.4050 ####[facility] [address] [place], [address] Hemoglobin (Bld) [Mass/Vol] 12.8 g/dL Normal 12.0-15.0 [facility] Comment on above: Performed By: #### L 100.0100, L500.4050 ####[facility] [address] [place], [address] IG% 0.500 Normal 0.0-0.9 [facility] Comment on above: Result Comment: IG% - Immature Granulocytes (promyelocytes, myelocytes and metamyelocytes) > 1% indicates that a LEFT SHIFT is Present. Performed By: #### L 100.0100, L500.4050 ####[facility] [address] [place], [address] Lymphocytes/100 WBC (Bld) 23.5 % Normal 19-41 [facility] Comment on above: Performed By: #### L 100.0100, L500.4050 ####[facility] [address] [place], [address] MCH (RBC) [Entitic mass] 29.4 pg Normal 27.0-32.0 [facility] Comment on above: Performed By: #### L 100.0100, L500.4050 ####[facility] [address] [place], [address] MCHC (RBC) [Mass/Vol] 32.2 g/dL Normal 32-36 [facility] Comment on above: Performed By: #### L 100.0100, L500.4050 ####[facility] [address] [place], [address] MCV (RBC) [Entitic vol] 91.5 fL Normal 81-99 [facility] Comment on above: Performed By: #### L 100.0100, L500.4050 ####[facility] [address] [place], [address] Monocytes/100 WBC (Bld) 8.5 % Normal 0-10 [facility] Comment on above: Performed By: #### L 100.0100, L500.4050 ####[facility] [address] [place], [address] Neutrophils/100 WBC (Bld) 62.7 % Normal 47-70 [facility] Comment on above: Performed By: #### L 100.0100, L500.4050 ####[facility] [address] [place], [address] Nucleated RBC (Bld) [#/Vol] 0 10*3/uL Normal 0-5 [facility] Comment on above: Performed By: #### L 100.0100, L500.4050 ####[facility] [address] [place], [address] Platelet mean volume (Bld) [Entitic vol] 8.5 fL Normal 6.2-12.0 [facility] Comment on above: Performed By: #### L 100.0100, L500.4050 ####[facility] [address] [place], [address] Platelets (Bld) [#/Vol] 325 10*3/uL Normal 150-450 [facility] Comment on above: Performed By: #### L 100.0100, L500.4050 ####[facility] [address] [place], [address] RBC (Bld) [#/Vol] 4.35 10*6/uL Normal 4.2-5.4 [facility] Comment on above: Performed By: #### L 100.0100, L500.4050 ####[facility] [address] [place], [address] RDW SD 46.6 fl High 35.1-43.9 [facility] Comment on above: Performed By: #### L 100.0100, L500.4050 ####[facility] [address] [place], [address] WBC (Bld) [#/Vol] 8.4 10*3/uL Normal 4.4-11.0 [facility] Comment on above: Performed By: #### L 100.0100, L500.4050 ####[facility] [address] [place], [address] Carbon dioxide, total [Moles /volume] in Central venous bloodOrdered By: Claudia Krishna on 08-04-2024 CO2 [Moles/Vol] 28.4 mmol/L 21.0-32.0 [facility] Chloride assayOrdered By: Coleman Krishna on 08-04-2024 Chloride [Moles/Vol] 101 mmol/L 98-108 [facility] Comprehensive Metabolic Prof ilon 08-04-2024 Albumin [Mass/Vol] 3.9 g/dL Normal 3.4-4.8 [facility] Comment on above: Performed By: #### L 100.0100, L500.4050 ####[facility] [address] [place], [address] Albumin/Globulin [Mass ratio] 1.1 {ratio} Normal 0.9-2.4 [facility] Comment on above: Performed By: #### L 100.0100, L500.4050 ####[facility] [address] [place], [address] ALK PHOS 61 U/L Normal 35-104 [facility] Comment on above: Performed By: #### L 100.0100, L500.4050 ####[facility] [address] [place], [address] ALT [Catalytic activity/Vol] 27 U/L Normal <=34 [facility] Comment on above: Performed By: #### L 100.0100, L500.4050 ####[facility] [address] [place], [address] AST [Catalytic activity/Vol] 38 U/L High <=31 [facility] Comment on above: Performed By: #### L 100.0100, L500.4050 ####[facility] [address] [place], [address] Bilirubin [Mass/Vol] 0.54 mg/dL Normal 0.00-1.30 [facility] Comment on above: Performed By: #### L 100.0100, L500.4050 ####[facility] [address] [place], [address] BUN/CRE 21.5 RATIO High 10-20 [facility] Comment on above: Performed By: #### L 100.0100, L500.4050 ####[facility] [address] [place], [address] Calcium [Mass/Vol] 9.8 mg/dL Normal 7.6-11.0 [facility] Comment on above: Performed By: #### L 100.0100, L500.4050 ####[facility] [address] [place], [address] Chloride [Moles/Vol] 101 mmol/L Normal 98-108 [facility] Comment on above: Performed By: #### L 100.0100, L500.4050 ####[facility] [address] [place], [address] CO2 [Moles/Vol] 28.4 mmol/L Normal 21.0-32.0 [facility] Comment on above: Performed By: #### L 100.0100, L500.4050 ####[facility] [address] [place], [address] Creatinine [Mass/Vol] 0.75 mg/dL Normal 0.70-1.20 [facility] Comment on above: Performed By: #### L 100.0100, L500.4050 ####[facility] [address] [place], [address] GAP 8 Normal 5-15 [facility] Comment on above: Performed By: #### L 100.0100, L500.4050 ####[facility] [address] [place], [address] GFR/1.73 sq M.predicted among non-blacks MDRD (S/P/Bld) [Vol rate/Area] 90 mL/min/{1.73_m2} Normal >60 [facility] Comment on above: Result Comment: mL/m in/1.73m2 CKD-EPI Creatinine Equation (2020) Performed By: #### L 100.0100, L500.4050 ####[facility] [address] [place], [address] Globulin (S) [Mass/Vol] 3.5 g/dL Normal 2.2-4.2 [facility] Comment on above: Performed By: #### L 100.0100, L500.4050 ####[facility] [address] [place], [address] Glucose [Mass/Vol] 96 mg/dL Normal 70-99 [facility] Comment on above: Performed By: #### L 100.0100, L500.4050 ####[facility] [address] [place], [address] Potassium [Moles/Vol] 4.0 mmol/L Normal 3.3-5.1 [facility] Comment on above: Performed By: #### L 100.0100, L500.4050 ####[facility] [address] [place], [address] Sodium [Moles/Vol] 138 mmol/L Normal 133-145 [facility] Comment on above: Performed By: #### L 100.0100, L500.4050 ####[facility] [address] [place], [address] T PROT 7.4 g/dL Normal 5.9-8.4 [facility] Comment on above: Performed By: #### L 100.0100, L500.4050 ####[facility] [address] [place], [address] Urea nitrogen [Mass/Vol] 16 mg/dL Normal 4-19 [facility] Comment on above: Performed By: #### L 100.0100, L500.4050 ####[facility] [address] [place], [address] Eosinophil percentageOrdered By: Claudia Krishna on 08-04-2024 Eosinophils/100 WBC (Bld) 3.6 % 0-5 [facility] Erythrocyte distribution wid th ratioOrdered By: Claudia Krishna on 08-04-2024 Erythrocyte distribution width (RBC) [Ratio] 14.0 % 11.6-14.6 [facility] Erythrocyte distribution wid th standard deviationOrdered By: Claudia Krishna on 08-04-2024 Erythrocyte distribution width (RBC) [Ratio] 46.6 fl High 35.1-43.9 [facility] Glomerular filtration rate ( GFR) estimation/1.73 sq m using serum, plasma, or whole bOrdered By: Claudia Krishna on 08-04-2024 GFR/1.73 sq M.predicted among non-blacks MDRD (S/P/Bld) [Vol rate/Area] 90 mL/min/{1.73_m2} >60 [facility] Comment on above: mL/min/1.73m2 CKD-EP I Creatinine Equation (2020) Hematocrit Auto (Bld) [Volum e fraction]Ordered By: Claudia Krishna on 08-04-2024 Hematocrit (Bld) [Volume fraction] 39.8 % 37-47 [facility] Hemoglobin measurementOrdere d By: Claudia Krishna on 08-04-2024 Hemoglobin (Bld) [Mass/Vol] 12.8 g/dL 12.0-15.0 [facility] Immature granulocytes/100 WB C Auto (Bld)Ordered By: Claudia Krishna on 08-04-2024 Immature granulocytes/100 WBC (Bld) 0.500 % 0.0-0.9 [facility] Comment on above: IG% - Immature Granu locytes (promyelocytes, myelocytes and metamyelocytes) > 1% indicates that a LEFT SHIFT is Present. Laboratory - Chemistry and C hemistry - challengeOrdered By: Claudia Krishna on 08-04-2024 AST [Catalytic activity/Vol] 38 U/L High <32 [facility] MCV (mean corpuscular volume ) determinationOrdered By: Claudia Krishna on 08-04-2024 MCV (RBC) [Entitic vol] 91.5 fL 81-99 [facility] Mean corpuscular hemoglobin (MCH) determinationOrdered By: Claudia Krishna on 08-04-2024 MCH (RBC) [Entitic mass] 29.4 pg 27.0-32.0 [facility] Mean corpuscular hemoglobin concentration (MCHC) determinationOrdered By: Claudia Krishna on 08-04-2024 MCHC (RBC) [Mass/Vol] 32.2 g/dL 32-36 [facility] Mean platelet volume determi nationOrdered By: Claudia Krishna on 08-04-2024 Platelet mean volume (Bld) [Entitic vol] 8.5 fL 6.2-12.0 [facility] Monocyte percentageOrdered B y: Claudia Krishna on 08-04-2024 Monocytes/100 WBC (Bld) 8.5 % 0-10 [facility] Neutrophil percentageOrdered By: Claudia Krishna on 08-04-2024 Neutrophils/100 WBC (Bld) 62.7 % 47-70 [facility] Nucleated red blood cell per centageOrdered By: Claudia Krishna on 08-04-2024 Nucleated RBC/100 WBC (Bld) [Ratio] 0 % 0-5 [facility] Platelet countOrdered By: Coleman Krishna on 08-04-2024 Platelets (Bld) [#/Vol] 325 10*3/uL 150-450 [facility] Potassium measurement (mass/ volume)Ordered By: Claudia Krishna on 08-04-2024 Potassium (Unsp spec) [Mass/Vol] 4.0 mmol/L 3.3-5.1 [facility] RBC Auto (Bld) [#/Vol]Ordere d By: Claudia Krishna on 08-04-2024 RBC (Bld) [#/Vol] 4.35 10*6/uL 4.2-5.4 [facility] Serum creatinine measurement (mass/volume)Ordered By: Claudia Krishna on 08-04-2024 Creatinine [Mass/Vol] 0.75 mg/dL 0.70-1.20 [facility] Serum globulin measurementOr dered By: Claudia Krishna on 08-04-2024 Globulin (S) [Mass/Vol] 3.5 g/dL 2.2-4.2 [facility] Serum glucose measurement (m ass/volume)Ordered By: Claudia Krishna on 08-04-2024 Glucose [Mass/Vol] 96 mg/dL 70-99 [facility] Serum or plasma alanine alexander otransferase (ALT) measurementOrdered By: Claudia Krishna on 08-04-2024 ALT [Catalytic activity/Vol] 27 U/L <35 [facility] Serum or plasma albumin sommer urement (mass/volume)Ordered By: Claudia Krishna on 08-04-2024 Albumin [Mass/Vol] 3.9 g/dL 3.4-4.8 [facility] Serum or plasma albumin/glob ulin mass ratioOrdered By: Claudia Krishna on 08-04-2024 Albumin/Globulin [Mass ratio] 1.1 {ratio} 0.9-2.4 [facility] Serum or plasma alkaline jesus sphatase measurementOrdered By: Claudia Krishna on 08-04-2024 ALP [Catalytic activity/Vol] 61 U/L 35-104 [facility] Serum or plasma calcium sommer urement (mass/volume)Ordered By: Claudia Krishna on 08-04-2024 Calcium [Mass/Vol] 9.8 mg/dL 7.6-11.0 [facility] Serum or plasma urea nitroge n measurement (mass/volume)Ordered By: Claudia Krishna on 08-04-2024 Urea nitrogen [Mass/Vol] 16 mg/dL 4-19 [facility] Sodium levelOrdered By: Irma Krishna on 08-04-2024 Sodium [Moles/Vol] 138 mmol/L 133-145 [facility] Total proteinOrdered By: Gina Krishna on 08-04-2024 Protein [Mass/Vol] 7.4 g/dL 5.9-8.4 [facility] White blood cell (WBC) count Ordered By: Claudia Krishna on 08-04-2024 WBC (Bld) [#/Vol] 8.4 10*3/uL 4.4-11.0 [facility] Abdomen/Pelvis WITH Contrast on 08-02-2024 Abdomen/Pelvis WITH Contrast [facility] [address] [place], [place] [address] Abdomen/Pelvis WITH Contrast MR#: [id number] Acct: [id number] Name: STEPHANIE ALCANTAR Rep #: [id number] : 1960 F 63 From: Tomas camp MD PCP: Dr. Amish Tavares MD Status: REG CLI Study: Abdomen/Pelvis WITH Contrast Date of Exam: Exam# [id number] Ordering Dr: Delicia Smith DO PROCEDURE: ABDOMEN/PELVIS WITH CONTRAST 08/02/2024 REASON FOR EXAM: LUQ PAIN AND LYMPHADEMA TECHNIQUE: Abdomen and pelvis CT with intravenous contrast. Coronal and Sagittal reconstruction series were provided. PATIENT PREPARATION: Per protocol ORAL CONTRAST TYPE: None. CONTRAST: Isovue-300 VOLUME: 100 mL One or more dose reduction techniques were used (e.g., Automated exposure control, adjustment of the mA and/or kV according to patient size, use of iterative reconstruction technique. RADIATION DOSE SUMMARY: CTDlvol: 16.5 mGy DLP: 1009.87 mGycm COMPARISON: Prior study dated August 08, 2021. FINDINGS: Lung bases: Unremarkable Liver: Normal size. No mass. Gallbladder: Gallstones. Spleen: Normal size. Pancreas: Normal size without evidence of mass surrounding inflammation or ductal dilation. Adrenals: Unremarkable Kidneys: Normal renal sizes. No hydronephrosis. Bladder: Unremarkable Reproductive Organs: Normal uterine size and contour. Ovaries are unremarkable. Bowel: Unremarkable Appendix: Unremarkable Lymph nodes: Unremarkable. Vasculature: The abdominal aorta and IVC are normal. Peritoneum / Retroperitoneum: Unremarkable Bones: Prior vertebroplasty and loss of height of the L3 and L4 vertebrae. CT/Abdomen/Pelvis WITH Contrast IMPRESSION: Findings suggestive of cholelithiasis. Prior vertebroplasty of the L3 and L4 vertebrae. Reading Location: [id number] CC: Dr. Delicia Smith DO; Dr. Amish Tavares MD Internet Marketing Analyst: Signed Normal [facility] OT General Evaluationon OT General Evaluation [facility] Occupational Therapy [facility] [place] [address] / REHABILITATION SERVICES INITIAL EVALUATION MR#: [id number] Acct: [id number] Name: SAMSONSTEPHANIE HUTTON Rep #: [id number] : 1960 63 From: Patricia MACARIO/Marcelina, ANTONELLAT Referring Dr.: Dr. Amish Tavares MD Status: REG RCR Insurance: [employer] Eval Date: SELF PAY INSURANCE Patient's Visit Information Visit Information Visit Information: STEPHANIE ALCANTAR is a 63 year old F, referred to Occupational Therapy by Dr. Amish Tavares MD, with a diagnosis of swelling of right LE. Date of Evaluation: 07/12/24 Occupational Therapist: Patricia Ricardo, AMIRAH/Marcelina, CHT Subjective Subjective: This 63-year-old female was seen for OT eval with dx of lymphedema. Pt states she has had swelling in her right LE. states she suffered a fall at her mom's about a 1.5 years ago and had increase in right leg swelling. Pt states her ortho Dr did blood work and fond pt had RA. pt states she had doppler - this came back neg. pt did water pills and steroids and Ibuprofen and swelling went down to almost Normal. pt states she does were compression socks, but they are knee high- right knee does swell her ortho has had to drain her knee a few times. pt would like to know what she can do to limit her swelling pt denies swelling of right leg as a child or pre-teen. pt states she is very active- likes to swim and walks almost 4 miles a day. Pain right leg: Current Pain Intensity: 1 Pain Intensity Range: 7 Lymphedema (Circumferential Measure) Mid-foot: right 24cm left 23cm Ankle: right 26.5cm left 26cm Lower calf: right 28cm left 27cm Largest calf: right 39cm left 38cm Below knee: right 38cm left 34cm Above knee: right 46cm left 42cm Lower Exremity Comments: knee right 45 left 40 Goals Goal: Patient will demonstrate a 20% reduction in edema by discharge: Yes Goal: Patient will demonstrate adequate knowledge of self-bandaging by the end of the first week.: Yes Goal: Patient will demonstrate adequate knowledge of self-massage by the end of the second week.: Yes Goal: Patient will demonstrate adequate knowledge of therapeutic exercises by discharge.: Yes Goal: Patient will select an appropriate compression garment and demonstrate adequate knowledge of correct donning technique, care and wearing schedule by discharge.: Yes Goal: Patient will voice understanding of need to replace compression garment every four to six months by discharge.: Yes Rehabilitation General Assessment: pt demo with swelling of right LE. pt states she struggles with swelling of her joints due to RA and has had swelling since her knee replacement. Pt states swelling has just continued to get worse. pt demo with lymphedema and would benefit from skilled OT services 2-4 visits to ed. pt on lifelong mtg of LE lymphedema. today therapist ed. pt on new compression socks 20-30 mmHg vs 10-15 mmHg. pt was receptive in getting new compression socks. therapist ed. pt on short stretch wrapping, lymphedema exercises and self manual lymph massage. pt was given handouts and demo understanding and agree to POC. Rehabilitation Potential: Good Anticipated Interventions Anticipated Interventions: Education re assistive Equipment, Education re Diagnosis, Manual Lymph Drainage, Education re Life-long lymphedema Management, Education re Self-Bandaging Techniques, Education re Skin Care and Precautions, Education re Self Massage Techniques, Education re Correct Donning Tech,Care Wearing Sched Comp Garments and Home Program Visit Plan Frequency: Every Other Week Duration: 4 Weeks TEXT: Thank you for the opportunity to evaluate your patient. For Medicare and Medicare HMO plans, please review the plan of care and approve it. It will need to be FAXED BACK to us at [phone] for Medicare purposes. Please let me know if there are questions or concerns regarding this plan of care. Physician Signature: Date: ____ 07/27/24 1510 CC: Dr. Amish Tavares MD SAGAR Signed For Medicare only, by signing this I certify the plan of care. ____ Physicians Signature Date Normal [facility] Absolute lymphocyte countOrd ered By: HEALTH ASSESSMENT on 07-24-2024 Lymphocytes Auto (Unsp spec) [#/Vol] 1.41 10*3/uL 0.83-4.51 [facility] Absolute neutrophil countOrd ered By: HEALTH ASSESSMENT on 07-24-2024 Neutrophils (Bld) [#/Vol] 4.7 10*3/uL 2.0-7.7 [facility] Absolute nucleated red blood cell countOrdered By: HEALTH ASSESSMENT on 07-24-2024 Nucleated RBC (Bld) [#/Vol] 0.00 10*3/uL 0-5 [facility] Anion gap in Serum or Plasma Ordered By: HEALTH ASSESSMENT on 07-24-2024 Anion gap [Moles/Vol] 8 mmol/L 5-15 [facility] BUN/creatinine ratioOrdered By: HEALTH ASSESSMENT on 07-24-2024 Urea nitrogen/Creatinine [Mass ratio] 17.2 mg/mg 10-20 [facility] Bilirubin Test strip Ql (U)O rdered By: HEALTH ASSESSMENT on 07-24-2024 Bilirubin Ql (U) Negative Negative [facility] Bilirubin directOrdered By: HEALTH ASSESSMENT on 07-24-2024 Bilirubin.direct [Mass/Vol] 0.20 mg/dL 0.00-0.30 [facility] Bilirubin, totalOrdered By: HEALTH ASSESSMENT on 07-24-2024 Bilirubin [Mass/Vol] 0.43 mg/dL 0.00-1.30 [facility] Blood band neutrophil count as percentage of total leukocytesOrdered By: HEALTH ASSESSMENT on 07-24-2024 Band form neutrophils/100 WBC (Bld) 64.2 % 47-70 [facility] CBC, Employeeon 07-24-2024 Absolute Lymph 1.41 X10 3/uL Normal 0.83-4.51 [facility] [facility] Comment on above: Performed By: #### L 100.0200, L400.0100, L500.2900 ####[facility] [address] [place], [place], [id number] Absolute Neut 4.7 X10 3/uL Normal 2.0-7.7 [facility] Comment on above: Performed By: #### L 100.0200, L400.0100, L500.2900 ####[facility] [address] [place], [address] Basophils/100 WBC (Bld) 1.2 % High 0-1 [facility] Comment on above: Performed By: #### L 100.0200, L400.0100, L500.2900 ####[facility] [address] [place], [address] Eosinophils/100 WBC (Bld) 4.3 % Normal 0-5 [facility] Comment on above: Performed By: #### L 100.0200, L400.0100, L500.2900 ####[facility] [address] [place], [address] Erythrocyte distribution width (RBC) [Ratio] 14.0 % Normal 11.6-14.6 [facility] Comment on above: Performed By: #### L 100.0200, L400.0100, L500.2900 ####[facility] [address] [place], [address] Hematocrit (Bld) [Volume fraction] 40.4 % Normal 37-47 [facility] Comment on above: Performed By: #### L 100.0200, L400.0100, L500.2900 ####[facility] [address] [place], [address] Hemoglobin (Bld) [Mass/Vol] 13.0 g/dL Normal 12.0-15.0 [facility] Comment on above: Performed By: #### L 100.0200, L400.0100, L500.2900 ####[facility] [address] [place], [address] Lymphocytes/100 WBC (Bld) 19.1 % Normal 19-41 [facility] Comment on above: Performed By: #### L 100.0200, L400.0100, L500.2900 ####[facility] [address] [place], [address] MCH (RBC) [Entitic mass] 29.0 pg Normal 27.0-32.0 [facility] Comment on above: Performed By: #### L 100.0200, L400.0100, L500.2900 ####[facility] [address] [place], [address] MCHC (RBC) [Mass/Vol] 32.2 g/dL Normal 32-36 [facility] Comment on above: Performed By: #### L 100.0200, L400.0100, L500.2900 ####[facility] [address] [place], [address] MCV (RBC) [Entitic vol] 90.2 fL Normal 81-99 [facility] Comment on above: Performed By: #### L 100.0200, L400.0100, L500.2900 ####[facility] [address] [place], [address] Monocytes/100 WBC (Bld) 10.8 % High 0-10 [facility] Comment on above: Performed By: #### L 100.0200, L400.0100, L500.2900 ####[facility] [address] [place], [address] Neutrophils/100 WBC (Bld) 64.2 % Normal 47-70 [facility] Comment on above: Performed By: #### L 100.0200, L400.0100, L500.2900 ####[facility] [address] [place], [address] NRBC # 0.00 10 3/uL Normal 0-5 [facility] Comment on above: Performed By: #### L 100.0200, L400.0100, L500.2900 ####[facility] [address] [place], [address] Nucleated RBC (Bld) [#/Vol] 0 10*3/uL Normal 0-5 [facility] Comment on above: Performed By: #### L 100.0200, L400.0100, L500.2900 ####[facility] [address] [place], [address] Platelet mean volume (Bld) [Entitic vol] 8.5 fL Normal 6.2-12.0 [facility] Comment on above: Performed By: #### L 100.0200, L400.0100, L500.2900 ####[facility] [address] [place], [address] Platelets (Bld) [#/Vol] 300 10*3/uL Normal 150-450 [facility] Comment on above: Performed By: #### L 100.0200, L400.0100, L500.2900 ####[facility] [address] [place], [address] RBC (Bld) [#/Vol] 4.48 10*6/uL Normal 4.2-5.4 [facility] Comment on above: Performed By: #### L 100.0200, L400.0100, L500.2900 ####[facility] [address] [place], [address] RDW SD 45.7 fl High 35.1-43.9 [facility] Comment on above: Performed By: #### L 100.0200, L400.0100, L500.2900 ####[facility] [address] [place], [address] WBC (Bld) [#/Vol] 7.4 10*3/uL Normal 4.4-11.0 [facility] Comment on above: Performed By: #### L 100.0200, L400.0100, L500.2900 ####[facility] [address] [place], [address] Calculated very low density lipoprotein (VLDL) cholesterol measurementOrdered By: HEALTH ASSESSMENT on 07-24-2024 Calculated very low density lipoprotein (VLDL) cholesterol measurement 11 mg/dL 5-40 [facility] Carbon dioxide, total [Moles /volume] in Central venous bloodOrdered By: HEALTH ASSESSMENT on 07-24-2024 CO2 [Moles/Vol] 26.8 mmol/L 21.0-32.0 [facility] Chloride assayOrdered By: HE ALTH ASSESSMENT on 07-24-2024 Chloride [Moles/Vol] 104 mmol/L 98-108 [facility] Employee Profileon Cholesterol in LDL [Mass/Vol] 70 mg/dL Normal 0-130 [facility] Comment on above: Performed By: #### L 100.0200, L400.0100, L500.2900 ####[facility] [address] [place], [place], [id number] Erythrocyte distribution wid th ratioOrdered By: HEALTH ASSESSMENT on 07-24-2024 Erythrocyte distribution width (RBC) [Ratio] 14.0 % 11.6-14.6 [facility] Erythrocyte distribution wid th standard deviationOrdered By: HEALTH ASSESSMENT on 07-24-2024 Erythrocyte distribution width (RBC) [Ratio] 45.7 fl High 35.1-43.9 [facility] Glomerular filtration rate ( GFR) estimation/1.73 sq m using serum, plasma, or whole bOrdered By: HEALTH ASSESSMENT on 07-24-2024 GFR/1.73 sq M.predicted among non-blacks MDRD (S/P/Bld) [Vol rate/Area] 82 mL/min/{1.73_m2} >60 [facility] Comment on above: mL/min/1.73m2 CKD-EP I Creatinine Equation (2020) Hematocrit Auto (Bld) [Volum e fraction]Ordered By: HEALTH ASSESSMENT on 07-24-2024 Hematocrit (Bld) [Volume fraction] 40.4 % 37-47 [facility] Hemoglobin measurementOrdere d By: HEALTH ASSESSMENT on 07-24-2024 Hemoglobin (Bld) [Mass/Vol] 13.0 g/dL 12.0-15.0 [facility] Ketones Test strip Ql (U)Ord ered By: HEALTH ASSESSMENT on 07-24-2024 Ketones Ql (U) Negative Negative [facility] Laboratory - Chemistry and C hemistry - challengeOrdered By: HEALTH ASSESSMENT on 07-24-2024 AST [Catalytic activity/Vol] 27 U/L <32 [facility] Lactate dehydrogenase (LDH) measurementOrdered By: HEALTH ASSESSMENT on 07-24-2024 LDH [Catalytic activity/Vol] 180 U/L 84-246 [facility] Low density lipoprotein (LDL ) cholesterol measurementOrdered By: HEALTH ASSESSMENT on 07-24-2024 Cholesterol in LDL [Mass/Vol] 70 mg/dL 0-130 [facility] MCV (mean corpuscular volume ) determinationOrdered By: HEALTH ASSESSMENT on 07-24-2024 MCV (RBC) [Entitic vol] 90.2 fL 81-99 [facility] Mean corpuscular hemoglobin (MCH) determinationOrdered By: HEALTH ASSESSMENT on 07-24-2024 MCH (RBC) [Entitic mass] 29.0 pg 27.0-32.0 [facility] Mean corpuscular hemoglobin concentration (MCHC) determinationOrdered By: HEALTH ASSESSMENT on 07-24-2024 MCHC (RBC) [Mass/Vol] 32.2 g/dL 32-36 [facility] Mean platelet volume determi nationOrdered By: HEALTH ASSESSMENT on 07-24-2024 Platelet mean volume (Bld) [Entitic vol] 8.5 fL 6.2-12.0 [facility] Neurology Visit Reporton Neurology Visit Report [facility] [address] [facility], [address] [place] [address] OFFICE VISIT Date of Service: 07/24/24 MR#: [id number] Acct: [id number] Name: STEPHANIE ALCANTAR Rep #: [id number] : 1960 Provider: Dr. Evert oglesby MD Age/Sex: 63/F Location: [facility] Status: Signed HPI HPI Chief Complaint: Est Care Details: Interim History: Stephanie returns for follow-up visit. She has a history of nonmelanoma skin cancer status post excision, Blount's esophagus, rheumatoid arthritis, osteoporosis, and occurrence of epileptic seizures occurring on a day she delivered her baby in 1984 (she does not have any history of seizures occurring prior to that date or following that date) who presented for evaluation of gait imbalance. She had a right total knee replacement in 2019. She has had some numbness in the region of the right knee. She is also experiencing some right knee pain. Right knee x-rays (2023) revealed her right knee prosthesis without evidence of loosening. She reported that in 2023, she has undergone needle drainage of a right knee effusion. She saw an orthopedic surgeon at the [facility] in 2019 for for her right knee pain and no surgical intervention was recommended. Between 2022 and her visit in December 2023 she has had about 12 falls. Her falls were triggered by rapid movement and are preceded by a feeling of disequilibrium. In the summer of 2022, she had a 2-week period of vertigo which subsequently subsided. She was treated with meclizine and this was of benefit; she no longer uses meclizine. Vestibular rehabilitation in 2023 was not of benefit for her dizziness. With falls that occurred in 2022, she sustained an L2 and L3 compression fractures for which she underwent L3 cement kyphoplasty and subsequently had an L4 compression fracture in 2022 for which she underwent cement kyphoplasty. She also has a chronic mild L2 compression fracture that was not treated with kyphoplasty. She continues to experience some low back pain (her low back pain began in the ); within recent months this has diminished. She denied having neck pain. She reported having right leg weakness since her lumbar fractures in 2022. She has had diffuse musculoskeletal stiffness. Loratadine is of benefit for her dizziness. She had a syncopal episode in 2021 that was triggered by emotional stress. She sees a machine guide base winder, Dr. Krishna, and has been prescribed methotrexate and this has been of benefit for her musculoskeletal pain. She sees a cash management clerk, Dr. Meraz. In the past she had tingling in the feet; this subsided. She reported having hypesthesia in the feet. Her head MRI revealed mild bilateral mastoiditis otherwise the study was unremarkable. EMG/nerve conduction studies of the lower extremities reveal a sensorimotor polyneuropathy. Flurbiprofen has been of benefit for her musculoskeletal pain. Bilateral lumbar paraspinal muscle trigger point injections administered at this office in January 2024 were of some benefit. Physical Exam: Neuro: The patient is awake and alert and responds appropriately; speech is fluent; motor strength is 5/5 in the foot dorsiflexors bilaterally Heart: Regular rhythm and rate Extremities: Mild right lower extremity nonpitting edema is noted; minimal left lower extremity edema is noted Supplemental Info Right hip and pelvic x-rays (07/29/2020): FINDINGS: There is a non-specific bowel gas pattern. Normal visualized soft tissue structures. Moderate bilateral hip joint space narrowing without acute fracture or dislocation. Visualized bony pelvis is intact. Moderate stool burden. Surgical clips in the pelvis. IMPRESSION: Normal x-ray examination of the pelvis and hip. Lumbar x-rays (09/07/2022): COMPARISON: July 07, 2016 FINDINGS: VERTEBRAE: There is an age-indeterminate compression deformity of the L3 vertebral body. Otherwise preserved vertebral body height. No fracture. No spondylolisthesis. Preservation of the normal lumbar lordosis. No significant facet arthropathy. DISCS: Disc spaces are maintained. INCLUDED ABDOMEN: Included bowel gas pattern is non-obstructive. IMPRESSION: Age-indeterminate compression deformity of the L3 vertebral body, not present on the previous study. These images were reviewed on 09/07/2023. Lumbar MRI (09/16/2022): COMPARISON: Lumbar spine radiographs 09/07/2022. CT abdomen and pelvis with contrast 08/08/2021. FINDINGS: T11-T12: (Sagittal only). Normal endplates. Normal disc height and morphology. Normal central canal and bilateral intervertebral neural foramina. T12-L1: (Sagittal only). Normal endplates. Normal disc height, hydration and morphology. Normal central canal and bilateral intervertebral neural foramina. Normal lumbar lordosis. There is no substantial scoliosis. Normal conus medullaris that terminates at the T12-L1 disc spac (more content not included)... Normal [facility] Nitrite Test strip Ql (U)Ord ered By: HEALTH ASSESSMENT on 07-24-2024 Nitrite Ql (U) Negative Negative [facility] Nucleated red blood cell per centageOrdered By: HEALTH ASSESSMENT on 07-24-2024 Nucleated RBC/100 WBC (Bld) [Ratio] 0 % 0-5 [facility] Platelet countOrdered By: ALTH ASSESSMENT on 07-24-2024 Platelets (Bld) [#/Vol] 300 10*3/uL 150-450 [facility] Potassium measurement (mass/ volume)Ordered By: HEALTH ASSESSMENT on 07-24-2024 Potassium (Unsp spec) [Mass/Vol] 4.5 mmol/L 3.3-5.1 [facility] Protein Test strip Ql (U)Ord ered By: HEALTH ASSESSMENT on 07-24-2024 Protein Ql (U) Negative Negative [facility] RBC Auto (Bld) [#/Vol]Ordere d By: HEALTH ASSESSMENT on 07-24-2024 RBC (Bld) [#/Vol] 4.48 10*6/uL 4.2-5.4 [facility] Screening total cholesterol/ high density lipoprotein (HDL) cholesterol ratioOrdered By: HEALTH ASSESSMENT on 07-24-2024 Cholesterol.total/Cho lesterol in HDL [Mass ratio] 2.38 {ratio} [facility] Serum creatinine measurement (mass/volume)Ordered By: HEALTH ASSESSMENT on 07-24-2024 Creatinine [Mass/Vol] 0.81 mg/dL 0.70-1.20 [facility] Serum globulin measurementOr dered By: HEALTH ASSESSMENT on 07-24-2024 Globulin (S) [Mass/Vol] 3.7 g/dL 2.2-4.2 [facility] Serum glucose measurement (m ass/volume)Ordered By: HEALTH ASSESSMENT on 07-24-2024 Glucose [Mass/Vol] 93 mg/dL 70-99 [facility] Serum or plasma alanine alexander otransferase (ALT) measurementOrdered By: HEALTH ASSESSMENT on 07-24-2024 ALT [Catalytic activity/Vol] 23 U/L <35 [facility] Serum or plasma albumin sommer urement (mass/volume)Ordered By: HEALTH ASSESSMENT on 07-24-2024 Albumin [Mass/Vol] 3.9 g/dL 3.4-4.8 [facility] Serum or plasma albumin/glob ulin mass ratioOrdered By: HEALTH ASSESSMENT on 07-24-2024 Albumin/Globulin [Mass ratio] 1.0 {ratio} 0.9-2.4 [facility] Serum or plasma alkaline jesus sphatase measurementOrdered By: HEALTH ASSESSMENT on 07-24-2024 ALP [Catalytic activity/Vol] 62 U/L 35-104 [facility] Serum or plasma calcium sommer urement (mass/volume)Ordered By: HEALTH ASSESSMENT on 07-24-2024 Calcium [Mass/Vol] 9.4 mg/dL 7.6-11.0 [facility] Serum or plasma cholesterol in HDL measurement (mass/volume)Ordered By: HEALTH ASSESSMENT on 07-24-2024 Cholesterol in HDL [Mass/Vol] 58 mg/dL >40 [facility] Comment on above: National Cholesterol Education Program (NCEP) guidelines:<40 mg/dL: Low HDL-cholesterol (major risk factor for CHD)>= 60 mg/dL: High HDL-cholesterol (negative risk factor for CHD)HDL-cholesterol is affected by a number of factors, e.g. smoking, exercise, hormones, sex and age. Serum or plasma cholesterol measurement (mass/volume)Ordered By: HEALTH ASSESSMENT on 07-24-2024 Cholesterol [Mass/Vol] 139 mg/dL <201 [facility] Comment on above: Cholesterol level, D esirable <200 mg/dLBorderline high cholesterol 200-239 mg/dLHigh cholesterol >=240 mg/dLRecommendations of the NCEP Adult Treatment Panel for the following risk-cutoff thresholds for the [place] population. Serum or plasma urea nitroge n measurement (mass/volume)Ordered By: HEALTH ASSESSMENT on 07-24-2024 Urea nitrogen [Mass/Vol] 14 mg/dL 4-19 [facility] Serum or plasma uric acid me asurement (mass/volume)Ordered By: HEALTH ASSESSMENT on 07-24-2024 Urate [Mass/Vol] 4.8 mg/dL 2.6-6.0 [facility] Comment on above: The drugs N-Acetylcy steine and Metamizole may falsely depress this assay. Sodium levelOrdered By: [facility] ASSESSMENT on 07-24-2024 Sodium [Moles/Vol] 139 mmol/L 133-145 [facility] Total proteinOrdered By: ANIL [facility] ASSESSMENT on 07-24-2024 Protein [Mass/Vol] 7.5 g/dL 5.9-8.4 [facility] Triglycerides measurementOrd ered By: HEALTH ASSESSMENT on 07-24-2024 Triglyceride [Mass/Vol] 54 mg/dL <199 [facility] Comment on above: The drugs N-Acetylcy steine and Metamizole may falsely depress this assay. Normal range: <150 mg/dLBorderline High: 150-199 mg/dLHigh: 200-499 mg/dLVery High: >500 mg/dL Urinalysis, Employeeon 07-24 BILIRUBIN URINE Negative Normal Negative [facility] Comment on above: Order Comment: Urine , Random Performed By: #### L 100.0200, L400.0100, L500.2900 ####[facility] [address] [place], [address] Clarity (U) Clear Normal Clear [facility] Comment on above: Order Comment: Urine , Random Performed By: #### L 100.0200, L400.0100, L500.2900 ####[facility] [address] [place], [address] Color (U) Yellow Normal Yellow [facility] Comment on above: Order Comment: Urine , Random Performed By: #### L 100.0200, L400.0100, L500.2900 ####[facility] [address] [place], [address] GLUCOSE, UR Normal Normal Normal [facility] Comment on above: Order Comment: Urine , Random Performed By: #### L 100.0200, L400.0100, L500.2900 ####[facility] [address] [place], [address] KETONE UR Negative Normal Negative [facility] Comment on above: Order Comment: Urine , Random Performed By: #### L 100.0200, L400.0100, L500.2900 ####[facility] [address] [place], [address] LEUK ESTERASE Negative Normal Negative [facility] Comment on above: Order Comment: Urine , Random Performed By: #### L 100.0200, L400.0100, L500.2900 ####[facility] [address] [place], [address] Nitrite Ql (U) Negative Normal Negative [facility] Comment on above: Order Comment: Urine , Random Performed By: #### L 100.0200, L400.0100, L500.2900 ####[facility] [address] [place], [address] OCCULT BLOOD-UR Negative Normal Negative [facility] Comment on above: Order Comment: Urine , Random Performed By: #### L 100.0200, L400.0100, L500.2900 ####[facility] [address] [place], [address] pH UR 6.0 Normal 5.0 - 8.0 [facility] Comment on above: Order Comment: Urine , Random Performed By: #### L 100.0200, L400.0100, L500.2900 ####[facility] [address] [place], [address] PROT DIPSTX Negative Normal Negative [facility] Comment on above: Order Comment: Urine , Random Performed By: #### L 100.0200, L400.0100, L500.2900 ####[facility] [address] [place], [address] SP.GR. DIPSTX 1.015 Normal 1.002-1.030 [facility] Comment on above: Order Comment: Urine , Random Performed By: #### L 100.0200, L400.0100, L500.2900 ####[facility] [address] [place], [address] UROBILI Normal Normal Normal [facility] Comment on above: Order Comment: Urine , Random Performed By: #### L 100.0200, L400.0100, L500.2900 ####[facility] [address] [place], [address] Urine clarityOrdered By: ANIL [facility] ASSESSMENT on 07-24-2024 Clarity (U) Clear Clear [facility] Urine color determinationOrd ered By: HEALTH ASSESSMENT on 07-24-2024 Color (U) Yellow Yellow [facility] Urine glucose detectionOrder ed By: HEALTH ASSESSMENT on 07-24-2024 Glucose Ql (U) Normal mg/dl Normal [facility] Urine leukocyte esterase det ection by dipstickOrdered By: HEALTH ASSESSMENT on 07-24-2024 Leukocyte esterase Test strip Ql (U) Negative Negative [facility] Urine pHOrdered By: HEALTH A SSESSMENT on 07-24-2024 pH (U) 6.0 [pH] 5.0 - 8.0 [facility] Urine specific gravity measu rementOrdered By: HEALTH ASSESSMENT on 07-24-2024 Specific gravity (U) [Rel density] 1.015 1.002-1.030 [facility] Urine urobilinogen measureme ntOrdered By: HEALTH ASSESSMENT on 07-24-2024 Urobilinogen Ql (U) Normal mg/dl Normal [facility] White blood cell (WBC) count Ordered By: HEALTH ASSESSMENT on 07-24-2024 WBC (Bld) [#/Vol] 7.4 10*3/uL 4.4-11.0 [facility] SCRN MAMM (CAD)W/GINA BILATo n 07-17-2024 SCRN MAMM (CAD)W/GINA BILAT [facility] Imaging Services [address] [place] [address] SCRN MAMM (CAD)W/GINA BILAT MR#: [id number] Acct: [id number] Name: STEPHANIE ALCANTAR Rep #: [id number] : 1960 F 63 From: Darya Baltazar PCP: Dr. Amish Tavares MD Status: REG CLI Study: SCRN MAMM (CAD)W/GINA BILAT Date of Exam: 06/21 11/13 Exam# [id number] Ordering Dr: Delicia Smith DO EXAM: SCRN MAMM (CAD)W/GINA BILAT DATE: 07/17/2024 CLINICAL HISTORY: F, Age 63 y/o , SCREENING BREAST CANCER RISK ASSESSMENT: Has not been calculated. TECHNIQUE: Bilateral screening digital breast tomosynthesis with 2D and 3D images. Computer aided detection. COMPARISON: Prior exam(s) dated 07/16/2023 and 07/06/2022. FINDINGS: TISSUE DENSITY: The breast tissue is heterogenously dense, which may obscure small masses. Bilateral Breast Mammographic Findings: No suspicious masses, suspicious cluster of microcalcifications, architectural distortion or secondary sign of malignancy is identified in either breast. Benign round calcifications are seen in both breasts. BI/SCRN MAMM (CAD)W/GINA BILAT IMPRESSION: OVERALL FINAL ASSESSMENT: BIRADS 2 BENIGN FINDING RECOMMENDATION: Routine annual follow-up in 1 Year A letter with findings and recommendations will be mailed to the patient. Reading Location: [id number] CC: Dr. Delicia Smith DO; Dr. Amish Tavares MD Internet Marketing Analyst: Signed Normal [facility] SCRN MAMM (CAD)W/GINA BILAT [facility] Imaging Services [address] [place], [place] [id number] SCRN MAMM (CAD)W/GINA BILAT MR#: [id number] Acct: [id number] Name: STEPHANIE ALCANTAR Rep #: [id number] : 1960 F 63 From: Darya Baltazar PCP: Dr. Amish Tavares MD Status: [facility] Study: SCRN MAMM (CAD)W/GINA BILAT Date of Exam: 06/21 11/13 Exam# [id number] Ordering Dr: Delicia Smith DO EXAM: SCRN MAMM (CAD)W/GINA BILAT DATE: 07/17/2024 CLINICAL HISTORY: F, Age 63 y/o , SCREENING BREAST CANCER RISK ASSESSMENT: Has not been calculated. TECHNIQUE: Bilateral screening digital breast tomosynthesis with 2D and 3D images. Computer aided detection. COMPARISON: Prior exam(s) dated 07/16/2023 and 07/06/2022. FINDINGS: TISSUE DENSITY: The breast tissue is heterogenously dense, which may obscure small masses. Bilateral Breast Mammographic Findings: No suspicious masses, suspicious cluster of microcalcifications, architectural distortion or secondary sign of malignancy is identified in either breast. Benign round calcifications are seen in both breasts. BI/SCRN MAMM (CAD)W/GINA BILAT IMPRESSION: OVERALL FINAL ASSESSMENT: BIRADS 2 BENIGN FINDING RECOMMENDATION: Routine annual follow-up in 1 Year A letter with findings and recommendations will be mailed to the patient. Reading Location: [id number] CC: Dr. Delicia Smith DO; Dr. Amish Tavares MD Internet Marketing Analyst: Signed Normal [facility] Property Adjuster Office Visit Reporton 07-06-2024 Property Adjuster Office Visit Report [facility] [address], [address] [place] [address] OFFICE VISIT Date of Service: 07/06/24 MR#: [id number] Acct: [id number] Name: STEPHANIE ALCANTAR Rep #: [id number] : 1960 Provider: Dr. 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) Chief Complaint: Annual Tin Flipper Required: No Is patient in pain?: No Allergies magnesium Allergy (Severe, Verified 07/06/24 13:34) Other celecoxib (From Celebrex) Allergy (Intermediate, Verified 07/06/24 13:34) Shortness of breath Medications ???Medication ???Instructions ???Recorded ???Confirmed ???Type mecobalamin (vitamin B12) 2,500 2,500 mcg PO DAILY 07/06/23 History mcg chewable tablet calcium 600 mg capsule 600 mg PO WE 09/07/23 07/06/24 His tory cholecalciferol (vitamin D3) 50 50 mcg PO .QOD 09/07/23 07/06/24 H istory mcg (2,000 unit) capsule methotrexate sodium 2.5 mg tablet 20 mg PO TU 12/29/23 07/06/24 His tory folic acid 20 mg capsule 20 mg PO DAILY Rheumatoid arthriti s 01/26/24 07/06/24 History Tymlos (abaloparatide) 80 mcg (0.04 mL) subcut DAILY 1212/1307/06/24 Rx #4.68 mL flurbiprofen 100 mg tablet 100 mg PO TID PRN pain #90 tabs 07/06/24 Rx loratadine 10 mg tablet 10 mg PO DAILY PRN dizziness #30 0 04/18/24 07/06/24 Rx tabs pantoprazole 40 mg tablet,delayed 40 mg PO QDAY #90 tabs 04/20/24 0 07/06/24 Rx release clindamycin HCl 300 mg capsule 600 mg (2 x 300 mg) PO ONCE #2 cap s 07/03/24 07/06/24 Rx Is last menstrual period known: No Post menopausal: Yes Patient : No : No PFSH Medical History Dysphagia History of steroid therapy Fatty liver Vitamin D deficiency Acute bronchitis, unspecified Genetic testing of female Barretts esophagus History of echocardiogram Vasovagal episode Fall Vertigo Restless legs History of hiatal hernia History of edema Low back pain Acute lumbar myofascial strain Wears glasses Post-menopausal Cancer Back pain Seizures Gastric reflux Non-smoker History of stress test Chronic constipation Early satiety Acid reflux Abdominal pain Arthritis History of seizure Acute sinusitis Head congestion Raynauds syndrome Hx of ovarian cyst Surgical History Hx of esophagogastroduodenosco py Hx of kyphoplasty Hx of colonoscopy History of ovarian cystectomy History of total knee replacement (TKR) Hx of arthroscopy of right knee Hx of section Family History Sister Ovarian cancer Aunt Breast cancer Mother Breast cancer Father CVA (cerebral vascular accident) Social History Smoking Status: Never smoker alcohol intake: current alcohol intake frequency: holidays/special occasions only caffeine: Yes what type of physical activity do you participate in: none seatbelt use: always do you feel safe at home: Yes additional social history: History 4 Elective abortions Hx Para 3 Spontaneous abortions Hx # Term Pregnancies Ectopic pregnancies Hx # Pregnancies Multiple births 1 # of living children Past Pregnancies Del. Date Name GA/Weeks Outcome Route Bth Weight Infant Gen [facility] FOB Unknown [place] Unknown Ocri/Sharona Unknown Paul Delivery Date: Last Updated by: Flakita Tabor- in utero HPI Encounter for routine gynecological examination Details: STEPHANIE ALCANTAR is a 63 year old who presents for annual exam. Last PAP: 07/06/23 History of abnormal PAP: no Last mammogram: 07/16/23 History of abnormal mammogram: no Colon cancer screening: followed by pcp Other preventative health care screenings: followed by pcp has been dealing with lymphadema for pat month. started after a car ride from [employer] and did not stop. she also has ruq pain. doppler was negative. Female Reproductive History Questions: metorrhagia: No, sexually active: Yes, dyspareunia: No and PCB: No Menopausal Symptoms: No hot flashes, No night sweats, No weight change, No mood changes, No difficulty concentrating, No sleep problems and No change in libido ROS Const Constitutional: Reports as per HPI; Denies fatigue, increased appetite, poor appetite, night sweats, weight gain or weight loss (more content not included)... Normal [facility] Anion gap in Serum or Plasma Ordered By: Amish Tavares on 07-05-2024 Anion gap [Moles/Vol] 10 mmol/L - [facility] BUN/creatinine ratioOrdered By: Amish Tavares on 07-05-2024 Urea nitrogen/Creatinine [Mass ratio] 16.7 mg/mg - [facility] Basic Metabolic Profile (BMP )on 07-05-2024 BUN/CRE 16.7 RATIO Normal - [facility] Comment on above: Performed By: #### L 500.2500 ####[facility] [address] [place], [address] Calcium [Mass/Vol] 9.5 mg/dL Normal 7.6-11.0 [facility] Comment on above: Performed By: #### L 500.2500 ####[facility] [address] [place], [address] Chloride [Moles/Vol] 104 mmol/L Normal 98-108 [facility] Comment on above: Performed By: #### L 500.2500 ####[facility] [address] [place], [address] CO2 [Moles/Vol] 27.5 mmol/L Normal 21.0-32.0 [facility] Comment on above: Performed By: #### L 500.2500 ####[facility] [address] [place], [address] Creatinine [Mass/Vol] 0.83 mg/dL Normal 0.70-1.20 [facility] Comment on above: Performed By: #### L 500.2500 ####[facility] [address] [place], [address] GAP 10 Normal 5-15 [facility] Comment on above: Performed By: #### L 500.2500 ####[facility] [address] [place], [address] GFR/1.73 sq M.predicted among non-blacks MDRD (S/P/Bld) [Vol rate/Area] 80 mL/min/{1.73_m2} Normal >60 [facility] Comment on above: Result Comment: mL/m in/1.73m2 CKD-EPI Creatinine Equation (2020) Performed By: #### L 500.2500 ####[facility] [address] [place], [address] Glucose [Mass/Vol] 97 mg/dL Normal 70-99 [facility] Comment on above: Performed By: #### L 500.2500 ####[facility] [address] [place], [address] Potassium [Moles/Vol] 4.6 mmol/L Normal 3.3-5.1 [facility] Comment on above: Performed By: #### L 500.2500 ####[facility] [address] [place], [place], [id number] Sodium [Moles/Vol] 141 mmol/L Normal 133-145 [facility] Comment on above: Performed By: #### L 500.2500 ####[facility] [address] [place], [place], [id number] Urea nitrogen [Mass/Vol] 14 mg/dL Normal 4-19 [facility] Comment on above: Performed By: #### L 500.2500 ####[facility] [address] [place], [place], [id number] Carbon dioxide, total [Moles /volume] in Central venous bloodOrdered By: Amish Tavares on 07-05-2024 CO2 [Moles/Vol] 27.5 mmol/L 21.0-32.0 [facility] Chloride assayOrdered By: Coleman Tavares on 07-05-2024 Chloride [Moles/Vol] 104 mmol/L 98-108 [facility] GFR/1.73 sq M.predicted jaime g non-blacks MDRD (S/P/Bld) [Vol rate/Area]Ordered By: Amish Tavares on 07-05-2024 Estimated GFR (MDRD) Non-Af Amer 80 >60 [facility] Comment on above: mL/min/1.73m2 CKD-EP I Creatinine Equation (2020) Glomerular filtration rate ( GFR) estimation/1.73 sq m using serum, plasma, or whole bOrdered By: Amish Tavares on 07-05-2024 GFR/1.73 sq M.predicted among non-blacks MDRD (S/P/Bld) [Vol rate/Area] 80 mL/min/{1.73_m2} >60 [facility] Comment on above: mL/min/1.73m2 CKD-EP I Creatinine Equation (2020) Potassium (Unsp spec) [Mass/ Vol]Ordered By: Amish Tavares on 07-05-2024 Potassium [Moles/Vol] 4.6 mmol/L 3.3-5.1 [facility] Potassium measurement (mass/ volume)Ordered By: Amish Tavares on 07-05-2024 Potassium (Unsp spec) [Mass/Vol] 4.6 mmol/L 3.3-5.1 [facility] Serum creatinine measurement (mass/volume)Ordered By: Amish Tavares on 07-05-2024 Creatinine [Mass/Vol] 0.83 mg/dL 0.70-1.20 [facility] Serum glucose measurement (m ass/volume)Ordered By: Amish Tavares on 07-05-2024 Glucose [Mass/Vol] 97 mg/dL 70-99 [facility] Serum or plasma calcium sommer urement (mass/volume)Ordered By: Amish Tavares on 07-05-2024 Calcium [Mass/Vol] 9.5 mg/dL 7.6-11.0 [facility] Serum or plasma urea nitroge n measurement (mass/volume)Ordered By: Amish Tavares on 07-05-2024 Urea nitrogen [Mass/Vol] 14 mg/dL 4-19 [facility] Sodium levelOrdered By: Amish Tavares on 07-05-2024 Sodium [Moles/Vol] 141 mmol/L 133-145 [facility] Venous duplex ultrasound rep ortOrdered By: Jass Rai on 07-03-2024 US Vein [facility] [address] [place] [address] Venous Duplex US - Rob Extrem 06/30/24 1105 MR#: [id number] Acct: [id number] Name: STEPHANIE ALCANTAR Rep #:[id number] : 1960 63 From: Jass Villarreal Attending Dr: Dr. Jatin Lopez, DPM Status: REG CLI Ordering Dr: Jatin Lopez DPM Date: 06/30/24 Location: [facility] Sex: F C Admitted: Reason For Study Reason For Study: Swelling RIGHT LEFT GSV is normal. GSV is normal. CFV is compressible, spontaneous, phasic, competent CFV is compressible, spontaneous, phasic, competent, and demonstrates normal augmentation. and demonstrates normal augmentation. FV is compressible, spontaneous, phasic, competent FV is compressible, spontaneous, phasic, competent and demonstrates normal augmentation. and demonstrates normal augmentation. POP V is compressible, spontaneous, phasic, competent POP V is compressible, spontaneous, phasic, competent and demonstrates normal augmentation. and demonstrates normal augmentation. T/P Trunk is compressible. T/P Trunk is compressible. PTV is compressible. PTV is compressible. RT PerV is compressible. LT PerV is compressible. Procedure This is a venous duplex using B-mode, color flow and spectral Doppler. Exam performed in department. A preliminary report was called and/or faxed to Jatin Lopez DPM. VL/Venous Duplex US - Rob Extrem Interpretation Summary Deep veins of the bilateral lower extremities are patent and compressible segmentally. There is no evidence of bilateral lower extremity deep vein thrombosis. The bilateral great saphenous veins appearpatent and compressible segmentally. Ordering Physician: Jatin Lopez Referring Physician: Amish Tavares Performed By: Lennie Gomez, T 07/03/24 0759 Date _ Jass Rai MD CC: BRANDEN Lopez; Dr. Amish Tavares MD ~ Date Dictated: 06/30/241104 Date Transcribed: 07/03/24758 Internet Marketing Analyst: Signed [facility] Work Phone: Venous Duplex US - Rob Extre [facility] 06-30-2024 Venous Duplex US - Rob Extrem [facility] [address] [place] [id number] Venous Duplex US - Rob Extrem 06/30/241104 MR#: [id number] Acct: [id number] Name: STEPHANIE ALCANTAR Rep #: [id number] : 1960 63 From: Jass Rai MD Attending Dr: Dr. Jatin Lopez DPM Status: REG CLI Ordering Dr: Jatin Lopez DPM Date: 06/30/24 Location: CVS Sex: F C Admitted: Reason For Study Reason For Study: Swelling RIGHT LEFT GSV is normal. GSV is normal. CFV is compressible, spontaneous, phasic, competent CFV is compressible, spontaneous, phasic, competent, and demonstrates normal augmentation. and demonstrates normal augmentation. FV is compressible, spontaneous, phasic, competent FV is compressible, spontaneous, phasic, competent and demonstrates normal augmentation. and demonstrates normal augmentation. POP V is compressible, spontaneous, phasic, competent POP V is compressible, spontaneous, phasic, competent and demonstrates normal augmentation. and demonstrates normal augmentation. T/P Trunk is compressible. T/P Trunk is compressible. PTV is compressible. PTV is compressible. RT PerV is compressible. LT PerV is compressible. Procedure This is a venous duplex using B-mode, color flow and spectral Doppler. Exam performed in department. A preliminary report was called and/or faxed to Jatin Lopez DPM. VL/Venous Duplex US - Rob Extrem Interpretation Summary Deep veins of the bilateral lower extremities are patent and compressible segmentally. There is no evidence of bilateral lower extremity deep vein thrombosis. The bilateral great saphenous veins appear patent and compressible segmentally. Ordering Physician: Jatin Lopez Referring Physician: Amish Tavares Performed By: Lennie Gomez RVT 07/03/24 0759 Date Jass Rai MD CC: BRANDEN Lopez; Dr. Amish Tavares MD Date Dictated: 06/30/24 1105 Date Transcribed: 07/03/24 3699 Internet Marketing Analyst: Signed Normal [facility] Gastroenterology Visit Repor ton 06-09-2024 Gastroenterology Visit Report [facility] [address] [place] [address] OFFICE VISIT Date of Service: 06/09/24 MR#: [id number] Acct: [id number] Name: STEPHANIE ALCANTAR Rep #: [id number] : 1960 Provider: Yaakov Ambriz DO Age/Sex: 63/F Location: [facility] Status: Signed Intake Vital Signs 04/18/24 13:55 05/24/24 05:46 Height 6 ft 1 in 6 ft 1 in Intake Visit Reasons: Test Result Allergies magnesium Allergy (Severe, Verified 05/24/24 05:44) Other celecoxib (From Celebrex) Allergy (Intermediate, Verified 05/24/24 05:44) Shortness of breath Medications ???Medication ???Instructions ???Recorded ???Confirmed ???Type mecobalamin (vitamin B12) 2,500 2,500 mcg PO DAILY 07/06/23 History mcg chewable tablet calcium 600 mg capsule 600 mg PO WE 09/07/23 06/09/24 His tory cholecalciferol (vitamin D3) 50 50 mcg PO .QOD 09/07/23 06/09/24 H istory mcg (2,000 unit) capsule methotrexate sodium 2.5 mg tablet 20 mg PO TU 12/29/23 06/09/24 His tory folic acid 20 mg capsule 20 mg PO DAILY Rheumatoid arthriti s 01/26/24 06/09/24 History Tymlos (abaloparatide) 80 mcg (0.04 mL) subcut DAILY 12/1306/09/24 Rx #4.68 mL flurbiprofen 100 mg tablet 100 mg PO TID PRN pain #90 tabs 06/09/24 Rx loratadine 10 mg tablet 10 mg PO DAILY PRN dizziness #30 0 04/18/24 06/09/24 Rx tabs pantoprazole 40 mg tablet,delayed 40 mg PO QDAY #90 tabs 04/20/24 0 06/09/24 Rx release PFSH Medical History (Updated 05/24/24 @ 06:[address] Yaakov Ambriz, DO) Dysphagia History of steroid therapy Fatty liver Vitamin D deficiency Acute bronchitis, unspecified Genetic testing of female Barretts esophagus History of echocardiogram Vasovagal episode Fall Vertigo Restless legs History of hiatal hernia History of edema Low back pain Acute lumbar myofascial strain Wears glasses Post-menopausal Cancer Back pain Seizures Gastric reflux Non-smoker History of stress test Chronic constipation Early satiety Acid reflux Abdominal pain Arthritis History of seizure Acute sinusitis Head congestion Raynauds syndrome Hx of ovarian cyst Surgical History Hx of esophagogastroduodenosco py Hx of kyphoplasty Hx of colonoscopy History of ovarian cystectomy History of total knee replacement (TKR) Hx of arthroscopy of right knee Hx of section Family History Sister Ovarian cancer Aunt Breast cancer Mother Breast cancer Father CVA (cerebral vascular accident) Social History Smoking Status: Never smoker alcohol intake: current alcohol intake frequency: holidays/special occasions only caffeine: Yes what type of physical activity do you participate in: none seatbelt use: always do you feel safe at home: Yes additional social history: HPI HPI Details: STEPHANIE ALCANTAR, is a 63 F who presents to the office today for follow up. Prior workup: ? US 05.16.21 without acute/chronic finding ? HIDA 4..22 EF 49% *BGI established 08.04.21 with symptoms of intermittent RUQ pain since which later moved to [facility] and began self-treatment for life-long constipation (BM Q3D with small hard stool). Intermittent food sticking sensation. ? CT abd/pel 08.08.21 without acute/chronic finding ? EGD and colonoscopy 11.06.21 EGD mild Schatzki ring, irregular Zline, metaplasia/lymphoid +; medium hiatal hernia ? Colonoscopy diverticulosis; congested mucosa. No path changes ? GET 11.11.21 49.08 minutes (12-56) OV 9 increase PPI to BID; start MiraLAX/kiwi/dried apricots. OV 02.18.22 doing well, continue PPI ? EGD 01.05.23 [place]ount???s, metaplasia +; medium hiatal hernia. Lymphoid aggregate resolved. Contact 02.17.23 she is starting methotrexate and has concern regarding PPI interaction. Advised she needs to talk to methotrexate prescriber as she has not been seen in clinic in a year. EGD results discussed. OV 03.18.23 Methotrexate prescriber instructed her to stop PPI use. With stop of PPI she has been having frequent, daily heartburn. Without use of fiber/MiraLAX she will not have BM for several days; with this she has a BM each day. Over the summer she fell with fracture of three vertebra; underwent bone density scan showing severe osteoporosis and was then diagnosed with rheumatoid arthritis. OV 1.30.25 (more content not included)... Normal [facility] Absolute lymphocyte countOrd ered By: Claudia Krishna on 06-05-2024 Lymphocytes Auto (Unsp spec) [#/Vol] 1.77 10*3/uL 0.83-4.51 [facility] Absolute neutrophil countOrd ered By: [facility] Erendira on 06-05-2024 Neutrophils (Bld) [#/Vol] 5.8 10*3/uL 2.0-7.7 [facility] Anion gap in Serum or Plasma Ordered By: [facility] Erendira on 06-05-2024 Anion gap [Moles/Vol] 8 mmol/L - [facility] Automated lymphocyte count a s percentage of total leukocytesOrdered By: Claudia Krishna on 06-05-2024 Lymphocytes/100 WBC Auto (Unsp spec) 20.3 % - [facility] BUN/creatinine ratioOrdered By: [facility] Erendira on 06-05-2024 Urea nitrogen/Creatinine [Mass ratio] 17.2 mg/mg - [facility] Basophil percentageOrdered B y: [facility] Erendira on 06-05-2024 Basophils/100 WBC (Bld) 0.8 % 0- [facility] Bilirubin, totalOrdered By: [facility] Erendira on 06-05-2024 Bilirubin [Mass/Vol] 0.28 mg/dL 0.00-1.30 [facility] CBC W/Diff, Automatedon 05-20 Absolute Lymph 1.77 X10 3/uL Normal 0.83-4.51 [facility] Comment on above: Performed By: #### L 100.0100, L500.4050 ####[facility] [address] [place], [address] Absolute Neut 5.8 X10 3/uL Normal 2.0-7.7 [facility] Comment on above: Performed By: #### L 100.0100, L500.4050 ####[facility] [address] [place], [address] Basophils/100 WBC (Bld) 0.8 % Normal 0-1 [facility] Comment on above: Performed By: #### L 100.0100, L500.4050 ####[facility] [address] [place], [address] Eosinophils/100 WBC (Bld) 2.3 % Normal 0-5 [facility] Comment on above: Performed By: #### L 100.0100, L500.4050 ####[facility] [address] [place], [address] Erythrocyte distribution width (RBC) [Ratio] 13.2 % Normal 11.6-14.6 [facility] Comment on above: Performed By: #### L 100.0100, L500.4050 ####[facility] [address] [place], [address] Hematocrit (Bld) [Volume fraction] 39.3 % Normal 37-47 [facility] Comment on above: Performed By: #### L 100.0100, L500.4050 ####[facility] [address] [place], [address] Hemoglobin (Bld) [Mass/Vol] 12.8 g/dL Normal 12.0-15.0 [facility] Comment on above: Performed By: #### L 100.0100, L500.4050 ####[facility] [address] [place], [address] IG% 0.500 Normal 0.0-0.9 [facility] Comment on above: Result Comment: IG% - Immature Granulocytes (promyelocytes, myelocytes and metamyelocytes) > 1% indicates that a LEFT SHIFT is Present. Performed By: #### L 100.0100, L500.4050 ####[facility] [address] [place], [address] Lymphocytes/100 WBC (Bld) 20.3 % Normal 19-41 [facility] Comment on above: Performed By: #### L 100.0100, L500.4050 ####[facility] [address] [place], [address] MCH (RBC) [Entitic mass] 29.4 pg Normal 27.0-32.0 [facility] Comment on above: Performed By: #### L 100.0100, L500.4050 ####[facility] [address] [place], [address] MCHC (RBC) [Mass/Vol] 32.6 g/dL Normal 32-36 [facility] Comment on above: Performed By: #### L 100.0100, L500.4050 ####[facility] [address] [place], [address] MCV (RBC) [Entitic vol] 90.3 fL Normal 81-99 [facility] Comment on above: Performed By: #### L 100.0100, L500.4050 ####[facility] [address] [place], [address] Monocytes/100 WBC (Bld) 9.4 % Normal 0-10 [facility] Comment on above: Performed By: #### L 100.0100, L500.4050 ####[facility] [address] [place], [address] Neutrophils/100 WBC (Bld) 66.7 % Normal 47-70 [facility] Comment on above: Performed By: #### L 100.0100, L500.4050 ####[facility] [address] [place], [address] Nucleated RBC (Bld) [#/Vol] 0 10*3/uL Normal 0-5 [facility] Comment on above: Performed By: #### L 100.0100, L500.4050 ####[facility] [address] [place], [address] Platelet mean volume (Bld) [Entitic vol] 8.7 fL Normal 6.2-12.0 [facility] Comment on above: Performed By: #### L 100.0100, L500.4050 ####[facility] [address] [place], [address] Platelets (Bld) [#/Vol] 343 10*3/uL Normal 150-450 [facility] Comment on above: Performed By: #### L 100.0100, L500.4050 ####[facility] [address] [place], [address] RBC (Bld) [#/Vol] 4.35 10*6/uL Normal 4.2-5.4 [facility] Comment on above: Performed By: #### L 100.0100, L500.4050 ####[facility] [address] [place], [address] RDW SD 42.7 fl Normal 35.1-43.9 [facility] Comment on above: Performed By: #### L 100.0100, L500.4050 ####[facility] [address] [place], [address] WBC (Bld) [#/Vol] 8.7 10*3/uL Normal 4.4-11.0 [facility] Comment on above: Performed By: #### L 100.0100, L500.4050 ####[facility] [address] [place], [address] Carbon dioxide, total [Moles /volume] in Central venous bloodOrdered By: Claudia Krishna on 06-05-2024 CO2 [Moles/Vol] 26.9 mmol/L 21.0-32.0 [facility] Chloride assayOrdered By: Coleman Krishna on 06-05-2024 Chloride [Moles/Vol] 105 mmol/L 98-108 [facility] Metabolic Prof ilon 06-05-2024 Albumin [Mass/Vol] 3.9 g/dL Normal 3.4-4.8 [facility] Comment on above: Performed By: #### L 100.0100, L500.4050 ####[facility] [address] [place], [address] Albumin/Globulin [Mass ratio] 1.1 {ratio} Normal 0.9-2.4 [facility] Comment on above: Performed By: #### L 100.0100, L500.4050 ####[facility] [address] [place], [address] ALK PHOS 60 U/L Normal 35-104 [facility] Comment on above: Performed By: #### L 100.0100, L500.4050 ####[facility] [address] [place], [address] ALT [Catalytic activity/Vol] 16 U/L Normal <=34 [facility] Comment on above: Performed By: #### L 100.0100, L500.4050 ####[facility] [address] [place], [address] AST [Catalytic activity/Vol] 25 U/L Normal <=31 [facility] Comment on above: Performed By: #### L 100.0100, L500.4050 ####[facility] [address] [place], [address] Bilirubin [Mass/Vol] 0.28 mg/dL Normal 0.00-1.30 [facility] Comment on above: Performed By: #### L 100.0100, L500.4050 ####[facility] [address] [place], [address] BUN/CRE 17.2 RATIO Normal 10-20 [facility] Comment on above: Performed By: #### L 100.0100, L500.4050 ####[facility] [address] [place], [address] Calcium [Mass/Vol] 10.0 mg/dL Normal 7.6-11.0 [facility] Comment on above: Performed By: #### L 100.0100, L500.4050 ####[facility] [address] [place], [address] Chloride [Moles/Vol] 105 mmol/L Normal 98-108 [facility] Comment on above: Performed By: #### L 100.0100, L500.4050 ####[facility] [address] [place], [address] CO2 [Moles/Vol] 26.9 mmol/L Normal 21.0-32.0 [facility] Comment on above: Performed By: #### L 100.0100, L500.4050 ####[facility] [address] [place], [address] Creatinine [Mass/Vol] 0.83 mg/dL Normal 0.70-1.20 [facility] Comment on above: Performed By: #### L 100.0100, L500.4050 ####[facility] [address] [place], [address] GAP 8 Normal 5-15 [facility] Comment on above: Performed By: #### L 100.0100, L500.4050 ####[facility] [address] [place], [address] GFR/1.73 sq M.predicted among non-blacks MDRD (S/P/Bld) [Vol rate/Area] 80 mL/min/{1.73_m2} Normal >60 [facility] Comment on above: Result Comment: mL/m in/1.73m2 CKD-EPI Creatinine Equation (2020) Performed By: #### L 100.0100, L500.4050 ####[facility] [address] [place], [address] Globulin (S) [Mass/Vol] 3.5 g/dL Normal 2.2-4.2 [facility] Comment on above: Performed By: #### L 100.0100, L500.4050 ####[facility] [address] [place], [address] Glucose [Mass/Vol] 87 mg/dL Normal 70-99 [facility] Comment on above: Performed By: #### L 100.0100, L500.4050 ####[facility] [address] [place], [address] Potassium [Moles/Vol] 4.7 mmol/L Normal 3.3-5.1 [facility] Comment on above: Performed By: #### L 100.0100, L500.4050 ####[facility] [address] [place], [address] Sodium [Moles/Vol] 140 mmol/L Normal 133-145 [facility] Comment on above: Performed By: #### L 100.0100, L500.4050 ####[facility] [address] [place], [address] T PROT 7.4 g/dL Normal 5.9-8.4 [facility] Comment on above: Performed By: #### L 100.0100, L500.4050 ####[facility] [address] [place], [address] Urea nitrogen [Mass/Vol] 14 mg/dL Normal 4-19 [facility] Comment on above: Performed By: #### L 100.0100, L500.4050 ####[facility] [address] [place], [address] Eosinophil percentageOrdered By: Claudia Krishna on 06-05-2024 Eosinophils/100 WBC (Bld) 2.3 % 0-5 [facility] Erythrocyte distribution wid th ratioOrdered By: Claudia Krishna on 06-05-2024 Erythrocyte distribution width (RBC) [Ratio] 13.2 % 11.6-14.6 [facility] Erythrocyte distribution wid th standard deviationOrdered By: Claudia Krishna on 06-05-2024 Erythrocyte distribution width (RBC) [Entitic vol] 42.7 fL 35.1-43.9 [facility] Erythrocyte distribution width (RBC) [Ratio] 42.7 fl 35.1-43.9 [facility] GFR/1.73 sq M.predicted jaime g non-blacks MDRD (S/P/Bld) [Vol rate/Area]Ordered By: Claudia Krishna on 06-05-2024 Estimated GFR (MDRD) Non-Af Amer 80 >60 [facility] Comment on above: mL/min/1.73m2 CKD-EP I Creatinine Equation (2020) Glomerular filtration rate ( GFR) estimation/1.73 sq m using serum, plasma, or whole bOrdered By: Claudia Krishna on 06-05-2024 GFR/1.73 sq M.predicted among non-blacks MDRD (S/P/Bld) [Vol rate/Area] 80 mL/min/{1.73_m2} >60 [facility] Comment on above: mL/min/1.73m2 CKD-EP I Creatinine Equation (2020) Hematocrit Auto (Bld) [Volum e fraction]Ordered By: Claudia Krishna on 06-05-2024 Hematocrit (Bld) [Volume fraction] 39.3 % 37-47 [facility] Hemoglobin measurementOrdere d By: Claudia Krishna on 06-05-2024 Hemoglobin (Bld) [Mass/Vol] 12.8 g/dL 12.0-15.0 [facility] Immature granulocytes/100 WB C Auto (Bld)Ordered By: Claudia Krishna on 06-05-2024 Immature granulocytes/100 WBC (Bld) 0.500 % 0.0-0.9 [facility] Comment on above: IG% - Immature Granu locytes (promyelocytes, myelocytes and metamyelocytes) > 1% indicates that a LEFT SHIFT is Present. Laboratory - Chemistry and C hemistry - challengeOrdered By: Claudia Krishna on 06-05-2024 AST [Catalytic activity/Vol] 25 U/L <32 [facility] Lymphocytes Auto (Unsp spec) [#/Vol]Ordered By: Claudia Krishna on 06-05-2024 Lymphocytes (Bld) [#/Vol] 1.77 10*3/uL 0.83-4.51 [facility] Lymphocytes/100 WBC Auto (Un sp spec)Ordered By: Claudia Krishna on 06-05-2024 Lymphocytes/100 WBC (Bld) 20.3 % 19-41 [facility] MCV (mean corpuscular volume ) determinationOrdered By: Claudia Krishna on 06-05-2024 MCV (RBC) [Entitic vol] 90.3 fL 81-99 [facility] Mean corpuscular hemoglobin (MCH) determinationOrdered By: Claudia Krishna on 06-05-2024 MCH (RBC) [Entitic mass] 29.4 pg 27.0-32.0 [facility] Mean corpuscular hemoglobin concentration (MCHC) determinationOrdered By: Claudia Krishna on 06-05-2024 MCHC (RBC) [Mass/Vol] 32.6 g/dL 32-36 [facility] Mean platelet volume determi nationOrdered By: Claudia Krishna on 06-05-2024 Platelet mean volume (Bld) [Entitic vol] 8.7 fL 6.2-12.0 [facility] Monocyte percentageOrdered B y: Claudia Krishna on 06-05-2024 Monocytes/100 WBC (Bld) 9.4 % 0-10 [facility] Neutrophil percentageOrdered By: Claudia Krishna on 06-05-2024 Neutrophils/100 WBC (Bld) 66.7 % 47-70 [facility] Nucleated red blood cell per centageOrdered By: Claudia Krishna on 06-05-2024 Nucleated RBC/100 WBC (Bld) [Ratio] 0 % 0-5 [facility] Platelet countOrdered By: Coleman Krishna on 06-05-2024 Platelets (Bld) [#/Vol] 343 10*3/uL 150-450 [facility] Potassium (Unsp spec) [Mass/ Vol]Ordered By: Claudia Krishna on 06-05-2024 Potassium [Moles/Vol] 4.7 mmol/L 3.3-5.1 [facility] Potassium measurement (mass/ volume)Ordered By: Claudia Krishna on 06-05-2024 Potassium (Unsp spec) [Mass/Vol] 4.7 mmol/L 3.3-5.1 [facility] RBC Auto (Bld) [#/Vol]Ordere d By: Claudia Krishna on 06-05-2024 RBC (Bld) [#/Vol] 4.35 10*6/uL 4.2-5.4 [facility] Serum creatinine measurement (mass/volume)Ordered By: Claudia Krishna on 06-05-2024 Creatinine [Mass/Vol] 0.83 mg/dL 0.70-1.20 [facility] Serum globulin measurementOr dered By: Claudia Krishna on 06-05-2024 Globulin (S) [Mass/Vol] 3.5 g/dL 2.2-4.2 [facility] Serum glucose measurement (m ass/volume)Ordered By: Claudia Krishna on 06-05-2024 Glucose [Mass/Vol] 87 mg/dL 70-99 [facility] Serum or plasma alanine alexander otransferase (ALT) measurementOrdered By: Claudia Krishna on 06-05-2024 ALT [Catalytic activity/Vol] 16 U/L <35 [facility] Serum or plasma albumin sommer urement (mass/volume)Ordered By: Claudia Krishna on 06-05-2024 Albumin [Mass/Vol] 3.9 g/dL 3.4-4.8 [facility] Serum or plasma albumin/glob ulin mass ratioOrdered By: Claudia Krishna on 06-05-2024 Albumin/Globulin [Mass ratio] 1.1 {ratio} 0.9-2.4 [facility] Serum or plasma alkaline jesus sphatase measurementOrdered By: Claudia Krishna on 06-05-2024 ALP [Catalytic activity/Vol] 60 U/L 35-104 [facility] Serum or plasma calcium sommer urement (mass/volume)Ordered By: Claudia Krishna on 06-05-2024 Calcium [Mass/Vol] 10.0 mg/dL 7.6-11.0 [facility] Serum or plasma urea nitroge n measurement (mass/volume)Ordered By: Claudia Krishna on 06-05-2024 Urea nitrogen [Mass/Vol] 14 mg/dL 4-19 [facility] Sodium levelOrdered By: Irma Krishna on 06-05-2024 Sodium [Moles/Vol] 140 mmol/L 133-145 [facility] Total proteinOrdered By: Gina Krishna on 06-05-2024 Protein [Mass/Vol] 7.4 g/dL 5.9-8.4 [facility] White blood cell (WBC) count Ordered By: Claudia Krishna on 06-05-2024 WBC (Bld) [#/Vol] 8.7 10*3/uL 4.4-11.0 [facility] EGD Reporton 05-24-2024 EGD Report [facility] Medical Records Department [address] [place] [address] EGD Report MR#: [id number] Acct: [id number] Name: STEPHANIE ALCANTAR Rep #: [id number] : 1960 63 From: Yaakov Ambriz DO PCP: Dr. Amish Tavares MD Status:[facility] Patient Name: Stephanie Alcantar Procedure Date: 05/24/2024 6:30 AM Date of : 1960 Age: 63 Procedure: Upper GI endoscopy Indications: Dysphagia, Follow-up of Blount's esophagus Providers: Yaakov Ambriz DO Medicines: Monitored Anesthesia Care Patient Profile: This is a 63 year old female. Refer to note in patient chart for documentation of history and physical. Patient has symptoms of chronic dysphagia, dysphagia with solids and chronic heartburn. Complications: No immediate complications. Procedure: Pre-Anesthesia Assessment: - Prior to the procedure, a History and Physical was performed, and patient medications and allergies were reviewed. The patient is competent. The risks and benefits of the procedure and the sedation options and risks were discussed with the patient. All questions were answered and informed consent was obtained. Patient identification and proposed procedure were verified by the physician in the pre-procedure area. Mental Status Examination: alert and oriented. Airway Examination: normal oropharyngeal airway and neck mobility. Respiratory Examination: clear to auscultation. CV Examination: normal. Prophylactic Antibiotics: The patient does not require prophylactic antibiotics. Prior Anticoagulants: The patient has taken no anticoagulant or antiplatelet agents except for NSAID medication. ASA Grade Assessment: II - A patient with mild systemic disease. After reviewing the risks and benefits, the patient was deemed in satisfactory condition to undergo the procedure. The anesthesia plan was to use monitored anesthesia care (MAC). Immediately prior to administration of medications, the patient was re-assessed for adequacy to receive sedatives. The heart rate, respiratory rate, oxygen saturations, blood pressure, adequacy of pulmonary ventilation, and response to care were monitored throughout the procedure. The physical status of the patient was re-assessed after the procedure. After obtaining informed consent, the endoscope was passed under direct vision. Throughout the procedure, the patient's blood pressure, pulse, and oxygen saturations were monitored continuously. The Endoscope was introduced through the mouth, and advanced to the second part of duodenum. The upper GI endoscopy was accomplished without difficulty. The patient tolerated the procedure well. Scope In: 6:53:59 AM Scope Out: 7:00:20 AM Total Procedure Duration Time 0 hours 6 minutes 21 seconds Findings: There were esophageal mucosal changes secondary to established short-segment Blount's disease present in the lower third of the esophagus. The maximum longitudinal extent of these mucosal changes was 2 cm in length. Imaging was performed using the Pentax i-Scan system to visualize the mucosa. This was biopsied with a cold forceps for histology. Verification of patient identification for the specimen was done. Estimated blood loss was minimal. A moderate Schatzki ring was found at the gastroesophageal junction. A guidewire was placed and the scope was withdrawn. Dilation was performed with a Savary dilator with no resistance at 60 Fr. The dilation site was examined and showed moderate mucosal disruption. No other significant abnormalities were identified in a careful examination of the stomach. No gross lesions were noted in the second portion of the duodenum. 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 Biopsied. - Moderate Schatzki ring. Dilated. - No gross lesions in the second portion of the duodenum. Recommendation: - Discharge patient to home. - Resume previous diet. - Continue present medications. - Await pathology results. - Repeat upper endoscopy in 1.5 years for surveillance. Procedure Code(s): --- Professional --- 08315, Esophagogastroduodenosco py, flexible, transoral; with insertion of guide wire followed by passage of dilator(s) through esophagus over guide wire 21747, 59,51, Esophagogastroduodenosco py, flexible, transoral; with biopsy, single or multiple CPT copyright 2021 [employer]. All rights reserved. The codes documented in this report are preliminary and upon aluminum sheet cutter review may be revised to meet current compliance requirements. Yaakov Ambriz DO 05/24/2024 7:09:40 AM This report has been signed electronically. Number of Addenda: 0 Note Initiated On: 05/24/2024 6:30 AM 05/24/24709 Date Yaakov Montesignlola Signature: Date (more content not included)... Normal [facility] MR/POSTOP.ANEon 05-24-2024 MR/POSTOP.[facility] Medical Records Department [address] [place] [address] Anesthesia Postop Eval I 05/24/24707 MR#: [id number] Acct: [id number] Name: STEPHANIE ALCANTAR Rep #: [id number] : 1960 63 From: John Dominique PCP: Dr. Amish Tavares MD Status:[place] [facility] Race: C Location: [place] [address] Anesthesia: Postop Eval I Current Vital Signs Temperature: 97.1 F Pulse Rate: 80 Blood Pressure: 103/68 Respiratory Rate: 16 Pulse Ox: 95 Oxygen Delivery Method: Room Air Assessment Airway patent: Yes Spontaneous unlabored respirations: Yes Mental status: Asleep nausea: No Vomiting: No Anesthesia Complication: No Fluid Hydration Crystalloid volume administer (ml): 30 Total IV fluid infused: 30 Progress Note Anesthesia document: Postop Eval 1 completed: Yes 05/24/24708 Date John Pettit Signature: Date CC: Signed Normal [facility] MR/BJDXEHHM6al 05-24-2024 MR/POSTOPAN2 [facility] Medical Records Department [address] [address] [address] Anesthesia Postop Eval II 05/24/2439 MR#: [id number] Acct: [id number] Name: STEPHANIE ALCANTAR Rep #: [id number] : 1960 63 From: Jared Kulkarni MD PCP: Dr. Amish Tavares MD Status:[place] [facility] Race: C Location: [place] [address] Anesthesia Postop Eval I Sum Postop Eval Completion status Anesthesia document: Postop Eval 1 completed: Yes Anesthesia Postop Eval I Summary Anesthesia Postop Eval I Summary: Anesthesia Postop Eval I: Assessment Summary Airway patent Yes 05/24/24 07:09 [email or web address] Spontaneous unlabored Yes 05/24/24 07:09 [email or web address] respirations Mental status Asleep 05/24/24 07:09 [email or web address] nausea No 05/24/24 07:09 [email or web address] Vomiting No 05/24/24 07:09 [email or web address] Anesthesia Postop Eval I: Fluid Summary Crystalloid volume administer 30 05/24/24 07:09 [email or web address] (ml) Colloids volume administered ( ml) Blood Product volume administered (ml) Total IV fluid infused 30 05/24/24 07:09 [email or web address] Anesthesia Postop Eval I: Summary Notes Anesthesia Complication No 05/24/24 07:09 [email or web address] Anesthesia Complication Comment: Post-operative progress note Anesthesia: Postop Eval II Evaluation Mental status: Awake Pain Level: 0 nausea: No Vomiting: No 05/24/24738 Date Jared Pettit Signature: Date CC: Signed Normal [facility] Special Stain Group Ion 03-0 Special Stain Group I ------ Patient Age/Sex Location Account Attending Physician STEPHANIE ALCANTAR 63/F EN [id number] Yaakov Ambriz DO Specimen: [id number] Received: 05/24/24 Status: JAJA Rodriguez Num: [id number] Spec Type: EGD BIOPSY Rebeca Dr: Yaakov Friend, DO HEADER OPERATION: EGD and biopsy and dilatation PRE-OP DIAGNOSIS: Reflux, abdominal pain, Blount's esophagus TISSUE SUBMITTED: Distal esophagus biopsy MICROSCOPIC DIAGNOSIS Distal esophagus, biopsy: * Squamous mucosa with reactive changes and acute inflammation. * Cardio-oxyntic (columnar) mucosa with active chronic inflammation, negative for goblet cell metaplasia. * A PASD stain is negative for fungal organisms. * IHC for H pylori is PENDING and will be reported in an addendum. MICROSCOPIC DESCRIPTION Slides are reviewed. The matched control(s) reacted appropriately. GROSS DESCRIPTION Received in fixative is one container labeled with the patient's name and designated Distal esophagus biopsy. The specimen consists of multiple irregular fragments of light cedeño soft tissue that in aggregate measure 1.5 x 1 x 0.2 cm. The specimen is totally submitted in one cassette. 05/24/2024 CPT:64650,56774 ADDENDUM Addendum 1 Entered: 06/02/24 This addendum is to report the results for the IHC. The IHC is negative for H pylori organisms. Matched controls reacted appropriately. Patient Age/Sex Location Account Attending Physician STEPHANIE ALCANTAR 63/F EN [id number] Yaakovgrant Ambriz DO ADDENDUM (Continued) Addendum Signed (signature on file) Dr. Analia Caldwell MD 06/02/24 0927 Patient Age/Sex Location Account Attending Physician STEPHANIE ALCANTAR 63/F EN [id number] Yaakovdeandre Ambriz DO Signed (signature on file) Dr. Analia Caldwell MD 05/30/24 1357 Normal [facility] Comment on above: Performed By: #### Atif BENITEZ [facility] ####[facility] [address] [place], [address] Surgery Specimen Level Lydia 05-24-2024 Surgery Specimen Level IV Patient Age/Sex Location Account Attending Physician SAMSONSTEPHANIE ANNI 63/F EN [id number] Yaakov Ambriz DO Specimen: [id number] Received: 05/24/24 Status: JAJA Rodriguez Num: [id number] Spec Type: EGD BIOPSY Subm Dr: Yaakov Ambriz DO HEADLOLA OPERATION: EGD and biopsy and dilatation PRE-OP DIAGNOSIS: Reflux, abdominal pain, Blount's esophagus TISSUE SUBMITTED: Distal esophagus biopsy MICROSCOPIC DIAGNOSIS Distal esophagus, biopsy: * Squamous mucosa with reactive changes and acute inflammation. * Cardio-oxyntic (columnar) mucosa with active chronic inflammation, negative for goblet cell metaplasia. * A PASD stain is negative for fungal organisms. * IHC for H pylori is PENDING and will be reported in an addendum. MICROSCOPIC DESCRIPTION Slides are reviewed. The matched control(s) reacted appropriately. GROSS DESCRIPTION Received in fixative is one container labeled with the patient's name and designated Distal esophagus biopsy. The specimen consists of multiple irregular fragments of light cedeño soft tissue that in aggregate measure 1.5 x 1 x 0.2 cm. The specimen is totally submitted in one cassette. 05/24/2024 CPT:17097 Patient Age/Sex Location Account Attending Physician STEPHANIE ALCANTAR 63/F EN [id number] Yaakov Ambriz DO Signed (signature on file) Dr. Analia Caldwell MD 05/30/24 1357 Normal [facility] Comment on above: Performed By: #### YENNIFER ROONEY ####[facility] [address] [place], [address] MRA Head ONLY without Contra ston 05-05-2024 MRA Head ONLY without Contrast [facility] Imaging Services [address] [place] [address] MRA Head ONLY without Contrast MR#: [id number] Acct: [id number] Name: STEPHANIE ALCANTAR Rep #: [id number] : 1960 F 63 From: Mary Jane Arnold MD PCP: Dr. Amish Tavares MD Status: REG CLI Study: MRA Head ONLY without Contrast Date of Exam: 0 05/05/24 Exam# [id number] Ordering Dr: Evert Alaniz MD PROCEDURE: MRA HEAD ONLY WITHOUT CONTRAST REASON FOR EXAM: Disequilibrium COMPARISON: 09/27/2023 TECHNIQUE: 3D Time of Flight MRA of the head without intravenous contrast. 3D reformatted images. FINDINGS: Anatomy: [place] of [place] anatomy is within normal limits. Fenestration of the basilar artery noted, a normal variant. Anterior Circulation: Distal internal carotid anterior, middle cerebral arteries and proximal anterior cerebral arteries appear patent without stenosis. No aneurysms are identified. Posterior Circulation: Distal vertebral arteries the basilar artery and the posterior cerebral arteries appear patent without stenosis. No aneurysms are identified. MRI/MRA Head ONLY without Contrast IMPRESSION: No arterial abnormality of the brain. Reading Location: [facility] CC: Dr. Amish Tavares MD; Dr. Evert Alaniz MD Internet Marketing Analyst: Signed Normal [facility] Albumin to globulin ratioOrd ered By: Claudia Krishna on 04-21-2024 Albumin/Globulin [Mass ratio] 0.8 {ratio} Low 0.9-2.4 [facility] Bilirubin, totalOrdered By: Claudia Krishna on 04-21-2024 Bilirubin [Mass/Vol] 0.50 mg/dL 0.20-1.00 [facility] Comment on above: For patients on eltr ombopag therapy, use of Dimension [place] TBIL is not recommended. Blood urea nitrogen (BUN)/cr eatinine ratioOrdered By: Claudia Krishna on 04-21-2024 Urea nitrogen/Creatinine [Mass ratio] 17.3 mg/mg 10-20 [facility] Carbon dioxide measurementOr dered By: Claudia Krishna on 04-21-2024 CO2 [Moles/Vol] 28.0 mmol/L 21.0-32.0 [facility] Chloride measurementOrdered By: Claudia Krishna on 04-21-2024 Chloride [Moles/Vol] 106 mmol/L 98-107 [facility] Comprehensive Metabolic Prof ilon 04-21-2024 Albumin [Mass/Vol] 3.3 g/dL Normal 3.2-5.0 [facility] Comment on above: Performed By: #### L 500.4050 ####[facility] [address] [place], [address] Albumin/Globulin [Mass ratio] 0.8 {ratio} Low 0.9-2.4 [facility] Comment on above: Performed By: #### L 500.4050 ####[facility] [address] [place], [address] ALK P 58 U/L Normal 45-117 [facility] Comment on above: Performed By: #### L 500.4050 ####[facility] [address] [place], [address] ALT [Catalytic activity/Vol] 30 U/L Normal 13-56 [facility] Comment on above: Performed By: #### L 500.4050 ####[facility] [address] [place], [address] AST [Catalytic activity/Vol] 28 U/L Normal 15-37 [facility] Comment on above: Performed By: #### L 500.4050 ####[facility] [address] [place], [address] Bilirubin [Mass/Vol] 0.50 mg/dL Normal 0.20-1.00 [facility] Comment on above: Result Comment: For patients on eltrombopag therapy, use of Dimension [place] TBIL is not recommended. Performed By: #### L 500.4050 ####[facility] [address] [place], [address] BUN/CRE 17.3 RATIO Normal 10-20 [facility] Comment on above: Performed By: #### L 500.4050 ####[facility] [address] [place], [address] CA,Total 9.4 mg/dL Normal 8.5-10.1 [facility] Comment on above: Performed By: #### L 500.4050 ####[facility] [address] [place], [address] Chloride [Moles/Vol] 106 mmol/L Normal 98-107 [facility] Comment on above: Performed By: #### L 500.4050 ####[facility] [address] [place], [address] CO2 [Moles/Vol] 28.0 mmol/L Normal 21.0-32.0 [facility] Comment on above: Performed By: #### L 500.4050 ####[facility] [address] [place], [address] Creatinine [Mass/Vol] 0.87 mg/dL Normal 0.55-1.02 [facility] Comment on above: Result Comment: The validity of the calculated GFR GFRAA in patients over 70 years has not been determined. Clinical correlation is essential. Performed By: #### L 500.4050 ####[facility] [address] [place], [address] EST GFR - AA 85 mL/min Normal >60 [facility] Comment on above: Result Comment: Afri can [place] GFR Calc Performed By: #### L 500.4050 ####[facility] [address] [place], [address] GAP 6 Normal 5-15 [facility] Comment on above: Performed By: #### L 500.4050 ####[facility] [address] [place], [address] GFR/1.73 sq M.predicted among non-blacks MDRD (S/P/Bld) [Vol rate/Area] 70 mL/min/{1.73_m2} Normal >60 [facility] Comment on above: Result Comment: Non- GFR Calc Performed By: #### L 500.4050 ####[facility] [address] [place], [address] Globulin (S) [Mass/Vol] 4.2 g/dL Normal 2.2-4.2 [facility] Comment on above: Performed By: #### L 500.4050 ####[facility] [address] [place], [address] Glucose [Mass/Vol] 85 mg/dL Normal 74-106 [facility] Comment on above: Performed By: #### L 500.4050 ####[facility] [address] [place], [address] Potassium [Moles/Vol] 4.2 mmol/L Normal 3.5-5.1 [facility] Comment on above: Performed By: #### L 500.4050 ####[facility] [address] [place], [address] Sodium [Moles/Vol] 141 mmol/L Normal 136-145 [facility] Comment on above: Performed By: #### L 500.4050 ####[facility] [address] [place], [address] T PROT 7.5 g/dL Normal 6.4-8.2 [facility] Comment on above: Performed By: #### L 500.4050 ####[facility] [address] [place], [address] Urea nitrogen [Mass/Vol] 15 mg/dL Normal 7-18 [facility] Comment on above: Performed By: #### L 500.4050 ####[facility] [address] [place], [address] Estimated glomerular filtrat ion rate (GFR) AmericanOrdered By: Claudia Krishna on 04-21-2024 Estimated GFR (MDRD) Amer 85 mL/min >60 [facility] Comment on above: GFR Calc Glomerular filtration rate ( GFR) estimationOrdered By: Claudia Krishna on 04-21-2024 Estimated GFR (MDRD) Non-Af Amer 70 mL/min >60 [facility] Comment on above: Non- GFR Calc GFR/1.73 sq M.predicted among non-blacks MDRD (S/P/Bld) [Vol rate/Area] 70 mL/min/{1.73_m2} >60 [facility] Comment on above: Non- GFR Calc Glucose measurementOrdered B y: Claudia Krishna on 04-21-2024 Glucose [Mass/Vol] 85 mg/dL 74-106 [facility] Laboratory - Chemistry and C hemistry - challengeOrdered By: Claudia Krishna on 04-21-2024 AST [Catalytic activity/Vol] 28 U/L 15-37 [facility] Potassium measurementOrdered By: Claudia Krishna on 04-21-2024 Potassium [Moles/Vol] 4.2 mmol/L 3.5-5.1 [facility] Serum anion gap measurementO rdered By: Claudia Krishna on 04-21-2024 Anion gap [Moles/Vol] 6 mmol/L 5-15 [facility] Serum globulin measurementOr dered By: Claudia Krishna on 04-21-2024 Globulin (S) [Mass/Vol] 4.2 g/dL 2.2-4.2 [facility] Serum or plasma alanine alexander otransferase (ALT) measurementOrdered By: Claudia Krishna on 04-21-2024 ALT [Catalytic activity/Vol] 30 U/L 13-56 [facility] Serum or plasma albumin sommer urement (mass/volume)Ordered By: Claudia Krishna on 04-21-2024 Albumin [Mass/Vol] 3.3 g/dL 3.2-5.0 [facility] Serum or plasma alkaline jesus sphatase measurementOrdered By: Claudia Krishna on 04-21-2024 ALP [Catalytic activity/Vol] 58 U/L 45-117 [facility] Serum or plasma calcium sommer urement (mass/volume)Ordered By: Claudia Krishna on 04-21-2024 Calcium [Mass/Vol] 9.4 mg/dL 8.5-10.1 [facility] Serum or plasma creatinine m easurement (mass/volume)Ordered By: Claudia Krishna on 04-21-2024 Creatinine [Mass/Vol] 0.87 mg/dL 0.55-1.02 [facility] Comment on above: The validity of the calculated GFR & GFRAA in patients over 70 years has not been determined. Clinical correlation is essential. Serum or plasma urea nitroge n measurement (mass/volume)Ordered By: Claudia Krishna on 04-21-2024 Urea nitrogen [Mass/Vol] 15 mg/dL 7-18 [facility] Sodium levelOrdered By: Irma Krishna on 04-21-2024 Sodium [Moles/Vol] 141 mmol/L 136-145 [facility] Total proteinOrdered By: Gina Krishna on 04-21-2024 Protein [Mass/Vol] 7.5 g/dL 6.4-8.2 [facility] Gastroenterology Visit Repor ton 04-20-2024 Gastroenterology Visit Report [facility] [address] [place] [address] OFFICE VISIT Date of Service: 04/20/24 MR#: [id number] Acct: [id number] Name: STEPHANIE ALCANTAR Rep #: [id number] : 1960 Provider: Yaakov Ambriz DO Age/Sex: 63/F Location: [facility] Status: Signed Intake Vital Signs 02/28/24 07:52 04/18/24 13:55 Height 6 ft 1 in 6 ft 1 in Weight: 190 lb BMI 25.0 BP 108/68 Blood Pressure Location Lt brachial Position Sitting Respiration 15 Pulse 92 Pulse Source Monitor Temp 98.4 F Temp Source Temporal Pulse Oximetry (%) 98 Oxygen Delivery Method room air Intake Visit Reasons: follow up to medication issues Allergies magnesium Allergy (Severe, Verified 04/18/24 13:59) Other celecoxib (From Celebrex) Allergy (Intermediate, Verified 01/28/25 13:59) Shortness of breath Medications ???Medication ???Instructions ???Recorded ???Confirmed ???Type mecobalamin (vitamin B12) 2,500 mcg PO 07/06/23 04/20/24 History mcg chewable tablet calcium 600 mg capsule 600 mg PO .weekly 09/07/23 5 History cholecalciferol (vitamin D3) 50 50 mcg PO .qod 09/07/23 04/20/24 H istory mcg (2,000 unit) capsule methotrexate sodium 2.5 mg tablet 20 mg PO QWEEK 12/29/23 04/20/24 History folic acid 20 mg capsule 20 mg PO DAILY Rheumatoid arthriti s 01/26/24 04/20/24 History Tymlos (abaloparatide) 80 mcg (0.04 mL) subcut DAILY 12/1304/20/24 Rx #4.68 mL flurbiprofen 100 mg tablet 100 mg PO TID PRN pain #90 tabs 04/20/24 Rx loratadine 10 mg tablet 10 mg PO DAILY PRN dizziness #30 0 04/18/24 04/20/24 Rx tabs pantoprazole 40 mg tablet,delayed 40 mg PO QDAY #90 tabs 04/20/24 0 04/20/24 Rx release PFSH Medical History Vitamin D deficiency Acute bronchitis, unspecified Low back pain Genetic testing of female Barretts esophagus History of echocardiogram Vasovagal episode Fall Vertigo Restless legs History of hiatal hernia History of edema Acute lumbar myofascial strain Wears glasses Post-menopausal Cancer Back pain Seizures Gastric reflux Non-smoker History of stress test Dysphagia Chronic constipation Early satiety Acid reflux Abdominal pain Arthritis History of seizure Acute sinusitis Head congestion Raynauds syndrome Hx of ovarian cyst Surgical History Hx of esophagogastroduodenosco py Hx of kyphoplasty Hx of colonoscopy History of ovarian cystectomy History of total knee replacement (TKR) Hx of arthroscopy of right knee Hx of section Family History Sister Ovarian cancer Aunt Breast cancer Mother Breast cancer Father CVA (cerebral vascular accident) Social History Smoking Status: Never smoker alcohol intake: current alcohol intake frequency: holidays/special occasions only caffeine: Yes what type of physical activity do you participate in: none seatbelt use: always do you feel safe at home: Yes additional social history: HPI HPI Details: STEPHANIE ALCANTAR, is a 63 F who presents to the office today for follow up. Prior workup: ? US 05.16.21 without acute/chronic finding ? HIDA 06.20.21 EF 49% *BGI established 08.04.21 with symptoms of intermittent RUQ pain since which later moved to [facility] and began self-treatment for life-long constipation (BM Q3D with small hard stool). Intermittent food sticking sensation. ? CT abd/pel 08.08.21 without acute/chronic finding ? EGD and colonoscopy 11.06.21 EGD mild Schatzki ring, irregular Zline, metaplasia/lymphoid +; medium hiatal hernia ? Colonoscopy diverticulosis; congested mucosa. No path changes ? GET 8.23.22 49.08 minutes (12-56) OV 9.1.22 increase PPI to BID; start MiraLAX/kiwi/dried apricots. OV 02.18. doing well, continue PPI ? EGD 01.05.23 Blount???s, metaplasia +; medium hiatal hernia. Lymphoid aggregate resolved. Contact 02.17.23 she is starting methotrexate and has concern regarding PPI interaction. Advised she needs to talk to methotrexate prescriber as she has not been seen in clinic in a year. EGD results discussed. OV 03.18.23 Methotrexate prescriber instructed her to stop PPI use. With stop of PPI she has been having frequent, daily heartburn. Without use of fiber/MiraLAX she will not have BM for several days; (more content not included)... Normal [facility] Neurology Visit Reporton Neurology Visit Report [facility] [address] [facility], [address] [place] [address] OFFICE VISIT Date of Service: 04/18/24 MR#: [id number] Acct: [id number] Name: STEPHANIE ALCANTAR Rep #: [id number] : 1960 Provider: Dr. Evert oglesby MD Age/Sex: 63/F Location: [facility] [place]. Status: Signed with Addenda ADDENDUM by Dr. Evert Alaniz MD on 05/09/24 at 1623 Addendum Addendum (05/09/2024): Head MRA (05/05/2024): FINDINGS: Anatomy: [place] of [place] anatomy is within normal limits. Fenestration of the basilar artery noted, a normal variant. Anterior Circulation: Distal internal carotid anterior, middle cerebral arteries and proximal anterior cerebral arteries appear patent without stenosis. No aneurysms are identified. Posterior Circulation: Distal vertebral arteries the basilar artery and the posterior cerebral arteries appear patent without stenosis. No aneurysms are identified. IMPRESSION: No arterial abnormality of the brain. These images were reviewed on 05/09/2024. The patient will be contacted and informed that her head MRI does not reveal evidence of vertebrobasilar insufficiency. 05/09/24 1623 Date Evert Alaniz MD cc: * Signed HPI HPI Chief Complaint: Est Care Details: Interim History: Stephanie returns for follow-up visit. She has a history of nonmelanoma skin cancer status post excision, Blount's esophagus, rheumatoid arthritis, osteoporosis, and occurrence of epileptic seizures occurring on a day she delivered her baby in 1984 (she does not have any history of seizures occurring prior to that date or following that date) who presented for evaluation of gait imbalance. She had a right total knee replacement in 2019. She has had some numbness in the region of the right knee. She is also experiencing some right knee pain. Right knee x-rays performed in 2023 revealed her right knee prosthesis without evidence of loosening. She reports that in 2023, she has undergone needle drainage of a right knee effusion. She saw an orthopedic surgeon at the [facility] in 2019 for for her right knee pain and no surgical intervention was recommended. Between 2022 and her last visit in December 2023 she has had about 12 falls. Her falls are triggered by rapid movement and are preceded by a feeling of disequilibrium. In the summer of 2022, she had a 2-week period of vertigo which subsequently subsided. She was treated with meclizine and this was of benefit; she no longer uses meclizine. Vestibular rehabilitation earlier in 2023 was not of benefit for her dizziness. With falls that occurred in 2022, she sustained an L2 and L3 compression fractures for which she underwent L3 cement kyphoplasty and subsequently had an L4 compression fracture in 2022 for which she underwent cement kyphoplasty. She also has a chronic mild L2 compression fracture that was not treated with kyphoplasty. She continues to experience some low back pain (her low back pain began in the ). She denied having neck pain. She reported having right leg weakness since her lumbar fractures in 2022. She has had diffuse musculoskeletal stiffness. Loratadine has been of benefit for her dizziness. She had a syncopal episode in 2021 that was triggered by emotional stress. She sees a machine guide base winder, Dr. Krishna, and has been prescribed methotrexate and this has been of benefit for her musculoskeletal pain. She sees a cash management clerk, Dr. Meraz. In the past she had tingling in the feet; this subsided. She reported having hypesthesia in the feet. Her head MRI revealed mild bilateral mastoiditis otherwise the study was unremarkable. EMG/nerve conduction studies of the lower extremities reveal a sensorimotor polyneuropathy. Flurbiprofen has been of benefit for her musculoskeletal pain. Bilateral lumbar paraspinal muscle trigger point injections administered at this office in January 2024 were of some benefit. Physical Exam: Neuro: The patient is awake and alert and responds appropriately; speech is fluent; motor strength is 5/5 in the foot dorsiflexors bilaterally Heart: Regular rhythm and rate Supplemental Info Right hip and pelvic x-rays (07/29/2020): FINDINGS: There is a non-specific bowel gas pattern. Normal visualized soft tissue structures. Moderate bilateral hip joint space narrowing without acute fracture or dislocation. Visualized bony pelvis is intact. Moderate stool burden. Surgical clips in the pelvis. IMPRESSION: Normal x-ray examination of the pelvis and hip. Lumbar x-rays (09/07/2022): COMPARISON: July 07, 2016 FINDINGS: VERTEBRAE: There is an age-indeterminate compression deformity of the L3 vertebral body. Otherwise preserved vertebral body height. No fracture. No spondylolisthesis. Preservation of the normal lumbar lordosis. No significant facet arthropathy. (more content not included)... Normal [facility] GABY + Protein Elect, Serumon 04-07-2024 Albumin [Mass/Vol] 3.7 g/dL Normal 2.9-4.4 [facility] Comment on above: Order Comment: Y Performed By: #### L 3100.3425, L3600.4030 ####[facility] [address] [place], [place], [id number] Albumin/Globulin [Mass ratio] 1.1 {ratio} Normal 0.7-1.7 [facility] Comment on above: Order Comment: Y Performed By: #### L 3100.3425, L3600.4030 ####[facility] [address] [place], [place], [id number] CFFQY-1-YZVB 0.3 g/dL Normal 0.0-0.4 [facility] Comment on above: Order Comment: Y Performed By: #### L 3100.3425, L3600.4030 ####[facility] [address] [place], [address] NFKNS-2-KAQD 0.8 g/dL Normal 0.4-1.0 [facility] Comment on above: Order Comment: Y Performed By: #### L 3100.3425, L3600.4030 ####[facility] [address] [place], [address] BETA GLOBULIN 1.0 g/dL Normal 0.7-1.3 [facility] Comment on above: Order Comment: Y Performed By: #### L 3100.3425, L3600.4030 ####[facility] [address] [place], [address] GAMMA GLOBULIN 1.4 g/dL Normal 0.4-1.8 [facility] Comment on above: Order Comment: Y Performed By: #### L 3100.3425, L3600.4030 ####[facility] [address] [place], [address] Globulin (S) [Mass/Vol] 3.4 g/dL Normal 2.2-3.9 [facility] Comment on above: Order Comment: Y Performed By: #### L 3100.3425, L3600.4030 ####[facility] [address] [place], [address] GABY RESULT,S Comment Normal . [facility] Comment on above: Order Comment: Y Result Comment: No m onoclonality detected. Performed By: #### L 3100.3425, L3600.4030 ####[facility] [address] [place], [address] IMMUNOGLOB A QN 300 mg/dL Normal 87-352 [facility] Comment on above: Order Comment: Y Performed By: #### L 3100.3425, L3600.4030 ####[facility] [address] [place], [address] IMMUNOGLOB G QN 1583 mg/dL Normal 586-1602 [facility] Comment on above: Order Comment: Y Performed By: #### L 3100.3425, L3600.4030 ####[facility] [address] [place], [address] IMMUNOGLOB M QN 105 mg/dL Normal 26-217 [facility] Comment on above: Order Comment: Y Performed By: #### L 3100.3425, L3600.4030 ####[facility] [address] [place], [address] M-Alexandro Not Observed Normal Not Observed [facility] Comment on above: Order Comment: Y Performed By: #### L 3100.3425, L3600.4030 ####[facility] [address] [place], [address] NOTE: Comment Normal . [facility] Comment on above: Order Comment: Y Result Comment: Prot ein electrophoresis scan will follow via computer, mail, or field laborer delivery. Performed By: #### L 3100.3425, L3600.4030 ####[facility] [address] [place], [address] Protein [Mass/Vol] 7.1 g/dL Normal 6.0-8.5 [facility] Comment on above: Order Comment: Y Performed By: #### L 3100.3425, L3600.4030 ####[facility] [address] [place], [address] Immunofixation Urineon 04-07 GABY Urine Comment Normal . [facility] Comment on above: Order Comment: Y Result Comment: No m onoclonality detected. Performed at: [address] [id number] Tung Nut Grower: Faizan Jang PhD, Phone: [phone] Performed By: #### L 3100.3425, L3600.4030 ####[facility] [address] [place], [address] Addendum DocumentOrdered By: Evert Alaniz on 04-05-2024 Serum Immunofixation Comments Comment . [facility] Comment on above: Protein electrophore sis scan will follow via computer,mail, or field laborer delivery. Albumin Elph [Mass/Vol]Order ed By: Evert Alaniz on 04-05-2024 Albumin [Mass/Vol] 3.7 g/dL 2.9-4.4 [facility] Alpha 1 globulin Elph [Mass/ Vol]Ordered By: Evert Alaniz on 04-05-2024 Jolez-2-Juzbwewxc (GABY) 0.3 g/dL 0.0-0.4 [facility] Bhxxc-6-Whhegygnc (GABY) 0.8 g/dL 0.4-1.0 [facility] Beta globulin Elph [Mass/Vol ]Ordered By: Evert Alaniz on 04-05-2024 Beta-Globulins (GABY) 1.0 g/dL 0.7-1.3 [facility] Gamma globulin Elph [Mass/Vo l]Ordered By: Evert Alaniz on 04-05-2024 Gamma Globulins (GABY) 1.4 g/dL 0.4-1.8 [facility] IgA [Mass/Vol]Ordered By: Ra allison Alaniz on 04-05-2024 Immunoglobulin A 300 mg/dL 87-352 [facility] IgG [Mass/Vol]Ordered By: Ra allison Alaniz on 04-05-2024 Immunoglobulin G 1583 mg/dL 586-1602 [facility] Immunoglobulin M measurement Ordered By: Evert Alaniz on 04-05-2024 Immunoglobulin M 105 mg/dL 26-217 [facility] Interpretation IEP [Interp]O rdered By: Evert Alaniz on 04-05-2024 Immunofixation Screen Comment . [facility] Comment on above: No monoclonality det ected. Liveron 04-05-2024 Liver [facility] Imaging Services [address] [place] [address] Liver MR#: [id number] Acct: [id number] Name: STEPHANIE ALCANTAR Rep #: [id number] : 1960 F 63 From: Khushboo Villarreal PCP: Dr. Amish Tavares MD Status: REG CLI Study: Liver Date of Exam: 04/05/24 Exam# [id number] Ordering Dr: Claudia Krishna MD [id number] INDICATION: ELEVATED LIVER ENZYMES EXAMINATION: Ultrasound US Abdomen RUQ (limited) TECHNIQUE: Javier scale and color doppler imaging was performed of the right upper quadrant. COMPARISON: Right upper quadrant abdominal ultrasound 05/16/2021. FINDINGS: LIVER: 12.9 cm length. Increased echogenicity. Main portal vein patent. GALLBLADDER Size: Distended. Stones: None. Wall thickness: Not thickened. 1 mm. Pericholecystic fluid: None. Sonographic Sandhu sign: Negative. EXTRAHEPATIC BILE DUCTS: Common bile duct 4 mm not dilated. PANCREAS: Unremarkable. RIGHT KIDNEY: No hydronephrosis. ASCITES: None. US/Liver IMPRESSION: Fatty infiltration liver. Electronically Signed: Khushboo Torres MD at 22:31 EST , CC: Dr. Claudia Krishna MD; Dr. Amish Tavares MD Internet Marketing Analyst: Signed Normal [facility] Protein Fractions Immunofixa tion Matt [Interp]Ordered By: Evert Alaniz on 04-05-2024 M-Alexandro (GABY) Not Observed g/dL Not Observed [facility] Serum albumin/globulin ratio Ordered By: Evert Alaniz on 04-05-2024 Albumin/Globulin (GABY) 1.1 0.7-1.7 [facility] Serum globulin measurement ( mass/volume)Ordered By: Evert Alaniz on 04-05-2024 Globulin (S) [Mass/Vol] 3.4 g/dL 2.2-3.9 [facility] Serum or plasma protein sommer urement (mass/volume)Ordered By: Evert Alaniz on 04-05-2024 Protein [Mass/Vol] 7.1 g/dL 6.0-8.5 [facility] Urine IFEOrdered By: Evert Alaniz on 04-05-2024 Urine Immunofixation Comment . [facility] Comment on above: No monoclonality det ected.Performed at: [facility] Director: Faizan Jang PhD, Phone: [phone] Absolute neutrophil countOrd ered By: Claudia Krishna on 03-24-2024 Neutrophils (Bld) [#/Vol] 5.3 10*3/uL 2.0-7.7 [facility] Albumin to globulin ratioOrd ered By: Claudia Krishna on 03-24-2024 Albumin/Globulin [Mass ratio] 0.7 {ratio} Low 0.9-2.4 [facility] Basophil percentageOrdered B y: Claudia Krishna on 03-24-2024 Basophils/100 WBC (Bld) 0.9 % 0-1 [facility] Bilirubin, totalOrdered By: Claudia Krishna on 03-24-2024 Bilirubin [Mass/Vol] 0.50 mg/dL 0.20-1.00 [facility] Comment on above: For patients on eltr ombopag therapy, use of Dimension [place] TBIL is not recommended. Blood urea nitrogen (BUN)/cr eatinine ratioOrdered By: Claudia Krishna on 03-24-2024 Urea nitrogen/Creatinine [Mass ratio] 17.6 mg/mg 10-20 [facility] CBC W/Diff, Automatedon Absolute Lymph 2.25 X10 3/uL Normal 0.83-4.51 [facility] Comment on above: Performed By: #### L 100.0100, L500.4050 ####[facility] [address] [place], [address] Absolute Neut 5.3 X10 3/uL Normal 2.0-7.7 [facility] Comment on above: Performed By: #### L 100.0100, L500.4050 ####[facility] [address] [place], [address] Basophils/100 WBC (Bld) 0.9 % Normal 0-1 [facility] Comment on above: Performed By: #### L 100.0100, L500.4050 ####[facility] [address] [place], [address] Eosinophils/100 WBC (Bld) 2.2 % Normal 0-5 [facility] Comment on above: Performed By: #### L 100.0100, L500.4050 ####[facility] [address] [place], [address] Erythrocyte distribution width (RBC) [Ratio] 14.1 % Normal 11.6-14.6 [facility] Comment on above: Performed By: #### L 100.0100, L500.4050 ####[facility] [address] [place], [address] Hematocrit (Bld) [Volume fraction] 41.1 % Normal 37-47 [facility] Comment on above: Performed By: #### L 100.0100, L500.4050 ####[facility] [address] [place], [address] Hemoglobin (Bld) [Mass/Vol] 13.1 g/dL Normal 12.0-15.0 [facility] Comment on above: Performed By: #### L 100.0100, L500.4050 ####[facility] [address] [place], [address] IG% 0.500 Normal 0.0-0.9 [facility] Comment on above: Result Comment: IG% - Immature Granulocytes (promyelocytes, myelocytes and metamyelocytes) > 1% indicates that a LEFT SHIFT is Present. Performed By: #### L 100.0100, L500.4050 ####[facility] [address] [place], [address] Lymphocytes/100 WBC (Bld) 26.3 % Normal 19-41 [facility] Comment on above: Performed By: #### L 100.0100, L500.4050 ####[facility] [address] [place], [address] MCH (RBC) [Entitic mass] 29.8 pg Normal 27.0-32.0 [facility] Comment on above: Performed By: #### L 100.0100, L500.4050 ####[facility] [address] [place], [address] MCHC (RBC) [Mass/Vol] 31.9 g/dL Low 32-36 [facility] Comment on above: Performed By: #### L 100.0100, L500.4050 ####[facility] [address] [place], [address] MCV (RBC) [Entitic vol] 93.4 fL Normal 81-99 [facility] Comment on above: Performed By: #### L 100.0100, L500.4050 ####[facility] [address] [place], [address] Monocytes/100 WBC (Bld) 7.8 % Normal 0-10 [facility] Comment on above: Performed By: #### L 100.0100, L500.4050 ####[facility] [address] [place], [address] Neutrophils/100 WBC (Bld) 62.3 % Normal 47-70 [facility] Comment on above: Performed By: #### L 100.0100, L500.4050 ####[facility] [address] [place], [address] Nucleated RBC (Bld) [#/Vol] 0 10*3/uL Normal 0-5 [facility] Comment on above: Performed By: #### L 100.0100, L500.4050 ####[facility] [address] [place], [address] Platelet mean volume (Bld) [Entitic vol] 8.7 fL Normal 6.2-12.0 [facility] Comment on above: Performed By: #### L 100.0100, L500.4050 ####[facility] [address] [place], [address] Platelets (Bld) [#/Vol] 348 10*3/uL Normal 150-450 [facility] Comment on above: Performed By: #### L 100.0100, L500.4050 ####[facility] [address] [place], [address] RBC (Bld) [#/Vol] 4.40 10*6/uL Normal 4.2-5.4 [facility] Comment on above: Performed By: #### L 100.0100, L500.4050 ####[facility] [address] [place], [address] RDW SD 48.0 fl High 35.1-43.9 [facility] Comment on above: Performed By: #### L 100.0100, L500.4050 ####[facility] [address] [place], [address] WBC (Bld) [#/Vol] 8.6 10*3/uL Normal 4.4-11.0 [facility] Comment on above: Performed By: #### L 100.0100, L500.4050 ####[facility] [address] [place], [address] Carbon dioxide measurementOr dered By: Claudia Krishna on 03-24-2024 CO2 [Moles/Vol] 28.0 mmol/L 21.0-32.0 [facility] Chloride measurementOrdered By: Claudia Krishna on 03-24-2024 Chloride [Moles/Vol] 105 mmol/L 98-107 [facility] Comprehensive Metabolic Prof ilon 03-24-2024 Albumin [Mass/Vol] 3.3 g/dL Normal 3.2-5.0 [facility] Comment on above: Performed By: #### L 100.0100, L500.4050 ####[facility] [address] [place], [address] Albumin/Globulin [Mass ratio] 0.7 {ratio} Low 0.9-2.4 [facility] Comment on above: Performed By: #### L 100.0100, L500.4050 ####[facility] [address] [place], [address] ALK P 65 U/L Normal 45-117 [facility] Comment on above: Performed By: #### L 100.0100, L500.4050 ####[facility] [address] [place], [address] ALT [Catalytic activity/Vol] 39 U/L Normal 13-56 [facility] Comment on above: Performed By: #### L 100.0100, L500.4050 ####[facility] [address] [place], [address] AST [Catalytic activity/Vol] 41 U/L High 15-37 [facility] Comment on above: Performed By: #### L 100.0100, L500.4050 ####[facility] [address] [place], [address] Bilirubin [Mass/Vol] 0.50 mg/dL Normal 0.20-1.00 [facility] Comment on above: Result Comment: For patients on eltrombopag therapy, use of Dimension [place] TBIL is not recommended. Performed By: #### L 100.0100, L500.4050 ####[facility] [address] [place], [address] BUN/CRE 17.6 RATIO Normal 10-20 [facility] Comment on above: Performed By: #### L 100.0100, L500.4050 ####[facility] [address] [place], [address] CA,Total 10.1 mg/dL Normal 8.5-10.1 [facility] Comment on above: Performed By: #### L 100.0100, L500.4050 ####[facility] [address] [place], [address] Chloride [Moles/Vol] 105 mmol/L Normal 98-107 [facility] Comment on above: Performed By: #### L 100.0100, L500.4050 ####[facility] [address] [place], [address] CO2 [Moles/Vol] 28.0 mmol/L Normal 21.0-32.0 [facility] Comment on above: Performed By: #### L 100.0100, L500.4050 ####[facility] [address] [place], [address] Creatinine [Mass/Vol] 0.85 mg/dL Normal 0.55-1.02 [facility] Comment on above: Result Comment: The validity of the calculated GFR GFRAA in patients over 70 years has not been determined. Clinical correlation is essential. Performed By: #### L 100.0100, L500.4050 ####[facility] [address] [place], [address] EST GFR - AA 87 mL/min Normal >60 [facility] Comment on above: Result Comment: Afri can Omani GFR Calc Performed By: #### L 100.0100, L500.4050 ####[facility] [address] [place], [address] GAP 6 Normal 5-15 [facility] Comment on above: Performed By: #### L 100.0100, L500.4050 ####[facility] [address] [place], [address] GFR/1.73 sq M.predicted among non-blacks MDRD (S/P/Bld) [Vol rate/Area] 72 mL/min/{1.73_m2} Normal >60 [facility] Comment on above: Result Comment: Non- GFR Calc Performed By: #### L 100.0100, L500.4050 ####[facility] [address] [place], [address] Globulin (S) [Mass/Vol] 4.5 g/dL High 2.2-4.2 [facility] Comment on above: Performed By: #### L 100.0100, L500.4050 ####[facility] [address] [place], [address] Glucose [Mass/Vol] 80 mg/dL Normal 74-106 [facility] Comment on above: Performed By: #### L 100.0100, L500.4050 ####[facility] [address] [place], [address] Potassium [Moles/Vol] 4.4 mmol/L Normal 3.5-5.1 [facility] Comment on above: Performed By: #### L 100.0100, L500.4050 ####[facility] [address] [place], [address] Sodium [Moles/Vol] 139 mmol/L Normal 136-145 [facility] Comment on above: Performed By: #### L 100.0100, L500.4050 ####[facility] [address] [place], [address] T PROT 7.8 g/dL Normal 6.4-8.2 [facility] Comment on above: Performed By: #### L 100.0100, L500.4050 ####[facility] [address] [place], [address] Urea nitrogen [Mass/Vol] 15 mg/dL Normal 7-18 [facility] Comment on above: Performed By: #### L 100.0100, L500.4050 ####[facility] [address] [place], [address] Eosinophil percentageOrdered By: Claudia Krishna on 03-24-2024 Eosinophils/100 WBC (Bld) 2.2 % 0-5 [facility] Erythrocyte distribution wid th ratioOrdered By: Claudia Krishna on 03-24-2024 Erythrocyte distribution width (RBC) [Ratio] 14.1 % 11.6-14.6 [facility] Erythrocyte distribution wid th standard deviationOrdered By: Claudia Krishna on 03-24-2024 Erythrocyte distribution width (RBC) [Entitic vol] 48.0 fL High 35.1-43.9 [facility] Estimated glomerular filtrat ion rate (GFR) AmericanOrdered By: Claudia Krishna on 03-24-2024 Estimated GFR (MDRD) Amer 87 mL/min >60 [facility] Comment on above: GFR Calc Glomerular filtration rate ( GFR) estimationOrdered By: Claudia Krishna on 03-24-2024 Estimated GFR (MDRD) Non-Af Amer 72 mL/min >60 [facility] Comment on above: Non- GFR Calc Glucose measurementOrdered B y: Claudia Krishna on 03-24-2024 Glucose [Mass/Vol] 80 mg/dL 74-106 [facility] Hematocrit Auto (Bld) [Volum e fraction]Ordered By: Claudia Krishna on 03-24-2024 Hematocrit (Bld) [Volume fraction] 41.1 % 37-47 [facility] Hemoglobin measurementOrdere d By: Claudia Krishna on 03-24-2024 Hemoglobin (Bld) [Mass/Vol] 13.1 g/dL 12.0-15.0 [facility] Immature granulocytes/100 WB C Auto (Bld)Ordered By: Claudia Krishna on 03-24-2024 Immature granulocytes/100 WBC (Bld) 0.500 % 0.0-0.9 [facility] Comment on above: IG% - Immature Granu locytes (promyelocytes, myelocytes and metamyelocytes) > 1% indicates that a LEFT SHIFT is Present. Laboratory - Chemistry and C hemistry - challengeOrdered By: Claudia Krishna on 03-24-2024 AST [Catalytic activity/Vol] 41 U/L High 15-37 [facility] Lymphocytes Auto (Unsp spec) [#/Vol]Ordered By: Claudia Krishna on 03-24-2024 Lymphocytes (Bld) [#/Vol] 2.25 10*3/uL 0.83-4.51 [facility] Lymphocytes/100 WBC Auto (Un sp spec)Ordered By: Claudia Krishna on 03-24-2024 Lymphocytes/100 WBC (Bld) 26.3 % 19-41 [facility] MCV (mean corpuscular volume ) determinationOrdered By: Claudia Krishna on 03-24-2024 MCV (RBC) [Entitic vol] 93.4 fL 81-99 [facility] Mean corpuscular hemoglobin (MCH) determinationOrdered By: Claudia Krishna on 03-24-2024 MCH (RBC) [Entitic mass] 29.8 pg 27.0-32.0 [facility] Mean corpuscular hemoglobin concentration (MCHC) determinationOrdered By: Claudia Krishna on 03-24-2024 MCHC (RBC) [Mass/Vol] 31.9 g/dL Low 32-36 [facility] Mean platelet volume determi nationOrdered By: Claudia Krishna on 03-24-2024 Platelet mean volume (Bld) [Entitic vol] 8.7 fL 6.2-12.0 [facility] Monocyte percentageOrdered B y: Claudia Krishna on 03-24-2024 Monocytes/100 WBC (Bld) 7.8 % 0-10 [facility] Neutrophil percentageOrdered By: Claudia Krishna on 03-24-2024 Neutrophils/100 WBC (Bld) 62.3 % 47-70 [facility] Nucleated red blood cell per centageOrdered By: Claudia Krishna on 03-24-2024 Nucleated RBC/100 WBC (Bld) [Ratio] 0 % 0-5 [facility] Platelet countOrdered By: Coleman Krishna on 03-24-2024 Platelets (Bld) [#/Vol] 348 10*3/uL 150-450 [facility] Potassium measurementOrdered By: Claudia Krishna on 03-24-2024 Potassium [Moles/Vol] 4.4 mmol/L 3.5-5.1 [facility] RBC Auto (Bld) [#/Vol]Ordere d By: Claudia Krishna on 03-24-2024 RBC (Bld) [#/Vol] 4.40 10*6/uL 4.2-5.4 [facility] Serum anion gap measurementO rdered By: Claudia Krishna on 03-24-2024 Anion gap [Moles/Vol] 6 mmol/L 5-15 [facility] Serum globulin measurementOr dered By: Claudia Krishna on 03-24-2024 Globulin (S) [Mass/Vol] 4.5 g/dL High 2.2-4.2 [facility] Serum or plasma alanine alexander otransferase (ALT) measurementOrdered By: Claudia rKishna on 03-24-2024 ALT [Catalytic activity/Vol] 39 U/L 13-56 [facility] Serum or plasma albumin sommer urement (mass/volume)Ordered By: Claudia Krishna on 03-24-2024 Albumin [Mass/Vol] 3.3 g/dL 3.2-5.0 [facility] Serum or plasma alkaline jesus sphatase measurementOrdered By: Claudia Krishna on 03-24-2024 ALP [Catalytic activity/Vol] 65 U/L 45-117 [facility] Serum or plasma calcium sommer urement (mass/volume)Ordered By: Claudia Krishna on 03-24-2024 Calcium [Mass/Vol] 10.1 mg/dL 8.5-10.1 [facility] Serum or plasma creatinine m easurement (mass/volume)Ordered By: Claudia Krishna on 03-24-2024 Creatinine [Mass/Vol] 0.85 mg/dL 0.55-1.02 [facility] Comment on above: The validity of the calculated GFR & GFRAA in patients over 70 years has not been determined. Clinical correlation is essential. Serum or plasma urea nitroge n measurement (mass/volume)Ordered By: Claudia Krishna on 03-24-2024 Urea nitrogen [Mass/Vol] 15 mg/dL 7-18 [facility] Sodium levelOrdered By: Irma Krishna on 03-24-2024 Sodium [Moles/Vol] 139 mmol/L 136-145 [facility] Total proteinOrdered By: Gina Krishna on 03-24-2024 Protein [Mass/Vol] 7.8 g/dL 6.4-8.2 [facility] White blood cell (WBC) count Ordered By: Claudia Krishna on 03-24-2024 WBC (Bld) [#/Vol] 8.6 10*3/uL 4.4-11.0 [facility] 95-KK-Uvckhvx DOrdered By: Chi Pryor on 02-28-2024 Vitamin D 25-Hydroxy 59.0 ng/mL [facility] Comment on above: Vitamin D 25(OH) Sta tus Range Deficiency <20 ng/mL (50nmol/L) Insufficiency 20 - 30 ng/mL (50 - 75 nmol/L) Sufficiency 30 - 100 ng/mL (75 - 250 nmol/L) Toxicity >100 ng/mL (>250 nmol/L) Albumin to globulin ratioOrd ered By: Bear Pryor on 02-28-2024 Albumin/Globulin [Mass ratio] 0.7 {ratio} Low 0.9-2.4 [facility] Bilirubin, totalOrdered By: Bear Pryor on 02-28-2024 Bilirubin [Mass/Vol] 0.40 mg/dL 0.20-1.00 [facility] Comment on above: For patients on eltr ombopag therapy, use of Dimension [place] TBIL is not recommended. Blood urea nitrogen (BUN)/cr eatinine ratioOrdered By: Bear Pryor on 02-28-2024 Urea nitrogen/Creatinine [Mass ratio] 15.2 mg/mg 10-20 [facility] Carbon dioxide measurementOr dered By: Bear Pryor on 02-28-2024 CO2 [Moles/Vol] 32.0 mmol/L 21.0-32.0 [facility] Chloride measurementOrdered By: Bear Pryor on 02-28-2024 Chloride [Moles/Vol] 106 mmol/L 98-107 [facility] Comprehensive Metabolic Prof ilon 02-28-2024 Albumin [Mass/Vol] 3.1 g/dL Low 3.2-5.0 [facility] Comment on above: Performed By: #### L 500.4050, L506.1000 ####[facility] [address] [place] [id number] Albumin/Globulin [Mass ratio] 0.7 {ratio} Low 0.9-2.4 [facility] Comment on above: Performed By: #### L 500.4050, L506.1000 ####[facility] [address] [place], [address] ALK P 57 U/L Normal 45-117 [facility] Comment on above: Performed By: #### L 500.4050, L506.1000 ####[facility] [address] [facility] [address] ALT [Catalytic activity/Vol] 24 U/L Normal 13-56 [facility] Comment on above: Performed By: #### L 500.4050, L506.1000 ####[facility] [address] [place], [address] AST [Catalytic activity/Vol] 20 U/L Normal 15-37 [facility] Comment on above: Performed By: #### L 500.4050, L506.1000 ####[facility] [address] [place], [address] Bilirubin [Mass/Vol] 0.40 mg/dL Normal 0.20-1.00 [facility] Comment on above: Result Comment: For patients on eltrombopag therapy, use of Dimension [place] TBIL is not recommended. Performed By: #### L 500.4050, L506.1000 ####[facility] [address] [place], [address] BUN/CRE 15.2 RATIO Normal 10-20 [facility] Comment on above: Performed By: #### L 500.4050, L506.1000 ####[facility] [address] [place], [address] CA,Total 9.5 mg/dL Normal 8.5-10.1 [facility] Comment on above: Performed By: #### L 500.4050, L506.1000 ####[facility] [address] [place], [address] Chloride [Moles/Vol] 106 mmol/L Normal 98-107 [facility] Comment on above: Performed By: #### L 500.4050, L506.1000 ####[facility] [address] [place], [address] CO2 [Moles/Vol] 32.0 mmol/L Normal 21.0-32.0 [facility] Comment on above: Performed By: #### L 500.4050, L506.1000 ####[facility] [address] [place], [address] Creatinine [Mass/Vol] 1.05 mg/dL High 0.55-1.02 [facility] Comment on above: Result Comment: The validity of the calculated GFR GFRAA in patients over 70 years has not been determined. Clinical correlation is essential. Performed By: #### L 500.4050, L506.1000 ####[facility] [address] [place], [address] EST GFR - AA 68 mL/min Normal >60 [facility] Comment on above: Result Comment: Afri can Omani GFR Calc Performed By: #### L 500.4050, L506.1000 ####[facility] [address] [place], [address] GAP 4 Low 5-15 [facility] Comment on above: Performed By: #### L 500.4050, L506.1000 ####[facility] [address] [place], [address] GFR/1.73 sq M.predicted among non-blacks MDRD (S/P/Bld) [Vol rate/Area] 56 mL/min/{1.73_m2} Low >60 [facility] Comment on above: Result Comment: Non- GFR Calc Performed By: #### L 500.4050, L506.1000 ####[facility] [address] [place], [address] Globulin (S) [Mass/Vol] 4.4 g/dL High 2.2-4.2 [facility] Comment on above: Performed By: #### L 500.4050, L506.1000 ####[facility] [address] [place], [address] Glucose [Mass/Vol] 76 mg/dL Normal 74-106 [facility] Comment on above: Performed By: #### L 500.4050, L506.1000 ####[facility] [address] [place], [address] Potassium [Moles/Vol] 4.2 mmol/L Normal 3.5-5.1 [facility] Comment on above: Performed By: #### L 500.4050, L506.1000 ####[facility] [address] [place], [address] Sodium [Moles/Vol] 142 mmol/L Normal 136-145 [facility] Comment on above: Performed By: #### L 500.4050, L506.1000 ####[facility] [address] [place], [address] T PROT 7.5 g/dL Normal 6.4-8.2 [facility] Comment on above: Performed By: #### L 500.4050, L506.1000 ####[facility] [address] [place], [address] Urea nitrogen [Mass/Vol] 16 mg/dL Normal 7-18 [facility] Comment on above: Performed By: #### L 500.4050, L506.1000 ####[facility] [address] [place], [place], [address] Endocrinology Visit Reporton 02-28-2024 Endocrinology Visit Report [facility] [address] [place], [place] [address] OFFICE VISIT Date of Service: 02/28/24 MR#: [id number] Acct: [id number] Name: STEPHANIE ALCANTAR Rep #: [id number] : 1960 Provider: Julio C Alston Age/Sex: 63/F [place] [facility] [place]: Signed Intake Vital Signs 09/07/23 08:53 01/26/24 08:30 02/28/24 07:52 Height 6 ft 1 in 6 ft 1 in 6 ft 1 in Weight: 186 lb 4 oz BMI 24.5 BP 100/68 Blood Pressure Location Rt brachial Position Sitting Pulse 84 Pulse Source Monitor Pulse Oximetry (%) 97 Oxygen Delivery Method room air Intake Visit Reasons: 1 Y FU Chief Complaint: Osteoporosis Is patient in pain?: No Allergies magnesium Allergy (Severe, Verified 02/22/24 11:51) Other celecoxib (From Celebrex) Allergy (Intermediate, Verified 02/22/24 11:51) Shortness of breath Medications ???Medication ???Instructions ???Recorded ???Confirmed ???Type mecobalamin (vitamin B12) 2,500 mcg PO 07/06/23 02/28/24 History mcg chewable tablet calcium 600 mg capsule 600 mg PO .weekly 09/07/23 02/28/24 History cholecalciferol (vitamin D3) 50 50 mcg PO .qod 09/07/23 02/28/24 History mcg (2,000 unit) capsule methotrexate sodium 2.5 mg tablet 20 mg PO QWEEK 12/29/23 02/28/24 History flurbiprofen 100 mg tablet 100 mg PO TID PRN pain #90 tabs 01/03/24 02/28/24 Rx loratadine 10 mg tablet 10 mg PO DAILY #30 tabs 01/03/24 02/28/24 Rx folic acid 20 mg capsule 20 mg PO DAILY Rheumatoid arthritis 01/26/24 02/28/24 History Tymlos (abaloparatide) 80 mcg (0.04 mL) subcut DAILY 02/28/24 02/28/24 Rx #4.68 mL PFSH Medical History Vitamin D deficiency Acute bronchitis, unspecified Low back pain Genetic testing of female Barretts esophagus History of echocardiogram Vasovagal episode Fall Vertigo Restless legs History of hiatal hernia History of edema Acute lumbar myofascial strain Wears glasses Post-menopausal Cancer Back pain Seizures Gastric reflux Non-smoker History of stress test Dysphagia Chronic constipation Early satiety Acid reflux Abdominal pain Arthritis History of seizure Acute sinusitis Head congestion Raynauds syndrome Hx of ovarian cyst Surgical History Hx of esophagogastroduodenosco py Hx of kyphoplasty Hx of colonoscopy History of ovarian cystectomy History of total knee replacement (TKR) Hx of arthroscopy of right knee Hx of section Family History Sister Ovarian cancer Aunt Breast cancer Mother Breast cancer Father CVA (cerebral vascular accident) Social History Smoking Status: Never smoker alcohol intake: current alcohol intake frequency: holidays/special occasions only caffeine: Yes what type of physical activity do you participate in: none seatbelt use: always do you feel safe at home: Yes additional social history: HPI HPI Chief Complaint: Osteoporosis Details: STEPHANIE ALCANTAR, is a 63 F who presents to the office today for follow up. She has had multiple compression fractures associated with a fall down some stairs. She has T score of -3.5 in the LS spine. She has been on Tymlos for 6 months. She continues to fall. She states she has neuropathy and she moves to quickly. She is taking a lot of ibuprofen. ROS Const Constitutional: No fatigue, weight change or change in appetite Eyes Eyes: No change in vision ENT ENT: No dizziness/vertigo or difficulty swallowing Cardio Cardiology: No chest pain at rest, chest pain with exertion, shortness of breath or palpitations Musc Musculoskeletal: No abnormal gait, joint pain, numbness or tingling Neuro Neurology: No abnormal gait, memory loss, numbness or tingling Psych Psychiatric: No change in appetite, No memory loss and No Thoughts of harming yourself/Others Resp Respiratory: No cough, chest congestion or shortness of breath Gastro GI: No abdominal pain, constipation, diarrhea or difficulty swallowing Genitourinary-Female: No burning urination Skin Skin: No itchy eyes or wounds Endo Endocrine: No fatigue or weight change Aller/Imm Allergy/Immunologic: No itchy eyes Exam Const General: cooperative, healthy appearing, comfortable, no acute distress, well developed and not cushingoid Nutritional Appearance: well nourished Orientation: alert, awake and oriented x3 HENMT Head: normal to inspection Ears: hearing grossly normal bilaterally Nose: external nose normal Mouth: oral mucosae normal Eyes General: appearance normal, both eyes and all related structures (more content not included)... Normal [facility] Estimated glomerular filtrat ion rate (GFR) AmericanOrdered By: Bear Pryor on 02-28-2024 Estimated GFR (MDRD) Amer 68 mL/min >60 [facility] Comment on above: GFR Calc Glomerular filtration rate ( GFR) estimationOrdered By: Bear Pryor on 02-28-2024 Estimated GFR (MDRD) Non-Af Amer 56 mL/min Low >60 [facility] Comment on above: Non- GFR Calc Glucose measurementOrdered B y: Bear Pryor on 02-28-2024 Glucose [Mass/Vol] 76 mg/dL 74-106 [facility] Laboratory - Chemistry and C hemistry - challengeOrdered By: Bear Pryor on 02-28-2024 AST [Catalytic activity/Vol] 20 U/L 15-37 [facility] Potassium measurementOrdered By: Bear Pryor on 02-28-2024 Potassium [Moles/Vol] 4.2 mmol/L 3.5-5.1 [facility] Serum anion gap measurementO rdered By: Bear Pryor on 02-28-2024 Anion gap [Moles/Vol] 4 mmol/L Low 5-15 [facility] Serum globulin measurementOr dered By: Bear Pryor on 02-28-2024 Globulin (S) [Mass/Vol] 4.4 g/dL High 2.2-4.2 [facility] Serum or plasma alanine alexander otransferase (ALT) measurementOrdered By: Bear Pryor on 02-28-2024 ALT [Catalytic activity/Vol] 24 U/L 13-56 [facility] Serum or plasma albumin sommer urement (mass/volume)Ordered By: Bear Pryor on 02-28-2024 Albumin [Mass/Vol] 3.1 g/dL Low 3.2-5.0 [facility] Serum or plasma alkaline jesus sphatase measurementOrdered By: Bear Pryor on 02-28-2024 ALP [Catalytic activity/Vol] 57 U/L 45-117 [facility] Serum or plasma calcium sommer urement (mass/volume)Ordered By: Bear Pryor on 02-28-2024 Calcium [Mass/Vol] 9.5 mg/dL 8.5-10.1 [facility] Serum or plasma creatinine m easurement (mass/volume)Ordered By: Bear Pryor on 02-28-2024 Creatinine [Mass/Vol] 1.05 mg/dL High 0.55-1.02 [facility] Comment on above: The validity of the calculated GFR & GFRAA in patients over 70 years has not been determined. Clinical correlation is essential. Serum or plasma urea nitroge n measurement (mass/volume)Ordered By: Bear Pryor on 02-28-2024 Urea nitrogen [Mass/Vol] 16 mg/dL 7-18 [facility] Sodium levelOrdered By: Bear Pryor on 02-28-2024 Sodium [Moles/Vol] 142 mmol/L 136-145 [facility] Total proteinOrdered By: Dony Pryor on 02-28-2024 Protein [Mass/Vol] 7.5 g/dL 6.4-8.2 [facility] Vitamin D,25 Hydroxyon 02-27 Vitamin D 25-OH 59.0 ng/mL Normal [facility] Comment on above: Result Comment: Farrah min D 25(OH) Status Range Deficiency <20 ng/mL (50nmol/L) Insufficiency 20 - 30 ng/mL (50 - 75 nmol/L) Sufficiency 30 - 100 ng/mL (75 - 250 nmol/L) Toxicity >100 ng/mL (>250 nmol/L) Performed By: #### L 500.4050, L506.1000 ####[facility] [address] [place], [address] Urgent Care Visit Reporton 1 04-24-2023 Urgent Care Visit Report [facility] [address], [address] [place] [address] OFFICE VISIT Date of Service: 02/22/24 MR#: [id number] Acct: [id number] Name: STEPHANIE ALCANTAR Rep #: [id number] : 1960 Provider: COLEMAN Dowd Age/Sex: 63/F Location: [facility] [place] Status: Signed Intake Vital Signs 01/26/24 08:30 02/22/24 11:50 Height 6 ft 1 in Weight: 187 lb BMI 24.6 Body Surface Area 12,658 BP 126/58 H 112/78 Blood Pressure Location Lt brachial Lt brachial Position Sitting Sitting Respiration 16 12 Pulse 88 80 Pulse Source Monitor NIBP Temp 98.2 F 97.7 F L Temp Source Temporal Oral Pulse Oximetry (%) 99 98 Oxygen Delivery Method room air room air Intake Visit Reasons: COUGH/SINUS COMPLIANT Chief Complaint: cough/sinus complaint Tin Flipper Required: No Is patient in pain?: No Allergies magnesium Allergy (Severe, Verified 02/22/24 11:51) Other celecoxib (From Celebrex) Allergy (Intermediate, Verified 02/22/24 11:51) Shortness of breath Is last menstrual period known: No Post menopausal: No Patient : No Have you fallen in the past year?: No Nurse's Note: pt here for cough and sinus congestion for 6 days, she stated she tested positive for covid-19 last week. [facility] Medical History (Updated 02/22/24 @ 12:02 by Ajay CEE, PA) Acute bronchitis, unspecified Low back pain Genetic testing of female Barretts esophagus History of echocardiogram Vasovagal episode Fall Vertigo Restless legs History of hiatal hernia History of edema Acute lumbar myofascial strain Wears glasses Post-menopausal Cancer Back pain Seizures Gastric reflux Non-smoker History of stress test Dysphagia Chronic constipation Early satiety Acid reflux Abdominal pain Arthritis History of seizure Acute sinusitis Head congestion Raynauds syndrome Hx of ovarian cyst Surgical History Hx of esophagogastroduodenosco py Hx of kyphoplasty Hx of colonoscopy History of ovarian cystectomy History of total knee replacement (TKR) Hx of arthroscopy of right knee Hx of section Family History (Updated 01/26/24 @ 08:34 by Floridalma Maldonado) Sister Ovarian cancer Aunt Breast cancer Mother Breast cancer Father CVA (cerebral vascular accident) Social History Smoking Status: Never smoker alcohol intake: current alcohol intake frequency: holidays/special occasions only caffeine: Yes what type of physical activity do you participate in: none seatbelt use: always do you feel safe at home: Yes additional social history: HPI HPI Chief Complaint: cough/sinus complaint Details: STEPHANIE ALCANTAR, is a 63 F who presents to the office today for for follow-up due to having been diagnosed with COVID-19 on 02/18/2024, states she finished the dexamethasone prescription as prescribed at that time but cough is only worsened noting a productive purulent green cough at this time. No complaints of chest pressure with shortness of breath or dyspnea on exertion. Otherwise no changes from previous evaluation. ROS Const Constitutional: No other (As above) Exam Const General: cooperative, healthy appearing and no acute distress Orientation: alert and awake HENPR Head: normal to inspection Ears: hearing grossly normal bilaterally, external ears normal, TM's normal bilaterally and EAC's normal Nose: external nose normal, nares normal, septum normal and no nasal discharge Face and sinus: normal facial exam, sinuses nontender and face symmetric Mouth: oral mucosae normal, lip normal, tongue normal, oropharynx normal and moist mucous membranes Throat: posterior oropharynx normal, tonsils normal, uvula midline, posterior oropharynx abnormal and no postnasal drainage Eyes General: appearance normal, both eyes and all related structures Neck Neck: normal visual inspection, full ROM, no lymphadenopathy, no meningeal signs and supple Neck mass: No Thyroid: thyroid normal Lymphatic: no lymphadenopathy noted Chest Chest palpation inspection: normal inspection of the chest Resp Effort Inspection: normal respiratory effort, able to speak in complete sentences and cough Quality of cough: wet (With moist nonproductive cough) Auscultation: Bilateral: Clear to Auscultation Cardio Palpation: normal PMI Rate: regular rate Rhythm: regular rhythm Heart Sounds: S1 normal, S2 normal, no gallops, no murmurs and no rubs Pulses: radial pulses present GI Inspection: normal to inspection Palpation: soft and no hepatosplenomegaly Skin General: no rashes or lesions noted Neuro General: patient alert, patient awake and patient oriented x3 Cognition: normal cognition Speech: spe (more content not included)... Normal [facility] Office Visit Reporton 2023 Office Visit Report [facility] [address] [place] [address] OFFICE VISIT Date of Service: 02/18/24 MR#: [id number] Acct: [id number] Patient: STEPHANIE ALCANTAR Rep #: [id number] : 1960 Provider: COLEMAN Robles Age/Sex: 63/F Location: [facility] Status: Signed Employer Purchased Covid Test Note: Patient here today for Covid Testing, requested by their Employer. Assessment and Plan Assessment and Plan Orders: Orders POC Cepheid Covid, FluAB, RSV 02/18/24 Plan Details Goals Barriers: Goals Decrease spasm Improve circulation Decrease pain 02/24/24 0642 Date Joshua CEE Cosigner Signature: Date (if applicable) CC: Normal [facility] Office Visit Reporton 2023 Office Visit Report [facility] [place] [address] OFFICE VISIT Date of Service: 02/18/24 MR#: [id number] Acct: [id number] Patient: STEPHANIE ALCANTAR Rep #: [id number] : 1960 Provider: COLEMAN Robles Age/Sex: 63/F Location: [facility] Status: Signed Employer Purchased Covid Test Note: Patient here today for Covid Testing, requested by their Employer. Assessment and Plan Plan Details Goals Barriers: Goals Decrease spasm Improve circulation Decrease pain 02/18/24 1009 Date Joshua Calderónignlola Signature: Date (if applicable) CC: Normal [facility] Urgent Care Visit Reporton 1 04-19-2023 Urgent Care Visit Report [facility] [address], [address] [place] [address] OFFICE VISIT Date of Service: 02/18/24 MR#: [id number] Acct: [id number] Name: STEPHANIE ALCANTAR Rep #: [id number] : 1960 Provider: COLEMAN Robles Age/Sex: 63/F Location: [facility] Status: Signed Intake Vital Signs 01/26/24 08:30 Height 6 ft 1 in Weight: 187 lb BMI 24.6 Body Surface Area 12,658 BP 126/58 H Blood Pressure Location Lt brachial Position Sitting Respiration 16 Pulse 88 Pulse Source Monitor Temp 98.2 F Temp Source Temporal Pulse Oximetry (%) 99 Oxygen Delivery Method room air Intake Visit Reasons: FEVER/ST/COUGH/SINUS PRESSURE Chief Complaint: cough, ROSS, BA, mucus Tin Flipper Required: No Is patient in pain?: No Allergies magnesium Allergy (Severe, Verified 02/18/24 09:10) Other celecoxib (From Celebrex) Allergy (Intermediate, Verified 02/18/24 09:10) Shortness of breath Is last menstrual period known: No Post menopausal: Yes Patient : No Have you fallen in the past year?: No Nurse's Note: cough, ROSS, BA, green mucus, ST, face pain x 24 hours. pt hx RA, concern for URI PFSH Medical History Low back pain Genetic testing of female Barretts esophagus History of echocardiogram Vasovagal episode Fall Vertigo Restless legs History of hiatal hernia History of edema Acute lumbar myofascial strain Wears glasses Post-menopausal Cancer Back pain Seizures Gastric reflux Non-smoker History of stress test Dysphagia Chronic constipation Early satiety Acid reflux Abdominal pain Arthritis History of seizure Acute sinusitis Head congestion Raynauds syndrome Hx of ovarian cyst Surgical History Hx of esophagogastroduodenosco py Hx of kyphoplasty Hx of colonoscopy History of ovarian cystectomy History of total knee replacement (TKR) Hx of arthroscopy of right knee Hx of section Family History (Updated 01/26/24 @ 08:34 by Floridalma Maldonado) Sister Ovarian cancer Aunt Breast cancer Mother Breast cancer Father CVA (cerebral vascular accident) Social History Smoking Status: Never smoker alcohol intake: current alcohol intake frequency: holidays/special occasions only caffeine: Yes what type of physical activity do you participate in: none seatbelt use: always do you feel safe at home: Yes additional social history: HPI HPI Chief Complaint: cough, ROSS, BA, mucus Details: STEPHANIE ALCANTAR, is a 63 F who presents to the office today for complaint of cough, headache, body aches and production of mucus when she coughs for the past 2 days. She denies hemoptysis, shortness of breath or difficulty breathing. No nausea, vomiting or diarrhea. No loss of taste or smell. No other associated symptoms or alleviating/aggravating factors. ROS Const Constitutional: No other (As above) Exam Const General: cooperative and well developed HENMT Head: normal to inspection and atraumatic Ears: hearing grossly normal bilaterally Nose: nasal discharge clear Face and sinus: normal facial exam Mouth: oral mucosae normal Throat: abnormal tonsil bilaterally hypertrophy 1+ Resp Effort Inspection: normal respiratory effort and no audible wheezes Auscultation: Bilateral: Clear to Auscultation Cardio Palpation: normal PMI Rate: regular rate Rhythm: regular rhythm Neuro General: patient alert and CN's II-XI intact bilaterally Psych Appearance: grossly normal Mental Status: mental status grossly normal Results POC CEPH COV,FluAB,RSV PCR CEPHEID COVID PCR DETECTED Last Edit by Lucinda Manzano on 02/18/24 09:45 CEPHEID FLU AB PCR NOT DETECTED FLU A B Last Edit by Lucinda Manzano on 02/18/24 09:45 CEPHEID RSV PCR NOT DETECTED Last Edit by Lucinda Manzano on 02/18/24 09:45 Coding Level of Care Code Off vis,new,level 3 Diagnoses COVID-19 U07.1 Assessment and Plan Assessment and Plan (1) COVID-19: Status: Acute Plan: Patient tested positive for COVID in the office today. Decadron as prescribed today. Encouraged to get plenty of rest, drink lots of clear liquids, and use Tylenol or Ibuprofen (unless contraindicated) for fever and comfort. Patient also educated on other symptomatic management techniques. To be seen in 7-10 days if no improvement; sooner if worsening of symptoms. Patient advised of potential red flags and when appropriate to report to the ED. Patient verbalized understanding and agreement with all the above. Medications: New dexamethasone 6 mg PO DAILY 5 tabs 0RF Plan Details Goals Barriers: Goals Decrease spasm Improve circulation Decrease pain (more content not included)... Normal [facility] Neurology Visit Reporton Neurology Visit Report [facility] [address], [address] [place] [address] OFFICE VISIT Date of Service: 01/26/24 MR#: [id number] Acct: [id number] Name: STEPHANIE ALCANTAR Rep #: [id number] : 1960 Provider: Dr. Evert oglesby MD Age/Sex: 63/F Location: [facility] Status: Signed HPI HPI Chief Complaint: Est Care Supplemental Info Right hip and pelvic x-rays (07/29/2020): FINDINGS: There is a non-specific bowel gas pattern. Normal visualized soft tissue structures. Moderate bilateral hip joint space narrowing without acute fracture or dislocation. Visualized bony pelvis is intact. Moderate stool burden. Surgical clips in the pelvis. IMPRESSION: Normal x-ray examination of the pelvis and hip. Lumbar x-rays (09/07/2022): COMPARISON: July 07, 2016 FINDINGS: VERTEBRAE: There is an age-indeterminate compression deformity of the L3 vertebral body. Otherwise preserved vertebral body height. No fracture. No spondylolisthesis. Preservation of the normal lumbar lordosis. No significant facet arthropathy. DISCS: Disc spaces are maintained. INCLUDED ABDOMEN: Included bowel gas pattern is non-obstructive. IMPRESSION: Age-indeterminate compression deformity of the L3 vertebral body, not present on the previous study. These images were reviewed on 09/07/2023. Lumbar MRI (09/16/2022): COMPARISON: Lumbar spine radiographs 09/07/2022. CT abdomen and pelvis with contrast 08/08/2021. FINDINGS: T11-T12: (Sagittal only). Normal endplates. Normal disc height and morphology. Normal central canal and bilateral intervertebral neural foramina. T12-L1: (Sagittal only). Normal endplates. Normal disc height, hydration and morphology. Normal central canal and bilateral intervertebral neural foramina. Normal lumbar lordosis. There is no substantial scoliosis. Normal conus medullaris that terminates at the T12-L1 disc space level. L1-2: Normal L1 inferior endplate. Mild to moderate central compression fracture with bone marrow edema underneath the L1 superior endplate due to recent fracture. This fracture extends more towards the left side. This accounts for the increased central disc space height. Minimal ventral extradural defect is small posterior bulging annulus. Normal facet joints. Capacious central canal and bilateral lateral recesses. Normal bilateral intervertebral neural foramina. L2-3: Moderate recent compression fracture across the upper L3 vertebral body. Normal L2 endplate. Increased central disc space height due to central compression fracture of the upper L3 vertebral body. Mild ventral extradural defect due to small posterior bulging annulus. Normal facet joints. Normal central canal and bilateral lateral recesses. Normal bilateral intervertebral neural foramina. L3-4: Normal endplates. Normal disc height. Mild ventral extradural defect due to small posterior bulging annulus, greater towards the right side. No significant facet arthropathy. Normal central canal and bilateral lateral recesses. Normal bilateral intervertebral neural foramina. L4-5: Normal endplates. Normal disc height. Mild ventral extradural defect due to posterior bulging annulus. Normal facet joints. Normal central canal and bilateral lateral recesses. Normal bilateral intervertebral neural foramina. L5-S1: Minimal Modic type I degenerative vertebral marrow edema underneath the vertebral endplates. Mild disc space height narrowing. Small posterior bulging annulus with very minimal ventral extradural defect due to presence of ventral epidural fat. Normal facet joints. Normal central canal and bilateral lateral recesses. Mild stenosis of the left intervertebral neural foramen. Normal right intervertebral neural foramen. Normal visualized sacral ala. Normal visualized paraspinous soft tissue structures. IMPRESSION: 1. Moderate recent compression fracture across the upper L3 vertebral body and small L2-L3 posterior bulging annulus. This is feasible for kyphoplasty if patient has debilitating back pain. 2. Mild to moderate recent central compression fracture underneath the L1 superior endplate, greater towards the left side. This is feasible for kyphoplasty if patient has debilitating back pain. 3. No MRI evidence of lumbar extruded disc fragment. 4. Minimal L5-S1 intervertebral osteochondritis (Modic type I), small posterior bulging annulus and mild stenosis of the left intervertebral neural foramen. These images were reviewed on 09/07/2023. The compression fractures are of the L2 and L3 vertebral bodies and not the L1 vertebral body. Bone density test (09/29/2022): The patient is considered osteoporotic as outlined below according to World [employer] (WHO) criteria with a high fracture risk. There has been worsening of bone density since the previous examination. Lumbar x-rays (10/23/2022): FINDINGS: VERTEBRAE: Unchanged (more content not included)... Normal [facility] Body Fluid Culton 01-03-2024 BFC N N No growth in 5 days. Normal [facility] Comment on above: Performed By: #### M 100.2000, M100.4001, M100.2900 ####[facility] [address] [place], [address] Culture, Anaerobic Any Sourc trish 01-03-2024 CUAN N N No growth in 5 days. Normal [facility] Comment on above: Performed By: #### M 100.2000, M100.4001, M100.2900 ####[facility] [address] [place], [address] Neurology Visit Reporton Neurology Visit Report [facility] [address], [address] [place] [address] OFFICE VISIT Date of Service: 01/03/24 MR#: [id number] Acct: [id number] Name: TSEPHANIE ALCANTAR Rep #: [id number] : 1960 Provider: Dr. Evert oglesby MD Age/Sex: 63/F Location: [facility]. Status: Signed HPI HPI Chief Complaint: Est Care Details: Interim History: Stephanie returns for follow-up visit. She has a history of nonmelanoma skin cancer status post excision, Blount's esophagus, rheumatoid arthritis, osteoporosis, and occurrence of epileptic seizures occurring on a day she delivered her baby in 1984 (she does not have any history of seizures occurring prior to that date or following that date) who presented for evaluation of gait imbalance. She had a right total knee replacement in 2019. She reports having some numbness in the region of the right knee. She is also experiencing some right knee pain. Right knee x-rays performed earlier in 2023 revealed her right knee prosthesis without evidence of loosening. She reports that earlier in 2023, she has undergone needle drainage of a right knee effusion. Since the summer of 2022, she has had gait imbalance and has had about 12 falls, 2 of which have occurred since her last visit in August 2023. Her falls are triggered by rapid movement and are preceded by a feeling of disequilibrium. In the summer of 2022, she had a 2-week period of vertigo which subsequently subsided. She was treated with meclizine and this was of benefit. Vestibular rehabilitation earlier in 2023 was not of benefit for her dizziness. With falls that occurred in 2022, she sustained an L2 and L3 compression fractures for which she underwent L3 cement kyphoplasty and subsequently had an L4 compression fracture in 2022 for which she underwent cement kyphoplasty. She also has a chronic mild L2 compression fracture that was not treated with kyphoplasty. She continues to experience some low back pain (her low back pain began in the ). She denied having neck pain. She reported having right leg weakness since her lumbar fractures in 2022. She has had diffuse musculoskeletal stiffness. She had a syncopal episode in 2021 that was triggered by emotional stress. She sees a machine guide base winder, Dr. Krishna, and is prescribed methotrexate and this has been of benefit for her musculoskeletal pain. She sees a cash management clerk, Dr. Meraz. In the past she had tingling in the feet; this subsided. She reported having hypesthesia in the feet. She is to see an orthopedic surgeon at the [facility] [place]. Her head MRI revealed mild bilateral mastoiditis otherwise the study was unremarkable. EMG/nerve conduction studies of the lower extremities reveal a sensorimotor polyneuropathy. Physical Exam: Neuro: The patient is awake and alert and responds appropriately; speech is fluent; motor strength is 5/5 in the quadriceps bilaterally and foot dorsiflexors bilaterally Heart: Regular rhythm and rate Supplemental Info Right hip and pelvic x-rays (07/29/2020): FINDINGS: There is a non-specific bowel gas pattern. Normal visualized soft tissue structures. Moderate bilateral hip joint space narrowing without acute fracture or dislocation. Visualized bony pelvis is intact. Moderate stool burden. Surgical clips in the pelvis. IMPRESSION: Normal x-ray examination of the pelvis and hip. Lumbar x-rays (09/07/2022): COMPARISON: July 07, 2016 FINDINGS: VERTEBRAE: There is an age-indeterminate compression deformity of the L3 vertebral body. Otherwise preserved vertebral body height. No fracture. No spondylolisthesis. Preservation of the normal lumbar lordosis. No significant facet arthropathy. DISCS: Disc spaces are maintained. INCLUDED ABDOMEN: Included bowel gas pattern is non-obstructive. IMPRESSION: Age-indeterminate compression deformity of the L3 vertebral body, not present on the previous study. These images were reviewed on 09/07/2023. Lumbar MRI (09/16/2022): COMPARISON: Lumbar spine radiographs 09/07/2022. CT abdomen and pelvis with contrast 08/08/2021. FINDINGS: T11-T12: (Sagittal only). Normal endplates. Normal disc height and morphology. Normal central canal and bilateral intervertebral neural foramina. T12-L1: (Sagittal only). Normal endplates. Normal disc height, hydration and morphology. Normal central canal and bilateral intervertebral neural foramina. Normal lumbar lordosis. There is no substantial scoliosis. Normal conus medullaris that terminates at the T12-L1 disc space level. L1-2: Normal L1 inferior endplate. Mild to moderate central compression fracture with bone marrow edema underneath the L1 superior endplate due to recent fracture. This fracture extends more towards the left side. This accounts for the increased central disc space height. Minimal ventral extradural defect is small posterior bulging annulus. Normal (more content not included)... Normal [facility] Gram Stainon 12-29-2023 GS N N Centrifuged Specimen? Culture performed on centrifuged specimen Gram Stain 3+ White Blood Cells 3+ Red Blood Cells No organisms seen Normal [facility] Comment on above: Performed By: #### M 100.2000, M100.4001, M100.2900 ####[facility] [address] [place], [place], [id number] Orthopedic Visit Reporton Orthopedic Visit Report [facility] [address] [place] [address] OFFICE VISIT Date of Service: 12/29/23 MR#: [id number] Acct: [id number] Name: STEPHANIE ALCANTAR Rep #: [id number] : 1960 Provider: Dr. Nnamdi castillo, DO Age/Sex: 63/F Location: [facility] Status: Signed Intake Vital Signs 11/08/23 07:16 Height 6 ft 1 in Intake Visit Reasons: RIGHT KNEE Chief Complaint: Right Knee Is patient in pain?: Yes Allergies magnesium Allergy (Severe, Verified 12/29/23 08:54) Other celecoxib (From Celebrex) Allergy (Intermediate, Verified 12/29/23 08:54) Shortness of breath Medications ???Medication ???Instructions ???Recorded ???Confirmed ???Type mecobalamin (vitamin B12) 2,500 mcg PO 07/06/23 12/29/23 History mcg chewable tablet calcium 600 mg capsule 600 mg PO .weekly 09/07/23 12/29/23 History cholecalciferol (vitamin D3) 50 50 mcg PO .qod 09/07/23 12/29/23 History mcg (2,000 unit) capsule Tymlos (abaloparatide) 80 mcg (0.04 mL) subcut DAILY 09/20/23 12/29/23 Rx #4.68 mL prednisone 10 mg tablet 10 mg PO QDAY 10/04/23 12/29/23 History hydroxychloroquine 200 mg tablet 200 mg PO QDAY 12/29/23 12/29/23 History (Plaquenil) methotrexate sodium 2.5 mg tablet 20 mg PO QWEEK 12/29/23 12/29/23 History PFSH Medical History Low back pain Genetic testing of female Barretts esophagus History of echocardiogram Vasovagal episode Fall Vertigo Restless legs History of hiatal hernia History of edema Acute lumbar myofascial strain Wears glasses Post-menopausal Cancer Back pain Seizures Gastric reflux Non-smoker History of stress test Dysphagia Chronic constipation Early satiety Acid reflux Abdominal pain Arthritis History of seizure Acute sinusitis Head congestion Raynauds syndrome Hx of ovarian cyst Surgical History Hx of esophagogastroduodenosco py Hx of kyphoplasty Hx of colonoscopy History of ovarian cystectomy History of total knee replacement (TKR) Hx of arthroscopy of right knee Hx of section Family History Sister Ovarian cancer Aunt No problems noted. Mother Breast cancer Father CVA (cerebral vascular accident) Social History Smoking Status: Never smoker alcohol intake: current alcohol intake frequency: holidays/special occasions only caffeine: Yes what type of physical activity do you participate in: none seatbelt use: always do you feel safe at home: Yes additional social history: HPI RIGHT KNEE Details: This documentation accurately reflects the service provided and the decisions made by me, Dr. Nnamdi Morales, DO 12/29/23 0748. Part of today???s visit was documented by [ ], acting as scribe. STEPHANIE ALCANTAR is a 63 year old F here today for right knee swelling. Patient saw Dr Krishna on Wednesday started on Plaquenil and she told her to followup with our office. Patient complains of pain as well, over her her entire knee. Patient complains of pain with all activities and she has a constant pain. she also has some back pathology for which she received injection with pain management. She is unable to exercise because of the pain. Patient notes that she is taking Tylenol for pain. She denies any fevers, chills or malaise. she recalls when this started she fell down the stairs, had 3 vertebral fractures, and had to have a kyphoplasty about 3 weeks later. she did not have pain or swelling in the knee until after the kyphoplasty. She states that she has fallen multiple times in the last year. 12/29/2023: Second aspiration of left knee this time culture for bacteria fungus AFB all negative. She did have elevated white blood cell count of 29,000 with a neutrophil percent of 94. She is Sero positive anti-CCP positive rheumatoid arthritis she does have elevated free kappa light chains, for which she has seen machine guide base winder Dr. Krishna and has been on methotrexate and prednisone in the past. She has had elevated CRP 01/22/2023 11.8 down from 11/13/2022 28.4 she did have a lactic acid which was normal and did have intermittent elevations in her ESR in 2022. Recently had lower extremity EMG 09/29/2023 suggestive of a peripheral neuropathy. Recent serum blood work with a normal white blood cell count and immature granulocyte percent and neutrophil percent. Patient did see Dr. Mathur and had steroid injection under fluoroscopy for the right knee superior medial superior lateral inferior medial genicular nerves on 11/08/2023. 10/04/2023 office visit:Patient states she usually takes Prednisone that was prescribed by Dr. Daniels (more content not included)... Normal [facility] CBC W/Diff, Automatedon 09-2 0-2023 Absolute Lymph 1.74 X10 3/uL Normal 0.83-4.51 [facility] Comment on above: Performed By: #### L 100.0100, L500.4050 ####[facility] [address] [place], [address] Absolute Neut 6.2 X10 3/uL Normal 2.0-7.7 [facility] Comment on above: Performed By: #### L 100.0100, L500.4050 ####[facility] [address] [place], [address] Basophils/100 WBC (Bld) 0.9 % Normal 0-1 [facility] Comment on above: Performed By: #### L 100.0100, L500.4050 ####[facility] [address] [place], [address] Eosinophils/100 WBC (Bld) 1.1 % Normal 0-5 [facility] Comment on above: Performed By: #### L 100.0100, L500.4050 ####[facility] [address] [place], [address] Erythrocyte distribution width (RBC) [Ratio] 13.9 % Normal 11.6-14.6 [facility] Comment on above: Performed By: #### L 100.0100, L500.4050 ####[facility] [address] [place], [address] Hematocrit (Bld) [Volume fraction] 40.4 % Normal 37-47 [facility] Comment on above: Performed By: #### L 100.0100, L500.4050 ####[facility] [address] [place], [address] Hemoglobin (Bld) [Mass/Vol] 12.7 g/dL Normal 12.0-15.0 [facility] Comment on above: Performed By: #### L 100.0100, L500.4050 ####[facility] [address] [place], [address] IG% 0.400 Normal 0.0-0.9 [facility] Comment on above: Result Comment: IG% - Immature Granulocytes (promyelocytes, myelocytes and metamyelocytes) > 1% indicates that a LEFT SHIFT is Present. Performed By: #### L 100.0100, L500.4050 ####[facility] [address] [place], [address] Lymphocytes/100 WBC (Bld) 19.0 % Normal 19-41 [facility] Comment on above: Performed By: #### L 100.0100, L500.4050 ####[facility] [address] [place], [address] MCH (RBC) [Entitic mass] 29.4 pg Normal 27.0-32.0 [facility] Comment on above: Performed By: #### L 100.0100, L500.4050 ####[facility] [address] [place], [address] MCHC (RBC) [Mass/Vol] 31.4 g/dL Low 32-36 [facility] Comment on above: Performed By: #### L 100.0100, L500.4050 ####[facility] [address] [place], [address] MCV (RBC) [Entitic vol] 93.5 fL Normal 81-99 [facility] Comment on above: Performed By: #### L 100.0100, L500.4050 ####[facility] [address] [place], [address] Monocytes/100 WBC (Bld) 10.6 % High 0-10 [facility] Comment on above: Performed By: #### L 100.0100, L500.4050 ####[facility] [address] [place], [address] Neutrophils/100 WBC (Bld) 68.0 % Normal 47-70 [facility] Comment on above: Performed By: #### L 100.0100, L500.4050 ####[facility] [address] [place], [address] Nucleated RBC (Bld) [#/Vol] 0 10*3/uL Normal 0-5 [facility] Comment on above: Performed By: #### L 100.0100, L500.4050 ####[facility] [address] [place], [address] Platelet mean volume (Bld) [Entitic vol] 8.6 fL Normal 6.2-12.0 [facility] Comment on above: Performed By: #### L 100.0100, L500.4050 ####[facility] [address] [place], [address] Platelets (Bld) [#/Vol] 398 10*3/uL Normal 150-450 [facility] Comment on above: Performed By: #### L 100.0100, L500.4050 ####[facility] [address] [place], [address] RBC (Bld) [#/Vol] 4.32 10*6/uL Normal 4.2-5.4 [facility] Comment on above: Performed By: #### L 100.0100, L500.4050 ####[facility] [address] [place], [address] RDW SD 46.8 fl High 35.1-43.9 [facility] Comment on above: Performed By: #### L 100.0100, L500.4050 ####[facility] [address] [place], [address] WBC (Bld) [#/Vol] 9.2 10*3/uL Normal 4.4-11.0 [facility] Comment on above: Performed By: #### L 100.0100, L500.4050 ####[facility] [address] [place], [address] Comprehensive Metabolic Prof ilon 12-10-2023 Albumin [Mass/Vol] 3.3 g/dL Normal 3.2-5.0 [facility] Comment on above: Performed By: #### L 100.0100, L500.4050 ####[facility] [address] [place], [address] Albumin/Globulin [Mass ratio] 0.7 {ratio} Low 0.9-2.4 [facility] Comment on above: Performed By: #### L 100.0100, L500.4050 ####[facility] [address] [place], [address] ALK P 63 U/L Normal 45-117 [facility] Comment on above: Performed By: #### L 100.0100, L500.4050 ####[facility] [address] [place], [address] ALT [Catalytic activity/Vol] 27 U/L Normal 13-56 [facility] Comment on above: Performed By: #### L 100.0100, L500.4050 ####[facility] [address] [place], [address] AST [Catalytic activity/Vol] 25 U/L Normal 15-37 [facility] Comment on above: Performed By: #### L 100.0100, L500.4050 ####[facility] [address] [place], [address] Bilirubin [Mass/Vol] 0.40 mg/dL Normal 0.20-1.00 [facility] Comment on above: Result Comment: For patients on eltrombopag therapy, use of Dimension [place] TBIL is not recommended. Performed By: #### L 100.0100, L500.4050 ####[facility] [address] [place], [address] BUN/CRE 19.2 RATIO Normal 10-20 [facility] Comment on above: Performed By: #### L 100.0100, L500.4050 ####[facility] [address] [place], [address] CA,Total 10.0 mg/dL Normal 8.5-10.1 [facility] Comment on above: Performed By: #### L 100.0100, L500.4050 ####[facility] [address] [place], [address] Chloride [Moles/Vol] 102 mmol/L Normal 98-107 [facility] Comment on above: Performed By: #### L 100.0100, L500.4050 ####[facility] [address] [place], [address] CO2 [Moles/Vol] 29.0 mmol/L Normal 21.0-32.0 [facility] Comment on above: Performed By: #### L 100.0100, L500.4050 ####[facility] [address] [place], [address] Creatinine [Mass/Vol] 0.83 mg/dL Normal 0.55-1.02 [facility] Comment on above: Result Comment: The validity of the calculated GFR GFRAA in patients over 70 years has not been determined. Clinical correlation is essential. Performed By: #### L 100.0100, L500.4050 ####[facility] [address] [place], [address] EST GFR - AA 89 mL/min Normal >60 [facility] Comment on above: Result Comment: Afri can O[place]i GFR Calc Performed By: #### L 100.0100, L500.4050 ####[facility] [address] [place], [address] GAP 6 Normal 5-15 [facility] Comment on above: Performed By: #### L 100.0100, L500.4050 ####[facility] [address] [place], [address] GFR/1.73 sq M.predicted among non-blacks MDRD (S/P/Bld) [Vol rate/Area] 74 mL/min/{1.73_m2} Normal >60 [facility] Comment on above: Result Comment: Non- GFR Calc Performed By: #### L 100.0100, L500.4050 ####[facility] [address] [place], [address] Globulin (S) [Mass/Vol] 4.8 g/dL High 2.2-4.2 [facility] Comment on above: Performed By: #### L 100.0100, L500.4050 ####[facility] [address] [place], [address] Glucose [Mass/Vol] 101 mg/dL Normal 74-106 [facility] Comment on above: Result Comment: Fast ing Glucose result from 100 to 125 mg/dL suggests IMPAIRED HOMEOSTASIS per A.D.A. criteria. Performed By: #### L 100.0100, L500.4050 ####[facility] [address] [place], [address] Potassium [Moles/Vol] 4.1 mmol/L Normal 3.5-5.1 [facility] Comment on above: Performed By: #### L 100.0100, L500.4050 ####[facility] [address] [place], [address] Sodium [Moles/Vol] 137 mmol/L Normal 136-145 [facility] Comment on above: Performed By: #### L 100.0100, L500.4050 ####[facility] [address] [place], [address] T PROT 8.1 g/dL Normal 6.4-8.2 [facility] Comment on above: Performed By: #### L 100.0100, L500.4050 ####[facility] [address] [place], [place], [address] Urea nitrogen [Mass/Vol] 16 mg/dL Normal 7-18 [facility] Comment on above: Performed By: #### L 100.0100, L500.4050 ####[facility] [address] [place], [place], [id number] Absolute lymphocyte countOrd ered By: Claudia Krishna on 07-19-2023 Lymphocytes Auto (Unsp spec) [#/Vol] 1.46 10*3/uL 0.83-4.51 [facility] Automated lymphocyte count a s percentage of total leukocytesOrdered By: Claudia Krishna on 07-19-2023 Lymphocytes/100 WBC Auto (Unsp spec) 20.0 % 19-41 [facility] Basophil percentageOrdered B y: Claudia Krishna on 07-19-2023 Basophils/100 WBC (Bld) 1.0 % 0-1 [facility] Bilirubin [Mass/Vol] 0.50 mg/dL 0.20-1.00 [facility] Comment on above: For patients on eltr ombopag therapy, use of Dimension [place] TBIL is not recommended. Chloride [Moles/Vol] 105 mmol/L 98-107 [facility] Eosinophils/100 WBC (Bld) 4.0 % 0-5 [facility] Glucose [Mass/Vol] 86 mg/dL 74-106 [facility] Hemoglobin (Bld) [Mass/Vol] 13.3 g/dL 12.0-15.0 [facility] Monocytes/100 WBC (Bld) 9.6 % 0-10 [facility] Neutrophils (Bld) [#/Vol] 4.8 10*3/uL 2.0-7.7 [facility] Neutrophils/100 WBC (Bld) 65.1 % 47-70 [facility] Potassium [Moles/Vol] 4.1 mmol/L 3.5-5.1 [facility] Protein [Mass/Vol] 7.9 g/dL 6.4-8.2 [facility] Sodium [Moles/Vol] 142 mmol/L 136-145 [facility] WBC (Bld) [#/Vol] 7.3 10*3/uL 4.4-11.0 [facility] Determination of erythrocyte mean corpuscular volume (MCV)Ordered By: Claudia Krihsna on 07-19-2023 MCV (RBC) [Entitic vol] 92.1 fL 81-99 [facility] Erythrocyte distribution wid th ratioOrdered By: Claudia Krishna on 07-19-2023 Erythrocyte distribution width (RBC) [Ratio] 13.7 % 11.6-14.6 [facility] Erythrocyte distribution wid th standard deviationOrdered By: Claudia Krishna on 07-19-2023 Erythrocyte distribution width (RBC) [Entitic vol] 45.2 fL 35.1-43.9 [facility] Hematocrit Auto (Bld) [Volum e fraction]Ordered By: Claudia Krishna on 07-19-2023 Hematocrit (Bld) [Volume fraction] 40.7 % 37-47 [facility] Immature granulocytes/100 WB C Auto (Bld)Ordered By: Claudia Krishna on 07-19-2023 Immature granulocytes/100 WBC (Bld) 0.300 % 0.0-0.9 [facility] Comment on above: IG% - Immature Granu locytes (promyelocytes, myelocytes and metamyelocytes) > 1% indicates that a LEFT SHIFT is Present. Laboratory - Chemistry and C hemistry - challengeOrdered By: Claudia Krishna on 07-19-2023 Albumin/Globulin [Mass ratio] 0.8 {ratio} 0.9-2.4 [facility] ALP [Catalytic activity/Vol] 55 U/L 45-117 [facility] ALT [Catalytic activity/Vol] 32 U/L 13-56 [facility] CO2 [Moles/Vol] 31.0 mmol/L 21.0-32.0 [facility] Globulin (S) [Mass/Vol] 4.5 g/dL 2.2-4.2 [facility] Urea nitrogen/Creatinine [Mass ratio] 17.6 mg/mg 10-20 [facility] Laboratory - Hematology and Cell countsOrdered By: Claudia Krishna on 07-19-2023 MCH (RBC) [Entitic mass] 30.1 pg 27.0-32.0 [facility] MCHC (RBC) [Mass/Vol] 32.7 g/dL 32-36 [facility] Nucleated RBC/100 WBC (Bld) [Ratio] 0 % 0-5 [facility] Platelet mean volume (Bld) [Entitic vol] 8.3 fL 6.2-12.0 [facility] Platelets (Bld) [#/Vol] 298 10*3/uL 150-450 [facility] No Panel InformationOrdered By: Claudia Krishna on 07-19-2023 Estimated GFR (MDRD) Amer 75 mL/min >60 [facility] Comment on above: GFR Calc Estimated GFR (MDRD) Non-Af Amer 62 mL/min >60 [facility] Comment on above: Non- GFR Calc RBC Auto (Bld) [#/Vol]Ordere d By: Claudia Krishna on 07-19-2023 RBC (Bld) [#/Vol] 4.42 10*6/uL 4.2-5.4 [facility] Serum or plasma calcium sommer urement (mass/volume)Ordered By: Claudia Krishna on 07-19-2023 Calcium [Mass/Vol] 9.6 mg/dL 8.5-10.1 [facility] Serum or plasma creatinine m easurement (mass/volume)Ordered By: Claudia Krishna on 07-19-2023 Creatinine [Mass/Vol] 0.96 mg/dL 0.55-1.02 [facility] Comment on above: The validity of the calculated GFR & GFRAA in patients over 70 years has not been determined. Clinical correlation is essential. Serum or plasma urea nitroge n measurement (mass/volume)Ordered By: Claudia Krishna on 07-19-2023 Urea nitrogen [Mass/Vol] 17 mg/dL 7-18 [facility] Thin prep Papanicolaou smear with manual screeningOrdered By: Claudia Krishna on 07-19-2023 Thin prep Papanicolaou smear with manual screening 3.4 g/dL 3.2-5.0 [facility] Thin prep Papanicolaou smear with manual screening 32 U/L 15-37 [facility] Thin prep Papanicolaou smear with manual screening 6 5-15 [facility] Cervical or vaginal specimen microscopic examination by liquid based cytology (reportOrdered By: Delicia Lou on 07-06-2023 Cytology report Cyto stain.thin prep Doc (Cvx/Vag) Comment . [facility] Comment on above: Criteria not met, HP V Genotype not performed.Performed at: [facility] [id number] [place], [place] [id number] Director: Pepito Rodriguez MD, Phone: [phone] at: [address] [id number] Director: Juani Gupta MD, Phone: [phone] at: [facility] [id number] Director: Juani Gupta MD, Phone: [phone] Cervical or vagninal specime n microscopic examination by cytology stain (reported asOrdered By: Delicia Lou on 07-06-2023 Cytology report Cyto stain Doc (Cvx/Vag) Comment . [facility] Comment on above: The Pap smear is a s creening test designed to aid in thedetection of premalignant and malignant conditions of theuterine cervix. It is not a diagnostic procedure andshould not be used as the sole means of detecting cervicalcancer. Both false-positive and false-negative reports dooccur. Detection in cervical specim en of any of human papilloma virus (HPV) 16, 18, 31, 33,Ordered By: Delicia Lou on 07-06-2023 HPV 16+18+31+33+35+39+45+ 51+52+56+58+59+66+68 DNA Probe+sig amp Ql (Cvx) Negative Negative [facility] Comment on above: This nucleic acid am plification test detects fourteen high- risk HPV types (16,18,31,33,35,39,45,51,52,56,58,59,66,68)without differentiation. Laboratory - CytologyOrdered By: Delicia Lou on 07-06-2023 Singing Waiter Or Waitress Cyto stain Nom (Cvx/Vag) [ID] Comment . [facility] Comment on above: Suzie Bermeo, Cytote chnologist (ASCP) Laboratory - Miscellaneous t estsOrdered By: Delicia Lou on 07-06-2023 Service comment (Unsp spec) [Interp] . . [facility] No Panel InformationOrdered By: Delicia Lou on 07-06-2023 Miscellaneous Test Comment SEE SCANNED REPORT [facility] Thin prep Papanicolaou smear with manual screeningOrdered By: Delicia Lou on 07-06-2023 Thin prep Papanicolaou smear with manual screening Comment . [facility] Comment on above: NEGATIVE FOR INTRAEP ITHELIAL LESION OR MALIGNANCY.CELLULAR CHANGES ASSOCIATED WITH ATROPHY ARE PRESENT. This liquid based Th inPrep(R) pap test was screened withthe use of an image guided system. Absolute lymphocyte countOrd ered By: Claudia Krishna on 05-19-2023 Lymphocytes Auto (Unsp spec) [#/Vol] 1.95 10*3/uL 0.83-4.51 [facility] Automated lymphocyte count a s percentage of total leukocytesOrdered By: Claudia Krishna on 05-19-2023 Lymphocytes/100 WBC Auto (Unsp spec) 17.5 % 19-41 [facility] Basophil percentageOrdered B y: Claudia Krishna on 05-19-2023 Basophils/100 WBC (Bld) 1.0 % 0-1 [facility] Bilirubin [Mass/Vol] 0.60 mg/dL 0.20-1.00 [facility] Comment on above: For patients on eltr ombopag therapy, use of Dimension [place] TBIL is not recommended. Chloride [Moles/Vol] 106 mmol/L 98-107 [facility] Eosinophils/100 WBC (Bld) 1.1 % 0-5 [facility] Glucose [Mass/Vol] 109 mg/dL 74-106 [facility] Comment on above: Fasting Glucose resu lt from 100 to 125 mg/dL suggests IMPAIRED HOMEOSTASIS per A.D.A. criteria. Hemoglobin (Bld) [Mass/Vol] 14.1 g/dL 12.0-15.0 [facility] Monocytes/100 WBC (Bld) 8.8 % 0-10 [facility] Neutrophils (Bld) [#/Vol] 7.9 10*3/uL 2.0-7.7 [facility] Neutrophils/100 WBC (Bld) 71.2 % 47-70 [facility] Potassium [Moles/Vol] 4.7 mmol/L 3.5-5.1 [facility] Protein [Mass/Vol] 8.0 g/dL 6.4-8.2 [facility] Sodium [Moles/Vol] 139 mmol/L 136-145 [facility] WBC (Bld) [#/Vol] 11.1 10*3/uL 4.4-11.0 [facility] Determination of erythrocyte mean corpuscular volume (MCV)Ordered By: Claudia Krishna on 05-19-2023 MCV (RBC) [Entitic vol] 94.6 fL 81-99 [facility] Erythrocyte distribution wid th ratioOrdered By: [facility] Erendira on 05-19-2023 Erythrocyte distribution width (RBC) [Ratio] 14.6 % 11.6-14.6 [facility] Erythrocyte distribution wid th standard deviationOrdered By: [facility] Erendira on 05-19-2023 Erythrocyte distribution width (RBC) [Entitic vol] 49.7 fL 35.1-43.9 [facility] Hematocrit Auto (Bld) [Volum e fraction]Ordered By: Claudia Krishna on 05-19-2023 Hematocrit (Bld) [Volume fraction] 44.2 % 37-47 [facility] Immature granulocytes/100 WB C Auto (Bld)Ordered By: Claudia Krishna on 05-19-2023 Immature granulocytes/100 WBC (Bld) 0.400 % 0.0-0.9 [facility] Comment on above: IG% - Immature Granu locytes (promyelocytes, myelocytes and metamyelocytes) > 1% indicates that a LEFT SHIFT is Present. Laboratory - Chemistry and C hemistry - challengeOrdered By: Claudia Krishna on 05-19-2023 Albumin/Globulin [Mass ratio] 0.9 {ratio} 0.9-2.4 [facility] ALP [Catalytic activity/Vol] 63 U/L 45-117 [facility] ALT [Catalytic activity/Vol] 25 U/L 13-56 [facility] CO2 [Moles/Vol] 29.0 mmol/L 21.0-32.0 [facility] Globulin (S) [Mass/Vol] 4.2 g/dL 2.2-4.2 [facility] Urea nitrogen/Creatinine [Mass ratio] 17.9 mg/mg 10-20 [facility] Laboratory - Hematology and Cell countsOrdered By: Claudia Krishna on 05-19-2023 MCH (RBC) [Entitic mass] 30.2 pg 27.0-32.0 [facility] MCHC (RBC) [Mass/Vol] 31.9 g/dL 32-36 [facility] Nucleated RBC/100 WBC (Bld) [Ratio] 0 % 0-5 [facility] Platelet mean volume (Bld) [Entitic vol] 8.9 fL 6.2-12.0 [facility] Platelets (Bld) [#/Vol] 344 10*3/uL 150-450 [facility] No Panel InformationOrdered By: Claudia Krishna on 05-19-2023 Estimated GFR (MDRD) Amer 82 mL/min >60 [facility] Comment on above: GFR Calc Estimated GFR (MDRD) Non-Af Amer 68 mL/min >60 [facility] Comment on above: Non- GFR Calc RBC Auto (Bld) [#/Vol]Ordere d By: Claudia Krishna on 05-19-2023 RBC (Bld) [#/Vol] 4.67 10*6/uL 4.2-5.4 [facility] Serum or plasma calcium sommer urement (mass/volume)Ordered By: Claudia Krishna on 05-19-2023 Calcium [Mass/Vol] 9.8 mg/dL 8.5-10.1 [facility] Serum or plasma creatinine m easurement (mass/volume)Ordered By: Claudia Krishna on 05-19-2023 Creatinine [Mass/Vol] 0.89 mg/dL 0.55-1.02 [facility] Comment on above: The validity of the calculated GFR & GFRAA in patients over 70 years has not been determined. Clinical correlation is essential. Serum or plasma urea nitroge n measurement (mass/volume)Ordered By: Claudia Krishna on 05-19-2023 Urea nitrogen [Mass/Vol] 16 mg/dL 7-18 [facility] Thin prep Papanicolaou smear with manual screeningOrdered By: Claudia Krishna on 05-19-2023 Thin prep Papanicolaou smear with manual screening 3.8 g/dL 3.2-5.0 [facility] Thin prep Papanicolaou smear with manual screening 19 U/L 15-37 [facility] Thin prep Papanicolaou smear with manual screening 4 5-15 [facility] Absolute lymphocyte countOrd ered By: Claudia Krishna on 03-26-2023 Lymphocytes Auto (Unsp spec) [#/Vol] 1.77 10*3/uL 0.83-4.51 [facility] Basophil percentageOrdered B y: Claudia Krishna on 03-26-2023 Basophils/100 WBC (Bld) 1.0 % 0-1 [facility] Bilirubin [Mass/Vol] 0.50 mg/dL 0.20-1.00 [facility] Comment on above: For patients on eltr ombopag therapy, use of Dimension [place] TBIL is not recommended. Chloride [Moles/Vol] 107 mmol/L 98-107 [facility] Eosinophils/100 WBC (Bld) 2.7 % 0-5 [facility] Glucose [Mass/Vol] 74 mg/dL 74-106 [facility] Neutrophils (Bld) [#/Vol] 4.8 10*3/uL 2.0-7.7 [facility] Neutrophils/100 WBC (Bld) 62.9 % 47-70 [facility] Potassium [Moles/Vol] 4.3 mmol/L 3.5-5.1 [facility] Protein [Mass/Vol] 7.6 g/dL 6.4-8.2 [facility] Sodium [Moles/Vol] 139 mmol/L 136-145 [facility] WBC (Bld) [#/Vol] 7.7 10*3/uL 4.4-11.0 [facility] Blood erythrocytes count (nu mber/volume)Ordered By: Claudia Krishna on 03-26-2023 RBC (Bld) [#/Vol] 4.55 10*6/uL 4.2-5.4 [facility] Blood hemoglobin measurement (mass/volume)Ordered By: Claudia Krishna on 03-26-2023 Hemoglobin (Bld) [Mass/Vol] 13.0 g/dL 12.0-15.0 [facility] Blood lymphocytes/100 leukoc ytesOrdered By: Claudia Krishna on 03-26-2023 Lymphocytes/100 WBC (Bld) 23.0 % 19-41 [facility] Blood monocytes/100 leukocyt esOrdered By: Claudia Krishna on 03-26-2023 Monocytes/100 WBC (Bld) 9.9 % 0-10 [facility] Blood platelet mean volumeOr dered By: Claudiatrena Krishna on 03-26-2023 Platelet mean volume (Bld) [Entitic vol] 8.4 fL 6.2-12.0 [facility] Determination of erythrocyte mean corpuscular volume (MCV)Ordered By: Claudiatrena Krishna on 03-26-2023 MCV (RBC) [Entitic vol] 91.0 fL 81-99 [facility] Hematocrit Auto (Bld) [Volum e fraction]Ordered By: Claudia Krishna on 03-26-2023 Hematocrit (Bld) [Volume fraction] 41.4 % 37-47 [facility] Laboratory - Chemistry and C hemistry - challengeOrdered By: [facility] Erendira on 03-26-2023 ALP [Catalytic activity/Vol] 58 U/L 45-117 [facility] ALT [Catalytic activity/Vol] 27 U/L 13-56 [facility] CO2 [Moles/Vol] 30.0 mmol/L 21.0-32.0 [facility] Globulin (S) [Mass/Vol] 4.6 g/dL 2.2-4.2 [facility] Urea nitrogen/Creatinine [Mass ratio] 22.2 mg/mg 10-20 [facility] Laboratory - Hematology and Cell countsOrdered By: Claudiatrena Krishna on 03-26-2023 Erythrocyte distribution width (RBC) [Entitic vol] 47.7 fL 35.1-43.9 [facility] Erythrocyte distribution width (RBC) [Ratio] 14.5 % 11.6-14.6 [facility] Immature granulocytes/100 WBC (Bld) 0.500 % 0.0-0.9 [facility] Comment on above: IG% - Immature Granu locytes (promyelocytes, myelocytes and metamyelocytes) > 1% indicates that a LEFT SHIFT is Present. MCH (RBC) [Entitic mass] 28.6 pg 27.0-32.0 [facility] Nucleated RBC/100 WBC (Bld) [Ratio] 0 % 0-5 [facility] MCHC Auto (RBC) [Mass/Vol]Or dered By: Claudia Krishna on 03-26-2023 MCHC (RBC) [Mass/Vol] 31.4 g/dL 32-36 [facility] No Panel InformationOrdered By: Claudia Krishna on 03-26-2023 Estimated GFR (MDRD) Amer 99 mL/min >60 [facility] Comment on above: GFR Calc Estimated GFR (MDRD) Non-Af Amer 82 mL/min >60 [facility] Comment on above: Non- GFR Calc Platelets bldOrdered By: Gina Krishna on 03-26-2023 Platelets (Bld) [#/Vol] 306 10*3/uL 150-450 [facility] Serum or plasma albumin sommer urement (mass/volume)Ordered By: Claudia Krishna on 03-26-2023 Albumin [Mass/Vol] 3.0 g/dL 3.2-5.0 [facility] Serum or plasma albumin/glob ulin mass ratioOrdered By: Claudia Krishna on 03-26-2023 Albumin/Globulin [Mass ratio] 0.7 {ratio} 0.9-2.4 [facility] Serum or plasma calcium sommer urement (mass/volume)Ordered By: Claudia Krishna on 03-26-2023 Calcium [Mass/Vol] 9.1 mg/dL 8.5-10.1 [facility] Serum or plasma creatinine m easurement (mass/volume)Ordered By: Claudia Krishna on 03-26-2023 Creatinine [Mass/Vol] 0.76 mg/dL 0.55-1.02 [facility] Comment on above: The validity of the calculated GFR & GFRAA in patients over 70 years has not been determined. Clinical correlation is essential. Serum or plasma urea nitroge n measurement (mass/volume)Ordered By: Claudia Krishna on 03-26-2023 Urea nitrogen [Mass/Vol] 17 mg/dL 7-18 [facility] Thin prep Papanicolaou smear with manual screeningOrdered By: Claudia Krishna on 03-26-2023 Thin prep Papanicolaou smear with manual screening 23 U/L 15-37 [facility] Thin prep Papanicolaou smear with manual screening 2 5-15 [facility] No Panel InformationOrdered By: Bear Pryor on 02-19-2023 Parathyroid Hormone (Intact) 27.5 pg/mL 18.4-80.1 [facility] Thyroid Stimulating Hormone (TSH) 2.96 uIU/mL 0.358-3.74 [facility] Vitamin D 25-Hydroxy 85.7 ng/mL [facility] Comment on above: Vitamin D 25(OH) Sta tus Range Deficiency <20 ng/mL (50nmol/L) Insufficiency 20 - 30 ng/mL (50 - 75 nmol/L) Sufficiency 30 - 100 ng/mL (75 - 250 nmol/L) Toxicity >100 ng/mL (>250 nmol/L) Absolute lymphocyte countOrd ered By: Claudia Krishna on 01-22-2023 Lymphocytes Auto (Unsp spec) [#/Vol] 1.88 10*3/uL 0.83-4.51 [facility] Basophil percentageOrdered B y: Claudia Krishna on 01-22-2023 Basophils/100 WBC (Bld) 1.0 % 0-1 [facility] Bilirubin [Mass/Vol] 0.40 mg/dL 0.20-1.00 [facility] Comment on above: For patients on eltr ombopag therapy, use of Dimension [place] TBIL is not recommended. Chloride [Moles/Vol] 107 mmol/L 98-107 [facility] Eosinophils/100 WBC (Bld) 1.9 % 0-5 [facility] Glucose [Mass/Vol] 103 mg/dL 74-106 [facility] Comment on above: Fasting Glucose resu lt from 100 to 125 mg/dL suggests IMPAIRED HOMEOSTASIS per A.D.A. criteria. Neutrophils (Bld) [#/Vol] 5.8 10*3/uL 2.0-7.7 [facility] Neutrophils/100 WBC (Bld) 66.6 % 47-70 [facility] Potassium [Moles/Vol] 3.8 mmol/L 3.5-5.1 [facility] Protein [Mass/Vol] 7.9 g/dL 6.4-8.2 [facility] Sodium [Moles/Vol] 141 mmol/L 136-145 [facility] WBC (Bld) [#/Vol] 8.6 10*3/uL 4.4-11.0 [facility] Blood erythrocytes count (nu mber/volume)Ordered By: Claudia Krishna on 01-22-2023 RBC (Bld) [#/Vol] 4.69 10*6/uL 4.2-5.4 [facility] Blood hemoglobin measurement (mass/volume)Ordered By: Claudia Krishna on 01-22-2023 Hemoglobin (Bld) [Mass/Vol] 13.3 g/dL 12.0-15.0 [facility] Blood lymphocytes/100 leukoc ytesOrdered By: Claudia Krishna on 01-22-2023 Lymphocytes/100 WBC (Bld) 21.8 % 19-41 [facility] Blood monocytes/100 leukocyt esOrdered By: Claudia Krishna on 01-22-2023 Monocytes/100 WBC (Bld) 8.6 % 0-10 [facility] Blood platelet mean volumeOr dered By: Claudia Krishna on 01-22-2023 Platelet mean volume (Bld) [Entitic vol] 8.4 fL 6.2-12.0 [facility] Determination of erythrocyte mean corpuscular volume (MCV)Ordered By: Claudia Krishna on 01-22-2023 MCV (RBC) [Entitic vol] 89.6 fL 81-99 [facility] Erythrocyte sedimentation ra teOrdered By: Claudia Krishna on 01-22-2023 ESR (Bld) [Velocity] 34 mm/h 0-30 [facility] Hematocrit Auto (Bld) [Volum e fraction]Ordered By: Claudia Krishna on 01-22-2023 Hematocrit (Bld) [Volume fraction] 42.0 % 37-47 [facility] Laboratory - Chemistry and C hemistry - challengeOrdered By: Claudia Krishna on 01-22-2023 ALP [Catalytic activity/Vol] 57 U/L 45-117 [facility] ALT [Catalytic activity/Vol] 19 U/L 13-56 [facility] CO2 [Moles/Vol] 31.0 mmol/L 21.0-32.0 [facility] Globulin (S) [Mass/Vol] 4.5 g/dL 2.2-4.2 [facility] Urea nitrogen/Creatinine [Mass ratio] 24.9 mg/mg 10-20 [facility] Laboratory - Hematology and Cell countsOrdered By: Claudia Krishna on 01-22-2023 Anisocytosis Ql (Bld) 8.6 [facility] Erythrocyte distribution width (RBC) [Entitic vol] 44.3 fL 35.1-43.9 [facility] Erythrocyte distribution width (RBC) [Ratio] 13.5 % 11.6-14.6 [facility] Immature granulocytes/100 WBC (Bld) 0.100 % 0.0-0.9 [facility] Comment on above: IG% - Immature Granu locytes (promyelocytes, myelocytes and metamyelocytes) > 1% indicates that a LEFT SHIFT is Present. MCH (RBC) [Entitic mass] 28.4 pg 27.0-32.0 [facility] Nucleated RBC/100 WBC (Bld) [Ratio] 0 % 0-5 [facility] MCHC Auto (RBC) [Mass/Vol]Or dered By: Claudia Krishna on 01-22-2023 MCHC (RBC) [Mass/Vol] 31.7 g/dL 32-36 [facility] No Panel InformationOrdered By: Claudia Krishna on 01-22-2023 Estimated GFR (MDRD) Amer 88 mL/min >60 [facility] Comment on above: GFR Calc Estimated GFR (MDRD) Non-Af Amer 73 mL/min >60 [facility] Comment on above: Non- GFR Calc Hepatitis B Surface Antigen Non-Reactive Nonreactive [facility] Hepatitis C Antibody Non-Reactive Nonreactive [facility] Comment on above: Non Reactive: < 0.8 Equivocal: >/= 0.8 to < 1.0 Reactive: >/= 1.0The CDC recommends that a reactive/equivocal HCV antibody result be followed up by the HCV Nucleic Acid Amplificationtest ([id number]) Platelets bldOrdered By: Gina Krishna on 01-22-2023 Platelets (Bld) [#/Vol] 322 10*3/uL 150-450 [facility] Serum cyclic citrullinated p eptide IgG antibody assay (units/volume)Ordered By: Claudia Krishna on 01-22-2023 Cyclic citrullinated peptide IgG Qn 21 units 0-19 [facility] Comment on above: Negative <20 Weak po sitive 20 - 39 Moderate positive 40 - 59 Strong positive >59Performed at: [facility] [place] [id number] Director: Faizan Jang PhD, Phone: [phone] Serum hepatitis B virus surf leanna antibody IgG detectionOrdered By: Claudia Krishna on 01-22-2023 HBV surface IgG Ql (S) Reactive [facility] Comment on above: Non Reactive: Incons istent with immunity less than <10 mIU/mL Reactive: Consistent with immunity greater than or equal to 10 mIU/mL Serum or plasma C reactive p rotein measurement (mass/volume)Ordered By: Claudia Krishna on 01-22-2023 CRP [Mass/Vol] 11.80 mg/L 0.0-3.0 [facility] Comment on above: C-Reactive Protein ( CRP) provides useful information for thediagnosis, therapy and monitoring of inflammatory processesand associated diseases. For the evaluation of Relative Riskfor Cardiovascular Disease, a High Sensitivity CRP (HSCRP)should be ordered. Serum or plasma albumin sommer urement (mass/volume)Ordered By: Claudia Krishna on 01-22-2023 Albumin [Mass/Vol] 3.4 g/dL 3.2-5.0 [facility] Serum or plasma albumin/glob ulin mass ratioOrdered By: Claudia Krishna on 01-22-2023 Albumin/Globulin [Mass ratio] 0.8 {ratio} 0.9-2.4 [facility] Serum or plasma calcium sommer urement (mass/volume)Ordered By: Claudia Kirshna on 01-22-2023 Calcium [Mass/Vol] 9.2 mg/dL 8.5-10.1 [facility] Serum or plasma creatinine m easurement (mass/volume)Ordered By: Claudia Krishna on 01-22-2023 Creatinine [Mass/Vol] 0.84 mg/dL 0.55-1.02 [facility] Comment on above: The validity of the calculated GFR & GFRAA in patients over 70 years has not been determined. Clinical correlation is essential. Serum or plasma urea nitroge n measurement (mass/volume)Ordered By: Claudia Krishna on 01-22-2023 Urea nitrogen [Mass/Vol] 21 mg/dL 7-18 [facility] Serum rheumatoid factor dete ctionOrdered By: Claudia Krishna on 01-22-2023 Rheumatoid factor Ql (S) 42.0 IU/mL <15 [facility] Thin prep Papanicolaou smear with manual screeningOrdered By: Claudia Krishna on 01-22-2023 Thin prep Papanicolaou smear with manual screening 22 U/L 15-37 [facility] Thin prep Papanicolaou smear with manual screening 3 5-15 [facility] Basophil percentageOrdered B y: Amish Tavares on 12-02-2022 Chloride [Moles/Vol] 107 mmol/L 98-107 [facility] Cholesterol [Mass/Vol] 124 mg/dL <200 [facility] Comment on above: <200 mg/dL Desirable 200-240 mg/dL Borderline >240 mg/dL High Risk Glucose [Mass/Vol] 80 mg/dL 74-106 [facility] Potassium [Moles/Vol] 4.4 mmol/L 3.5-5.1 [facility] Sodium [Moles/Vol] 140 mmol/L 136-145 [facility] Triglyceride [Mass/Vol] 50 mg/dL <199 [facility] Comment on above: The drugs N-Acetylcy steine and Metamizole may falsely depress this assay.Serum Triglycerides Reference Interval Normal <150 mg/dL Borderline high 150 - 199 mg/dL High 200 - 499 mg/dL Very High > or = 500 mg/dL Erythrocyte sedimentation ra teOrdered By: Amish Tavares on 12-02-2022 ESR (Bld) [Velocity] 25 mm/h 0-30 [facility] Laboratory - Chemistry and C hemistry - challengeOrdered By: Amish Tavares on 12-02-2022 CO2 [Moles/Vol] 32.0 mmol/L 21.0-32.0 [facility] Urea nitrogen/Creatinine [Mass ratio] 20.5 mg/mg 10-20 [facility] No Panel InformationOrdered By: Amish Tavares on 12-02-2022 Anti-Nuclear Antibody Screen Negative Negative [facility] Comment on above: Performed at: - [employer] [place] [id number] Director: Faizan Jang PhD, Phone: [phone] Estimated GFR (MDRD) Amer 84 mL/min >60 [facility] Comment on above: GFR Calc Estimated GFR (MDRD) Non-Af Amer 70 mL/min >60 [facility] Comment on above: Non- GFR Calc Serum DNA double strand anti body assay (units/volume)Ordered By: Amish Tavares on 12-02-2022 DNA double strand Ab Qn (S) 1 [IU]/mL 0-9 [facility] Comment on above: Negative <5 Equivoca l 5 - 9 Positive >9 Serum or plasma calcium sommer urement (mass/volume)Ordered By: Amish Tavares on 12-02-2022 Calcium [Mass/Vol] 9.5 mg/dL 8.5-10.1 [facility] Serum or plasma cholesterol in HDL measurement (mass/volume)Ordered By: Amish Tavares on 12-02-2022 Cholesterol in HDL [Mass/Vol] 51 mg/dL >40 [facility] Comment on above: The drugs N-Acetylcy steine and Metamizole may falsely depress this assay. Reference Range HDL <40 mg/dL Low HDL Cholesterol HDL >or= 60 mg/dL High HDL Cholesterol Serum or plasma cholesterol in VLDL measurement (mass/volume)Ordered By: Amish Tavares on 12-02-2022 Cholesterol in VLDL [Mass/Vol] 10 mg/dL 5-40 [facility] Serum or plasma creatinine m easurement (mass/volume)Ordered By: Amish Tavares on 12-02-2022 Creatinine [Mass/Vol] 0.88 mg/dL 0.55-1.02 [facility] Comment on above: The validity of the calculated GFR & GFRAA in patients over 70 years has not been determined. Clinical correlation is essential. Serum or plasma low density lipoprotein (LDL) cholesterol measurement (mass/volume)Ordered By: Amish Tavraes on 12-02-2022 Cholesterol in LDL [Mass/Vol] 63 mg/dL 0-130 [facility] Serum or plasma urea nitroge n measurement (mass/volume)Ordered By: Amish Tavares on 12-02-2022 Urea nitrogen [Mass/Vol] 18 mg/dL 7-18 [facility] Serum rheumatoid factor dete ctionOrdered By: Amish Tavares on 12-02-2022 Rheumatoid factor Ql (S) 42.0 IU/mL <15 [facility] Thin prep Papanicolaou smear with manual screeningOrdered By: Amish Tavares on 12-02-2022 Thin prep Papanicolaou smear with manual screening 1 5-15 [facility] * Body fluid crystals type b y light microscopyOrdered By: Nnamdi Morales on 11-13-2022 Crystals LM Nom (Body fld) NO CRYSTALS SEEN [facility] Comment on above: CRYSTAL RESULT IS PRELIMINARY. SEE PATH REVIEW FOR FINAL REPORT. Absolute lymphocyte countOrd ered By: Nnamdi Morales on 11-13-2022 Lymphocytes Auto (Unsp spec) [#/Vol] 1.53 10*3/uL 0.83-4.51 [facility] Anaerobic cultureOrdered By: Nnamdi Morales on 11-13-2022 Bacteria identified Anaer cx Nom (Unsp spec) No growth in 5 days. [facility] Bacteria identified Anaer cx Nom (Unsp spec) No growth in 5 days. [facility] Bacterial body fluid culture Ordered By: Nnamdi Morales on 11-13-2022 Bacteria identified Cx Nom (Body fld) No growth in 5 days. [facility] Bacteria identified Cx Nom (Body fld) No growth in 5 days. [facility] Basophil percentageOrdered B y: Nnamdi Morales on 11-13-2022 Basophils/100 WBC (Bld) 1.2 % 0-1 [facility] Eosinophils/100 WBC (Bld) 3.8 % 0-5 [facility] Lactate [Moles/Vol] 0.7 mmol/L 0.4-2.0 [facility] Neutrophils (Bld) [#/Vol] 5.8 10*3/uL 2.0-7.7 [facility] Neutrophils/100 WBC (Bld) 66.9 % 47-70 [facility] WBC (Bld) [#/Vol] 8.6 10*3/uL 4.4-11.0 [facility] Blood erythrocytes count (nu mber/volume)Ordered By: Nnamdi Morales on 11-13-2022 RBC (Bld) [#/Vol] 4.24 10*6/uL 4.2-5.4 [facility] Blood hemoglobin measurement (mass/volume)Ordered By: Nnamdi Morales on 11-13-2022 Hemoglobin (Bld) [Mass/Vol] 12.3 g/dL 12.0-15.0 [facility] Blood lymphocytes/100 leukoc ytesOrdered By: Nnamdi Morales on 11-13-2022 Lymphocytes/100 WBC (Bld) 17.8 % 19-41 [facility] Lymphocytes/100 WBC (Bld) 2 % [facility] Blood monocytes/100 leukocyt esOrdered By: Nnamdi Morales on 11-13-2022 Monocytes/100 WBC (Bld) 9.8 % 0-10 [facility] Blood platelet mean volumeOr dered By: Nnamdi Morales on 11-13-2022 Platelet mean volume (Bld) [Entitic vol] 8.2 fL 6.2-12.0 [facility] Color of Synovial fluidOrder ed By: Nnamdi Morales on 11-13-2022 Color (Syn fld) Yellow Pale Yellow [facility] Determination of appearance of synovial fluidOrdered By: Nnamdi Morales on 11-13-2022 Appearance (Syn fld) Turbid CLEAR [facility] Determination of erythrocyte mean corpuscular volume (MCV)Ordered By: Nnamdi Morales on 11-13-2022 MCV (RBC) [Entitic vol] 92.2 fL 81-99 [facility] Erythrocyte sedimentation ra teOrdered By: Nnamdi Morales on 11-13-2022 ESR (Bld) [Velocity] 43 mm/h 0-30 [facility] Gram stain for investigation of transfusion reactionOrdered By: Nnamdi Morales on 11-13-2022 Microscopic observation Gram stain Nom (Unsp spec) [facility] Microscopic observation Gram stain Nom (Unsp spec) [facility] Hematocrit Auto (Bld) [Volum e fraction]Ordered By: Nnamdi Morales on 11-13-2022 Hematocrit (Bld) [Volume fraction] 39.1 % 37-47 [facility] Laboratory - Hematology and Cell countsOrdered By: Nnamdi Morales on 11-13-2022 Erythrocyte distribution width (RBC) [Entitic vol] 41.8 fL 35.1-43.9 [facility] Erythrocyte distribution width (RBC) [Ratio] 12.3 % 11.6-14.6 [facility] Immature granulocytes/100 WBC (Bld) 0.500 % 0.0-0.9 [facility] Comment on above: IG% - Immature Granu locytes (promyelocytes, myelocytes and metamyelocytes) > 1% indicates that a LEFT SHIFT is Present. MCH (RBC) [Entitic mass] 29.0 pg 27.0-32.0 [facility] Nucleated RBC/100 WBC (Bld) [Ratio] 0 % 0-5 [facility] MCHC Auto (RBC) [Mass/Vol]Or dered By: Nnamdi Morales on 11-13-2022 MCHC (RBC) [Mass/Vol] 31.5 g/dL 32-36 [facility] No Panel InformationOrdered By: Nnamdi Morales on 11-13-2022 Synovial Fluid Mononuclear WBCs 2.672 10^3/ul [facility] Synovial Fluid Mononuclear WBCs % 6.0 % [facility] Synovial Fluid Polynuclear WBCs 42.240 10^3/uL [facility] Synovial Fluid Polynuclear WBCs % 94.0 % [facility] Synovial Fluid Total Cells Counted 41.0000 10^3/uL 0.000-0.000 [facility] Comment on above: This is the Total Nu mber of Nucleated Cell Types in the Body Fluid. Platelets bldOrdered By: Silvio Morales on 11-13-2022 Platelets (Bld) [#/Vol] 373 10*3/uL 150-450 [facility] Qualitative synovial fluid v iscosityOrdered By: Nnamdi Morales on 11-13-2022 Viscosity Ql (Syn fld) Mod. Viscous HIGH [facility] Review by pathologistOrdered By: Nnamdi Morales on 11-13-2022 Pathologist review Matt (Unsp spec) [Interp] May follow [facility] Pathologist review Matt (Unsp spec) [Interp] Reviewed [facility] Comment on above: Negative for maligna nt cells and crystalsAcute Deanna Donald M.D. 11/16/22Pathologist comment added Serum or plasma C reactive p rotein measurement (mass/volume)Ordered By: Nnamdi Morales on 11-13-2022 CRP [Mass/Vol] 28.40 mg/L 0.0-3.0 [facility] Comment on above: C-Reactive Protein ( CRP) provides useful information for thediagnosis, therapy and monitoring of inflammatory processesand associated diseases. For the evaluation of Relative Riskfor Cardiovascular Disease, a High Sensitivity CRP (HSCRP)should be ordered. Serum or plasma uric acid me asurement (mass/volume)Ordered By: Nnamdi Morales on 11-13-2022 Urate [Mass/Vol] 4.3 mg/dL 2.6-6.0 [facility] Comment on above: The drugs N-Acetylcy steine and Metamizole may falsely depress this assay. Specimen source identificati on of body fluidOrdered By: Nnamdi Morales on 11-13-2022 Specimen source Nom (Body fld) SYNOVIAL [facility] Specimen source Nom (Body fld) RT KNEE [facility] Synovial fluid erythrocytes count (number/volume)Ordered By: Nnamdi Morales on 11-13-2022 RBC (Syn fld) [#/Vol] 0.004 10^6/uL 0-0 [facility] Synovial fluid glucose measu rement (mass/volume)Ordered By: Nnamdi Morales on 11-13-2022 Glucose (Syn fld) [Mass/Vol] 10 mg/dL . [facility] Comment on above: : BODY FLUID TYPE : GLUCOSE : : : : : Amniotic Fluid : 45 - 76 : : : : : Bile, Clear : < 5 : : : : : Bile, Yellow : < 8 : : : : : Lymph : 48 - 200 : : : : : Nasal Secretion : < 10 : : : : : Pleural Fluid : 65 - 99 : : : : : Saliva : < 2 : : (Mixed Glands) : : : : : : Sweat : < 7 : : : : : Synovial Fluid : 65 - 99 : : : : : Tears : 76 - 288 : : : : [employer] V. Reference Intervals for Adults and Children 2008. Ninth edition (V9.1) [employer], [facility]; [place]: September 2008. Synovial fluid leukocytes co unt (number/volume)Ordered By: Nnamdi Morales on 11-13-2022 WBC (Syn fld) [#/Vol] 40.6950 10^3/uL 0.000-0.0 02 [facility] Synovial fluid neutrophil pe rcentageOrdered By: Nnamdi Morales on 11-13-2022 Neutrophils/100 WBC (Syn fld) 98 % 0- [facility] Absolute lymphocyte countOrd ered By: HEALTH ASSESSMENT on 11-04-2022 Lymphocytes Auto (Unsp spec) [#/Vol] 1.54 10*3/uL 0.83-4.51 [facility] Absolute reticulocyte countO rdered By: HEALTH ASSESSMENT on 11-04-2022 Reticulocytes (Bld) [#/Vol] 0.00 10*3/uL 0-5 [facility] Basophil percentageOrdered B y: HEALTH ASSESSMENT on 11-04-2022 Basophil percentage 2.3 mg/dL 2.5-4.9 [facility] Bilirubin [Mass/Vol] 0.40 mg/dL 0.20-1.00 [facility] Comment on above: For patients on eltr ombopag therapy, use of Dimension [place] TBIL is not recommended. Chloride [Moles/Vol] 108 mmol/L 98-107 [facility] Cholesterol [Mass/Vol] 120 mg/dL <200 [facility] Comment on above: <200 mg/dL Desirable 200-240 mg/dL Borderline >240 mg/dL High Risk Glucose [Mass/Vol] 101 mg/dL 74-106 [facility] Comment on above: Fasting Glucose resu lt from 100 to 125 mg/dL suggests IMPAIRED HOMEOSTASIS per A.D.A. criteria. LDH [Catalytic activity/Vol] 185 U/L 84-246 [facility] Neutrophils (Bld) [#/Vol] 5.4 10*3/uL 2.0-7.7 [facility] Potassium [Moles/Vol] 4.4 mmol/L 3.5-5.1 [facility] Protein [Mass/Vol] 7.9 g/dL 6.4-8.2 [facility] Sodium [Moles/Vol] 139 mmol/L 136-145 [facility] Triglyceride [Mass/Vol] 66 mg/dL <199 [facility] Comment on above: The drugs N-Acetylcy steine and Metamizole may falsely depress this assay.Serum Triglycerides Reference Interval Normal <150 mg/dL Borderline high 150 - 199 mg/dL High 200 - 499 mg/dL Very High > or = 500 mg/dL WBC (Bld) [#/Vol] 8.1 10*3/uL 4.4-11.0 [facility] Bilirubin Test strip Ql (U)O rdered By: HEALTH ASSESSMENT on 11-04-2022 Bilirubin Ql (U) Negative Negative [facility] Blood erythrocytes count (nu mber/volume)Ordered By: HEALTH ASSESSMENT on 11-04-2022 RBC (Bld) [#/Vol] 4.40 10*6/uL 4.2-5.4 [facility] Blood hemoglobin measurement (mass/volume)Ordered By: HEALTH ASSESSMENT on 11-04-2022 Hemoglobin (Bld) [Mass/Vol] 12.7 g/dL 12.0-15.0 [facility] Blood platelet mean volumeOr dered By: HEALTH ASSESSMENT on 11-04-2022 Platelet mean volume (Bld) [Entitic vol] 8.3 fL 6.2-12.0 [facility] Determination of erythrocyte mean corpuscular volume (MCV)Ordered By: HEALTH ASSESSMENT on 11-04-2022 MCV (RBC) [Entitic vol] 93.2 fL 81-99 [facility] Direct bilirubinOrdered By: HEALTH ASSESSMENT on 11-04-2022 Bilirubin.direct [Mass/Vol] 0.12 mg/dL 0.00-0.30 [facility] Hematocrit Auto (Bld) [Volum e fraction]Ordered By: HEALTH ASSESSMENT on 11-04-2022 Hematocrit (Bld) [Volume fraction] 41.0 % 37-47 [facility] Ketones Test strip Ql (U)Ord ered By: HEALTH ASSESSMENT on 11-04-2022 Ketones Ql (U) Negative Negative [facility] Laboratory - Chemistry and C hemistry - challengeOrdered By: HEALTH ASSESSMENT on 11-04-2022 ALP [Catalytic activity/Vol] 76 U/L 45-117 [facility] ALT [Catalytic activity/Vol] 15 U/L 13-56 [facility] Cholesterol.total/Cho lesterol in HDL [Mass ratio] 2.10 {ratio} [facility] CO2 [Moles/Vol] 29.0 mmol/L 21.0-32.0 [facility] Globulin (S) [Mass/Vol] 5.0 g/dL 2.2-4.2 [facility] Urea nitrogen/Creatinine [Mass ratio] 17.6 mg/mg 10-20 [facility] Laboratory - Hematology and Cell countsOrdered By: HEALTH ASSESSMENT on 11-04-2022 Erythrocyte distribution width (RBC) [Entitic vol] 42.5 fL 35.1-43.9 [facility] Erythrocyte distribution width (RBC) [Ratio] 12.3 % 11.6-14.6 [facility] MCH (RBC) [Entitic mass] 28.9 pg 27.0-32.0 [facility] Nucleated RBC/100 WBC (Bld) [Ratio] 0 % 0-5 [facility] MCHC Auto (RBC) [Mass/Vol]Or dered By: HEALTH ASSESSMENT on 11-04-2022 MCHC (RBC) [Mass/Vol] 31.0 g/dL 32-36 [facility] Nitrite Test strip Ql (U)Ord ered By: HEALTH ASSESSMENT on 11-04-2022 Nitrite Ql (U) Negative Negative [facility] No Panel InformationOrdered By: HEALTH ASSESSMENT on 11-04-2022 Estimated GFR (MDRD) Amer 87 mL/min >60 [facility] Comment on above: GFR Calc Estimated GFR (MDRD) Non-Af Amer 72 mL/min >60 [facility] Comment on above: Non- GFR Calc Platelets bldOrdered By: HEA LT ASSESSMENT on 11-04-2022 Platelets (Bld) [#/Vol] 321 10*3/uL 150-450 [facility] Protein Test strip Ql (U)Ord ered By: HEALTH ASSESSMENT on 11-04-2022 Protein Ql (U) 15 mg/dl Negative [facility] Segmented neutrophils/100 WB C Auto (Bld)Ordered By: HEALTH ASSESSMENT on 11-04-2022 Segmented neutrophils/100 WBC (Bld) 66.8 % 47-70 [facility] Serum or plasma albumin sommer urement (mass/volume)Ordered By: HEALTH ASSESSMENT on 11-04-2022 Albumin [Mass/Vol] 2.9 g/dL 3.2-5.0 [facility] Serum or plasma albumin/glob ulin mass ratioOrdered By: HEALTH ASSESSMENT on 11-04-2022 Albumin/Globulin [Mass ratio] 0.6 {ratio} 0.9-2.4 [facility] Serum or plasma calcium sommer urement (mass/volume)Ordered By: HEALTH ASSESSMENT on 11-04-2022 Calcium [Mass/Vol] 8.7 mg/dL 8.5-10.1 [facility] Serum or plasma cholesterol in HDL measurement (mass/volume)Ordered By: HEALTH ASSESSMENT on 11-04-2022 Cholesterol in HDL [Mass/Vol] 56 mg/dL >40 [facility] Comment on above: The drugs N-Acetylcy steine and Metamizole may falsely depress this assay. Reference Range HDL <40 mg/dL Low HDL Cholesterol HDL >or= 60 mg/dL High HDL Cholesterol Serum or plasma cholesterol in VLDL measurement (mass/volume)Ordered By: HEALTH ASSESSMENT on 11-04-2022 Cholesterol in VLDL [Mass/Vol] 13 mg/dL 5-40 [facility] Serum or plasma creatinine m easurement (mass/volume)Ordered By: HEALTH ASSESSMENT on 11-04-2022 Creatinine [Mass/Vol] 0.85 mg/dL 0.55-1.02 [facility] Comment on above: The validity of the calculated GFR & GFRAA in patients over 70 years has not been determined. Clinical correlation is essential. Serum or plasma low density lipoprotein (LDL) cholesterol measurement (mass/volume)Ordered By: HEALTH ASSESSMENT on 11-04-2022 Cholesterol in LDL [Mass/Vol] 51 mg/dL 0-130 [facility] Serum or plasma urea nitroge n measurement (mass/volume)Ordered By: HEALTH ASSESSMENT on 11-04-2022 Urea nitrogen [Mass/Vol] 15 mg/dL 7-18 [facility] Serum or plasma uric acid me asurement (mass/volume)Ordered By: HEALTH ASSESSMENT on 11-04-2022 Urate [Mass/Vol] 4.0 mg/dL 2.6-6.0 [facility] Comment on above: The drugs N-Acetylcy steine and Metamizole may falsely depress this assay. Thin prep Papanicolaou smear with manual screeningOrdered By: HEALTH ASSESSMENT on 11-04-2022 Thin prep Papanicolaou smear with manual screening 19 U/L 15-37 [facility] Thin prep Papanicolaou smear with manual screening 2 5-15 [facility] Urine blood detectionOrdered By: HEALTH ASSESSMENT on 11-04-2022 RBC Ql (U) Negative Negative [facility] Urine clarityOrdered By: HEA LTH ASSESSMENT on 11-04-2022 Clarity (U) Sl. Cloudy Clear [facility] Urine color determinationOrd ered By: HEALTH ASSESSMENT on 11-04-2022 Color (U) Yellow Yellow [facility] Urine glucose detectionOrder ed By: HEALTH ASSESSMENT on 11-04-2022 Glucose Ql (U) Normal mg/dl Normal [facility] Urine leukocyte esterase det ection by dipstickOrdered By: HEALTH ASSESSMENT on 11-04-2022 Leukocyte esterase Test strip Ql (U) 25 /ul Negative [facility] Urine pHOrdered By: HEALTH A SSESSMENT on 11-04-2022 pH (U) 7.0 [pH] 5.0 - 8.0 [facility] Urine specific gravity measu rementOrdered By: HEALTH ASSESSMENT on 11-04-2022 Specific gravity (U) [Rel density] 1.010 1.002-1.030 [facility] Urobilinogen Auto test strip Ql (U)Ordered By: HEALTH ASSESSMENT on 11-04-2022 Urobilinogen Ql (U) Normal mg/dl Normal [facility] - Microbiology an d Antimicrobial susceptibilityon 01-14-2022 SARS-CoV-2 (COVID-19) RNA ANNELISE+probe Ql (Unsp spec) Not detected [facility] No Panel Informationon 01-14 POC Nasal Swab Influenza A,B Not detected [facility] POC Nasal Swab RSV Not detected [facility] Absolute lymphocyte counton 11-06-2021 Lymphocytes Auto (Unsp spec) [#/Vol] 1.86 10*3/uL 0.83-4.51 [facility] Work Phone: Absolute reticulocyte counto n 11-06-2021 Reticulocytes (Bld) [#/Vol] 0.00 10*3/uL 0-5 [facility] Work Phone: Basophil percentageon 2021 Basophil percentage 3.3 mg/dL 2.5-4.9 [facility] Work Phone: [phone] Bilirubin [Mass/Vol] 0.80 mg/dL 0.20-1.00 [facility] Work Phone: [phone] Comment on above: For patients on eltr ombopag therapy, use of Dimension [place] TBIL is not recommended. Chloride [Moles/Vol] 107 mmol/L 98-107 [facility] Work Phone: Cholesterol [Mass/Vol] 149 mg/dL <200 [facility] Work Phone: Comment on above: <200 mg/dL Desirable 200-240 mg/dL Borderline >240 mg/dL High Risk Glucose [Mass/Vol] 94 mg/dL 74-106 [facility] Work Phone: [phone] Neutrophils (Bld) [#/Vol] 3.6 10*3/uL 2.0-7.7 [facility] Work Phone: [phone] Potassium [Moles/Vol] 4.5 mmol/L 3.5-5.1 [facility] Work Phone: Protein [Mass/Vol] 7.8 g/dL 6.4-8.2 [facility] Work Phone: [phone] Sodium [Moles/Vol] 140 mmol/L 136-145 [facility] Work Phone: [phone] Triglyceride [Mass/Vol] 64 mg/dL <199 [facility] Work Phone: [phone] Comment on above: The drugs N-Acetylcy steine and Metamizole may falsely depress this assay.Serum Triglycerides Reference Interval Normal <150 mg/dL Borderline high 150 - 199 mg/dL High 200 - 499 mg/dL Very High > or = 500 mg/dL WBC (Bld) [#/Vol] 6.4 10*3/uL 4.4-11.0 [facility] Work Phone: Bilirubin Test strip Ql (U)o n 11-06-2021 Bilirubin Ql (U) Negative Negative [facility] Work Phone: Blood erythrocytes count (nu mber/volume)on 11-06-2021 RBC (Bld) [#/Vol] 4.84 10*6/uL 4.2-5.4 [facility] Work Phone: Blood hemoglobin measurement (mass/volume)on 11-06-2021 Hemoglobin (Bld) [Mass/Vol] 14.5 g/dL 12.0-15.0 [facility] Work Phone: Blood platelet mean volumeon 11-06-2021 Platelet mean volume (Bld) [Entitic vol] 8.8 fL 6.2-12.0 [facility] Work Phone: Determination of erythrocyte mean corpuscular volume (MCV)on 11-06-2021 MCV (RBC) [Entitic vol] 91.5 fL 81-99 [facility] Work Phone: Direct bilirubinon 2 Bilirubin.direct [Mass/Vol] 0.16 mg/dL 0.00-0.30 [facility] Work Phone: Hematocrit Auto (Bld) [Volum e fraction]on 11-06-2021 Hematocrit (Bld) [Volume fraction] 44.3 % 37-47 [facility] Work Phone: Ketones Test strip Ql (U)on 11-06-2021 Ketones Ql (U) Negative Negative [facility] Work Phone: Laboratory - Chemistry and C hemistry - challengeon 11-06-2021 ALP [Catalytic activity/Vol] 61 U/L 45-117 [facility] Work Phone: ALT [Catalytic activity/Vol] 21 U/L 13-56 [facility] Work Phone: Cholesterol.total/Cho lesterol in HDL [Mass ratio] 2.30 {ratio} [facility] Work Phone: CO2 [Moles/Vol] 31.0 mmol/L 21.0-32.0 [facility] Work Phone: Globulin (S) [Mass/Vol] 4.2 g/dL 2.2-4.2 [facility] Work Phone: Urea nitrogen/Creatinine [Mass ratio] 15.1 mg/mg 10-20 [facility] Work Phone: Laboratory - Hematology and Cell countson 11-06-2021 Erythrocyte distribution width (RBC) [Entitic vol] 41.7 fL 35.1-43.9 [facility] Work Phone: Erythrocyte distribution width (RBC) [Ratio] 12.4 % 11.6-14.6 [facility] Work Phone: MCH (RBC) [Entitic mass] 30.0 pg 27.0-32.0 [facility] Work Phone: Nucleated RBC/100 WBC (Bld) [Ratio] 0 % 0-5 [facility] Work Phone: MCHC Auto (RBC) [Mass/Vol]on 11-06-2021 MCHC (RBC) [Mass/Vol] 32.7 g/dL 32-36 [facility] Work Phone: Nitrite Test strip Ql (U)on 11-06-2021 Nitrite Ql (U) Negative Negative [facility] Work Phone: No Panel Informationon 11-06 Estimated GFR (MDRD) Amer 79 mL/min >60 [facility] Work Phone: Comment on above: GFR Calc Estimated GFR (MDRD) Non-Af Amer 65 mL/min >60 [facility] Work Phone: Comment on above: Non- GFR Calc Platelets bldon 11-06-2021 Platelets (Bld) [#/Vol] 275 10*3/uL 150-450 [facility] Work Phone: Protein Test strip Ql (U)on 11-06-2021 Protein Ql (U) 15 mg/dl Negative [facility] Work Phone: Segmented neutrophils/100 WB C Auto (Bld)on 11-06-2021 Segmented neutrophils/100 WBC (Bld) 55.8 % 47-70 [facility] Work Phone: Serum or plasma albumin sommer urement (mass/volume)on 11-06-2021 Albumin [Mass/Vol] 3.6 g/dL 3.2-5.0 [facility] Work Phone: Serum or plasma albumin/glob ulin mass ratioon 11-06-2021 Albumin/Globulin [Mass ratio] 0.9 {ratio} 0.9-2.4 [facility] Work Phone: Serum or plasma calcium sommer urement (mass/volume)on 11-06-2021 Calcium [Mass/Vol] 9.6 mg/dL 8.5-10.1 [facility] Work Phone: Serum or plasma cholesterol in HDL measurement (mass/volume)on 11-06-2021 Cholesterol in HDL [Mass/Vol] 66 mg/dL >40 [facility] Work Phone: Comment on above: The drugs N-Acetylcy steine and Metamizole may falsely depress this assay. Reference Range HDL <40 mg/dL Low HDL Cholesterol HDL >or= 60 mg/dL High HDL Cholesterol Serum or plasma cholesterol in VLDL measurement (mass/volume)on 11-06-2021 Cholesterol in VLDL [Mass/Vol] 13 mg/dL 5-40 [facility] Work Phone: Serum or plasma creatinine m easurement (mass/volume)on 11-06-2021 Creatinine [Mass/Vol] 0.93 mg/dL 0.55-1.02 [facility] Work Phone: Comment on above: The validity of the calculated GFR & GFRAA in patients over 70 years has not been determined. Clinical correlation is essential. Serum or plasma low density lipoprotein (LDL) cholesterol measurement (mass/volume)on 11-06-2021 Cholesterol in LDL [Mass/Vol] 70 mg/dL 0-130 [facility] Work Phone: Serum or plasma urea nitroge n measurement (mass/volume)on 11-06-2021 Urea nitrogen [Mass/Vol] 14 mg/dL 7-18 [facility] Work Phone: Serum or plasma uric acid me asurement (mass/volume)on 11-06-2021 Urate [Mass/Vol] 4.5 mg/dL 2.6-6.0 [facility] Work Phone: Comment on above: The drugs N-Acetylcy steine and Metamizole may falsely depress this assay. Thin prep Papanicolaou smear with manual screeningon 11-06-2021 Thin prep Papanicolaou smear with manual screening 24 U/L 15-37 [facility] Work Phone: Thin prep Papanicolaou smear with manual screening 2 5-15 [facility] Work Phone: Thin prep Papanicolaou smear with manual screening 215 U/L 84-246 [facility] Work Phone: Urine blood detectionon 10-20 RBC Ql (U) Negative Negative [facility] Work Phone: Urine clarityon 11-06-2021 Clarity (U) Clear Clear [facility] Work Phone: Urine color determinationon 11-06-2021 Color (U) Yellow Yellow [facility] Work Phone: Urine glucose detectionon Glucose Ql (U) Normal mg/dl Normal [facility] Work Phone: Urine leukocyte esterase det ection by dipstickon 11-06-2021 Leukocyte esterase Test strip Ql (U) 25 /ul Negative [facility] Work Phone: Urine pHon 11-06-2021 pH (U) 5.0 [pH] 5.0 - 8.0 [facility] Work Phone: Urine specific gravity measu rementon 11-06-2021 Specific gravity (U) [Rel density] 1.030 1.002-1.030 [facility] Work Phone: Urobilinogen Auto test strip Ql (U)on 11-06-2021 Urobilinogen Ql (U) Normal mg/dl Normal [facility] Work Phone: Absolute lymphocyte counton 08-06-2021 Lymphocytes Auto (Unsp spec) [#/Vol] 1.78 10*3/uL 0.83-4.51 [facility] Work Phone: Basophil percentageon 2021 Basophils/100 WBC (Bld) 0.8 % 0-1 [facility] Work Phone: [phone] Bilirubin [Mass/Vol] 0.50 mg/dL 0.20-1.00 [facility] Work Phone: Comment on above: For patients on eltr ombopag therapy, use of Dimension [place] TBIL is not recommended. Chloride [Moles/Vol] 103 mmol/L 98-107 [facility] Work Phone: Eosinophils/100 WBC (Bld) 2.9 % 0-5 [facility] Work Phone: Glucose [Mass/Vol] 101 mg/dL 74-106 [facility] Work Phone: Comment on above: Fasting Glucose resu lt from 100 to 125 mg/dL suggests IMPAIRED HOMEOSTASIS per A.D.A. criteria. Neutrophils (Bld) [#/Vol] 5.2 10*3/uL 2.0-7.7 [facility] Work Phone: Neutrophils/100 WBC (Bld) 64.7 % 47-70 [facility] Work Phone: Potassium [Moles/Vol] 4.0 mmol/L 3.5-5.1 [facility] Work Phone: Protein [Mass/Vol] 8.0 g/dL 6.4-8.2 [facility] Work Phone: Sodium [Moles/Vol] 138 mmol/L 136-145 [facility] Work Phone: WBC (Bld) [#/Vol] 8.0 10*3/uL 4.4-11.0 [facility] Work Phone: Blood erythrocytes count (nu mber/volume)on 08-06-2021 RBC (Bld) [#/Vol] 4.51 10*6/uL 4.2-5.4 [facility]: Blood hemoglobin measurement (mass/volume)on 08-06-2021 Hemoglobin (Bld) [Mass/Vol] 13.4 g/dL 12.0-15.0 [facility] Work Phone: Blood lymphocytes/100 leukoc yteson 08-06-2021 Lymphocytes/100 WBC (Bld) 22.3 % 19-41 [facility] Work Phone: Blood monocytes/100 leukocyt eson 08-06-2021 Monocytes/100 WBC (Bld) 8.9 % 0-10 [facility] Work Phone: Blood platelet mean volumeon 08-06-2021 Platelet mean volume (Bld) [Entitic vol] 9.0 fL 6.2-12.0 [facility] Work Phone: Determination of erythrocyte mean corpuscular volume (MCV)on 08-06-2021 MCV (RBC) [Entitic vol] 91.1 fL 81-99 [facility] Work Phone: Erythrocyte sedimentation ra marcelina 08-06-2021 ESR (Bld) [Velocity] 17 mm/h 0-30 [facility] Work Phone: Hematocrit Auto (Bld) [Volum e fraction]on 08-06-2021 Hematocrit (Bld) [Volume fraction] 41.1 % 37-47 [facility] Work Phone: Laboratory - Chemistry and C hemistry - challengeon 08-06-2021 ALP [Catalytic activity/Vol] 58 U/L 45-117 [facility] Work Phone: ALT [Catalytic activity/Vol] 23 U/L 13-56 [facility] Work Phone: CO2 [Moles/Vol] 31.0 mmol/L 21.0-32.0 [facility] Work Phone: Globulin (S) [Mass/Vol] 4.3 g/dL 2.2-4.2 [facility] Work Phone: Urea nitrogen/Creatinine [Mass ratio] 22.2 mg/mg 10-20 [facility] Work Phone: Laboratory - Hematology and Cell countson 08-06-2021 Erythrocyte distribution width (RBC) [Entitic vol] 41.7 fL 35.1-43.9 [facility] Work Phone: Erythrocyte distribution width (RBC) [Ratio] 12.6 % 11.6-14.6 [facility] Work Phone: Immature granulocytes/100 WBC (Bld) 0.400 % 0.0-0.9 [facility] Work Phone: Comment on above: IG% - Immature Granu locytes (promyelocytes, myelocytes and metamyelocytes) > 1% indicates that a LEFT SHIFT is Present. MCH (RBC) [Entitic mass] 29.7 pg 27.0-32.0 [facility] Work Phone: Nucleated RBC/100 WBC (Bld) [Ratio] 0 % 0-5 [facility] Work Phone: MCHC Auto (RBC) [Mass/Vol]on 08-06-2021 MCHC (RBC) [Mass/Vol] 32.6 g/dL 32-36 [facility] Work Phone: No Panel Informationon 08-06 Endomysial IgA Antibody Negative Negative [facility] Work Phone: Estimated GFR (MDRD) Amer 87 mL/min >60 [facility] Work Phone: Comment on above: GFR Calc Estimated GFR (MDRD) Non-Af Amer 72 mL/min >60 [facility] Work Phone: Comment on above: Non- GFR Calc Platelets bldon 08-06-2021 Platelets (Bld) [#/Vol] 283 10*3/uL 150-450 [facility] Work Phone: Serum IgA measurement (units /volume)on 08-06-2021 IgA Qn (S) 283 mg/dL 87-352 [facility] Work Phone: Comment on above: Performed at: [address] [id number] Director: Faizan Jang PhD, Phone: [phone] Serum or plasma C reactive p rotein measurement (mass/volume)on 08-06-2021 CRP [Mass/Vol] 6.91 mg/L 0.0-3.0 [facility] Work Phone: Comment on above: C-Reactive Protein ( CRP) provides useful information for thediagnosis, therapy and monitoring of inflammatory processesand associated diseases. For the evaluation of Relative Riskfor Cardiovascular Disease, a High Sensitivity CRP (HSCRP)should be ordered. Serum or plasma albumin sommer urement (mass/volume)on 08-06-2021 Albumin [Mass/Vol] 3.7 g/dL 3.2-5.0 [facility] Work Phone: Serum or plasma albumin/glob ulin mass ratioon 08-06-2021 Albumin/Globulin [Mass ratio] 0.9 {ratio} 0.9-2.4 [facility] Work Phone: Serum or plasma calcium sommer urement (mass/volume)on 08-06-2021 Calcium [Mass/Vol] 9.5 mg/dL 8.5-10.1 [facility] Work Phone: Serum or plasma creatinine m easurement (mass/volume)on 08-06-2021 Creatinine [Mass/Vol] 0.86 mg/dL 0.55-1.02 [facility] Work Phone: Comment on above: The validity of the calculated GFR & GFRAA in patients over 70 years has not been determined. Clinical correlation is essential. Serum or plasma urea nitroge n measurement (mass/volume)on 08-06-2021 Urea nitrogen [Mass/Vol] 19 mg/dL 7-18 [facility] Work Phone: Serum tissue transglutaminas e IgA antibody assay (units/volume)on 08-06-2021 tTG IgA Qn (S) 3 U/mL 0-3 [facility] Work Phone: Comment on above: Negative 0 - 3 Weak Positive 4 - 10 Positive >10 Tissue Transglutaminase (tTG) has been identified as the endomysial antigen. Studies have demonstr- ated that endomysial IgA antibodies have over 99% specificity for gluten sensitive enteropathy. Thin prep Papanicolaou smear with manual screeningon 08-06-2021 Thin prep Papanicolaou smear with manual screening 21 U/L 15-37 [facility] Work Phone: Thin prep Papanicolaou smear with manual screening 4 5-15 [facility] Work Phone: Laboratory - Microbiology an d Antimicrobial susceptibilityon 03-25-2021 SARS-CoV-2 (COVID-19) RNA ANNELISE+probe Ql (Unsp spec) Not detected [facility] Work Phone: Comp Metabolic Panelon 09-04 ALP enzyme act/vol 54 U/L Normal 38-126 [facility] Comment on above: Performed By: #### H JOSY HENSLEY3 #### [facility] [address] [place] [address] ALT enzyme act/vol 23 U/L Normal 13-69 [facility] Comment on above: Performed By: #### H JOSY HENSLEY3 #### [facility] [address] [place] [address] Calcium mass conc 9.4 mg/dL Normal 8.4-10.4 [facility] Comment on above: Performed By: #### H HEYDIF CMP3 #### [facility] [address], [place] Glucose mass conc 100 mg/dL Normal 70-100 [facility] Comment on above: Performed By: #### H EMDF CMP3 #### [facility] [address], [place] Urea nitrogen mass conc 21 mg/dL High 7-20 [facility] Comment on above: Performed By: #### H AYDEN CMP3 #### [place] [address] [address], [place] Anion gap molar conc 10 Normal [facility] Comment on above: Performed By: #### H AYDEN CMP3 #### [place] [address] [address] [place], [place] AST enzyme act/vol 43 U/L Normal 15-46 [facility] Comment on above: Performed By: #### H AYDEN CMP3 #### [place] [address] [address] [place], [place] Bilirubin mass conc 0.7 mg/dL Normal 0.2-1.3 [facility] Comment on above: Performed By: #### H AYDEN CMP3 #### [place] [address] [address] [place], [place] CO2 molar conc 29 mmol/L Normal 22-30 [facility] Comment on above: Performed By: #### H AYDEN CMP3 #### [place] [address] [address] [place], [place] Creatinine mass conc 0.79 mg/dL Normal 0.52-1.25 [facility] Comment on above: Performed By: #### H EMDLeonardo CMP3 #### [place] [address] [address] [place], [place] GFR/1.73 sq M predicted among blacks MDRD vol rate/area (S/P/Bld) mL/min/{1.73_m2} Normal >60 [facility] Comment on above: Performed By: #### H EMDLeonardo CMP3 #### [place] [address] [address] [place], [place] GFR/1.73 sq M predicted among non-blacks MDRD vol rate/area (S/P/Bld) mL/min/{1.73_m2} Normal >60 [facility] Comment on above: Result Comment: Sour ce- MDRD equation with creatinine calibration to IDMS(NKDEP) eGFR not recommended for drug dose adjustment Performed By: #### Eva HENSLEY CMP3 #### [place] [address] [address], [place] Protein mass conc 7.6 g/dL Normal 6.3-8.2 [facility] Comment on above: Performed By: #### Eva HENSLEY CMP3 #### [address] Chloride molar conc 103 mmol/L Normal 98-107 [facility] Comment on above: Performed By: #### Eva HENSLEY CMP3 #### [address] Potassium molar conc 4.4 mmol/L Normal 3.5-5.1 [facility] Comment on above: Performed By: #### Eva HENSLEY CMP3 #### [address] Sodium molar conc 142 mmol/L Normal 135-145 [facility] Comment on above: Performed By: #### Eva HENSLEY CMP3 #### [address] Albumin mass conc 4.1 g/dL Normal 3.5-5.0 [facility] Comment on above: Performed By: #### H JOSY HENSLEY3 #### [address] Hemogram w/ Autodiffon 09-04 Abs Baso Cnt 0.1 10*3/uL Normal 0.0-0.2 [facility] Comment on above: Performed By: #### Eva HENSLEY CMP3 #### [address] [place] [address] Abs Neutrophile Cnt 5.8 10*3/uL Normal 1.8-7.0 [facility] Comment on above: Performed By: #### H AYDEN CMP3 #### [address] [address] Basophils/100 WBC (Bld) 1.0 % Normal 0.0-2.0 [facility] Comment on above: Performed By: #### H AYDEN CMP3 #### [address] [address] Eosinophils #/vol (Bld) 0.1 10*3/uL Normal 0.0-0.5 [facility] Comment on above: Performed By: #### H AYDEN CMP3 #### [address] [address] Eosinophils/100 WBC (Bld) 1.4 % Normal 1.0-6.0 [facility] Comment on above: Performed By: #### H AYDEN CMP3 #### [address] Erythrocyte distribution width Ratio (RBC) 13.3 % Normal 11.5-14.5 [facility] Comment on above: Performed By: #### H AYDEN CMP3 #### [address] [address] Granulocytes/100 WBC (Bld) 63.7 % Normal 40.0-80.0 [facility] Comment on above: Performed By: #### H AYDEN CMP3 #### [address] [address] Hematocrit Volume Fraction (Bld) 41.4 % Normal 35.0-47.0 [facility] Comment on above: Performed By: #### H EMDLeonardo CMP3 #### [address] Hemoglobin mass conc (Bld) 14.1 g/dL Normal 11.7-16.0 [facility] Comment on above: Performed By: #### H AYDEN CMP3 #### [place] [address] [place] [address] Lymphocytes #/vol (Bld) 2.2 10*3/uL Normal 1.0-4.3 [facility] Comment on above: Performed By: #### H EMDF, CMP3 #### [facility] [address] [place] [address] Lymphocytes/100 WBC (Bld) 24.4 % Normal 20.0-40.0 [facility] Comment on above: Performed By: #### H EMDF, CMP3 #### [facility] [address], [place] MCH Entitic mass (RBC) 30.4 pg Normal 26.0-34.0 [facility] Comment on above: Performed By: #### H EMDF, CMP3 #### [place] [address] [address] [place], [place] MCHC mass conc (RBC) 34.1 % Normal 32.0-36.0 [facility] Comment on above: Performed By: #### H EMDF, CMP3 #### [place] [address] [address] [place], [place] MCV Entitic volume (RBC) 89.3 fL Normal 79.0-98.0 [facility] Comment on above: Performed By: #### H EMDF, CMP3 #### [facility] [address], [place] Monocytes #/vol (Bld) 0.9 10*3/uL High 0.0-0.8 [facility] Comment on above: Performed By: #### H EMDF, CMP3 #### [facility] [address] [place] [address] Monocytes/100 WBC (Bld) 9.5 % Normal 2.0-10.0 [facility] Comment on above: Performed By: #### H EMDF, CMP3 #### [facility] [address] [place] [address] Platelet mean volume Entitic volume (Bld) 6.9 fL Low 7.4-10.4 [facility] Comment on above: Performed By: #### H EMDF, CMP3 #### [place] [facility] [address] [place] [address] Platelets #/vol (Bld) 271 10*3/uL Normal 140-440 [facility] Comment on above: Performed By: #### H EMDF, CMP3 #### [facility] [address] [place] [address] RBC #/vol (Bld) 4.64 10*6/uL Normal 3.80-5.20 [facility] Comment on above: Performed By: #### H EMDF, CMP3 #### [facility] [address] [place] [address] WBC #/vol (Bld) 9.1 10*3/uL Normal 3.6-10.7 [facility] Comment on above: Performed By: #### H EMDF, CMP3 #### [facility] [address] [place] [address] Office Visit: Spine Visit- N [facility] 08-26-2016 Documentation of current medications (procedure) Done Invalid Interpretation Code [facility] Work Phone: [phone] Documentation of current medications (procedure) T Invalid Interpretation Code [facility] Work Phone: [phone] Protein mass conc Done [facility] Work Phone: [phone] Protein mass conc T [facility] Work Phone: [phone] Office Visit: [place] Documentation of current medications (procedure) Done Invalid Interpretation Code [facility] Work Phone: Documentation of current medications (procedure) T Invalid Interpretation Code [facility] Work Phone: [facility] Documentation of current medications (procedure) Done Invalid Interpretation Code [facility] Work Phone: [phone] Documentation of current medications (procedure) T Invalid Interpretation Code [facility] Work Phone: [phone] Vital Signs Date Time Vital Sign Value Performing Clinician Facility 08-10-2024 08:50-0400 Body height 185.[address] Amish Tavares MD Work Phone: [facility] 08-10-2024 08:50-0400 Body mass index (BMI) [Ratio] 25.6 kg/m2 Dr. Amish Tavares MD Work Phone: 9(771)957-168717 [place] [address] 08-10-2024 08:50-0400 Body temperature 97.2 [degF] Dr. Amish Tavares MD Work Phone: 1(610)802-455448 [address] 08-10-2024 08:50-0400 Body weight 88.[address] Amish Tavares MD Work Phone: 1(022)854-336216 [place] [address] 08-10-2024 08:50-0400 Diastolic blood pressure 73 mm[Hg] Dr. Amish Tavares MD Work Phone: 0(528)065-316416 [place] [address] 08-10-2024 08:50-0400 Heart rate 89 /min Dr. Amish Tavares MD Work Phone: 8(869)965-142016 [place] [address] 08-10-2024 08:50-0400 Respiratory rate 18 /min Dr. Amish Tavares MD Work Phone: 7(261)545-016616 [place] [address] 08-10-2024 08:50-0400 SaO2% (BldA) [Mass fraction] 99 % Dr. Amish Tavares MD Work Phone: 1(015)181-452348 [address] 08-10-2024 08:50-0400 Systolic blood pressure 106 mm[Hg] Dr. Amish Tavares MD Work Phone: 0(518)027-930717 [place] [address] 07-24-2024 14:35-0400 Body height 185.[address] Amish Tavares MD Work Phone: 3(270)725-622048 [address] 07-24-2024 14:35-0400 Body mass index (BMI) [Ratio] 25.2 kg/m2 Dr. Amish Tavares MD Work Phone: [facility] 07-24-2024 14:35-0400 Body temperature 98.6 [degF] Dr. Amish Tavares MD Work Phone: 8(763)768-988917 [place] [address] 07-24-2024 14:35-0400 Body weight 86.[address] Amish Tavares MD Work Phone: [facility] 07-24-2024 14:35-0400 Diastolic blood pressure 58 mm[Hg] Dr. Amish Tavares MD Work Phone: [facility] 07-24-2024 14:35-0400 Heart rate 86 /min Dr. Amish Tavares MD Work Phone: 1(859)982-917817 [place] [address] 07-24-2024 14:35-0400 Respiratory rate 16 /min Dr. Amish Tavares MD Work Phone: 1(717)122-929316 [place] [address] 07-24-2024 14:35-0400 SaO2% (BldA) [Mass fraction] 97 % Dr. Amish Tavares MD Work Phone: 0(976)680-546617 [place] [address] 07-24-2024 14:35-0400 Systolic blood pressure 107 mm[Hg] Dr. Amish Tavares MD Work Phone: 6(389)864-669716 [place] [address] 07-06-2024 13:37-0400 Body height 185.[address] Amish Tavares MD Work Phone: 5(498)497-395616 [place] [address] 07-06-2024 13:30-0400 Body mass index (BMI) [Ratio] 25.3 kg/m2 Dr. Amish Tavares MD Work Phone: 5(340)306-743216 [place] [address] 07-06-2024 13:30-0400 Body weight 87.[address] Amish Tavares MD Work Phone: 4(767)067-605617 [place] [address] 07-06-2024 13:30-0400 Diastolic blood pressure 72 mm[Hg] Dr. Amish Tavares MD Work Phone: 0(910)273-153017 [place] [address] 07-06-2024 13:30-0400 Systolic blood pressure 116 mm[Hg] Dr. Amish Tavares MD Work Phone: 0(188)831-138348 [address] 05-24-2024 07:39-0500 Diastolic blood pressure 76 mm[Hg] Dr. Amish Tavares MD Work Phone: 7(609)289-054617 [place] [address] 05-24-2024 07:39-0500 Heart rate 77 /min Dr. Amish Tavares MD Work Phone: 4(920)142-494517 [place] [address] 05-24-2024 07:39-0500 Respiratory rate 12 /min Dr. Amish Tavares MD Work Phone: 5(669)696-024216 [place] [address] 05-24-2024 07:39-0500 SaO2% (BldA) [Mass fraction] 99 % Dr. Amish Tavares MD Work Phone: 7(410)638-920516 [place] [address] 05-24-2024 07:39-0500 Systolic blood pressure 108 mm[Hg] Dr. Amish Tavares MD Work Phone: 0(204)403-934916 [place] [address] 05-24-2024 07:27-0500 Body temperature 97.1 [degF] Dr. Amish Tavares MD Work Phone: 4(611)699-690216 [place] [address] 05-24-2024 07:10-0500 Inhaled oxygen flow rate 2 L/min Dr. Amish Tavares MD Work Phone: 0(729)195-143016 [place] [address] 05-24-2024 05:46-0500 Body height 185.[address] Amish Tavares MD Work Phone: 3(621)884-654316 [place] [address] 05-24-2024 05:46-0500 Body mass index (BMI) [Ratio] 25 kg/m2 Dr. Amish Tavares MD Work Phone: 5(582)157-376516 [place] [address] 05-24-2024 05:46-0500 Body weight [address] Amish Tavares MD Work Phone: 9(460)452-845816 [place] [address] 04-18-2024 13:55-0500 Body mass index (BMI) [Ratio] 25 kg/m2 Dr. Amish Tavares MD Work Phone: 4(658)844-518816 [place] [address] 04-18-2024 13:55-0500 Body temperature 98.4 [degF] Dr. Amish Tavares MD Work Phone: 3(191)334-277016 [place] [address] 04-18-2024 13:55-0500 Body weight 86.[address] Amish Tavares MD Work Phone: 5(568)679-724616 [place] [address] 04-18-2024 13:55-0500 Diastolic blood pressure 68 mm[Hg] Dr. Amish Tavares MD Work Phone: 5(223)008-330648 [address] 04-18-2024 13:55-0500 Heart rate 92 /min Dr. Amish Tavares MD Work Phone: 5(013)259-211016 [place] [address] 04-18-2024 13:55-0500 Respiratory rate 15 /min Dr. Amish Tavares MD Work Phone: 4(522)313-127016 [place] [address] 04-18-2024 13:55-0500 SaO2% (BldA) [Mass fraction] 98 % Dr. Amish Tavares MD Work Phone: 7(162)954-904816 [place] [address] 04-18-2024 13:55-0500 Systolic blood pressure 108 mm[Hg] Dr. Amish Tavares MD Work Phone: 9(093)233-529116 [place] [address] 02-28-2024 07:52-0500 Body mass index (BMI) [Ratio] 24.5 kg/m2 Dr. Amish Tavares MD Work Phone: 1(286)733-791416 [place] [address] 02-28-2024 07:52-0500 Body weight 84.[address] Amish Tavares MD Work Phone: 2(709)804-970616 [place] [address] 02-28-2024 07:52-0500 Diastolic blood pressure 68 mm[Hg] Dr. Amish Tavares MD Work Phone: 9(086)727-967716 [place] [address] 02-28-2024 07:52-0500 Heart rate 84 /min Dr. Amish Tavares MD Work Phone: 6(313)187-900616 [place] [address] 02-28-2024 07:52-0500 SaO2% (BldA) [Mass fraction] 97 % Dr. Amish Tavares MD Work Phone: 4(556)112-297116 [place] [address] 02-28-2024 07:52-0500 Systolic blood pressure 100 mm[Hg] Dr. Amish Tavares MD Work Phone: 9(408)284-040316 [place] [address] 02-22-2024 11:50-0500 Body temperature 97.7 [degF] Dr. Amish Tavares MD Work Phone: 3(031)496-057316 [place] [address] 02-22-2024 11:50-0500 Diastolic blood pressure 78 mm[Hg] Dr. Amish Tavares MD Work Phone: [facility] 02-22-2024 11:50-0500 Heart rate 80 /min Dr. Amish Tavares MD Work Phone: [facility] 02-22-2024 11:50-0500 Respiratory rate 12 /min Dr. Amish Tavares MD Work Phone: 7(926)224-509117 [place] [address] 02-22-2024 11:50-0500 SaO2% (BldA) [Mass fraction] 98 % Dr. Amish Tavares MD Work Phone: 5(592)903-449117 [place] [address] 02-22-2024 11:50-0500 Systolic blood pressure 112 mm[Hg] Dr. Amish Tavares MD Work Phone: 4(099)903-481948 [address] 02-18-2024 09:10-0500 Body temperature 98.5 [degF] Dr. Amish Tavares MD Work Phone: 6(326)497-435317 [place] [address] 02-18-2024 09:10-0500 Diastolic blood pressure 82 mm[Hg] Dr. Amish Tavares MD Work Phone: 6(534)747-857117 [place] [address] 02-18-2024 09:10-0500 Heart rate 85 /min Dr. Amish Tavares MD Work Phone: 5(719)825-557317 [place] [address] 02-18-2024 09:10-0500 Respiratory rate 17 /min Dr. Amish Tavares MD Work Phone: 1(400)643-896017 [place] [address] 02-18-2024 09:10-0500 SaO2% (BldA) [Mass fraction] 97 % Dr. Amish Tavares MD Work Phone: [facility] 02-18-2024 09:10-0500 Systolic blood pressure 124 mm[Hg] Dr. Amish Tavares MD Work Phone: [facility] 07-06-2023 13:02-0400 Body height 185.[address] Amish Tavares Work Phone: [facility] 07-06-2023 13:02-0400 Body mass index (BMI) [Ratio] 24.5 kg/m2 Dr. Amish Tavares Work Phone: [facility] 07-06-2023 13:02-0400 Body weight 84.[address] Amish Tavares Work Phone: [facility] 07-06-2023 13:02-0400 Diastolic blood pressure 81 mm[Hg] Dr. Amish Tavares Work Phone: [facility] 07-06-2023 13:02-0400 Systolic blood pressure 127 mm[Hg] Dr. Amish Tavares Work Phone: [facility] 05-10-2023 12:14-0500 Body temperature 98.2 [degF] Dr. Amish Tavares Work Phone: [facility] 05-10-2023 12:14-0500 Diastolic blood pressure 70 mm[Hg] Dr. Amish Tavares Work Phone: [facility] 05-10-2023 12:14-0500 Heart rate 73 /min Dr. Amish Tavares Work Phone: [facility] 05-10-2023 12:14-0500 Respiratory rate 16 /min Dr. Amish Tavares Work Phone: [facility] 05-10-2023 12:14-0500 SaO2% (BldA) [Mass fraction] 100 % Dr. Amish Tavares Work Phone: [facility] 05-10-2023 12:14-0500 Systolic blood pressure 123 mm[Hg] Dr. Amish Tavares Work Phone: [facility] 05-10-2023 11:04-0500 Body height 182.[address] Amish Tavares Work Phone: [facility] 05-10-2023 11:04-0500 Body mass index (BMI) [Ratio] 25 kg/m2 Dr. Amish Tavares Work Phone: [facility] 05-10-2023 11:04-0500 Body weight 83.[address] Amish Tavares Work Phone: [facility] 02-19-2023 09:20-0500 Body height 185.[address] Amish Tavares Work Phone: [facility] 02-19-2023 09:20-0500 Body mass index (BMI) [Ratio] 24.1 kg/m2 Dr. Amish Tavares Work Phone: [facility] 02-19-2023 09:20-0500 Body temperature 98.3 [degF] Dr. Amish Tavares Work Phone: [facility] 02-19-2023 09:20-0500 Body weight [address] Amish Tavares Work Phone: [facility] 02-19-2023 09:20-0500 Diastolic blood pressure 66 mm[Hg] Dr. Amish Tavares Work Phone: [facility] 02-19-2023 09:20-0500 Heart rate 86 /min Dr. Amish Tavares Work Phone: [facility] 02-19-2023 09:20-0500 Respiratory rate 18 /min Dr. Amish Tavares Work Phone: [facility] 02-19-2023 09:20-0500 SaO2% (BldA) [Mass fraction] 98 % Dr. Amish Tavares Work Phone: [facility] 02-19-2023 09:20-0500 Systolic blood pressure 114 mm[Hg] Dr. Amish Tavares Work Phone: [facility] 01-05-2023 14:45-0400 Body temperature 97.6 [degF] Dr. Amish Tavares Work Phone: [facility] 01-05-2023 14:45-0400 Diastolic blood pressure 76 mm[Hg] Dr. Amish Tavares Work Phone: [facility] 01-05-2023 14:45-0400 Heart rate 85 /min Dr. Amish Tavares Work Phone: [facility] 01-05-2023 14:45-0400 Respiratory rate 16 /min Dr. Amish Tavares Work Phone: [facility] 01-05-2023 14:45-0400 SaO2% (BldA) [Mass fraction] 100 % Dr. Amish Tavares Work Phone: 3(640)900-661417 [place] [address] 01-05-2023 14:45-0400 Systolic blood pressure 111 mm[Hg] Dr. Amish Tavares Work Phone: 9(063)771-698516 [place] [address] 01-05-2023 13:22-0400 Body height 185.[address] Amish Tavares Work Phone: 2(780)879-984216 [place] [address] 01-05-2023 13:22-0400 Body mass index (BMI) [Ratio] 23.8 kg/m2 Dr. Amish Tavares Work Phone: 9(077)893-697316 [place] [address] 01-05-2023 13:22-0400 Body weight 81.[address] Amish Tavares Work Phone: 9(712)905-678616 [place] [address] 10-23-2022 13:39-0400 Body height 185.[address] Amish Tavares Work Phone: 6(721)687-954016 [place] [address] 10-23-2022 13:39-0400 Body mass index (BMI) [Ratio] 23.8 kg/m2 Dr. Amish Tavares Work Phone: 7(473)224-708016 [place] [address] 10-23-2022 13:39-0400 Body weight 82.[address] Amish Tavares Work Phone: 6(602)193-556216 [place] [address] 09-29-2022 08:34-0400 Body height 2.[address] Amish Tavares Work Phone: 9(448)728-162948 [address] 09-07-2022 15:41-0400 Body height 2.[address] Amish Tavares Work Phone: 3(922)802-594916 [place] [address] 09-07-2022 15:41-0400 Body mass index (BMI) [Ratio] 830086.8 kg/m2 Dr. Amish Tavares Work Phone: 1(720)425-033616 [place] [address] 09-07-2022 15:41-0400 Body temperature 97.3 [degF] Dr. Amish Tavares Work Phone: [facility] 09-07-2022 15:41-0400 Body weight 85.[address] Amish Tavares Work Phone: [facility] 09-07-2022 15:41-0400 Diastolic blood pressure 74 mm[Hg] Dr. Amish Tavares Work Phone: [facility] 09-07-2022 15:41-0400 Heart rate 78 /min Dr. Amish Tavares Work Phone: [facility] 09-07-2022 15:41-0400 Respiratory rate 17 /min Dr. Amish Tavares Work Phone: 9(971)025-913917 [place] [address] 09-07-2022 15:41-0400 SaO2% (BldA) [Mass fraction] 99 % Dr. Amish Tavares Work Phone: [facility] 09-07-2022 15:41-0400 Systolic blood pressure 112 mm[Hg] Dr. Amish Tavares Work Phone: [facility] 09-07-2022 14:43-0400 Body mass index (BMI) [Ratio] 24.3 kg/m2 Dr. Amish Tavares Work Phone: [facility] 09-07-2022 14:43-0400 Body weight 83.[address] Amish Tavares Work Phone: [facility] 09-07-2022 14:43-0400 Diastolic blood pressure 72 mm[Hg] Dr. Amish Tavares Work Phone: [facility] 09-07-2022 14:43-0400 Systolic blood pressure 124 mm[Hg] Dr. Amish Tavares Work Phone: [facility] 03-02-2022 09:17-0500 Body temperature 98.2 [degF] Dr. Amish Tavares Work Phone: [facility] 03-02-2022 09:17-0500 Diastolic blood pressure 68 mm[Hg] Dr. Amish Tavares Work Phone: [facility] 03-02-2022 09:17-0500 Heart rate 83 /min Dr. Amish Tavares Work Phone: [facility] 03-02-2022 09:17-0500 Respiratory rate 14 /min Dr. Amish Tavares Work Phone: [facility] 03-02-2022 09:17-0500 SaO2% (BldA) [Mass fraction] 97 % Dr. Amish Tavares Work Phone: [facility] 03-02-2022 09:17-0500 Systolic blood pressure 122 mm[Hg] Dr. Amish Tavares Work Phone: 6(220)493-412848 [address] 02-18-2022 08:00-0500 Body height 185.[address] Amish Tavares Work Phone: 0(230)781-877616 [place] [address] 02-18-2022 08:00-0500 Body mass index (BMI) [Ratio] 25.7 kg/m2 Dr. Amish Tavares Work Phone: 2(723)891-090717 [place] [address] 02-18-2022 08:00-0500 Body weight 88.[address] Amish Tavares Work Phone: 0(360)734-319048 [address] 02-18-2022 08:00-0500 Diastolic blood pressure 71 mm[Hg] Dr. Amish Tavares Work Phone: 8(657)871-580448 [address] 02-18-2022 08:00-0500 Heart rate 82 /min Dr. Amish Tavares Work Phone: 6(984)320-950317 [place] [address] 02-18-2022 08:00-0500 SaO2% (BldA) [Mass fraction] 98 % Dr. Amish Tavares Work Phone: [facility] 02-18-2022 08:00-0500 Systolic blood pressure 113 mm[Hg] Dr. Amish Tavares Work Phone: 3(607)206-069417 [place] [address] 02-16-2022 17:09-0500 Body temperature 98.7 [degF] Dr. Amish Tavares Work Phone: 9(299)474-449817 [place] [address] 02-16-2022 17:09-0500 Diastolic blood pressure 62 mm[Hg] Dr. Amish Tavares Work Phone: [facility] 02-16-2022 17:09-0500 Heart rate 77 /min Dr. Amish Tavares Work Phone: [facility] 02-16-2022 17:09-0500 Respiratory rate 14 /min Dr. Amish Tavares Work Phone: [facility] 02-16-2022 17:09-0500 SaO2% (BldA) [Mass fraction] 98 % Dr. Amish Tavares Work Phone: [facility] 02-16-2022 17:09-0500 Systolic blood pressure 124 mm[Hg] Dr. Amish Tavares Work Phone: [facility] 02-06-2022 14:37-0500 Body temperature 98.1 [degF] Dr. Amish Tavares Work Phone: [facility] 02-06-2022 14:37-0500 Diastolic blood pressure 72 mm[Hg] Dr. Amish Tavares Work Phone: [facility] 02-06-2022 14:37-0500 Heart rate 64 /min Dr. Amish Tavares Work Phone: [facility] 02-06-2022 14:37-0500 Respiratory rate 14 /min Dr. Amish Tavares Work Phone: [facility] 02-06-2022 14:37-0500 Systolic blood pressure 122 mm[Hg] Dr. Amish Tavares Work Phone: [facility] 01-29-2022 15:10-0500 Body temperature 98.6 [degF] Dr. Amish Tavares Work Phone: [facility] 01-29-2022 15:10-0500 Diastolic blood pressure 60 mm[Hg] Dr. Amish Tavares Work Phone: [facility] 01-29-2022 15:10-0500 Heart rate 74 /min Dr. Amish Tavares Work Phone: [facility] 01-29-2022 15:10-0500 Respiratory rate 18 /min Dr. Amish Tavares Work Phone: [facility] 01-29-2022 15:10-0500 SaO2% (BldA) [Mass fraction] 99 % Dr. Amish Tavares Work Phone: [facility] 01-29-2022 15:10-0500 Systolic blood pressure 102 mm[Hg] Dr. Amish Tavares Work Phone: [facility] 11-06-2021 10:35-0400 Body temperature 97.9 [degF] Dr. Amish Tavares Work Phone: [facility] Work Phone: 11-06-2021 10:35-0400 Diastolic blood pressure 71 mm[Hg] Dr. Amish Tavares Work Phone: [facility] Work Phone: 11-06-2021 10:35-0400 Heart rate 76 /min Dr. Amish Tavares Work Phone: [facility] Work Phone: 11-06-2021 10:35-0400 Respiratory rate 16 /min Dr. Amish Tavares Work Phone: [facility] Work Phone: 11-06-2021 10:35-0400 SaO2% (BldA) [Mass fraction] 100 % Dr. Amish Tavares Work Phone: [facility] Work Phone: 11-06-2021 10:35-0400 Systolic blood pressure 106 mm[Hg] Dr. Amish Tavares Work Phone: [facility] Work Phone: 11-06-2021 08:51-0400 Body height 185.[address] Amish Tavares Work Phone: [facility] Work Phone: 11-06-2021 08:51-0400 Body mass index (BMI) [Ratio] 24.7 kg/m2 Dr. Amish Tavares Work Phone: [facility] Work Phone: 11-06-2021 08:51-0400 Body weight 85.[address] Amish Tavares Work Phone: [facility] Work Phone: 03-25-2021 12:23-0500 Body height 185.[address] Amish Tavares Work Phone: [facility] Work Phone: 08-13-2016 10:35-0400 BMI (Body Mass Index) 11.48 kg/m2 Rashmi Dossi DC [facility] Work Phone: 08-13-2016 10:35-0400 Body weight 39.46 kg Rashmi Dossi DC [facility] Work Phone: 08-13-2016 10:35-0400 BP Diastolic 74 mm[Hg] Rashmi Dossi DC [facility] Work Phone: 08-13-2016 10:35-0400 BP Systolic 112 mm[Hg] Rashmi Dossi DC [facility] Work Phone: 08-13-2016 10:35-0400 Height 185.42 cm Rashmi Dossi DC [facility] Work Phone: 08-13-2016 10:35-0400 Weight 39.46 kg Rashmi Dossi DC [facility] Work Phone: Encounters Encounter Date Encounter Type Care Provider Facility Start: 10-04-2024 End: 10-04-[address] Amish Tavares MD Work Phone: -[facility] Start: 10-04-2024 End: 10-04-[address] Claudia Krishna MD -[facility] Work Phone: Start: 10-04-2024 End: 10-04-2024 ambulatory Claudia Krishna Facility:[facility] Start: 08-10-2024 End: 08-10-[address] Ajay Cruz MD -[facility] Work Phone: Start: 08-10-2024 End: 08-10-2024 ambulatory Ajay Cruz Facility:[facility] Start: 08-04-2024 End: 08-04-[address] Amish Tavares MD Work Phone: [facility] Work Phone: Start: 08-04-2024 End: 08-04-[address] Claudia Krishna MD -[facility] [place] Work Phone: Start: 08-04-2024 End: 08-04-2024 ambulatory Claudia Krishna Facility:[facility] Start: 08-02-2024 End: 08-02-[address] Amish Tavares MD Work Phone: [facility] Work Phone: Start: 08-02-2024 End: 08-02-[address] Delicia Smith DO -[facility] Work Phone: Start: 08-02-2024 End: 08-02-2024 ambulatory Delicia Smith Facility:[facility] Start: 07-27-2024 End: 07-27-2024 ambulatory Amish Tavares Facility:[facility] Start: 07-27-[address] Amish carrera MD -Occupational Therapy Work Phone: Start: 07-24-2024 End: 07-24-[address] Evert Alaniz MD -[facility] Work Phone: Start: 07-24-2024 End: 07-24-2024 ambulatory Evert Alaniz Facility:[facility] Start: 07-24-2024 Registered Referred HEALTH RIS K ASSESSMENT -[facility] [place] Work Phone: Start: 07-24-2024 ambulatory Health Risk Assessment Facility:[facility] Start: 07-17-2024 End: 07-17-[address] Delicia Smith DO -[facility] Work Phone: Start: 07-17-2024 End: 07-17-2024 ambulatory Delicia Smith Facility:[facility] Start: 07-06-2024 End: 07-06-[address] Delicia Smith DO -[facility] Work Phone: Start: 07-06-2024 End: 07-06-[address] Delicia Smith DO [facility] Start: 07-06-2024 End: 07-06-2024 ambulatory Delicia Smith Facility:[facility] Start: 07-05-2024 End: 07-05-[address] Amish Tavares MD Work Phone: [facility] Work Phone: Start: 07-05-2024 End: 07-05-[address] Amish Tavares MD -[facility] Work Phone: Start: 07-05-2024 End: 07-05-2024 ambulatory Amish Tavares Facility:[facility] Start: 06-30-2024 Non-patient / Non-visit [facility]. Jass Rai MD -[facility] Start: 06-30-2024 End: 06-30-[address] Amish Tavares MD Work Phone: [facility] Work Phone: Start: 06-30-2024 End: 06-30-[address] Jatin Lopez DP -[facility] Work Phone: Start: 06-30-2024 End: 06-30-2024 ambulatory Jatin Lopez Facility:[facility] Start: 06-09-2024 End: 06-09-2024 Patient encounter procedure Yaakov Ambriz DO -[facility] Work Phone: Start: 06-09-2024 End: 06-09-2024 ambulatory Yaakov Ambriz Facility:[facility] Start: 06-05-2024 End: 06-05-[address] Amish Tavares MD Work Phone: [facility] Work Phone: Start: 06-05-2024 End: 06-05-[address] Claudia Krishna MD -[facility] [place] Work Phone: Start: 06-05-2024 End: 06-05-2024 ambulatory Claudia Krishna Facility:[facility] Start: 05-24-2024 ambulatory Yaakov Phelan Facility :[facility] Start: 05-24-2024 Non-patient / Non-visit Yaakov [facility] Start: 05-24-2024 End: 05-24-2024 Admission to same day surgery center Yaakov Ambriz -Endoscopy Work Phone: Start: 05-24-2024 End: 05-24-2024 ambulatory [facility] Facility:[facility] Start: 05-05-2024 End: 05-05-[address] Evert Alaniz MD -[facility] Work Phone: Start: 05-05-2024 End: 05-05-2024 ambulatory Evert Alaniz Facility:[facility] Start: 04-21-2024 End: 04-21-[address] Claudia Krishna MD -Laboratory, [place] Work Phone: Start: 04-20-2024 End: 04-20-2024 Patient encounter procedure Yaakov Ambriz DO [facility] Work Phone: Start: 04-20-2024 End: 04-21-2024 ambulatory Amish Tavares Facility:[facility] Start: 04-18-2024 End: 04-18-[address] Evert Alaniz MD -[facility] Work Phone: Start: 04-18-2024 End: 04-18-2024 ambulatory Amish Tavares Facility:[facility] Start: 04-05-2024 End: 04-05-[address] Claudia Krishna MD -Ultrasound, [facility] Work Phone: Start: 04-05-2024 End: 04-05-2024 ambulatory [facility] Facility:[facility] Start: 03-24-2024 End: 03-24-[address] Claudia Krishna MD -Laboratory, [place] Work Phone: Start: 03-24-2024 End: 03-24-2024 ambulatory [facility] Facility:[facility] Start: 03-09-2024 ambulatory [facility] Facility:[facility] Start: 02-28-2024 End: 02-28-[address] Bear Pryor MD -[facility] Work Phone: Start: 02-28-2024 End: 02-28-2024 ambulatory [facility] Facility:[facility] Start: 02-28-2024 End: 02-28-2024 ambulatory [facility] Facility:[facility] Start: 02-22-2024 End: 02-22-2024 Patient encounter procedure Ajay CEE -[facility] Work Phone: Start: 02-22-2024 End: 02-22-2024 ambulatory Ajay CEE Facility:[facility] Start: 02-18-2024 End: 02-18-2024 Patient encounter procedure Joshua CEE -[facility] Work Phone: Start: 02-18-2024 End: 02-18-2024 ambulatory Joshua CEE Facility:[facility] Start: 01-26-2024 End: 01-26-2024 ambulatory Evert Alaniz Facility:[facility] Start: 01-03-2024 End: 01-03-2024 ambulatory Everttricia Alaniz Facility:[facility] Start: 12-29-2023 End: 12-29-2023 ambulatory Nnamdi Matthewjonathan Facility:[facility] Start: 12-29-2023 End: 12-29-2023 ambulatory [facility] Facility:[facility] Start: 12-10-2023 End: 12-10-2023 ambulatory Claudia Krishna Facility:[facility] Start: 07-19-2023 End: 07-19-[address] Amish Tavares Work Phone: [facility] Work Phone: Start: 07-19-2023 End: 07-19-[address] Amish Tavares Work Phone: [facility]-Laboratory, [facility] Start: 07-16-2023 End: 07-16-[address] Amish Tavares Work Phone: [facility] Work Phone: Start: 07-16-2023 End: 07-16-[address] Amish Tavares Work Phone: [facility]-Outpatient Pavilion Ultrasound Work Phone: Start: 07-06-2023 End: 07-06-[address] Amish Tavares Work Phone: [facility] Work Phone: Start: 07-06-2023 End: 07-06-[address] [facility]ish [facility] Start: 07-06-2023 End: 07-06-[address] Amish Tavares Work Phone: [facility] Work Phone: Start: 05-19-2023 End: 05-19-[address] Amish Tavares Work Phone: [facility] Work Phone: Start: 05-19-2023 End: 05-19-[address] Amish Tavares Work Phone: [facility] Work Phone: Start: 05-10-2023 End: 05-10-2023 Admission to same day surgery center Dr. Amish Tavares Work Phone: [facility] Start: 05-10-2023 End: 05-10-[address] Amish Tavares Work Phone: [facility] Work Phone: Start: 04-19-2023 End: 04-19-[address] Amish Tavares Work Phone: [facility] Work Phone: Start: 04-19-2023 End: 04-19-[address] Amish Tavares Work Phone: [facility] Work Phone: Start: 03-26-2023 End: 03-26-[address] Amish Tavares Work Phone: [facility] Work Phone: Start: 03-26-2023 End: 03-26-[address] Amish Tavares Work Phone: [facility]-Laboratory Work Phone: Start: 03-18-2023 End: 03-18-[address] Amish Tavares Work Phone: [facility] G[facility] Work Phone: Start: 03-11-2023 End: 03-11-[address] Amish Tavares Work Phone: [facility] Work Phone: Start: 03-11-2023 End: 03-11-[address] Amish Tavares Work Phone: [facility]-Physical Therapy Work Phone: Start: 03-11-[address] Amish Tavares Work Phone: [facility]-Physical Therapy Work Phone: Start: 02-22-[address] Amish Tavares Work Phone: [facility]-Physical Therapy Work Phone: Start: 02-19-2023 End: 02-19-[address] Amish Tavares Work Phone: [facility] Work Phone: Start: 02-19-2023 End: 02-19-[address] Amish Tavares Work Phone: [facility]-Laboratory Work Phone: Start: 02-19-2023 End: 02-19-[address] Amish Tavares Work Phone: [facility] Endocrinology Work Phone: Start: 01-22-2023 End: 01-22-[address] [facility] Start: 01-05-2023 Non-patient / Non-visit Dr. Amish Tavares Work Phone: [facility] Start: 01-05-2023 End: 01-05-2023 Admission to same day surgery center Dr. Amish Tavares Work Phone: [facility]-Endoscopy Work Phone: Start: 01-05-2023 End: 01-05-[address] Amish Tavares Work Phone: [facility] Work Phone: Start: 12-02-2022 End: 12-02-[address] Amish Tavares Work Phone: [facility] Work Phone: Start: 12-02-2022 End: 12-02-[address] Amish Tavares Work Phone: [facility]-Laboratory, [place] Work Phone: Start: 11-13-2022 End: 11-13-[address] Amish Tavares Work Phone: [facility] Orthopaedic [facility] Work Phone: Start: 11-06-2022 End: 11-06-[address] Amish Tavares Work Phone: [facility] Work Phone: Start: 11-06-2022 End: 11-06-[address] Amish Tavares Work Phone: [facility]-Radiology, [place] Work Phone: Start: 11-05-2022 End: 11-05-[address] Amish Tavares Work Phone: [facility] Work Phone: Start: 11-04-[address] Amish tubbs Work Phone: [facility] Start: 11-04-2022 End: 11-04-[address] Amish Tavares Work Phone: [facility] Work Phone: Start: 11-04-2022 End: 11-04-[address] Amish Tavares Work Phone: [facility] Work Phone: Start: 10-23-2022 End: 10-23-[address] Amish Tavares Work Phone: [facility] Work Phone: Start: 10-23-2022 End: 10-23-[address] Amish Tavares Work Phone: [facility]-Radiology, [place] Work Phone: Start: 10-23-2022 End: 10-23-[address] Amish Tavares Work Phone: [facility] Work Phone: Start: 10-20-2022 End: 10-20-[address] Amish Tavares Work Phone: [facility] Work Phone: Start: 10-20-2022 End: 10-20-[address] Amish Tavares Work Phone: [facility]-Physical Therapy Work Phone: Start: 10-20-[address] Amish Tavares Work Phone: [facility]-Physical Therapy Work Phone: Start: 10-14-[address] Amish Tavares Work Phone: [facility]-Physical Therapy Work Phone: Start: 10-12-2022 End: 10-12-[address] Amish Tavares Work Phone: [facility] Work Phone: Start: 10-12-2022 End: 10-12-[address] Amish Tavares Work Phone: [facility] Work Phone: Start: 09-29-2022 End: 09-29-[address] Amish Tavares Work Phone: [facility] Work Phone: Start: 09-29-2022 End: 09-29-[address] Amish Tavares Work Phone: [facility]-Outpatient Bone Densitometry Work Phone: Start: 09-16-2022 End: 09-16-[address] Amish Tavares Work Phone: [facility] Work Phone: Start: 09-16-2022 End: 09-16-[address] Amish Tavares Work Phone: [facility] Work Phone: Start: 09-10-2022 End: 09-10-[address] Amish Tavares Work Phone: [facility] Start: 09-09-[address] Amish [facility] Start: 09-08-2022 End: 09-08-[address] Amish Tavares Work Phone: [facility] Start: 09-07-2022 End: 09-07-[address] Amish Tavares Work Phone: [facility] Start: 09-07-2022 End: 09-07-[address] Amish Tavares Work Phone: [facility] Work Phone: Start: 09-07-2022 End: 09-07-[address] Amish Tavares Work Phone: [facility] Start: 07-06-2022 End: 07-06-[address] Amish Tavares Work Phone: [facility]-Outpatient Breast Imaging Start: 03-02-2022 End: 03-02-[address] Amish Tavares Work Phone: [facility] Work Phone: Start: 03-02-2022 End: 03-02-[address] Amish [facility] Start: 03-02-2022 End: 03-02-[address] Amish Tavares Work Phone: [facility] Start: 02-18-2022 End: 02-18-[address] Amish Tavares Work Phone: [facility] Gastroenterology Start: 02-16-2022 End: 02-16-[address] Amish Tavares Work Phone: [facility] Start: 02-06-2022 End: 02-06-[address] Amish Tavares Work Phone: [facility] Start: 01-29-2022 End: 01-29-[address] Amish Tavares Work Phone: [facility] Start: 01-14-2022 End: 01-14-[address] Amish Tavares Work Phone: [facility] Start: 11-11-2021 End: 11-11-[address] Amish Tavares Work Phone: [facility] Work Phone: Start: 11-11-2021 End: 11-11-[address] [facility] Start: 11-06-2021 Non-patient / Non-visit Dr. Amish Tavares Work Phone: [facility] Start: 11-06-[address] Amish tubbs Work Phone: [facility] Start: 11-06-2021 End: 11-06-2021 Admission to same day surgery center Dr. Amish Tavares Work Phone: [facility]-Endoscopy Start: 09-16-2021 End: 09-18-[address] Amish Tavares Work Phone: [facility] Start: 08-08-2021 End: 08-08-[address] Amish [facility] Start: 08-06-2021 End: 08-06-[address] Amish Tavares Work Phone: [facility]-Laboratory Start: 08-04-2021 End: 08-04-[address] Amish Tavares Work Phone: [facility] Gastroenter[facility] Start: 07-04-2021 End: 07-04-[address] Amish Tavares Work Phone: [facility]-Outpatient Breast Imaging Start: 06-20-2021 End: 06-20-[address] Amish Tavares Work Phone: [facility]-Nuclear Medicine, [facility] Start: 05-16-2021 End: 05-16-[address] Amish Tavares Work Phone: [facility]-Ultrasound, [facility] Start: 03-25-2021 End: 03-25-[address] Amish Tavares Work Phone: [facility] Procedures Date Procedure Procedure Detail Performing Clinician Start: 08-02-2024 Computed tomography of abdomen and pelvis with contrast Dr. Amish Tavares MD Work Phone: Start: 07-24-2024 Urnls dip stick/tablet reagent auto microscopy Dr. Amish Tavares MD Work Phone: Start: 07-24-2024 Serum inorganic phosphate measurement Dr. Amish Tavares MD Work Phone: Start: 07-17-[address] Amish Tavares MD Work Phone: Start: 05-05-2024 Magnetic resonance angiography of head without contrast Dr. Amish Tavares MD Work Phone: Start: 04-21-2024 Measurement of renal function Dr. Amish tubbs MD Work Phone: Comment on above: GFR Calc Start: 04-05-[address] Amish madison MD Work Phone: Start: 07-16-[address] Amish Tavares Work Phone: Start: 07-16-[address] Amish Tavares Work Phone: Start: 07-16-[address] Amish Tavares Work Phone: Start: 05-10-2023 Local anesthetic sacral epidural block Dr. Amish Tavares Work Phone: Start: 05-10-2023 Injection of spinal epidural space Dr. Atif Tavares Work Phone: Start: 05-10-2023 Injection using fluoroscopic guidance Dr. Amish Tavares Work Phone: Start: 04-19-2023 Radiologic examination of lumbosacral spine, complete, with bending views Dr. Amish Tavares Work Phone: Start: 01-05-[address] Amish madison Work Phone: Start: 11-13-[address] Amish multani Work Phone: Start: 11-13-[address] Amish Tavares Work Phone: Start: 11-13-2022 Investigation of transfusion reaction Dr. Amish Tavares Work Phone: Start: 11-06-2022 Radiologic examination of knee Dr. Amish Tavares Work Phone: Start: 11-04-2022 MRI of lumbar spine Dr. Amihs Tavares Work Phone: Start: 10-23-2022 X-ray of lumbar spine, two or three views Dr. Amish Tavares Work Phone: Start: 10-12-2022 X-ray of lumbosacral spine Dr. Amish madison Work Phone: Start: 09-29-2022 Dual energy X-ray absorptiometry Dr. Olimpia Tavares Work Phone: Start: 09-16-2022 MRI of lumbar spine Dr. Amish Tavares Work Phone: Start: 09-07-2022 X-ray of lumbosacral spine Dr. Amish madison Work Phone: Start: 07-06-[address] Amish Tavares Work Phone: Start: 11-11-2021 Rad[address] gastric emptying study Dr. Amish Tavares Work Phone: Start: 11-06-[address] Amish Tavares Work Phone: Start: 08-08-2021 Computed tomography of abdomen and pelvis with contrast Dr. Amish Tavares Work Phone: Start: 07-04-[address] Amish Tavares Work Phone: Start: 06-20-2021 Radionuclide imaging of liver and/or biliary tract using radioactive isotope Dr. Amish Tavares Work Phone: Start: 05-16-[address] Amish madison Work Phone: Start: 08-26-2016 End: 08-26-2016 Chiropract manj 1-2 regions Rashmi B Samreen i DC Work Phone: Start: 08-26-2016 End: 08-26-2016 Ultrasound therapy Rashmi B Dossi DC Work Phone: Start: 08-24-2016 End: 08-24-2016 Chiropract manj 1-2 regions Rashmi B Samreen i DC Work Phone: Start: 08-20-2016 End: 08-20-2016 Documentation of current medications Rashmi Dossi DC Start: 08-20-2016 End: 08-20-2016 Chiropract manj 1-2 regions Rashmi B Samreen i DC Work Phone: Start: 08-20-2016 End: 08-20-2016 Electric stimulation therapy Rashmi B Dos si DC Work Phone: Start: 08-13-2016 End: 08-13-2016 Chiropract manj 1-2 regions Rashmi B Samreen i DC Work Phone: Start: 08-13-2016 End: 08-13-2016 Electric stimulation therapy Rashmi B Dos si DC Work Phone: H/O: surgery History of ovari an cystectomy Dr. Amish Tavares Work Phone: Viral antigen assay Dr. Amish Tavares Work Phone: Plan of Treatment Date Care Activity Detail Author Start: 05-24-2024 Egd insert guide wire dilator passage esophagus EGD GUIDE WIRE INSERTION [facility] Start: 05-24-2024 Egd transoral biopsy single/multiple EGD BIOPSY SINGLE/MULTIPLE [facility] Start: 05-24-2024 Patient discharge [facility] Start: 05-10-2023 Anes dx/ther nerve block/injection prone pos ANESTH N BLOCK/INJ PRONE [facility] Start: 05-10-2023 Njx dx/ther sbst intrlmnr lmbr/sac w/img gdn NJX INTERLAMINAR LMBR/SAC [facility] Start: 05-10-2023 Injection of spinal epidural space [facility] Start: 05-10-2023 Injection using fluoroscopic guidance [facility] Start: 05-10-2023 Patient discharge [facility] Start: 01-05-2023 Egd transoral biopsy single/multiple EGD BIOPSY SINGLE/MULTIPLE [facility] Start: 01-05-2023 Patient discharge [facility] Start: 11-05-2022 Patient referral [facility] Work Phone: Start: 09-07-2022 X-ray of lumbosacral spine L/S Spine Min 4 Views [facility] Start: 01-29-2022 Patient referral [facility] Work Phone: Start: 11-06-2021 Colonoscopy w/biopsy single/multiple COLONOSCOPY AND BIOPSY [facility] Work Phone: Start: 11-06-2021 Egd transoral biopsy single/multiple EGD BIOPSY SINGLE/MULTIPLE [facility] Work Phone: Start: 11-06-2021 Patient discharge [facility] Work Phone: Start: 08-26-2016 End: 08-26-2016 Appointment Appointment [facility] Work Phone: Start: 08-26-2016 End: 08-26-2016 Appointment Appointment [facility] Work Phone: Start: 08-26-2016 End: 08-26-2016 Follow up Appt 2x/week Follow up Appt 2x/week [facility] Work Phone: Start: 08-24-2016 End: 08-24-2016 Appointment Appointment [facility] Work Phone: Start: 08-24-2016 End: 08-24-2016 Appointment Appointment [facility] Work Phone: Start: 08-24-2016 End: 08-24-2016 Follow up Appt 2x/week Follow up Appt 2x/week [facility] Work Phone: Start: 08-20-2016 [...] up Appt 1x/week [facility] Work Phone: MG Breast - bilatera l Screening [facility] MR Lumbar spine [facility] MR Lumbar spine [facility] MR Lumbar spine [facility] Patient referral [facility] Work Phone: Radionuclide gastric emptying study [facility] Work Phone: US Pelvis [facility] US Pelvis transvaginal [facility] Immunizations Immunization Date Immunization Notes Care Provider Fa cility 01-25-2024 influenza, seasonal, injectable, preservative free Dr. Amish Tavares MD Work Phone: [facility] 01-26-2023 influenza, injectabl e, quadrivalent, preservative free Dr. Amish Tavares Work Phone: [facility] 01-12-2022 influenza, injectabl e, quadrivalent, preservative free Dr. Amish Tavares Work Phone: [facility] 01-12-2022 influenza, seasonal, injectable Dr. Amish Tavares Work Phone: [facility] 01-30-2021 Covid (Moderna) Dr. Amish multani Work Phone: [facility] 04-22-2020 Covid (Moderna) Dr. Amish multani Work Phone: [facility] 03-25-2020 Covid (Moderna) Dr. Amish multani Work Phone: [facility] 12-17-2019 influenza, injectabl e, quadrivalent, preservative free Dr. Amish Tavares Work Phone: [facility] 12-17-2019 influenza, seasonal, injectable Dr. Amish Tavares Work Phone: [facility] 01-03-2019 influenza, injectabl e, quadrivalent, preservative free Dr. Amish Tavares Work Phone: [facility] 01-03-2019 influenza, seasonal, injectable Dr. Amish Tavares Work Phone: [facility] 03-30-2018 hepatitis B vaccine, adult dosage Dr. Amihs Tavares Work Phone: [facility] 12-16-2017 influenza, injectabl e, quadrivalent, preservative free Dr. Amish Tavares Work Phone: [facility] 12-16-2017 influenza, seasonal, injectable Dr. Amish Tavares Work Phone: [facility] 10-28-2017 hepatitis B vaccine, adult dosage Dr. Amish Tavares Work Phone: [facility] 09-15-2017 hepatitis B vaccine, adult dosage Dr. Amish Tavares Work Phone: [facility] 01-03-2017 influenza, injectabl e, quadrivalent, preservative free Dr. Amish Tavares Work Phone: [facility] 01-03-2017 influenza, seasonal, injectable Dr. Amish Tavares Work Phone: [facility] 01-03-2016 influenza, injectabl e, quadrivalent, preservative free Dr. Amish Tavares Work Phone: [facility] 01-03-2016 influenza, seasonal, injectable Dr. Amish Tavares Work Phone: [facility] 12-30-2014 influenza, injectabl e, quadrivalent, preservative free Dr. Amish Tavares Work Phone: [facility] 12-30-2014 influenza, seasonal, injectable Dr. Amish Tavares Work Phone: [facility] 12-04-2013 influenza, injectabl e, quadrivalent, preservative free Dr. Amish Tavares Work Phone: [facility] 12-04-2013 influenza, seasonal, injectable Dr. Amish Tavares Work Phone: [facility] Payers Date Payer Category Payer Unknown [id number] 2023 Self-pay [id number] 2023 Unknown [id number] 2016 Unknown [id number] Unknown [id number] Unknown [facility] [id number] Unknown [employer] [facility] [id number] Unknown [id number] Unknown [id number] [id number]2 Unknown [id number] 2.16.840.1.685524.3.579.2.462 Unknown [id number] 2.16.840.1.244270.3.579.2.462 Unknown [id number] 2.16.840.1.925405.3.579.2.462 Unknown [id number] 2.16.840.1.397138.3.579.2.462 Unknown [id number] 2.16.840.1.470965.3.579.2.462 Unknown [id number] 2.16.840.1.073451.3.579.2.462 Unknown [id number] 2.840.1.615068.3.579.2.462 Unknown [id number] 2.840.1.250683.3.579.2.462 Unknown [id number] 2.840.1.058980.3.579.2.462 Unknown [id number] 2.840.1.126723.3.579.2.462 Unknown [id number] 2.840.1.209818.3.579.2.462 Unknown [id number] 2.840.1.265429.3.579.2.462 Unknown [id number] 2.840.1.977193.3.579.2.462 Unknown [id number] 2.840.1.177181.3.579.2.462 Unknown [id number] 2.840.1.393630.3.579.2.462 Unknown [id number] 2.840.1.006036.3.579.2.462 Unknown [id number] 2.840.1.415814.3.579.2.462 Unknown [id number] 2.840.1.981967.3.579.2.462 Unknown [id number] 2.16840.1.952314.3.579.2.462 Unknown [id number] 2.16.840.1.210417.3.579.2.462 Unknown [id number] 2.16.840.1.583798.3.579.2.462 Unknown [id number] 2.16.840.1.501382.3.579.2.462 Unknown [id number] 2.16.840.1.915329.3.579.2.462 Unknown [id number] 2.16.840.1.273045.3.579.2.462 Unknown [id number] 2.16.840.1.775192.3.579.2.462 Unknown [id number] 2.16.840.1.592135.3.579.2.462 Unknown [id number] 2.16.840.1.050988.3.579.2.462 Unknown [id number] 2.16.840.1.636869.3.579.2.462 Unknown [id number] 2.16.840.1.090791.3.579.2.462 Unknown [id number] 2.16.840.1.602916.3.579.2.462 Unknown [id number] 2.16.840.1.217082.3.579.2.462 Unknown [id number] 2.16.840.1.748077.3.579.2.462 Social History Date Type Detail Facility Start: 03-25-2021 End: 07-06-2023 Tobacco smoking status NHIS Unknown if ever smoked [facility] Start: 02-20-2020 Non-smoker [facility] Start: 1960 Sex Assigned At Female [facility] Start: 05-22-2024 Tobacco smoking status NHIS Never smoked tobacco (finding) [facility] Start: 06-13-2024 End: 07-08-2024 Sex Female (finding) [facility] Sex Female [facility] NEGATED: Highlighted row Not [facility] Medical Equipment Procedure Code Equipment Code Equipment Origin al Text Equipment Identifier Dates asymmetric patella FDA Start: 03-05-2020 cruciate retaini ng femoral FDA Start: 03-05-2020 tibial bearing insert - CS FDA Start: 03-05-2020 tibial component FDA Start: 03-05-2020 asymmetric patella FDA Start: 03-05-2020 cruciate retaini ng femoral FDA Start: 03-05-2020 tibial bearing insert - CS FDA Start: 03-05-2020 tibial component FDA Start: 03-05-2020 asymmetric patella FDA Start: 03-05-2020 cruciate retaini ng femoral FDA Start: 03-05-2020 tibial bearing insert - CS FDA Start: 03-05-2020 tibial component FDA Start: 03-05-2020 asymmetric patella FDA Start: 03-05-2020 cruciate retaini ng femoral FDA Start: 03-05-2020 tibial bearing insert - CS FDA Start: 03-05-2020 tibial component FDA Start: 03-05-2020 asymmetric patella FDA Start: 03-05-2020 cruciate retaini ng femoral FDA Start: 03-05-2020 tibial bearing insert - CS FDA Start: 03-05-2020 tibial component FDA Start: 03-05-2020 asymmetric patella FDA Start: 03-05-2020 cruciate retaini ng femoral FDA Start: 03-05-2020 tibial bearing insert - CS FDA Start: 03-05-2020 tibial component FDA Start: 03-05-2020 asymmetric patella FDA Start: 03-05-2020 cruciate retaini ng femoral FDA Start: 03-05-2020 tibial bearing insert - CS FDA Start: 03-05-2020 tibial component FDA Start: 03-05-2020 asymmetric patella FDA Start: 03-05-2020 cruciate retaini ng femoral FDA Start: 03-05-2020 tibial bearing insert - CS FDA Start: 03-05-2020 tibial component FDA Start: 03-05-2020 asymmetric patella FDA Start: 03-05-2020 cruciate retaini ng femoral FDA Start: 03-05-2020 tibial bearing insert - CS FDA Start: 03-05-2020 tibial component FDA Start: 03-05-2020 asymmetric patella FDA Start: 03-05-2020 cruciate retaini ng femoral FDA Start: 03-05-2020 tibial bearing insert - CS FDA Start: 03-05-2020 tibial component FDA Start: 03-05-2020 asymmetric patella FDA Start: 03-05-2020 cruciate retaini ng femoral FDA Start: 03-05-2020 tibial bearing insert - CS FDA Start: 03-05-2020 tibial component FDA Start: 03-05-2020 asymmetric patella FDA Start: 03-05-2020 cruciate retaini ng femoral FDA Start: 03-05-2020 tibial bearing insert - CS FDA Start: 03-05-2020 tibial component FDA Start: 03-05-2020 asymmetric patella FDA Start: 03-05-2020 cruciate retaini ng femoral FDA Start: 03-05-2020 tibial bearing insert - CS FDA Start: 03-05-2020 tibial component FDA Start: 03-05-2020 asymmetric patella FDA Start: 03-05-2020 cruciate retaini ng femoral FDA Start: 03-05-2020 tibial bearing insert - CS FDA Start: 03-05-2020 tibial component FDA Start: 03-05-2020 asymmetric patella FDA Start: 03-05-2020 cruciate retaini ng femoral FDA Start: 03-05-2020 tibial bearing insert - CS FDA Start: 03-05-2020 tibial component FDA Start: 03-05-2020 asymmetric patella FDA Start: 03-05-2020 cruciate retaini ng femoral FDA Start: 03-05-2020 tibial bearing insert - CS FDA Start: 03-05-2020 tibial component FDA Start: 03-05-2020 asymmetric patella FDA Start: 03-05-2020 cruciate retaini ng femoral FDA Start: 03-05-2020 tibial bearing insert - CS FDA Start: 03-05-2020 tibial component FDA Start: 03-05-2020 asymmetric patella FDA Start: 03-05-2020 cruciate retaini ng femoral FDA Start: 03-05-2020 tibial bearing insert - CS FDA Start: 03-05-2020 tibial component FDA Start: 03-05-2020 asymmetric patella FDA Start: 03-05-2020 cruciate retaini ng femoral FDA Start: 03-05-2020 tibial bearing insert - CS FDA Start: 03-05-2020 tibial component FDA Start: 03-05-2020 asymmetric patella FDA Start: 03-05-2020 cruciate retaini ng femoral FDA Start: 03-05-2020 tibial bearing insert - CS FDA Start: 03-05-2020 tibial component FDA Start: 03-05-2020 asymmetric patella FDA Start: 03-05-2020 cruciate retaini ng femoral FDA Start: 03-05-2020 tibial bearing insert - CS FDA Start: 03-05-2020 tibial component FDA Start: 03-05-2020 asymmetric patella FDA Start: 03-05-2020 cruciate retaini ng femoral FDA Start: 03-05-2020 tibial bearing insert - CS FDA Start: 03-05-2020 tibial component FDA Start: 03-05-2020 asymmetric patella FDA Start: 03-05-2020 cruciate retaini ng femoral FDA Start: 03-05-2020 tibial bearing insert - CS FDA Start: 03-05-2020 tibial component FDA Start: 03-05-2020 asymmetric patella FDA Start: 03-05-2020 cruciate retaini ng femoral FDA Start: 03-05-2020 tibial bearing insert - CS FDA Start: 03-05-2020 tibial component FDA Start: 03-05-2020 asymmetric patella FDA Start: 03-05-2020 cruciate retaini ng femoral FDA Start: 03-05-2020 tibial bearing insert - CS FDA Start: 03-05-2020 tibial component FDA Start: 03-05-2020 asymmetric patella FDA Start: 03-05-2020 cruciate retaini ng femoral FDA Start: 03-05-2020 tibial bearing insert - CS FDA Start: 03-05-2020 tibial component FDA Start: 03-05-2020 asymmetric patella FDA Start: 03-05-2020 cruciate retaini ng femoral FDA Start: 03-05-2020 tibial bearing insert - CS FDA Start: 03-05-2020 tibial component FDA Start: 03-05-2020 asymmetric patella FDA Start: 03-05-2020 cruciate retaini ng femoral FDA Start: 03-05-2020 tibial bearing insert - CS FDA Start: 03-05-2020 tibial component FDA Start: 03-05-2020 asymmetric patella FDA Start: 03-05-2020 cruciate retaini ng femoral FDA Start: 03-05-2020 tibial bearing insert - CS FDA Start: 03-05-2020 tibial component FDA Start: 03-05-2020 asymmetric patella FDA Start: 03-05-2020 cruciate retaini ng femoral FDA Start: 03-05-2020 tibial bearing insert - CS FDA Start: 03-05-2020 tibial component FDA Start: 03-05-2020 asymmetric patella FDA Start: 03-05-2020 cruciate retaini ng femoral FDA Start: 03-05-2020 tibial bearing insert - CS FDA Start: 03-05-2020 tibial component FDA Start: 03-05-2020 asymmetric patella FDA Start: 03-05-2020 cruciate retaini ng femoral FDA Start: 03-05-2020 tibial bearing insert - CS FDA Start: 03-05-2020 tibial component FDA Start: 03-05-2020 Goals Date Patient Goal Desired Activity /State Mental Status Date Assessment Result Facility 05-24-2024 Cognitive function Level Of Consciousness Sedated [facility] Work Phone: 05-24-2024 Cognitive function Voice/Name [facility] Work Phone: 05-10-2023 Cognitive function Voice/Name [facility] Work Phone: 01-05-2023 Cognitive function Touch/Shaking [facility] Work Phone: 11-06-2021 Cognitive function Touch/Shaking [facility] Work Phone: 11-06-2021 Cognitive function Patient Merna tucker Person;Place;Time [facility] Work Phone: Clinical Notes 12-11-2022 to 08-10-2024 Note Date & Type Note Facility 08-10-2024 Evaluation note Diagnosis Onset Date Resolution Gall bladder stones acute July 212024 8:37am [facility] Work Phone: 1(966) 789-394405-15-2025 Radiology Diagnostic study note [facility] Imaging Services [address] [place], [place] [id number] Abdomen/Pelvis WITH Contrast MR#: [id number] Acct: [id number] Name: STEPHANIE ALCANTAR Rep #: [id number] : 1960 F 63 From: Juan Antonio Navarro MD PCP: Dr. Amish Tavares MD Status: REG C MARIA ELENA Study:Abdomen/Pelvis WITH Contrast Date of Ex am: 08/02/24 Exam# [id number] Ordering Dr: Delicia Wong DO PROCEDURE: ABDOMEN/PELVIS WITH CONTRAST 08/02/2024 REASON FOR EXAM: LUQ PAIN AND LYMPHADEMA TECHNIQUE: Abdomen and pelvis CT with intravenous contrast. Coronal and Sagittal reconstruction series were provided. PATIENT PREPARATION: Per protocol ORAL CONTRAST TYPE: None. CONTRAST: Isovue-300 VOLUME: 100 mL One or more dose reduction techniques were used (e.g., Automated exposure control, adjustment of the mA and/or kV according to patient size, use of iterative reconstruction technique. RADIATION DOSE SUMMARY: CTDlvol: 16.5 mGy DLP: 1009.87 mGycm COMPARISON: Prior study dated August 08, 2021. FINDINGS: Lung bases: Unremarkable Liver: Normal size. No mass. Gallbladder: Gallstones. Spleen: Normal size. Pancreas: Normal size without evidence of mass surrounding inflammation or ductal dilation. Adrenals: Unremarkable Kidneys: Normal renal sizes. No hydronephrosis. Bladder: Unremarkable Reproductive Organs: Normal uterine size and contour. Ovaries are unremarkable. Bowel: Unremarkable Appendix: Unremarkable Lymph nodes: Unremarkable. Vasculature: The abdominal aorta and IVC are normal. Peritoneum / Retroperitoneum: Unremarkable Bones: Prior vertebroplasty and loss of height of the L3 and L4 vertebrae. CT/Abdomen/Pelvis WITH Contrast IMPRESSION: Findings suggestive of cholelithiasis. Prior vertebroplasty of the L3 and L4 vertebrae. Reading Location: [id number] CC: Dr. Delicia Smith DO; Dr. 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 Marketing Analyst: Signed [facility]04-17-2025 Evaluation note* Diagnosis Onset Date Resolution Status Admit Date Acquired lymphedema acute July 06, 2024 1:23pm Left upper quadrant pain acute July 06, 2024 1:23pm Encounter for routine gynecological examination noneactive July 06, 2024 1:23pm Dysequilibrium acute July 24, 2 025 2:34pm Edema acute July 24, 2024 2:34pm Knee pain, right acute July 24, 2024 2:34pm Polyneuropathy acute July 24, 2 025 2:34pm Gall bladder stones acute July 212024 8:37am [facility] Work Phone: 1(519) 263-276303-05-2025 [facility] Medical Records Department [address] [place] [id number] History Physical Exam 05/24/24 0642 MR#: [id number] Acct: [id number] Name: STEPHANIE ALCANTAR Rep #: [id number] : 1960 63 From: Yaakov Ambriz DO PCP: Dr. Amish Tavares MD Status:[facility] Location: [place] [address] HPI - General General Date of Admission: 05/24/24 Date of Service: 05/24/24 Chief Complaint: abdominal pain and dysphagia HPI Narrative STEPHANIE ALCANTAR, is a 63 F who presents for the evaluation of abdominal pain and dysphagia Prior workup: ? US 05.16.21 without acute/chronic finding ? HIDA 06.20.21 EF 49% *BGI established 08.04.21 with symptoms of intermittent RUQ pain since which later moved to [facility] and began self-treatment for life-long constipation (BM Q3D with small hard stool). Intermittent food sticking sensation. ? CT abd/pel 08.08.21 without acute/chronic finding ? EGD and colonoscopy 11.06.21 EGD mild Schatzki ring, irregular Zline, metaplasia/lymphoid +; medium hiatal hernia ? Colonoscopy diverticulosis; congested mucosa. No path changes ? GET 11.11.21 49.08 minutes (12-56) OV 11.20.21 increase PPI to BID; start MiraLAX/kiwi/dried apricots. OV 02.18.22 doing well, continue PPI ? EGD 10.17.23 Blount???s, metaplasia +; medium hiatal hernia. Lymphoid aggregate resolved. Contact 02.17.23 she is starting methotrexate and has concern regarding PPI interaction. Advised she needs to talk to methotrexate prescriber as she has not been seen in clinic in a year. EGD results discussed. OV 03.18.23 Methotrexate prescriber instructed her to stop PPI use. With stop of PPI she has been having frequent, daily heartburn. Without use of fiber/MiraLAX she will not have BM for several days; with this she has a BM each day. Over the summer she fell with fracture of three vertebra; underwent bone density scan showing severe osteoporosis and was then diagnosed with rheumatoid arthritis. OV 04.20.24 pt reports a bm once every 3-4 days. Pt reports constant burning in her stomach. Reports some difficulty swallowing food. [facility] Medical History (Updated 05/24/24 @ 06:[address] Nuno Friend, DO) Dysphagia History of steroid therapy Fatty liver Vitamin D deficiency Acute bronchitis, unspecified Genetic testing of female Barretts esophagus History of echocardiogram Vasovagal episode Fall Vertigo Restless legs History of hiatal hernia History of edema Low back pain Acute lumbar myofascial strain Wears glasses Post-menopausal Cancer Back pain Seizures Gastric reflux Non-smoker History of stress test Chronic constipation Early satiety Acid reflux Abdominal pain Arthritis History of seizure Acute sinusitis Head congestion Raynauds syndrome Hx of ovarian cyst Home Medications ???Medication ???Instructions ???Recorded ???Last Taken ???Type mecobalamin (vitamin B12) 2,500 2,500 mcg PO DAILY 07/06/23 History mcg chewable tablet calcium 600 mg capsule 600 mg PO WE 09/07/23 11/07/23 His tory cholecalciferol (vitamin D3) 50 50 mcg PO .QOD 09/07/23 11/07/23 H istory mcg (2,000 unit) capsule methotrexate sodium 2.5 mg tablet 20 mg PO TU 12/29/23 05/23/24 His tory folic acid 20 mg capsule 20 mg PO DAILY Rheumatoid arthriti s 01/26/24 05/23/24 History Tymlos (abaloparatide) 80 mcg (0.04 mL) subcut DAILY 12/1305/23/24 Rx #4.68 mL flurbiprofen 100 mg tablet 100 mg PO TID PRN pain #90 tabs 05/22/24 Rx loratadine 10 mg tablet 10 mg PO DAILY PRN dizziness #30 0 04/18/24 Unknown Rx tabs pantoprazole 40 mg tablet,delayed 40 mg PO QDAY #90 tabs 04/20/24 0 05/23/24 Rx release Allergy/AdvReac Type Severity Reaction Status Date / Time magnesium Allergy Severe Other Verified 05/24/24 05:44 celecoxib (From Celebrex) Allergy Intermediate Shortness Verified 05/24/24 05:44 of breath Family History Sister Ovarian cancer Aunt Breast cancer Mother Breast cancer Father CVA (cerebral vascular accident) Surgical History Hx of esophagogastroduodenoscopy Hx of kyphoplasty Hx of colonoscopy History of ovarian cystectomy History of total knee replacement (TKR) Hx of arthroscopy of right knee Hx of section Social History Smoking Status: Never smoker alcohol intake: current alcohol intake frequency: holidays/spe (more content not included)...[facility]01-28-2025 Evaluation note* Diagnosis Onset Date Resolution Status Admit Date Dysequilibrium acute April 182024 1:57pm Knee pain, right acute April 18, 2024 1:57pm Low back pain acute March 1:57pm Polyneuropathy acute April 182024 1:57pm Abdominal pain acute April 202024 1:34pm Acid reflux chronic April 20, 2024 1:34pm Barretts esophagus chronic Maruar y 2024 1:34pm Chronic constipation chronic Jm elliott 2024 1:34pm Hiatal hernia chronic March 1:34pm Abdominal pain acute May 24, 2024 5:21am Dysphagia acute May 24 5:21am Barretts esophagus chronic May 24, 2024 5:21am Abdominal pain acute May 7:56am Acid reflux chronic June 09, 2 025 7:56am Barretts esophagus chronic June 09, 2024 7:56am Chronic constipation chronic Samuel h 2024 7:56am Hiatal hernia chronic June 09, 2024 7:56am [facility] Work Phone: 1(747) 612-468101-28-2025 Evaluation note* Diagnosis Onset Date Resolution Status Admit Date Dysequilibrium acute April 182024 1:57pm Knee pain, right acute April 18, 2024 1:57pm Low back pain acute March 1:57pm Polyneuropathy acute April 182024 1:57pm Abdominal pain acute April 202024 1:34pm Acid reflux chronic April 20, 2024 1:34pm Barretts esophagus chronic 2024 1:34pm Chronic constipation chronic Jm elliott 2024 1:34pm Hiatal hernia chronic March 1:34pm Abdominal pain acute May 24, 2024 5:21am Dysphagia acute May 24 5:21am Barretts esophagus chronic May 24, 2024 5:21am Abdominal pain acute May 7:56am Acid reflux chronic June 09, 2 025 7:56am Barretts esophagus chronic June 09, 2024 7:56am Chronic constipation chronic Samuel h 2024 7:56am Hiatal hernia chronic June 09, 2024 7:56am Acquired lymphedema acute July 06, 2024 1:23pm Left upper quadrant pain acute July 06, 2024 1:23pm Encounter for routine gynecological examination noneactive July 06, 2024 1:23pm [facility] Work Phone: 1(452) 471-693101-28-2025 Evaluation note* Diagnosis Onset Date Resolution Status Admit Date Dysequilibrium acute April 182024 1:57pm Knee pain, right acute April 18, 2024 1:57pm Low back pain acute March 1:57pm Polyneuropathy acute April 182024 1:57pm Abdominal pain acute April 202024 1:34pm Acid reflux chronic April 20, 2024 1:34pm Barretts esophagus chronic y 2024 1:34pm Chronic constipation chronic Jm elliott 2024 1:34pm Hiatal hernia chronic March 1:34pm Abdominal pain acute May 24, 2024 5:21am Dysphagia acute May 24 5:21am Barretts esophagus chronic May 24, 2024 5:21am Abdominal pain acute May 7:56am Acid reflux chronic June 09, 2 025 7:56am Barretts esophagus chronic June 09, 2024 7:56am Chronic constipation chronic 2024 7:56am Hiatal hernia chronic June 09, 2024 7:56am Acquired lymphedema acute July 06, 2024 1:23pm Left upper quadrant pain acute July 06, 2024 1:23pm Encounter for routine gynecological examination noneactive July 06, 2024 1:23pm Dysequilibrium acute July 24, 2 025 2:34pm Edema acute July 24, 2024 2:34pm Knee pain, right acute July 24, 2024 2:34pm Polyneuropathy acute July 24, 2 025 2:34pm [facility] Work Phone: 1(419) 903-946811-29-2024 Evaluation note* Diagnosis Onset Date Resolution Status Admit Date COVID-19 acute February 18, 2024 8:59am Acute bronchitis, unspecified acute February 22, 2024 11:51am Osteoporosis chronic February 7:47am Vitamin D deficiency chronic Dece mber 2023 7:47am Dysequilibrium acute April 182024 1:57pm Knee pain, right acute April 18, 2024 1:57pm Low back pain acute March 1:57pm Polyneuropathy acute April 182024 1:57pm Abdominal pain acute April 202024 1:34pm Acid reflux chronic April 20, 2024 1:34pm Barretts esophagus chronic Januar y 2024 1:34pm Chronic constipation chronic Jm elliott 2024 1:34pm Hiatal hernia chronic March 1:34pm Abdominal pain acute May 24, 2024 5:21am Dysphagia acute May 24 5:21am Barretts esophagus chronic May 24, 2024 5:21am Abdominal pain acute May 7:56am Acid reflux chronic June 09, 2 025 7:56am Barretts esophagus chronic June 09, 2024 7:56am Chronic constipation chronic Samuel 2024 7:56am Hiatal hernia chronic June 09, 2024 7:56am [facility] Work Phone: 1(973) 175-978604-16-2024 NotePap Smear Specimen AdequacyApril 2023 1:59pmComment.Satisfactory for evaluation. Endocervical component may not bedistinguished in cases of atrophy.[facility] A#[id number] Wert County HospitalComment on above:Satisfactory for evaluation. Endocervical component may not bedistinguished in cases of atrophy.07-06-2023 NotePap Smear Specimen AdequacyApril 2023 1:59pmComment.Satisfactory for evaluation. Endocervical component may not bedistinguished in cases of atrophy.[facility] A#[id number] Wert County HospitalComment on above:Satisfactory for evaluation. Endocervical component may not bedistinguished in cases of atrophy. 07-06-2023 NotePap Smear Specimen AdequacyApril 2023 1:59pmComment. Satisfactory for evaluation. Endocervical component may not bedistinguished in cases of atrophy.[facility] A#[id number] Wert County HospitalComment on above:Satisfactory for evaluation. Endocervical component may not bedistinguished in cases of atrophy.06-28-2023 Discharge summary Author Sam Arias [facility] June 28, 2023 9:31am Note Date/Time June 28, 2023 9:31 am [facility] Physical Therapy [address] [place] [address] / REHABILITATION SERVICES DISCHARGE SUMMARY MR#: [id number] Acct: [id number] Name: STEPHANIE ALCANTAR Rep #: [id number] : 1960 62 From: Sam Mireles Referring Dr.: Dr. Kannan Cortez MD Status: REG RCR Insurance: [facility] [employer] [employer] [facility] Patient Information Patient Information: STEPHANIE ALCANTAR was seen in my office for initial evaluation on 02/12/23. The following Plan of Care was established for this patient: POC Established Initial Frequency: 2x /Week Initial Duration: 6 Weeks Anticipated Interventions Patient/Client Instruction: Educate patient on: Condition, Plan of Care and Risk Factors For the Purpose of:: To foster healthy habits, To improve decision making, To facilitate caregiver knowledge, To improve self management, To prevent re- injuryand To improve ability to perform tasks related to life management Therapeutic Exercise to Include: Strength training, Power training, Balance training, Postural training, Flexibilty training, In an aquatic setting and Dynamic Lumbar Stabilization For the Purpose of:: To decrease pain, To increase ROM, To improve nutrient delivery to tissue, To increase oxygenation perfusion, To improve muscle performance and motor function, To improve ability to perform ADL's, To improve ability of physical actions for home/community/work/leisure, To improve gait andlocomotor functions, To improve health of tissue, To decrease soft tissue restriction and To increase flexibility/ROM Last Seen Last Seen: This patient was last seen in our office 03/08/23. Pertinent comments regardingtheir Physical therapy will appear below: Pt. was seen in Pt in aquatic setting for her back and B knee pain. She was doing better and felt comfortable to starting doing her exercises on her own at her last visit. Pt. was to follow up with PT if needed. She has not been back inseveral months and will be DC from PT at this point in time. At this point I will be discontinuing this patient from physical therapy. I would be happy to see this patient again in the future if found appropriate by thephysician. Thank you! Sam Arias, DPT Balance/Gait/Functional tests Balance/Special Test Scores Functional Gait Assessment Score: 24 % Disability: 20.0000 Lower Extremity Functional Score: 38 TUG Test Time Seconds: 12 Tug Test: <20 sec.=mostly independent 30 Second Chair Rise Test Seconds: 8 <Electronically signed by Sam Arias DPT> 06/28/23 0931 CC: Dr. Kannan Cortez MD; Dr. Amish Tavares MD ~ CLS Signed [facility] Work Phone: 1(621) 525-557002-19-2024 Procedure [facility] 01-05-2023 Procedure [facility]10-17-2023 Procedure note [facility]09-22-2023 Discharge summary Author Sam Arias [facility] December 11, 2022 3:10pm Note Date/Time December 11, 2022 3:10pm [facility] Physical Therapy [facility] [address] [place] [address] / REHABILITATION SERVICES DISCHARGE SUMMARY MR#: [id number] Acct: [id number] Name: STEPHANIE ALCANTAR Rep #: [id number] : 1960 62 From: Sam Arias DP T Referring Dr.: Dr. Amihs Tavares MD Status: REG RCR Insurance: [employer] [employer] [facility]URANCE Patient Information Patient Information: STEPHANIE ALCANTAR was seen in my office for initial evaluation on 08/13/22. The following Plan of Care was established for this patient: POC Established Initial Frequency: 4-5x /Week Anticipated Interventions Patient/Client Instruction: Educate patient on: Condition and Plan of Care For the Purpose of:: To decrease pain, To decrease swelling/inflammation, To increase ROM and To assume or resume ADL's Therapeutic Exercise to Include: Strength training, Body mechanics and Postural training For the Purpose of:: To decrease pain, To decrease swelling/inflammation, To increase ROM and To assume or resume ADL's Last Seen Last Seen: This patient was last seen in our office 09/09/22. Pertinent comments regardingtheir Physical therapy will appear below: Pt. will be DC from PT at this point in time. She was to follow back up with physician. Pt. has not been seen in PT in several months and will be DC at this point in time. At this point I will be discontinuing this patient from physical therapy. I would be happy to see this patient again in the future if found appropriate by the physician. Thank you! Sam Arias, DPT Balance/Gait/Functional tests Balance/Special Test Scores Oswestry Low Back Score: 29 <Electronically signed by Sam Arias DPT> 12/11/22 1510 CC: Dr. Amish Tavares MD ~ CLS Signed [facility] Work Phone: Chief complaint+Reason for visit Narrative* Chief Complaint COVID-19 RUQ PAIN RUQP ABDOMINAL FARRELL SCREENING [facility] Work Phone: Chief complaint+Reason for visit Narrative* Chief Complaint COVID-19 OCC MED NEW/BACK PAIN/[facility] 1 W FU F/U BACK/[facility] 3 MO FU 2 W FU ACUTE LUMBAR MYOFASCIAL STRAIN/RX HERE Reason for Visit Acute lumbar myofasc ial strain Acid reflux Barretts esophagus Chronic constipation [facility] Work Phone: Evaluation noteNo assessment information available [facility] Work Phone: Evaluation note* Diagnosis Onset Date Resolution Status Abdominal pain acute Acid reflux acute Early satiety acute Chronic constipation chronic [facility] Work Phone: Evaluation note* Diagnosis Onset Date Resolution Status Acute lumbar myofascial strain acute Acid reflux acute Barretts esophagus acute Chronic constipation chronic [facility] Work Phone: Evaluation note* Diagnosis Onset Date Resolution Status Compression fracture acute Lumbar neuritis acute Segmental and somatic dysfunction of lumbar region acute Compression fracture acute Low back pain acute Compression fracture acute Lumbar neuritis acute Segmental and somatic dysfunction of lumbar region acute Compression fracture acute Lumbar neuritis acute Segmental and somatic dysfunction of lumbar region acute [facility] Work Phone: Evaluation note* Diagnosis Onset Date Resolution Status Compression fracture acute Lumbar neuritis acute Segmental and somatic dysfunction of lumbar region acute Compression fracture acute Low back pain acute Compression fracture acute Lumbar neuritis acute Segmental and somatic dysfunction of lumbar region acute Compression fracture acute Lumbar neuritis acute Segmental and somatic dysfunction of lumbar region acute Compression fracture of L3 vertebra acute Osteoporosis acute [facility] Work Phone: Evaluation note* Diagnosis Onset Date Resolution Status Compression fracture acute Lumbar neuritis acute Segmental and somatic dysfunction of lumbar region acute Compression fracture acute Low back pain acute Compression fracture acute Lumbar neuritis acute Segmental and somatic dysfunction of lumbar region acute Compression fracture acute Lumbar neuritis acute Segmental and somatic dysfunction of lumbar region acute Compression fracture of L3 vertebra acute Osteoporosis acute Closed L4 vertebral fracture acute [facility] Work Phone: Evaluation note* Diagnosis Onset Date Resolution Status Compression fracture acute Lumbar neuritis acute Segmental and somatic dysfunction of lumbar region acute Compression fracture acute Low back pain acute Compression fracture acute Lumbar neuritis acute Segmental and somatic dysfunction of lumbar region acute Compression fracture acute Lumbar neuritis acute Segmental and somatic dysfunction of lumbar region acute Compression fracture of L3 vertebra acute Osteoporosis acute Closed L4 vertebral fracture acute History of total right knee replacement acute Joint effusion acute [facility] Work Phone: Evaluation note* Diagnosis Onset Date Resolution Status Closed L4 vertebral fracture acute History of total right knee replacement acute Joint effusion acute Osteoporosis chronic [facility] Work Phone: Evaluation note* Diagnosis Onset Date Resolution Status Osteoporosis chronic Abdominal pain acute Acid reflux chronic Barretts esophagus chronic Chronic constipation chronic Hiatal hernia chronic [facility] Work Phone: Evaluation note* Diagnosis Onset Date Resolution Status Abdominal pain acute Acid reflux chronic Barretts esophagus chronic Chronic constipation chronic Hiatal hernia chronic [facility] Work Phone: Evaluation note* Diagnosis Onset Date Resolution Status Abdominal pain acute Acid reflux chronic Barretts esophagus chronic Chronic constipation chronic Hiatal hernia chronic Encounter for routine gynecological examination noneactive [facility] Work Phone: Evaluation note* Diagnosis Onset Date Resolution Status Encounter for routine gynecological examination noneactive [facility] Work Phone: History and physical note Author Yaakov Friend [facility] January 05, 2023 2:10pm Note Date/Time January 05, 2023 2 :10pm [facility] Medical Records Department [address] [place] [id number] History & Physical Exam 01/05/23 1409 MR#: [id number] Acct: [id number] Name: STEPHANIE ALCANTAR Rep #:[id number] : 1960 62 From: Yaakov Friend DO PCP: Dr. Amish Tavares MD Status:REG S AR Location: [place] [address] History and Physical Date of Admission: 01/05/23 61 F who presents to the office today for 3 month f/u constipation, GERD, Blount's. She had EGD and colonoscopy in 10/2021. She is doing very well since then on pantoprazole 40 mg bid; used to wake up with acid refluxing to mouth, now her acid reflux is controlled. No longer has nausea. She was discovered to have Blount's esophagus on upper endoscopy. Constipation is now managed with kiwi supplement and dried apricots. Having daily BM without difficulty. Hasn't needed miralax. Only rarely has bloating. No longer has abdominal pain, used to have LUQ pain. Work-up included CT abdomen and pelvis which was normal, gastric emptying study which was normal. US and HIDA were normal. ROS Const Constitutional: No fatigue ENT ENT: Positive for difficulty swallowing Gastro GI: Positive for bloating, heartburn, difficulty swallowing and excessive flatus; No abdominal pain, belching, change in bowel habits, change in stool character, coffee ground emesis, constipation, cramping, diarrhea, feeling full early, incontinent of stools, Vomiting blood/hematemesis, Blood in stool, loose stools,Black,tarry stools, nausea/dyspepsia, pain with swallowing, vomiting or other Musc Musculoskeletal: Positive for back pain; No joint pain Skin Skin: No yellowing of the eye or itchy eyes Psych Psychiatric: No anxiety and No depression Endo Endocrine: No fatigue Aller/Imm Allergy/Immunologic: No itchy eyes Oscar/Lymp Hematologic/Lymphatic: No easy bleeding or easy bruising Exam Const General: cooperative, healthy appearing and comfortable Nutritional Appearance: average body habitus Orientation: alert, awake and oriented x3 Quality Reporting Tobacco Screening ([facility] 138) Smoking Status: Never smoker Assessment and Plan Assessment and Plan (1) Barretts esophagus: Status: Acute Plan: Continue PPI therapy. Can decrease pantoprazole from 40 mg bid to QAM. Repeat EGD in 10/2021. No longer has nausea, acid reflux. (2) Chronic constipation: Status: Chronic Plan: Continue with kiwi supplement and dried apricots. No longer has abd pain, bloating. (3) Acid reflux: Status: Acute Plan: as above Medications: Changed (4) Blount's esophagus - she will undergo an upper endoscopy to evaluate her Blount's esophagus. She was explained alternatives, risk, benefits including not withstanding bleeding, infection, sepsis, perforation, need for emergent surgery . She have an ASA of 2. I have examined the patient and the H&P has been reviewed. There are no clinicalchanges since date of exam. From pantoprazole 40 mg PO BID 180 tabs 0RF To pantoprazole 40 mg PO QAM 90 tabs 3RF 01/05/23 1410 <Electronically signed by Yaakov Ambriz DO> Cosigner Signature (if applicable): CC: Dr. Amish Tavares MD; Yaakov Ambriz DO~ Signed [facility] Work Phone: Reason for referral (narrative)No reason for referral information availableWTriHealth [facility] Work [facility]: Summary Purpose Family History No Family History Records Found Relationship Condition Age at Onset Recorded Date/T camron sister Malignant neoplasm Unknown aunt Malignant neoplasm of breast Unknown Relationship Condition Age at Onset Recorded Date/T camron sister Malignant neoplasm of ovary Unknown mother Malignant neoplasm of breast Unknown father Cerebrovascular accident (CVA) Unknown Relationship Condition Age at Onset Recorded Date/T camron sister Malignant neoplasm of ovary Unknown aunt Malignant neoplasm of breast Unknown mother Malignant neoplasm of breast Unknown father Cerebrovascular accident (CVA) Unknown Advance Directives No Advanced Directives Records Found Advance Directive Response Recorded Date/ Time Advance Directives Yes March 25, 2021 2:23pm Living Will Yes March 25 2:23pm Power of Chemist Yes March 25 022 2:23pm Advance Directive Response Recorded Date/ Time Name of Medical Power of Chemist NUNO ALCANTAR November 04, 2021 10:02am Advance Directives Yes March 25, 2021 2:23pm Living Will Yes November 04 10:02am Power of Chemist Yes November 04 022 10:02am Advance Directive Response Recorded Date/ Time Advance Directives Yes January 2:48pm Living Will Yes January 29 022 2:48pm Power of Chemist Yes January 29, 2022 2:48pm Advance Directive Response Recorded Date/ Time Advance Directives Yes January 3:48pm Living Will Yes January 29 022 3:48pm Power of Chemist Yes January 29, 2022 3:48pm Advance Directive Response Recorded Date/ Time Advance Directives Yes October 15 9:55am Living Will Yes October 15, 2022 9:55am Power of Chemist Yes October 15 9:55am Advance Directive Response Recorded Date/ Time Name of Medical Power of Chemist SAMIR- LOWELL MERAZ December 30, 2022 1:12pm Advance Directives Yes December 21, 2022 1:37pm Living Will Yes December 30 1:12pm Power of Chemist Yes December 30, 2022 1:12pm Advance Directive Response Recorded Date/ Time Name of Medical Power of Chemist SON- LOWELL MERAZ December 30, 2022 12:12pm Advance Directives Yes December 21, 2022 12:37pm Living Will Yes December 30 12:12pm Power of Chemist Yes December 30, 2022 12:12pm Advance Directive Response Recorded Date/ Time Name of Medical Power of Chemist SON May 07, 2023 1:19pm Advance Directives Yes December 21, 2022 12:37pm Living Will Yes May 07, 024 1:19pm Power of Chemist Yes May 07, 2023 1:19pm Advance Directive Response Recorded Date/ Time Name of Medical Power of Chemist SON May 07, 2023 2:19pm Advance Directives Yes December 21, 2022 1:37pm Living Will Yes May 07, 024 2:19pm Power of Chemist Yes May 07, 2023 2:19pm Advance Directive Response Recorded Date/ Time Name of Medical Power of Chemist SON May 07, 2023 2:19pm Advance Directives Yes January 3:48pm Living Will Yes May 07, 024 2:19pm Power of Chemist Yes May 07, 2023 2:19pm Advance Directive Response Recorded Date/ Time Living Will Yes May 07 024 2:19pm Do you have a Healthcare Power of Chemist? Yes May 07, 2023 2:19pm Living Will Yes May 22, 2024 9:30am Do you have a Healthcare Power of Chemist? Yes May 22, 2024 9:30am Name of Medical Power of Chemist DAUGHTER May 22, 2024 9:30am Advance Directives Yes December 21, 2022 1:37pm Advance Directive Response Recorded Date/ Time Advance Directives Yes December 21, 2022 1:37pm Chief Complaint and Reason for Visit Chief Complaint RUQ PAIN RUQP ABDOMINAL FARRELL SCREENING INDEGESTION NAUSEA E ORDER ABDOMINAL PAIN, NAUSEA, ACID REFLUX Reason for Visit Abdominal pain Acid reflux Early satiety Chronic constipation Chief Complaint RUQP ABDOMINAL FARRELL SCREENING INDEGESTION NAUSEA E ORDER ABDOMINAL PAIN, NAUSEA, ACID REFLUX Reason for Visit Abdominal pain Acid reflux Early satiety Chronic constipation Chief Complaint INDEGESTION NAUSEA E ORDER ABDOMINAL PAIN, NAUSEA, ACID REFLUX 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 Reason for Visit Abdominal pain Acid reflux Early satiety Chronic constipation Chief Complaint INDEGESTION NAUSEA E ORDER ABDOMINAL PAIN, NAUSEA, ACID REFLUX 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, ACID REFLUX Reason for Visit Abdominal pain Acid reflux Early satiety Chronic constipation Chief Complaint SCREENING EST CARE EORDER LOWER BACK PAIN/INJURY Back pain BACK PAIN RX HERE Back pain Reason for Visit Compression fracture Lumbar neuritis Segmental and somatic dysfunction of lumbar region Compression fracture Low back pain Compression fracture Lumbar neuritis Segmental and somatic dysfunction of lumbar region Compression fracture Lumbar neuritis Segmental and somatic dysfunction of lumbar region Chief Complaint SCREENING EST CARE EORDER LOWER BACK PAIN/INJURY Back pain BACK PAIN RX HERE Back pain Pain Reason for Visit Compression fracture Lumbar neuritis Segmental and somatic dysfunction of lumbar region Compression fracture Low back pain Compression fracture Lumbar neuritis Segmental and somatic dysfunction of lumbar region Compression fracture Lumbar neuritis Segmental and somatic dysfunction of lumbar region Chief Complaint SCREENING EST CARE EORDER LOWER BACK PAIN/INJURY Back pain BACK PAIN RX HERE Back pain Pain POSTMENOPAUSAL Reason for Visit Compression fracture Lumbar neuritis Segmental and somatic dysfunction of lumbar region Compression fracture Low back pain Compression fracture Lumbar neuritis Segmental and somatic dysfunction of lumbar region Compression fracture Lumbar neuritis Segmental and somatic dysfunction of lumbar region Chief Complaint SCREENING EST CARE EORDER LOWER BACK PAIN/INJURY Back pain Back pain Pain POSTMENOPAUSAL BACK PAIN RX HERE Reason for Visit Compression fracture Lumbar neuritis Segmental and somatic dysfunction of lumbar region Compression fracture Low back pain Compression fracture Lumbar neuritis Segmental and somatic dysfunction of lumbar region Compression fracture Lumbar neuritis Segmental and somatic dysfunction of lumbar region Chief Complaint SCREENING EST CARE EORDER LOWER BACK PAIN/INJURY Back pain Back pain Pain POSTMENOPAUSAL BACK PAIN RX HERE LUMBER SPINE XRAY LUMBAR SPINE- compression fx Reason for Visit Compression fracture Lumbar neuritis Segmental and somatic dysfunction of lumbar region Compression fracture Low back pain Compression fracture Lumbar neuritis Segmental and somatic dysfunction of lumbar region Compression fracture Lumbar neuritis Segmental and somatic dysfunction of lumbar region Compression fracture of L3 vertebra Osteoporosis Chief Complaint EST CARE EORDER LOWER BACK PAIN/INJURY Back pain Back pain Pain POSTMENOPAUSAL BACK PAIN RX HERE LUMBER SPINE XRAY LUMBAR SPINE- compression fx Wedge compression fracture third lumbar vertebrae LUMBAR SPINE KNEE PAIN Reason for Visit Compression fracture Lumbar neuritis Segmental and somatic dysfunction of lumbar region Compression fracture Low back pain Compression fracture Lumbar neuritis Segmental and somatic dysfunction of lumbar region Compression fracture Lumbar neuritis Segmental and somatic dysfunction of lumbar region Compression fracture of L3 vertebra Osteoporosis Closed L4 vertebral fracture Chief Complaint EST CARE EORDER LOWER BACK PAIN/INJURY Back pain Back pain Pain POSTMENOPAUSAL BACK PAIN RX HERE LUMBER SPINE XRAY LUMBAR SPINE- compression fx Wedge compression fracture third lumbar vertebrae LUMBAR SPINE KNEE PAIN RIGHT KNEE EORDER Reason for Visit Compression fracture Lumbar neuritis Segmental and somatic dysfunction of lumbar region Compression fracture Low back pain Compression fracture Lumbar neuritis Segmental and somatic dysfunction of lumbar region Compression fracture Lumbar neuritis Segmental and somatic dysfunction of lumbar region Compression fracture of L3 vertebra Osteoporosis Closed L4 vertebral fracture History of total right knee replacement Joint effusion Chief Complaint Wedge compression fr acture third lumbar vertebrae LUMBAR SPINE KNEE PAIN RIGHT KNEE EORDER Osteoporosis EORDER [place]. RX HERE Reason for Visit Closed L4 vertebral fracture History of total right knee replacement Joint effusion Osteoporosis Chief Complaint Osteoporosis EORDER [place]. RX HERE 2 WK FU Reason for Visit Osteoporosis Abdominal pain Acid reflux Barretts esophagus Chronic constipation Hiatal hernia Chief Complaint F[place]QU[place]S. 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) PELVIC PAIN; SCREENING Reason for Visit Encounter for routin e gynecological examination Chief Complaint Admit Date FEVER/ST/COUGH/SINUS PRESSURE January 212023 8:59am COUGH/SINUS COMPLIANT February 22, 2024 11:51am 1 Y FU February 28, 2024 7 :47am INT LABS February 28, 2024 8 :45am PAIN- COPY PCP March 24, 2024 2: 21pm RHUMATOID ARTHRITIS April 05, 2024 1 0:30am 3 month f/u April 18, 2024 1 :57pm follow up to medication issues March 242024 1:34pm PAIN- COPY PCP April 21, 2024 1 0:46am DYSEQUUILIBRIUM May 05, 2024 8:00am PAIN- COPY PCP June 05, 2024 2:3 4pm Test Result June 09, 2024 7:5 6am Reason for Visit Admit Date COVID-19 February 18, 2024 8:59am Acute bronchitis, unspecified February 212023 11:51am Osteoporosis February 28, 2024 7 :47am Vitamin D deficiency February 28, 2024 7:47am Dysequilibrium April 18, 2024 1 :57pm Knee pain, right April 18, 2024 1 :57pm Low back pain April 18, 2024 1 :57pm Polyneuropathy April 18, 2024 1 :57pm Abdominal pain April 20, 2024 1 :34pm Acid reflux April 20, 2024 1 :34pm Barretts esophagus April 20, 2024 1 :34pm Chronic constipation April 20, 2024 1:34pm Hiatal hernia April 20, 2024 1 :34pm Abdominal pain May 24, 2024 5:21 am Dysphagia May 24, 2024 5:21 am Barretts esophagus May 24, 2024 5:21 am Abdominal pain June 09, 2024 7:5 6am Acid reflux June 09, 2024 7:5 6am Barretts esophagus June 09, 2024 7:5 6am Chronic constipation June 09, 2024 7: 56am Hiatal hernia June 09, 2024 7:5 6am Chief Complaint Admit Date PAIN- COPY PCP March 24, 2024 2: 21pm RHUMATOID ARTHRITIS April 05, 2024 1 0:30am 3 month f/u April 18, 2024 1 :57pm follow up to medication issues March 242024 1:34pm PAIN- COPY PCP April 21, 2024 1 0:46am DYSEQUUILIBRIUM May 05, 2024 8:00am PAIN- COPY PCP June 05, 2024 2:3 4pm Test Result June 09, 2024 7:5 6am SWELLING AND PAIN June 30, 2024 10: 52am Reason for Visit Admit Date Dysequilibrium April 18, 2024 1 :57pm Knee pain, right April 18, 2024 1 :57pm Low back pain April 18, 2024 1 :57pm Polyneuropathy April 18, 2024 1 :57pm Abdominal pain April 20, 2024 1 :34pm Acid reflux April 20, 2024 1 :34pm Barretts esophagus April 20, 2024 1 :34pm Chronic constipation April 20, 2024 1:34pm Hiatal hernia April 20, 2024 1 :34pm Abdominal pain May 24, 2024 5:21 am Dysphagia May 24, 2024 5:21 am Barretts esophagus May 24, 2024 5:21 am Abdominal pain June 09, 2024 7:5 6am Acid reflux June 09, 2024 7:5 6am Barretts esophagus June 09, 2024 7:5 6am Chronic constipation June 09, 2024 7: 56am Hiatal hernia June 09, 2024 7:5 6am Chief Complaint Admit Date PAIN- COPY PCP March 24, 2024 2: 21pm RHUMATOID ARTHRITIS April 05, 2024 1 0:30am 3 month f/u April 18, 2024 1 :57pm follow up to medication issues March 242024 1:34pm PAIN- COPY PCP April 21, 2024 1 0:46am DYSEQUUILIBRIUM May 05, 2024 8:00am PAIN- COPY PCP June 05, 2024 2:3 4pm Test Result June 09, 2024 7:5 6am SWELLING AND PAIN June 30, 2024 10: 52am LEG SWELLING July 05, 2024 8:5 5am 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, 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 1:2 3pm Reason for Visit Admit Date Dysequilibrium April 18, 2024 1 :57pm Knee pain, right April 18, 2024 1 :57pm Low back pain April 18, 2024 1 :57pm Polyneuropathy April 18, 2024 1 :57pm Abdominal pain April 20, 2024 1 :34pm Acid reflux April 20, 2024 1 :34pm Barretts esophagus April 20, 2024 1 :34pm Chronic constipation April 20, 2024 1:34pm Hiatal hernia April 20, 2024 1 :34pm Abdominal pain May 24, 2024 5:21 am Dysphagia May 24, 2024 5:21 am Barretts esophagus May 24, 2024 5:21 am Abdominal pain June 09, 2024 7:5 6am Acid reflux June 09, 2024 7:5 6am Barretts esophagus June 09, 2024 7:5 6am Chronic constipation June 09, 2024 7: 56am Hiatal hernia June 09, 2024 7:5 6am Acquired lymphedema July 06, 2024 1:2 3pm Left upper quadrant pain July 06 1:23pm Encounter for routine gynecological exam ination July 06, 2024 1:23pm Chief Complaint Admit Date 3 month f/u April 18, 2024 1 :57pm follow up to medication issues March 242024 1:34pm PAIN- COPY PCP April 21, 2024 1 0:46am DYSEQUUILIBRIUM May 05, 2024 8:00am PAIN- COPY PCP June 05, 2024 2:3 4pm Test Result June 09, 2024 7:5 6am SWELLING AND PAIN June 30, 2024 10: 52am LEG SWELLING July 05, 2024 8:5 5am 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, 2024 1:2 3pm SCREENING July 17, 2024 7:0 8am 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 July 24, 2024 10:16a m 6 M FU July 24, 2024 2:34pm LYMPHEDEMA/RX HERE July 27, 2024 2:30pm LUQ PAIN AND LYMPHADEMA *oral & IV contr ast* August 02, 2024 6:59am PAIN- COPY PCP August 04, 2024 10:47 am Reason for Visit Admit Date Dysequilibrium April 18, 2024 1 :57pm Knee pain, right April 18, 2024 1 :57pm Low back pain April 18, 2024 1 :57pm Polyneuropathy April 18, 2024 1 :57pm Abdominal pain April 20, 2024 1 :34pm Acid reflux April 20, 2024 1 :34pm Barretts esophagus April 20, 2024 1 :34pm Chronic constipation April 20, 2024 1:34pm Hiatal hernia April 20, 2024 1 :34pm Abdominal pain May 24, 2024 5:21 am Dysphagia May 24, 2024 5:21 am Barretts esophagus May 24, 2024 5:21 am Abdominal pain June 09, 2024 7:5 6am Acid reflux June 09, 2024 7:5 6am Barretts esophagus June 09, 2024 7:5 6am Chronic constipation June 09, 2024 7: 56am Hiatal hernia June 09, 2024 7:5 6am Acquired lymphedema July 06, 2024 1:2 3pm Left upper quadrant pain July 06 1:23pm Encounter for routine gynecological exam ination July 06, 2024 1:23pm Dysequilibrium July 24, 2024 2:34pm Edema July 24, 2024 2:34pm Knee pain, right July 24, 2024 2:34pm Polyneuropathy July 24, 2024 2:34pm Chief Complaint Admit Date SWELLING AND PAIN June 30, 2024 10: 52am LEG SWELLING July 05, 2024 8:5 5am 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, 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 1:2 3pm SCREENING July 17, 2024 7:0 8am 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 July 24, 2024 10:16a m 6 M FU July 24, 2024 2:34pm LYMPHEDEMA/RX HERE July 27, 2024 2:30pm LUQ PAIN AND LYMPHADEMA *oral & IV contr ast* August 02, 2024 6:59am PAIN- COPY PCP August 04, 2024 10:47 am GALLBLADDER August 10, 2024 8:37a m PAIN- COPY PCP October 04, 2024 10:5 5am Reason for Visit Admit Date Acquired lymphedema July 06, 2024 1:2 3pm Left upper quadrant pain July 06 1:23pm Encounter for routine gynecological exam ination July 06, 2024 1:23pm Dysequilibrium July 24, 2024 2:34pm Edema July 24, 2024 2:34pm Knee pain, right July 24, 2024 2:34pm Polyneuropathy July 24, 2024 2:34pm Gall bladder stones August 10, 2024 8:37a m Chief Complaint Admit Date GALLBLADDER August 10, 2024 8:37a m PAIN- COPY PCP October 04, 2024 10:5 5am Reason for Visit Admit Date Gall bladder stones August 10, 2024 8:37a m Additional Source Comments INFORMATION SOURCE (unrecogn ized section and content) DATE CREATED AUTHOR 09/06/2018 [facility] DATE CREATED AUTHOR AUTHOR'S ORGANIZ ATION 12/07/2024 [facility] Goals (unrecognized section and content) Goals may be documented in a n alternate sectionGoals may be documented in an alternate sectionGoals may be documented in an alternate sectionGoals may be documented in an alternate section Care Teams (unrecognized sec tion and content) Team Status: Active Member Role Status Dates Dr. Amish Tavares MD Family Provider Active Dr. Amish Tavares MD Primary Care Provider Active Team Status: Inactive Member Role Status Dates Dr. Amish Tavares MD Primary Care Provider, Referring Provider Active Angela Urrutia FILTER CLOTH MAKER, FILTER CLOTH MAKER-C Attending Provider Active Team Status: Inactive Member Role Status Dates Dr. Amish Tavares MD Primary Care Provider, Referring Provider Active Ajay CEE PA Attending Provider Active Team Status: Inactive Member Role Status Dates Dr. Amish Tavares MD Primary Care Provider Active Ajay Courtney PA, PA Attending Provider, Referring Pr ovider Active Team Status: Inactive Member Role Status Dates Dr. Amish Tavares MD Primary Care Provider, Referring Provider Active Dr. Rahsmi Templeton [place] Attending Provider Active Team Status: Inactive Member Role Status Dates Dr. Amish Tavares MD Primary Care Provider, Referring Provider Active Esa CEE PA Attending Provider Active Team Status: Inactive Member Role Status Dates Dr. Amish Tavares MD Primary Care Provider, Attending Provider Active Team Status: Active Member Role Status Dates Dr. Amish Tavares MD Primary Care Provi yin, Attending Provider, Referring Provider Active Team Status: Inactive Member Role Status Dates Dr. Amish Tavares MD Primary Care Provider Active Dr. Rashmi Templeton [place] Attending Provider, Referring Pro vider Active Team Status: Inactive Member Role Status Dates Dr. Amish Tavares MD Primary Care Provider Active Esa CEE PA Attending Provider, Referring Prov ider Active Team Status: Inactive Member Role Status Dates Dr. Amish Tavares MD Primary Care Provi yin, Attending Provider, Referring Provider Active Team Status: Inactive Member Role Status Dates Dr. Amish Tavares MD Primary Care Provider, Referring Provider Active Dr. Ashok Bazzi DO Attending Provider Active Team Status: Inactive Member Role Status Dates Dr. Ashok Bazzi DO Attending Provider, Referring P rovider Active Dr. Amish Tavares MD Primary Care Provider Active Team Status: Inactive Member Role Status Dates Dr. Amish Tavares MD Primary Care Provider Active Dr. Ashok Bazzi DO Attending Provider, Referring P rovider Active Team Status: Active Member Role Status Dates Dr. Amish Tavares MD Primary Care Provider Active Health Risk Assessment Attending Provider, Referring P rovider Active Team Status: Inactive Member Role Status Dates Dr. Amish Tavares MD Primary Care Provider, Referring Provider Active Dr. Nnamdi Morales DO Attending Provider Active Team Status: Inactive Member Role Status Dates Dr. Amish Tavares MD Primary Care Provider Active Dr. Nnamdi Morales DO Attending Provider, Referring Provider Active Team Status: Active Member Role Status Dates Dr. Amish Tavares MD Primary Care Provider, Referring Provider Active Dr. Yaakov Ambriz DO Attending Provider, Other Prov ider Active Team Status: Inactive Member Role Status Dates Dr. Amish Tavares MD Primary Care Provider, Referring Provider Active Dr. Yaakov Ambriz DO Attending Provider Active Team Status: Inactive Member Role Status Dates Dr. Amish Tavares MD Primary Care Provider, Referring Provider Active Dr. Bear Pryor MD Attending Provider Active Team Status: Active Member Role Status Dates Dr. Amish Tavares MD Primary Care Provider Active Dr. Kannan Cortez MD Attending Provider, Referring Pr ovider Active Team Status: Inactive Member Role Status Dates Dr. Amish Tavares MD Primary Care Provider Active Dr. Bear Pryor MD Attending Provider, Referring Provi yin Active Team Status: Inactive Member Role Status Dates Dr. Amish Tavares MD Primary Care Provider Active Dr. Claudia Krishna MD Attending Provider Active Team Status: Inactive Member Role Status Dates Dr. Amish Tavares MD Primary Care Provider Active Dr. Claudia Krishna MD Attending Provider, Referring Provider Active Team Status: Inactive Member Role Status Dates Dr. Amish Tavares MD Primary Care Provider Active Dr. Jatin Meraz MD Attending Provider, Referring Provider Active Team Status: Inactive Member Role Status Dates Dr. Amish Tavares MD Primary Care Provider, Referring Provider Active Dr. Jatin Meraz MD Attending Provider Active Team Status: Inactive Member Role Status Dates Dr. Amish Tavares MD Primary Care Provider Active Dr. Kannan Cortez MD Attending Provider, Referring Pr ovider Active Team Status: Inactive Member Role Status Dates Dr. Amish Tavares MD Primary Care Provider, Referring Provider Active Dr. Delicia Smith DO Attending Provider Activ e Team Status: Inactive Member Role Status Dates Dr. Amish Tavares MD Primary Care Provider Active Dr. Delicia Smith DO Attending Provider, Refe rring Provider Active Team Status: Active Member Role Status Dates Dr. Amish Tavares MD Primary Care Provider Active Dr. Claudia Krishna MD Attending Provider, Referring Provider Active Team Status: Active Member Role Status Dates Dr. Amish Tavares MD Primary Care Provider Active Team Status: Inactive Member Role Status Dates Dr. Amish Tavares MD Primary Care Provider Active Start: February 18, 2024 End: February 18, 2024 Dr. Amish Tavares MD Referring Provider Active Start: February 18, 2024 End: February 18, 2024 Joshua CEE PA Attending Provider Active Sta rt: February 18, 2024 End: February 18, 2024 Team Status: Inactive Member Role Status Dates Dr. Amish Tavares MD Primary Care Provider Active Start: February 22, 2024 End: February 22, 2024 Dr. Amish Tavares MD Referring Provider Active Start: February 22, 2024 End: February 22, 2024 Ajay CEE PA Attending Provider Active Start: February 22, 2024 End: February 22, 2024 Team Status: Inactive Member Role Status Dates Dr. Amish Tavares MD Primary Care Provider Active Start: February 28, 2024 End: February 28, 2024 Dr. Amish Tavares MD Referring Provider Active Start: February 28, 2024 End: February 28, 2024 Dr. Bear Pryor MD Attending Provider Active Sta rt: February 28, 2024 End: February 28, 2024 Team Status: Inactive Member Role Status Dates Dr. Amish Tavares MD Primary Care Provider Active Start: February 28, 2024 End: February 28, 2024 Dr. Bear Pryor MD Attending Provider Active Sta rt: February 28, 2024 End: February 28, 2024 Dr. Bear Pryor MD Referring Provider Active Sta rt: February 28, 2024 End: February 28, 2024 Team Status: Inactive Member Role Status Dates Dr. Amish Tavares MD Primary Care Provider Active Start: March 24, 2024 End: March 24, 2024 Dr. Claudia Krishna MD Attending Provider Active Start: March 24, 2024 End: March 24, 2024 Dr. Claudia Krishna MD Referring Provider Active Start: March 24, 2024 End: March 24, 2024 Team Status: Inactive Member Role Status Dates Dr. Amish Tavares MD Primary Care Provider Active Start: April 05, 2024 End: April 05, 2024 Dr. Claudia Krishna MD Attending Provider Active Start: April 05, 2024 End: April 05, 2024 Dr. Claudia Krihsna MD Referring Provider Active Start: April 05, 2024 End: April 05, 2024 Team Status: Inactive Member Role Status Dates Dr. Amish Tavares MD Primary Care Provider Active Start: April 18, 2024 End: April 18, 2024 Dr. Amish Tavares MD Referring Provider Active Start: April 18, 2024 End: April 18, 2024 Dr. Evert Alaniz MD Attending Provider Active Start: April 18, 2024 End: April 18, 2024 Team Status: Inactive Member Role Status Dates Dr. Amish Tavares MD Primary Care Provider Active Start: April 20, 2024 End: April 20, 2024 Dr. Amish Tavares MD Referring Provider Active Start: April 20, 2024 End: April 20, 2024 Dr. Yaakov Ambriz DO Attending Provider Active Start: April 20, 2024 End: April 20, 2024 Team Status: Inactive Member Role Status Dates Dr. Amish Tavares MD Primary Care Provider Active Start: April 21, 2024 End: April 21, 2024 Dr. Claudia Krishna MD Attending Provider Active Start: April 21, 2024 End: April 21, 2024 Dr. Claudia Krishna MD Referring Provider Active Start: April 21, 2024 End: April 21, 2024 Team Status: Inactive Member Role Status Dates Dr. Amish Tavares MD Primary Care Provider Active Start: May 05, 2024 End: May 05, 2024 Dr. Evert Alaniz MD Attending Provider Active Start: May 05, 2024 End: May 05, 2024 Dr. Evert Alaniz MD Referring Provider Active Start: May 05, 2024 End: May 05, 2024 Team Status: Inactive Member Role Status Dates Dr. Amish Tavares MD Primary Care Provider Active Start: May 24, 2024 End: May 24, 2024 Dr. Amish Tavares MD Referring Provider Active Start: May 24, 2024 End: May 24, 2024 Dr. Yaakov Ambriz DO Attending Provider Active Start: May 24, 2024 End: May 24, 2024 Team Status: Active Member Role Status Dates Dr. Amish Tavares MD Primary Care Provider Active Start: May 24, 2024 Dr. Amish Tavares MD Referring Provider Active Start: May 24, 2024 Dr. Yaakov Ambriz DO Attending Provider Active Start: May 24, 2024 Dr. Yaakov Ambriz DO Other Provider Active St art: May 24, 2024 Team Status: Inactive Member Role Status Dates Dr. Amish Tavares MD Primary Care Provider Active Start: June 05, 2024 End: June 05, 2024 Dr. Claudia Krishna MD Attending Provider Active Start: June 05, 2024 End: June 05, 2024 Dr. Claudia Krishna MD Referring Provider Active Start: June 05, 2024 End: June 05, 2024 Team Status: Inactive Member Role Status Dates Dr. Amish Tavares MD Primary Care Provider Active Start: June 09, 2024 End: June 09, 2024 Dr. Amish Tavares MD Referring Provider Active Start: June 09, 2024 End: June 09, 2024 Dr. Yaakov Ambriz DO Attending Provider Active Start: June 09, 2024 End: June 09, 2024 Team Status: Inactive Member Role Status Dates Dr. Amish Tavares MD Primary Care Provider Active Start: June 30, 2024 End: June 30, 2024 Dr. Jatin Lopez DPM Attending Provider Active Start: June 30, 2024 End: June 30, 2024 Dr. Jatin Lopez DPM Referring Provider Active Start: June 30, 2024 End: June 30, 2024 Team Status: Active Member Role Status Dates Dr. Amish Tavares MD Primary Care Provider Active Start: June 30, 2024 Dr. Jass Rai MD Attending Provider Active S tart: June 30, 2024 Team Status: Active Member Role Status Dates Dr. Amish Tavares MD Primary Care Provider Active Start: June 30, 2024 Dr. Jass Rai MD Attending Provider Active S tart: June 30, 2024 Dr. Jatin Lopez DPM Referring Provider Active Start: June 30, 2024 Team Status: Inactive Member Role Status Dates Dr. Amish Tavares MD Primary Care Provider Active Start: July 05, 2024 End: July 05, 2024 Dr. Amish Tavares MD Attending Provider Active Start: July 05, 2024 End: July 05, 2024 Dr. Amish Tavares MD Referring Provider Active Start: July 05, 2024 End: July 05, 2024 Team Status: Inactive Member Role Status Dates Dr. Amish Tvaares MD Referring Provider Active Start: July 06, 2024 End: July 06, 2024 Dr. Delicia Smith DO Attending Provider Activ e Start: July 06, 2024 End: July 06, 2024 Team Status: Inactive Member Role Status Dates Dr. Amish Tavares MD Primary Care Provider Active Start: July 17, 2024 End: July 17, 2024 Dr. Delicia Smith DO Attending Provider Activ e Start: July 17, 2024 End: July 17, 2024 Dr. Delicia Smith DO Referring Provider Activ e Start: July 17, 2024 End: July 17, 2024 Team Status: Active Member Role Status Dates Dr. Amish Tavares MD Primary Care Provider Active Start: July 24, 2024 Health Risk Assessment Attending Provider Active Start: July 24, 2024 Health Risk Assessment Referring Provider Active Start: July 24, 2024 Team Status: Inactive Member Role Status Dates Dr. Amish Tavares MD Primary Care Provider Active Start: July 24, 2024 End: July 24, 2024 Dr. Amish Tavares MD Referring Provider Active Start: July 24, 2024 End: July 24, 2024 Dr. Evert Alaniz MD Attending Provider Active Start: July 24, 2024 End: July 24, 2024 Team Status: Active Member Role Status Dates Dr. Amish Tavares MD Primary Care Provider Active Start: July 27, 2024 Dr. Amish Tavares MD Attending Provider Active Start: July 27, 2024 Dr. Amish Tavares MD Referring Provider Active Start: July 27, 2024 Team Status: Inactive Member Role Status Dates Dr. Delicia Smith DO Attending Provider Activ e Start: August 02, 2024 End: August 02, 2024 Dr. Delicia Smith DO Referring Provider Activ e Start: August 02, 2024 End: August 02, 2024 Dr. Amish Tavares MD Primary Care Provider Active Start: August 02, 2024 End: August 02, 2024 Team Status: Active Member Role Status Dates Dr. Amish Tavares MD Primary Care Provider Active Start: August 04, 2024 Dr. Claudia Krishna MD Attending Provider Active Start: August 04, 2024 Dr. Claudia Krishna MD Referring Provider Active Start: August 04, 2024 Team Status: Inactive Member Role Status Dates Dr. Amish Tavares MD Primary Care Provider Active Start: August 04, 2024 End: August 04, 2024 Dr. Claudia Krishna MD Attending Provider Active Start: August 04, 2024 End: August 04, 2024 Dr. Claudia Krishna MD Referring Provider Active Start: August 04, 2024 End: August 04, 2024 Team Status: Active Member Role/Relationship Status Dates Dr. Amish Tavares MD Primary Care Provider Active Team Status: Inactive Member Role/Relationship Status Dates Dr. Amish Tavares MD Primary Care Provider Active Start: June 30, 2024 End: June 30, 2024 Dr. Jatin Lopez DPM Attending Provider Active Start: June 30, 2024 End: June 30, 2024 Dr. Jatin Lopez DPM Referring Provider Active Start: June 30, 2024 End: June 30, 2024 Team Status: Active Member Role/Relationship Status Dates Dr. Amish Tavares MD Primary Care Provider Active Start: June 30, 2024 Dr. Jass Rai MD Attending Provider Active S tart: June 30, 2024 Dr. Jatin Lopez DPM Referring Provider Active Start: June 30, 2024 Team Status: Inactive Member Role/Relationship Status Dates Dr. Amish Tavares MD Primary Care Provider Active Start: July 05, 2024 End: July 05, 2024 Dr. Amish Tavares MD Attending Provider Active Start: July 05, 2024 End: July 05, 2024 Dr. Amish Tavares MD Referring Provider Active Start: July 05, 2024 End: July 05, 2024 Team Status: Inactive Member Role/Relationship Status Dates Dr. Amish Tavares MD Referring Provider Active Start: July 06, 2024 End: July 06, 2024 Dr. Delicia Smith DO Attending Provider Activ e Start: July 06, 2024 End: July 06, 2024 Team Status: Inactive Member Role/Relationship Status Dates Dr. Amish Tavares MD Primary Care Provider Active Start: July 17, 2024 End: July 17, 2024 Dr. Delicia Smith DO Attending Provider Activ e Start: July 17, 2024 End: July 17, 2024 Dr. Delicia Smith DO Referring Provider Activ e Start: July 17, 2024 End: July 17, 2024 Team Status: Active Member Role/Relationship Status Dates Dr. Amish Tavares MD Primary Care Provider Active Start: July 24, 2024 Health Risk Assessment Attending Provider Active Start: July 24, 2024 Health Risk Assessment Referring Provider Active Start: July 24, 2024 Team Status: Inactive Member Role/Relationship Status Dates Dr. Amish Tavares MD Primary Care Provider Active Start: July 24, 2024 End: July 24, 2024 Dr. Amish Tavares MD Referring Provider Active Start: July 24, 2024 End: July 24, 2024 Dr. Evert Alaniz MD Attending Provider Active Start: July 24, 2024 End: July 24, 2024 Team Status: Active Member Role/Relationship Status Dates Dr. Amish Tavares MD Primary Care Provider Active Start: July 27, 2024 Dr. Amish Tavares MD Attending Provider Active Start: July 27, 2024 Dr. Amish Tavares MD Referring Provider Active Start: July 27, 2024 Team Status: Inactive Member Role/Relationship Status Dates Dr. Delicia Smith DO Attending Provider Activ e Start: August 02, 2024 End: August 02, 2024 Dr. Delicia Smith DO Referring Provider Activ e Start: August 02, 2024 End: August 02, 2024 Dr. Amish Tavares MD Primary Care Provider Active Start: August 02, 2024 End: August 02, 2024 Team Status: Inactive Member Role/Relationship Status Dates Dr. Amish Tavares MD Primary Care Provider Active Start: August 04, 2024 End: August 04, 2024 Dr. Claudia Krishna MD Attending Provider Active Start: August 04, 2024 End: August 04, 2024 Dr. Claudia Krishna MD Referring Provider Active Start: August 04, 2024 End: August 04, 2024 Team Status: Inactive Member Role/Relationship Status Dates Dr. Amish Tavares MD Primary Care Provider Active Start: August 10, 2024 End: August 10, 2024 Dr. Amish Tavares MD Referring Provider Active Start: August 10, 2024 End: August 10, 2024 Dr. Ajay Cruz MD Attending Provider Active Start: August 10, 2024 End: August 10, 2024 Team Status: Inactive Member Role/Relationship Status Dates Dr. Amish Tavares MD Primary Care Provider Active Start: October 04, 2024 End: October 04, 2024 Dr. Claudia Krishna MD Attending Provider Active Start: October 04, 2024 End: October 04, 2024 Dr. Claudia Krishna MD Referring Provider Active Start: October 04, 2024 End: October 04, 2024 Team Status: Active Member Role/Relationship Status Dates Dr. Amish Tavares MD Primary care physician Active Team Status: Inactive Member Role/Relationship Status Dates Dr. Amish Tavares MD Primary care physician Active Start: August 10, 2024 End: August 10, 2024 Dr. Amish Tavares MD Referring Provider Active Start: August 10, 2024 End: August 10, 2024 Dr. Ajay Cruz MD Attending physician Active Start: August 10, 2024 End: August 10, 2024 Team Status: Inactive Member Role/Relationship Status Dates Dr. Amish Tavares MD Primary care physician Active Start: October 04, 2024 End: October 04, 2024 Dr. Claudia Krishna MD Attending physician Active Start: October 04, 2024 End: October 04, 2024 Dr. Claudia Krishna MD Referring Provider Active Start: October 04, 2024 End: October 04, 2024 FOR RECORDS PERTAINING TO PATIENTS WHO ARE [...] BE BASED ON THE PRIMARY CLINICAL RECORDS. [facility]. provides no warranty or guarantee of the accuracy or completeness of information in this document.
== END | disposition home or self-care (01) ==
LOC: MTLAB 13:54
PROVIDERS: PCP Family Medicine; Referring Provider Internal Medicine Rheumatology; Visit Provider Internal Medicine Rheumatology
DX: M05.751 Rheumatoid arthritis with rheumatoid factor of right hip without organ or systems involvement (principal); Z79.899 Other long term (current) drug therapy
CPT/HCPCS: 36415; 80053; 85025

== ENCOUNTER 2025-03-01 13:21 | Outpatient (CLI) | payer SELFPAY ==
[2025-03-01] MEDS: 0.9% NaCl Peripheral Flush Adult IV (13:30)
[2025-03-01 13:41] VITALS: BP 101/69; PULSE 75; RESP 16; TEMP 35.7; O2SAT 100; BMI 25.0
== END 2025-03-01 23:59 | disposition home or self-care (01) ==
PROVIDERS: PCP Family Medicine; Referring Provider Internal Medicine Endocrinology, Diabetes & Metabolism; Visit Provider Internal Medicine Endocrinology, Diabetes & Metabolism
DX: M81.0 Age-related osteoporosis without current pathological fracture (principal)
CPT/HCPCS: 96365; A4216; J3489